=== PATIENT | male | born 1950 | race Caucasian/White ===

== ENCOUNTER → 2018-02-13 06:46 | Outpatient (CLI) | payer MEDICARE, SELFPAY ==
--- NOTE | 2018-02-13 11:22 | PFT ---
INTRODUCTION: The patient is a 67-year-old male that presents for pulmonary function studies secondary to a diagnosis of chronic cough. Respiratory therapy reports good patient effort. Bronchodilators were used during testing. INTERPRETATION: Forced expiration spirometry demonstrates no evidence of a large airways obstructive ventilatory defect. There was no significant response to aerosolized bronchodilators. Spirograms are of good quality and plateau normally. Body plethysmography was performed and reveals lung volumes to be within normal limits. Diffusing capacity by single breath CO is within normal limits. IMPRESSION: Essentially normal pulmonary function studies.
== END ==
PROVIDERS: Family Provider Family Medicine; PCP Family Medicine; Referring Provider Internal Medicine Critical Care Medicine; Visit Provider Internal Medicine Critical Care Medicine
DX: R05 Cough (principal); R06.09 Other forms of dyspnea
CPT/HCPCS: 94060; 94726; 94729

== ENCOUNTER → 2019-01-31 08:17 | Outpatient (CLI) | payer OTHER, SELFPAY ==
[2018-03-07 07:55] VITALS: BMI 25.2
[2019-01-31 10:11] LABS: Absolute Lymphocyte Count 1.56 X10^3/uL (0.83-4.51); Absolute Neutrophil Count 3.1 X10^3/uL (2.0-7.7); Basophil# 0.03 X10^3/uL; Basophil% 0.6 % (0-1); Eosinophil# 0.08 X10^3/uL; Eosinophils% 1.6 % (0-5); Hematocrit 47.2 % (40-54); Hemoglobin 15.8 g/dL (13.0-16.5); Lymphocyte # 1.56 X10^3/ul (4.0); Lymphocyte % 30.6 % (19-41); Mean Corp Hgb Conc 33.5 g/dL (32-36); Mean Corpuscular Hgb 31.9 pg (27.0-32.0); Mean Corpuscular Volume 95.4 fL (80-94); Mean Platelet Vol. 11.6 fl (6.2-12.0); Monocyte# 0.33 X10^3/uL; Monocyte% 6.5 % (0-10); NRBC Flagged by Analyzer 0 % (0-5); Neutrophil # 3.07 X10^3/uL (2.7-7.7); Neutrophil % 60.3 % (47-70); RBC Distribution Width CV 11.5 % (11.6-14.6); RBC Distribution Width SD 40.1 fl (35.1-43.9); Red Blood Count 4.95 M/mm3 (4.6-6.2); White Blood Count 5.1 K/mm3 (4.4-11.0)
[2019-01-31 10:38] LABS: ALB/GLOB Ratio 1.1 RATIO (0.9-2.4); AST(SGOT) 19 U/L (15-37); Alanine Aminotransfer ALT/SGPT 29 U/L (16-61); Albumin, Serum 3.8 g/dL (3.2-5.0); Alkaline Phosphatase 62 U/L (45-117); Anion Gap 5 (5-15); BUN 19 mg/dL (7-18); BUN/Creat Ratio 17.6 RATIO (10-20); Chloride 107 mmol/L (98-107); Cholesterol 194 mg/dL (200); Creatinine, Serum 1.08 mg/dL (0.70-1.30); EST Glomerular Filtration Rate 72 mL/min (>60); Est Glom Filt Rate - Afr Amer 88 mL/min (>60); Globulin 3.5 g/dL (2.2-4.2); Glucose 90 mg/dL (74-106); High Density Lipoprotein 64 mg/dL; PSA,Total - Annual Screen 1.41 ng/mL (0.00-4.00); Potassium 4.1 mmol/L (3.5-5.1); Protein, Total 7.3 g/dL (6.4-8.2); Sodium Level 140 mmol/L (136-145); Triglycerides 129 mg/dL; Very Low Density Lipoprotein 26 mg/dL (5-40)
[2019-01-31 10:45] LABS: Platelet Estimate ADEQUATE (ADEQ); Platelet Morphology CLUMPED
== END ==
PROVIDERS: Family Provider Family Medicine; PCP Family Medicine; Referring Provider Family Medicine; Visit Provider Family Medicine
DX: E78.00 Pure hypercholesterolemia, unspecified (principal); D69.6 Thrombocytopenia, unspecified; Z12.5 Encounter for screening for malignant neoplasm of prostate
CPT/HCPCS: 36415; 80053; 80061; 84153; 85025; G0103

== ENCOUNTER → 2019-05-16 09:28 | Outpatient (CLI) | payer MEDICARE, SELFPAY ==
--- NOTE | 2019-05-16 10:14 | MRI_ITS ---
STUDY: MRI RIGHT SHOULDER REASON FOR EXAM: Right shoulder pain and limited range of motion for 3 months, surgery 06/03/2002. TECHNIQUE: Standardized fat and water weighted pulse sequences were obtained in all 3 orthogonal planes. COMPARISON: MRI images 01/24/2011 and radiographs 06/12/2010. FINDINGS: There is postoperative scarring of the supraspinatus tendon and a small low-grade partial thickness tear of the articular surface of the distal anterior supraspinatus tendon (T2 coronal image 14) measuring approximately 0.4 cm in length, similar to the prior study. Normal infraspinatus tendon. There is a chronic full-thickness tear of the subscapularis tendon (proton density axial images 9, 10) similar to the prior study. Normal teres minor tendon. There is mild atrophy with mild partial fat replacement of the supraspinatus muscle (T2 axial image 5). Normal infraspinatus muscle. There is atrophy with partial fat replacement of the subscapularis muscle (T2 axial images 13-16). Normal teres minor muscle. There is also chondral cystic change of the superior glenoid. There is postoperative artifact in the anterior aspect of the greater tuberosity. There is nonvisualization of the intracapsular long biceps tendon as on the prior study, either secondary to chronic tear or biceps tenotomy. There is a tear of the superior labrum (T2 coronal images 8-10) as on the prior study. Normal capsulo- ligamentous complex. There is mild acromioclavicular arthrosis (T2 sagittal image 13) without substantial undersurface osteophytes. Status post subacromial decompression. There is a very small volume of subacromial-subdeltoid bursal fluid (T2 coronal images 10-13). Normal deltoid muscle. Normal trapezius muscle. 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 Small low-grade partial thickness tear similar to the prior study and postoperative scarring of the supraspinatus tendon. Atrophy of the subscapularis muscle and mild atrophy of the supraspinatus muscle. Nonvisualization of the intracapsular long biceps tendon as on the prior study. Chronic tear of the superior labrum. Mild acromioclavicular arthrosis. Very mild subacromial-subdeltoid bursitis. Electronically Signed: Rafi Puente MD at 11:36 EST Tel , Service support ,
== END ==
PROVIDERS: Family Provider Family Medicine; PCP Family Medicine; Referring Provider Orthopaedic Surgery; Visit Provider Orthopaedic Surgery
DX: S46.011A Strain of muscle(s) and tendon(s) of the rotator cuff of right shoulder, initial encounter (principal)
CPT/HCPCS: 73221

== ENCOUNTER → 2019-08-29 08:29 | Outpatient (CLI) | payer MEDICARE, SELFPAY ==
[2018-03-07 07:55] VITALS: BMI 25.2
[2019-08-29 09:50] LABS: Absolute Lymphocyte Count 1.82 X10^3/uL (0.83-4.51); Absolute Neutrophil Count 3.4 X10^3/uL (2.0-7.7); Basophil# 0.02 X10^3/uL; Basophil% 0.3 % (0-1); Eosinophil# 0.09 X10^3/uL; Eosinophils% 1.6 % (0-5); Hematocrit 45.9 % (40-54); Hemoglobin 15.3 g/dL (13.0-16.5); Lymphocyte # 1.82 X10^3/ul (4.0); Lymphocyte % 31.5 % (19-41); Mean Corp Hgb Conc 33.3 g/dL (32-36); Mean Corpuscular Hgb 31.4 pg (27.0-32.0); Mean Corpuscular Volume 94.1 fL (80-94); Mean Platelet Vol. 11.6 fl (6.2-12.0); Monocyte# 0.43 X10^3/uL; Monocyte% 7.4 % (0-10); NRBC Flagged by Analyzer 0 % (0-5); Neutrophil # 3.41 X10^3/uL (2.7-7.7); Platelet Count 100 K/mm3 (150-450); RBC Distribution Width CV 11.7 % (11.6-14.6); RBC Distribution Width SD 40.5 fl (35.1-43.9); Red Blood Count 4.88 M/mm3 (4.6-6.2); White Blood Count 5.8 K/mm3 (4.4-11.0)
[2019-08-29 10:20] LABS: ALB/GLOB Ratio 1.2 RATIO (0.9-2.4); AST(SGOT) 19 U/L (15-37); Alanine Aminotransfer ALT/SGPT 29 U/L (16-61); Alkaline Phosphatase 63 U/L (45-117); Anion Gap 7 (5-15); BUN 22 mg/dL (7-18); BUN/Creat Ratio 22.4 RATIO (10-20); Calcium,Total 8.9 mg/dL (8.5-10.1); Chloride 105 mmol/L (98-107); Cholesterol 198 mg/dL (200); Creatinine, Serum 0.98 mg/dL (0.70-1.30); EST Glomerular Filtration Rate 81 mL/min (>60); Est Glom Filt Rate - Afr Amer 98 mL/min (>60); Globulin 3.4 g/dL (2.2-4.2); Glucose 88 mg/dL (74-106); High Density Lipoprotein 65 mg/dL; Protein, Total 7.4 g/dL (6.4-8.2); Sodium Level 140 mmol/L (136-145); Triglycerides 65 mg/dL; Very Low Density Lipoprotein 13 mg/dL (5-40)
== END ==
PROVIDERS: PCP Family Medicine; Referring Provider Family Medicine; Visit Provider Family Medicine
DX: E78.00 Pure hypercholesterolemia, unspecified (principal); K21.9 Gastro-esophageal reflux disease without esophagitis
CPT/HCPCS: 36415; 80053; 80061; 85025

== ENCOUNTER → 2019-09-16 08:46 | Outpatient (CLI) | payer MEDICARE, SELFPAY ==
[2019-09-16 10:07] LABS: AST(SGOT) 20 U/L (15-37); Alanine Aminotransfer ALT/SGPT 30 U/L (16-61); Albumin, Serum 3.9 g/dL (3.2-5.0); Alkaline Phosphatase 62 U/L (45-117); Bilirubin, Direct 0.27 mg/dL (0.00-0.30); Globulin 3.5 g/dL (2.2-4.2); Protein, Total 7.4 g/dL (6.4-8.2)
== END ==
PROVIDERS: PCP Family Medicine; Referring Provider Family Medicine; Visit Provider Family Medicine
DX: E80.6 Other disorders of bilirubin metabolism (principal)
CPT/HCPCS: 36415; 80076

== ENCOUNTER → 2019-12-23 07:04 | Outpatient (CLI) | payer MEDICARE, SELFPAY ==
[2019-12-04 08:13] VITALS: BMI 26.8
--- NOTE | 2019-12-23 07:05 | ECHOD_ITS ---
Reason For Study: Chest Pain Procedure This was a 2D Doppler, Color Flow transthoracic echocardiogram. Myocardial strain analysis was performed in this exam to aid in the assessment of cardiac function. Exam performed in department. Left Ventricle Normal LV size. Left ventricular systolic function is normal. The estimated ejection fraction is 55 %. Stage 1 diastolic dysfunction. No regional wall motion abnormalities noted. Right Ventricle Normal RV size. Normal systolic function. Atria Normal left atrium. Normal right atrium. Mitral Valve Normal mitral valve. Tricuspid Valve Normal tricuspid valve. Mild tricuspid valve insufficiency. Aortic Valve Normal aortic valve. Trisinus/trileaflet aortic valve. Pulmonic Valve Normal pulmonic valve. Great Vessels Normal aortic root. The pulmonary artery is normal size. Normal inferior vena cava. Pericardium/Pleural No pericardial effusion. MMode/2D Measurements & Calculations LVIDd: 4.2 cm IVSd: 1.3 cm Ao root diam: 3.6 cm LVIDs: 2.9 cm LVPWd: 1.2 cm LA dimension: 3.3 cm RVDd: 2.4 cm FS: 29.6 % LAV(MOD-bp): 35.5 ml LA A4 area: 14.4 cm2 RA A4 area: 10.7 cm2 LAV(MOD-bp) Indexed: 19.4 ml/m2 LAV(MOD-sp2): 33.2 ml LAV(MOD-sp4): 37.2 ml Time Measurements MV dec time: 0.24 sec Doppler Measurements & Calculations MV E max parth: 66.8 cm/sec Lat Peak E' Parth: 5.7 cm/sec Med Peak E' Parth: 4.5 cm/sec MV A max parth: 87.6 cm/sec E/E' lat: 11.6 E/E' med: 15.0 MV E/A: 0.76 MV V2 max: 89.7 cm/sec MV P1/2t max parth: 75.5 cm/sec Ao V2 max: 121.0 cm/sec MV max P.2 mmHg MV P1/2t: 72.0 msec Ao max P.9 mmHg MV V2 mean: 55.1 cm/sec MV dec slope: 307.0 cm/sec2 MV mean P.4 mmHg MVA(P1/2t): 3.1 cm2 MV V2 VTI: 25.3 cm LV V1 max: 89.8 cm/sec PA V2 max: 80.9 cm/sec PI end-d parth: 77.0 cm/sec LV V1 max P.2 mmHg TR max parth: 229.0 cm/sec TR max P.0 mmHg Interpretation Summary Normal LV size. Left ventricular systolic function is normal. The estimated ejection fraction is 55 %. Stage 1 diastolic dysfunction. The global longitudinal strain is mildly abnormal. The global longitudinal strain = -15.1% (abnormal). Ordering Physician: Jordon Benavides MD Referring Physician: Taras Workman Performed By: Manuel Umana RCS
--- NOTE | 2019-12-23 09:18 | STRESSREP ---
Stress Test Report Exercise myocardial perfusion stress test. 69-year-old male with a significant family history of coronary disease. Stress protocol: Resting KG demonstrates normal sinus rhythm with a rate of 74 bpm normal intervals are noted resting blood pressure is 146/94 mmHg. The patient exercised according to the regular Hoang protocol for a total duration of 10 minutes and 30 seconds. The maximum heart rate attained was 171 bpm which was 112% of maximum predicted heart rate. Patient completed 1 minute and 30 seconds into stage IV of the Hoang protocol. At rest there were no ST or T wave changes noted to suggest ischemia at peak exercise upsloping ST changes only were noted with no meet the criteria for ischemia. Resting blood pressure was 146/94 with a peak blood pressure 172/88 mmHg rate-pressure product was 22,500. No clinical angina was noted the test was terminated due to attainment of target heart rate. Myocardial perfusion protocol. 10.0 mCi of technetium 99m sestamibi was injected at rest. The patient exercised according to regular Hoang protocol peak exercise 31.2 mCi of technetium 99m sestamibi was injected stress images were obtained stress and rest images were reconstructed and compared in the short axis vertical long horizontal long axis. Gated images were also obtained Perfusion SPECT analysis: Review of the stress images demonstrate normal uptake of tracer noted in all areas of myocardium the resting images similar demonstrate normal uptake of tracer noted in all areas of the myocardium. No reversibility is noted suggest ischemia no previous infarct is noted. Gated SPECT analysis: The gated ejection fraction is noted to be 61%. Conclusion: Normal exercise myocardial perfusion stress test at a high workload. Preserved ejection fraction.
== END ==
PROVIDERS: PCP Family Medicine; Referring Provider Internal Medicine Cardiovascular Disease; Visit Provider Internal Medicine Cardiovascular Disease
DX: R07.9 Chest pain, unspecified (principal)
CPT/HCPCS: 78452; 93017; 93306; A9500; A4216

== ENCOUNTER → 2020-03-03 09:08 | Outpatient (CLI) | payer MEDICARE, SELFPAY ==
[2019-12-04 08:13] VITALS: BMI 26.8
== END ==
PROVIDERS: PCP Family Medicine; Referring Provider Family Medicine; Visit Provider Family Medicine
DX: Z12.5 Encounter for screening for malignant neoplasm of prostate (principal)
CPT/HCPCS: 36415; 84153; G0103

== ENCOUNTER → 2020-03-30 | Outpatient (CLI) | payer MEDICARE, SELFPAY ==
[2019-12-04 08:13] VITALS: BMI 26.8
[2020-03-30 13:38] LABS: Bacteria 0 SEEN /hpf (None Seen); Mucous, Urine 0 SEEN /hpf (<or=2+); Squamous Epithelial Cells - UA 0 SEEN /hpf (0-5); White Blood Cells 0 SEEN /hpf (0-5)
[2020-03-30 14:12] LABS: Color, Urine Yellow (Yellow); Glucose, Dipstick Normal (Normal); Ketone-Dipstick Negative (Negative); Leukocyte Esterase-Dipstick Negative /ul (Negative); Nitrite-Dipstick Negative (Negative); Occult Blood-Urine 25 /ul (Negative); Protein-Dipstick Negative (Negative); Specific Gravity, Urine 1.015 (1.002-1.030); Urine Bilirubin Dipstick Negative (Negative); Urine Clarity Clear (Clear); Urine Urobilinogen Normal (Normal)
[2020-03-30 14:29] LABS: Red Blood Cells-Urine 0-5 SEEN /hpf (0-5)
== END | disposition home or self-care (01) ==
LOC: LABSPEC 12:46
PROVIDERS: PCP Family Medicine; Visit Provider Nurse Practitioner Adult Health
DX: R31.29 Other microscopic hematuria (principal)
CPT/HCPCS: 81001

== ENCOUNTER → 2020-05-06 14:23 | Outpatient (CLI) | payer MEDICARE, SELFPAY ==
[2019-12-04 08:13] VITALS: BMI 26.8
[2020-05-06 18:14] LABS: ALB/GLOB Ratio 1.1 RATIO (0.9-2.4); AST(SGOT) 17 U/L (15-37); Alanine Aminotransfer ALT/SGPT 33 U/L (16-61); Albumin, Serum 3.7 g/dL (3.2-5.0); Alkaline Phosphatase 64 U/L (45-117); Anion Gap 6 (5-15); BUN 23 mg/dL (7-18); BUN/Creat Ratio 20.5 RATIO (10-20); CPK Total, Creatine Kinase 162 U/L (39-308); Calcium,Total 8.6 mg/dL (8.5-10.1); Chloride 108 mmol/L (98-107); Creatinine, Serum 1.12 mg/dL (0.70-1.30); EST Glomerular Filtration Rate 69 mL/min (>60); Est Glom Filt Rate - Afr Amer 84 mL/min (>60); Ferritin 63 ng/mL (26-388); Globulin 3.3 g/dL (2.2-4.2); Glucose 120 mg/dL (74-106); Magnesium 2.3 mg/dL (1.6-2.6); Potassium 4.2 mmol/L (3.5-5.1); Sodium Level 141 mmol/L (136-145)
[2020-05-07 10:20] LABS: Hemoglobin A1c 5.4 % (3.8-5.6)
== END ==
PROVIDERS: PCP Family Medicine; Visit Provider Family Medicine
DX: M62.81 Muscle weakness (generalized) (principal); R73.09 Other abnormal glucose; C44.91 Basal cell carcinoma of skin, unspecified
CPT/HCPCS: 36415; 80053; 82550; 82728; 83036; 83735

== ENCOUNTER → 2020-09-02 08:17 | Outpatient (CLI) | payer MEDICARE, SELFPAY ==
[2019-12-04 08:13] VITALS: BMI 26.8
[2020-09-02 10:27] LABS: Absolute Lymphocyte Count 1.65 X10^3/uL (0.83-4.51); Absolute Neutrophil Count 3.5 X10^3/uL (2.0-7.7); Basophil# 0.02 X10^3/uL; Basophil% 0.4 % (0-1); Eosinophil# 0.07 X10^3/uL; Eosinophils% 1.2 % (0-5); Hemoglobin 15.6 g/dL (13.0-16.5); Lymphocyte # 1.65 X10^3/ul (0.83-4.51); Lymphocyte % 29.3 % (19-41); Mean Corp Hgb Conc 33.2 g/dL (32-36); Mean Corpuscular Hgb 31.9 pg (27.0-32.0); Mean Corpuscular Volume 96.1 fL (80-94); Mean Platelet Vol. 11.8 fl (6.2-12.0); Monocyte# 0.41 X10^3/uL; Monocyte% 7.3 % (0-10); NRBC Flagged by Analyzer 0 % (0-5); Neutrophil # 3.46 X10^3/uL (2.7-7.7); Neutrophil % 61.4 % (47-70); POSITIVE COUNT YES; Platelet Count 97 K/mm3 (150-450); RBC Distribution Width CV 11.7 % (11.6-14.6); RBC Distribution Width SD 40.9 fl (35.1-43.9); Red Blood Count 4.89 M/mm3 (4.6-6.2); White Blood Count 5.6 K/mm3 (4.4-11.0)
[2020-09-02 10:30] LABS: Differential Indicated SCAN CRITERIA MET
[2020-09-02 10:47] LABS: ALB/GLOB Ratio 1.2 RATIO (0.9-2.4); AST(SGOT) 16 U/L (15-37); Alanine Aminotransfer ALT/SGPT 30 U/L (16-61); Albumin, Serum 3.9 g/dL (3.2-5.0); Alkaline Phosphatase 64 U/L (45-117); Anion Gap 3 (5-15); BUN 30 mg/dL (7-18); BUN/Creat Ratio 27.5 RATIO (10-20); Calcium,Total 9.2 mg/dL (8.5-10.1); Chloride 106 mmol/L (98-107); Cholesterol 200 mg/dL (200); Creatinine, Serum 1.09 mg/dL (0.70-1.30); EST Glomerular Filtration Rate 71 mL/min (>60); Est Glom Filt Rate - Afr Amer 86 mL/min (>60); Globulin 3.3 g/dL (2.2-4.2); Glucose 93 mg/dL (74-106); High Density Lipoprotein 71 mg/dL; Potassium 3.9 mmol/L (3.5-5.1); Protein, Total 7.2 g/dL (6.4-8.2); Sodium Level 139 mmol/L (136-145); Triglycerides 84 mg/dL; Very Low Density Lipoprotein 17 mg/dL (5-40)
[2020-09-02 10:52] LABS: Platelet Estimate MOD DEC (ADEQ)
== END ==
PROVIDERS: PCP Family Medicine; Referring Provider Family Medicine; Visit Provider Family Medicine
DX: E78.00 Pure hypercholesterolemia, unspecified (principal); K21.9 Gastro-esophageal reflux disease without esophagitis
CPT/HCPCS: 36415; 80053; 80061; 85025

== ENCOUNTER 2020-11-13 18:02 | Emergency (ER) | payer MEDICARE, SELFPAY ==
[2019-12-04 08:13] VITALS: BMI 26.8
[2020-11-13 18:03] VITALS: BP 156/104; PULSE 82; RESP 16; TEMP 36.2; O2SAT 95; BMI 26.6
--- NOTE | 2020-11-13 18:30 | EKG12_ITS ---
Test Reason : CP Blood Pressure : / mmHG Vent. Rate : 073 BPM Atrial Rate : 073 BPM P-R Int : 144 ms QRS Dur : 082 ms QT Int : 376 ms P-R-T Axes : 043 016 047 degrees QTc Int : 414 ms Normal sinus rhythm Normal ECG Confirmed by FRANCISCO BROWER, WANDER ([id number]), photographic editor AUREA HOPPER ([id number]) on 11/16/2020 1:20:31 PM Referred By: BOB Confirmed By:WANDER SINGH MD
--- NOTE | 2020-11-13 18:30 | RAD_ITS ---
STUDY: X-RAY CHEST REASON FOR EXAM: Male, 70 years old. chest pain TECHNIQUE: 1 view COMPARISON: None. FINDINGS: The lungs are clear and expanded. There is no demonstrated pleural abnormality. Normal size heart. Normal mediastinum and sergey. Normal visualized pulmonary arteries. There is atherosclerotic calcification of the aortic arch with tortuosity. Normal visualized thoracic spine. Normal visualized ribs, clavicles, and shoulders. There is no demonstrated abnormality of the visualized soft tissue structures of the upper abdomen. RAD/Chest 1 View (Portable) IMPRESSION: No acute pulmonary findings. Negative for major consolidation, focal atelectasis or substantial pleural effusion. Normal cardiac size. Atherosclerotic changes of the aorta. Electronically Signed: Kortney Jimenez MD at 20:14 EDT , Service support ,
[2020-11-13 19:03] VITALS: BP 144/103; PULSE 78; RESP 16; O2SAT 94
--- NOTE | 2020-11-13 19:08 | EX.ED.DYSGE1 ---
HPI History of Present Illness Chief Complaint: Chest Pain Informant: patient Narrative Narrative: Patient is a 70-year-old male with a past medical history of GERD, hyperlipidemia who presents to the emergency department for a 45-minute episode of epigastric/sternal pain/pressure. He has had these symptoms before in the past when at nighttime. They have never been this long before. He felt some pain in his jaw as well as some achiness in his left arm. All of his symptoms are currently resolved. He did not have any shortness of breath with this. No nausea or vomiting. He denies any recent illness including any cough, cold, congestion. No pain in the back. He does not know aggravating or relieving factors for this. He has not taken anything for it and it goes away on its own. He states he did have a stress test approximately 1 year ago. No personal history of CAD, stroke, thromboembolism. He denies any swelling or pain in his legs. No smoking history. [facility] Medical History (Updated 11/13/20 @ 21:[address] Ector Reid DO) Basal cell carcinoma GERD (gastroesophageal reflux disease) Hiatal hernia Hyperlipidemia Home Medications simvastatin 20 mg PO QHS 12/10/13 [History Last Taken Unknown] multivitamin with folic acid 1 tab PO DAILY 12/12/13 [History Last Taken Unknown] pantoprazole 40 mg tablet,delayed release 40 mg PO DAILY PRN tab 12/04/19 [History Last Taken Unknown] prevagen 1 tab PO DAILY 12/04/19 [History Last Taken Unknown] coenzyme Q10 [CoQ-10] 100 mg PO DAILY 11/13/20 [History Last Taken Unknown] Allergy/AdvReac Type Severity Reaction Status Date / Time Penicillins Allergy Unknown Verified 11/13/20 18:05 Family History Father Lung cancer Brother No problems noted. Sister CVA (cerebral vascular accident) carotid artery disease Other Heart disease Surgical History H/O colonoscopy H/O endoscopy H/O rotator cuff surgery History of back surgery History of surgery on upper extremity Social History (Updated 12/04/19 @ 09:[address] Jordon Benavides MD) Smoking Status: Never smoker alcohol intake: never substance use type: does not use ROS ROS ED Constitutional Constitutional ED: Denies chills or fever(s) Eyes Eyes: Denies change in vision ENT ENT ED: Denies epistaxis or rhinorrhea Cardiovascular Cardiovascular: Reports chest pain; Denies palpitations Respiratory/Chest Respiratory/Chest: Denies cough, dyspnea or dyspnea on exertion Gastrointestinal Gastrointestinal: Denies abdominal pain, diarrhea, nausea or vomiting Musculoskeletal Musculoskeletal: Denies back pain or neck pain Integumentary Denies rash Neurologic Neurologic: Denies dizziness, headache(s) or weakness EXAM Physical Exam Const Vital Signs: 11/13/20 18:03 11/13/20 18:30 11/13/20 19:03 Temperature 97.2 F L Temperature Source Temporal Pulse Rate 82 78 Respiratory Rate 16 16 Respiratory Effort Normal Non-Labored Respiratory Pattern Normal Blood Pressure 156/104 H 144/103 H Blood Pressure Mean 121 116 Pulse Ox 95 94 Oxygen Delivery Method Room Air Room Air Room Air 11/13/20 20:00 11/13/20 21:00 11/13/20 21:52 Temperature Temperature Source Pulse Rate 80 82 81 Respiratory Rate 16 15 18 Respiratory Effort Respiratory Pattern Blood Pressure 148/104 H 157/104 H 154/106 H Blood Pressure Mean 118 121 Pulse Ox 95 97 98 Oxygen Delivery Method Room Air Room Air Positive well nourished and well developed General Appearance ED: well developed and NAD HEENT Reports normocephalic, head/scalp atraumatic and moist mucous membranes Eyes PERRL and EOMs intact bilaterally Neck supple Chest Wall inspection of chest normal Resp normal respiratory effort and clear to auscultation bilaterally Auscultation: Negative for rales, rhonchi or wheezes Cardio regular rate, regular rhythm and no murmurs GI normal to inspection, nondistended, normoactive bowel sounds and non-tender Palpation: soft; Negative for guarding or rebound tenderness present Back/Spine no CVA tenderness Extremity normal to inspection General Extremety ED: Negative for edema or tenderness General Extremity: Negative for edema Neuro oriented x3, CN's II-XII intact bilaterally and no sensory deficits noted Sensorium / Orientation: alert Motor Exam: strength 5/5 throughout Psych mental status grossly normal Skin no rashes or lesions noted MDM MDM MDM Narrative Medical decision making narrative: Patient presents the [facility] department for an episode of chest pain. He is currently asymptomatic. On arrival to the ED is mildly hypertensive but otherwise normal vital signs. EKG, chest x-ray basic lab work being performed. Patient's lab work did not reveal a significant acute abnormality. His troponin is within normal limits. He has a heart score of 3. He was willing to stay for repeat troponin which was negative. He otherwise has been asymptomatic. At this time I have very low concern for ACS, thromboembolism, aortic catastrophe. He does have GERD medications he will start retaking at home. He is to follow-up with his PCP on Monday morning. I do recommend he get a stress test. If he develops any repeat symptoms or persistent symptoms he needs to come back to the ED for reevaluation. He understands and is agreeable this plan. Discharged home in stable condition. All questions were answered. Lab Data Labs: Laboratory Results - last 24 hr 11/13/20 11/13/20 11/13/20 18:47 18:47 20:46 WBC 7.0 RBC 4.82 Hgb 15.3 Hct 45.5 MCV 94.4 H MCH 31.7 MCHC 33.6 RDW Std Deviation 40.6 RDW Coeff of Christy 11.8 Plt Count 118 L MPV 11.6 Immature Gran % (Auto) 0.300 Neut % (Auto) 63.8 Lymph % (Auto) 27.7 [place] % (Auto) 6.8 Eos % (Auto) 1.1 Baso % (Auto) 0.3 Absolute Neuts (auto) 4.4 Absolute Lymphs (auto) 1.93 Nucleated RBC % 0 Sodium 138 Potassium 4.3 Chloride 105 Carbon Dioxide 29.0 Anion Gap 4 L BUN 26 H Creatinine 1.01 Estim Creat Clear Calc 62.29 Est GFR (MDRD) Af Amer 94 Est GFR (MDRD) Non-Af 78 BUN/Creatinine Ratio 25.7 H Glucose 90 Calcium 8.8 Troponin I High Sens 5.5 5.9 Radiography Diagnostic Testing: Radiology Impression Chest X-Ray 11/13/20 18:30 IMPRESSION: No acute pulmonary findings. Negative for major consolidation, focal atelectasis or substantial pleural effusion. Normal cardiac size. Atherosclerotic changes of the aorta. Electronically Signed: Kortney Jimenez MD at 20:14 EDT , Service support , EKG Initial EKG: Attestation: I personally reviewed and interpreted this EKG as follows: (Rate of 73 bpm and normal sinus rhythm. Normal intervals. Normal axis. No significant ST elevations or depressions. No T wave abnormalities.) Discharge Plan Triage Chief Complaint: Chest Pain ED Provider: Ector Reid Dx/Rx/DC Orders Clinical Impression: Chest pain Instructions: ED Chest Pain [facility] Prescriptions: No Action prevagen 1 tab PO DAILY RF: 0 pantoprazole 40 mg tablet,delayed release (DR/EC) 40 mg PO DAILY PRN (Reason: Gastric Reflux) RF: 0 simvastatin 20 MG tablet 20 mg PO QHS RF: 0 multivitamin with folic acid 1 TABLET tablet 1 tab PO DAILY RF: 0 coenzyme Q10 [CoQ-10] 100 mg Capsule 100 mg PO DAILY RF: 0 Primary Care Provider: Taras Workman Referrals: Taras Workman MD [Primary Care Provider] - As soon as possible Disposition Disposition: Home, Self Care Discharge Date/Time: 11/13/20 21:52
[2020-11-13 19:14] LABS: Absolute Lymphocyte Count 1.93 X10^3/uL (0.83-4.51); Absolute Neutrophil Count 4.4 X10^3/uL (2.0-7.7); Basophil# 0.02 X10^3/uL; Basophil% 0.3 % (0-1); Eosinophil# 0.08 X10^3/uL; Eosinophils% 1.1 % (0-5); Hematocrit 45.5 % (40-54); Hemoglobin 15.3 g/dL (13.0-16.5); Lymphocyte # 1.93 X10^3/ul (0.83-4.51); Lymphocyte % 27.7 % (19-41); Mean Corp Hgb Conc 33.6 g/dL (32-36); Mean Corpuscular Hgb 31.7 pg (27.0-32.0); Mean Corpuscular Volume 94.4 fL (80-94); Mean Platelet Vol. 11.6 fl (6.2-12.0); Monocyte# 0.47 X10^3/uL; Monocyte% 6.8 % (0-10); NRBC Flagged by Analyzer 0 % (0-5); Neutrophil # 4.44 X10^3/uL (2.7-7.7); Neutrophil % 63.8 % (47-70); POSITIVE COUNT NO; POSITIVE DIFFERENTIAL NO; POSITIVE MORPHOLOGY NO; Platelet Count 118 K/mm3 (150-450); RBC Distribution Width CV 11.8 % (11.6-14.6); RBC Distribution Width SD 40.6 fl (35.1-43.9); Red Blood Count 4.82 M/mm3 (4.6-6.2)
[2020-11-13 19:35] LABS: Anion Gap 4 (5-15); BUN 26 mg/dL (7-18); BUN/Creat Ratio 25.7 RATIO (10-20); Calcium,Total 8.8 mg/dL (8.5-10.1); Chloride 105 mmol/L (98-107); Creatinine, Serum 1.01 mg/dL (0.70-1.30); EST Glomerular Filtration Rate 78 mL/min (>60); Est Glom Filt Rate - Afr Amer 94 mL/min (>60); Estimated Creatinine Clearance 62.29 ml/min; Glucose 90 mg/dL (74-106); Potassium 4.3 mmol/L (3.5-5.1); Sodium Level 138 mmol/L (136-145); Troponin-I HS 5.5 pg/mL (3.0-78.5)
[2020-11-13 20:00] VITALS: BP 148/104; PULSE 80; RESP 16; O2SAT 95
[2020-11-13 21:00] VITALS: BP 157/104; PULSE 82; RESP 15; O2SAT 97
[2020-11-13 21:33] LABS: Troponin-I HS 5.9 pg/mL (3.0-78.5)
[2020-11-13 21:52] VITALS: BP 154/106; PULSE 81; RESP 18; O2SAT 98
== END 2020-11-13 21:52 | disposition home or self-care (01) ==
PROVIDERS: Emergency Provider Emergency Medicine; PCP Family Medicine
DX: R07.89 Other chest pain (principal); E78.5 Hyperlipidemia, unspecified; K21.9 Gastro-esophageal reflux disease without esophagitis; K44.9 Diaphragmatic hernia without obstruction or gangrene; Z79.899 Other long term (current) drug therapy
CPT/HCPCS: 71045; 80048; 84484; 85025; 93005; 99285; A4216

== ENCOUNTER → 2020-11-24 11:55 | Outpatient (CLI) | payer MEDICARE, SELFPAY ==
[2020-11-13 18:03] VITALS: BMI 26.6
--- NOTE | 2020-11-24 16:54 | STRESSREP ---
Stress Test Report Exercise test. 70-year-old man with a history of chest pain. Resting EKG demonstrates normal sinus rhythm with a rate of 77 bpm normal intervals are noted resting blood pressure is 138/84 mmHg. The patient exercised according to regular Hoang protocol for a total duration of 10 minutes and 59 seconds. Patient completed 2 minutes of stage IV of the Hoang protocol. The maximum heart rate attained was 179 bpm which was 118% of maximum predicted heart rate the maximum workload was 13.3 metabolic equivalents. The patient maintained sinus rhythm throughout the recording. At rest there were no ST or T wave changes noted to suggest ischemia no clinical angina was noted occasional premature atrial atrial complex was present only. The test was terminated due to the target heart rate being achieved. The peak blood pressure was 170/88 mmHg which was a normal blood pressure response to exercise the rate-pressure product was 28,600. Conclusion: Exercise stress test with no EKG criteria for ischemia at a high workload. Excellent functionally capacity.
== END ==
PROVIDERS: PCP Family Medicine; Referring Provider Family Medicine; Visit Provider Family Medicine
DX: R07.9 Chest pain, unspecified (principal)
CPT/HCPCS: 93017

== ENCOUNTER → 2021-03-05 09:11 | Outpatient (CLI) | payer MEDICARE, SELFPAY ==
[2021-03-05 12:35] LABS: PSA,Total - Annual Screen 1.71 ng/mL (0.00-4.00)
== END ==
PROVIDERS: PCP Family Medicine; Referring Provider Family Medicine; Visit Provider Family Medicine
DX: Z12.5 Encounter for screening for malignant neoplasm of prostate (principal)
CPT/HCPCS: 36415; 84153; G0103

== ENCOUNTER → 2021-04-26 14:28 | Outpatient (CLI) | payer MEDICARE, SELFPAY | PROVIDERS: PCP Family Medicine; Visit Provider Urology | DX: Z00.00 Encounter for general adult medical examination without abnormal findings (principal) ==

== ENCOUNTER 2021-06-25 13:55 | Outpatient (CLI) | payer MEDICARE, SELFPAY ==
--- NOTE | 2021-06-25 13:58 | RAD_ITS ---
STUDY: X-RAY - ACUTE ABDOMINAL SERIES REASON FOR EXAM: Male, 70 years old. ABDOMINAL PAIN TECHNIQUE: Single view of the chest. Supine, view(s) of the abdomen were obtained. COMPARISON: None. FINDINGS: The lungs are clear and expanded. Normal size heart. Normal mediastinum and sergey. Normal visualized pulmonary arteries. Normal visualized aortic arch and descending thoracic aorta. There is a non-specific bowel gas pattern. There are 2 stones in the left kidney measuring respectively 2 mm and 8 mm respectively. There are diffuse degenerative changes of the visualized lumbar spine. There is dextro sclerosis of the lumbar spine, the angle measures 26 degrees. RAD/Acute Abdomen Inc Chest IMPRESSION: There are 2 stones in the left kidney measuring respectively 2 mm and 8 mm respectively. Electronically Signed: Lobito Perez MD at 3:08 EST ,
[2021-06-25 14:58] LABS: Absolute Lymphocyte Count 2.09 X10^3/uL (0.83-4.51); Absolute Neutrophil Count 3.9 X10^3/uL (2.0-7.7); Basophil# 0.03 X10^3/uL; Basophil% 0.5 % (0-1); Eosinophils% 1.5 % (0-5); Hematocrit 46.8 % (40-54); Hemoglobin 15.6 g/dL (13.0-16.5); Lymphocyte # 2.09 X10^3/ul (0.83-4.51); Mean Corp Hgb Conc 33.3 g/dL (32-36); Mean Corpuscular Hgb 31.6 pg (27.0-32.0); Mean Corpuscular Volume 94.7 fL (80-94); Mean Platelet Vol. 11.4 fl (6.2-12.0); Monocyte# 0.41 X10^3/uL; Monocyte% 6.3 % (0-10); NRBC Flagged by Analyzer 0 % (0-5); Neutrophil % 59.5 % (47-70); POSITIVE COUNT YES; Platelet Count 99 K/mm3 (150-450); RBC Distribution Width CV 11.7 % (11.6-14.6); RBC Distribution Width SD 40.3 fl (35.1-43.9); Red Blood Count 4.94 M/mm3 (4.6-6.2); White Blood Count 6.5 K/mm3 (4.4-11.0)
[2021-06-25 15:21] LABS: ALB/GLOB Ratio 1.2 RATIO (0.9-2.4); AST(SGOT) 21 U/L (15-37); Alanine Aminotransfer ALT/SGPT 34 U/L (16-61); Albumin, Serum 3.8 g/dL (3.2-5.0); Alkaline Phosphatase 63 U/L (45-117); Anion Gap 4 (5-15); BUN 19 mg/dL (7-18); BUN/Creat Ratio 18.1 RATIO (10-20); Calcium,Total 8.8 mg/dL (8.5-10.1); Chloride 107 mmol/L (98-107); Creatinine, Serum 1.05 mg/dL (0.70-1.30); EST Glomerular Filtration Rate 74 mL/min (>60); Est Glom Filt Rate - Afr Amer 90 mL/min (>60); Globulin 3.3 g/dL (2.2-4.2); Glucose 76 mg/dL (74-106); Lipase 72 U/L (73-393); Potassium 4.5 mmol/L (3.5-5.1); Protein, Total 7.1 g/dL (6.4-8.2); Sodium Level 139 mmol/L (136-145)
== END 2021-06-25 23:59 | disposition home or self-care (01) ==
LOC: MTLAB 13:57
PROVIDERS: PCP Family Medicine; Referring Provider Family Medicine; Visit Provider Family Medicine
DX: R10.9 Unspecified abdominal pain (principal)
CPT/HCPCS: 36415; 74019; 74022; 80053; 83690; 85025

== ENCOUNTER 2021-06-29 11:02 | Outpatient (CLI) | payer MEDICARE, SELFPAY ==
[2021-06-29 12:53] LABS: AST(SGOT) 22 U/L (15-37); Alanine Aminotransfer ALT/SGPT 31 U/L (16-61); Albumin, Serum 3.7 g/dL (3.2-5.0); Alkaline Phosphatase 58 U/L (45-117); Bilirubin, Direct 0.26 mg/dL (0.00-0.30); Globulin 3.3 g/dL (2.2-4.2)
== END 2021-06-29 23:59 | disposition home or self-care (01) ==
LOC: MFPLAB 11:05
PROVIDERS: PCP Family Medicine; Referring Provider Family Medicine; Visit Provider Family Medicine
DX: E80.6 Other disorders of bilirubin metabolism (principal)
CPT/HCPCS: 36415; 80076

== ENCOUNTER 2021-07-02 11:45 | Outpatient (CLI) | payer MEDICARE, SELFPAY ==
--- NOTE | 2021-07-02 11:49 | US_ITS ---
STUDY: RENAL ULTRASOUND - COMPLETE REASON FOR EXAM: Male, 70 years old. CALCULUS OF KIDNEY TECHNIQUE: Ultrasound evaluation of the kidneys was performed with real-time and static loo-scale imaging. COMPARISON: None. FINDINGS: RIGHT KIDNEY: Normal location of the right kidney, which is normal in size. The right kidney measures 9.3 cm x 5.7 cm x 4.9 cm. There is a normal cortex of the right kidney. The renal cortex measures 1.8 cm. There is no right renal mass or cyst. 4 mm calculus in the midpole calyx. There is no right hydronephrosis. DISTAL RIGHT URETER: There is non-visualization of the distal right ureter. There is no demonstrated right ureterovesical junction calculus. There is a visualized right ureteral jet. LEFT KIDNEY: Normal location of the left kidney, which is normal in size. The left kidney measures 10 cm x 4.2 cm x 6 cm. There is a normal cortex of the left kidney. The renal cortex measures 1.3 cm. 2.9 cm x 2.3 cm x 2.9 cm renal cyst. 4 mm an 8 mm nonobstructive intrarenal calculi are seen. There is no left hydronephrosis. DISTAL LEFT URETER: There is non-visualization of the distal left ureter. There is no demonstrated left ureterovesical junction calculus. There is a visualized left ureteral jet. BLADDER: The distended urinary bladder has a volume of 195 ml. There is a normal wall thickness of the distended urinary bladder. There is no demonstrated mass within the urinary bladder. There are no demonstrated bladder calculi. US/Kidney and Bladder IMPRESSION: Small bilateral nonobstructive intrarenal calculi. Left renal cyst. Electronically Signed: Jorge A Vu MD at 14:33 EST ,
== END 2021-07-02 23:59 | disposition home or self-care (01) ==
LOC: US 11:45
PROVIDERS: PCP Family Medicine; Referring Provider Family Medicine; Visit Provider Family Medicine
DX: N20.0 Calculus of kidney (principal)
CPT/HCPCS: 76770

== ENCOUNTER → 2021-09-01 | Outpatient (CLI) | payer MEDICARE, SELFPAY ==
[2021-09-01 10:07] LABS: Absolute Lymphocyte Count 1.76 X10^3/uL (0.83-4.51); Absolute Neutrophil Count 3.4 X10^3/uL (2.0-7.7); Basophil# 0.02 X10^3/uL; Basophil% 0.4 % (0-1); Eosinophil# 0.06 X10^3/uL; Eosinophils% 1.1 % (0-5); Hematocrit 46.4 % (40-54); Hemoglobin 15.7 g/dL (13.0-16.5); Lymphocyte # 1.76 X10^3/ul (0.83-4.51); Lymphocyte % 31.7 % (19-41); Mean Corp Hgb Conc 33.8 g/dL (32-36); Mean Corpuscular Hgb 31.7 pg (27.0-32.0); Mean Corpuscular Volume 93.5 fL (80-94); Mean Platelet Vol. 11.4 fl (6.2-12.0); Monocyte# 0.35 X10^3/uL; Monocyte% 6.3 % (0-10); NRBC Flagged by Analyzer 0 % (0-5); Neutrophil # 3.36 X10^3/uL (2.7-7.7); Neutrophil % 60.3 % (47-70); POSITIVE COUNT YES; Platelet Count 88 K/mm3 (150-450); RBC Distribution Width CV 11.6 % (11.6-14.6); RBC Distribution Width SD 39.8 fl (35.1-43.9); Red Blood Count 4.96 M/mm3 (4.6-6.2); White Blood Count 5.6 K/mm3 (4.4-11.0)
[2021-09-01 10:08] LABS: Differential Indicated SCAN CRITERIA MET
[2021-09-01 10:33] LABS: ALB/GLOB Ratio 1.1 RATIO (0.9-2.4); AST(SGOT) 15 U/L (15-37); Alanine Aminotransfer ALT/SGPT 30 U/L (16-61); Albumin, Serum 3.7 g/dL (3.2-5.0); Alkaline Phosphatase 59 U/L (45-117); Anion Gap 8 (5-15); BUN 20 mg/dL (7-18); BUN/Creat Ratio 18.2 RATIO (10-20); Bilirubin, Direct 0.15 mg/dL (0.00-0.30); Chloride 105 mmol/L (98-107); Cholesterol 207 mg/dL (200); EST Glomerular Filtration Rate 70 mL/min (>60); Est Glom Filt Rate - Afr Amer 85 mL/min (>60); Globulin 3.5 g/dL (2.2-4.2); Glucose 96 mg/dL (74-106); High Density Lipoprotein 58 mg/dL; Potassium 4.3 mmol/L (3.5-5.1); Protein, Total 7.2 g/dL (6.4-8.2); Sodium Level 138 mmol/L (136-145); Triglycerides 161 mg/dL; Very Low Density Lipoprotein 32 mg/dL (5-40)
[2021-09-01 10:36] LABS: Platelet Estimate ADEQUATE (ADEQ); Platelet Morphology CLUMPED; Red Cell Morphology NORM C+C NORMAL (NORM C&C)
== END | disposition home or self-care (01) ==
LOC: MFPLAB 09:04
PROVIDERS: PCP Family Medicine; Referring Provider Family Medicine; Visit Provider Family Medicine
DX: E78.5 Hyperlipidemia, unspecified (principal)
CPT/HCPCS: 36415; 80053; 80061; 82248; 85025

== ENCOUNTER → 2021-09-14 | Outpatient (CLI) | payer MEDICARE, SELFPAY ==
[2021-09-14 10:11] LABS: Absolute Lymphocyte Count 1.63 X10^3/uL (0.83-4.51); Absolute Neutrophil Count 3.8 X10^3/uL (2.0-7.7); Basophil# 0.03 X10^3/uL; Basophil% 0.5 % (0-1); Eosinophil# 0.06 X10^3/uL; Hematocrit 45.1 % (40-54); Hemoglobin 15.4 g/dL (13.0-16.5); Lymphocyte # 1.63 X10^3/ul (0.83-4.51); Lymphocyte % 27.6 % (19-41); Mean Corp Hgb Conc 34.1 g/dL (32-36); Mean Corpuscular Hgb 32.2 pg (27.0-32.0); Mean Corpuscular Volume 94.4 fL (80-94); Mean Platelet Vol. 12.7 fl (6.2-12.0); Monocyte# 0.38 X10^3/uL; Monocyte% 6.4 % (0-10); NRBC Flagged by Analyzer 0 % (0-5); Neutrophil # 3.79 X10^3/uL (2.7-7.7); Neutrophil % 64.2 % (47-70); POSITIVE COUNT YES; Platelet Count 77 K/mm3 (150-450); RBC Distribution Width CV 11.5 % (11.6-14.6); RBC Distribution Width SD 40.3 fl (35.1-43.9); Red Blood Count 4.78 M/mm3 (4.6-6.2); White Blood Count 5.9 K/mm3 (4.4-11.0)
== END | disposition home or self-care (01) ==
LOC: MFPLAB 09:17
PROVIDERS: PCP Family Medicine; Referring Provider Family Medicine; Visit Provider Family Medicine
DX: E78.5 Hyperlipidemia, unspecified (principal)
CPT/HCPCS: 36415; 85025

== ENCOUNTER → 2021-11-25 | Outpatient (CLI) | payer MEDICARE, SELFPAY ==
[2021-11-25 12:55] LABS: Anion Gap 5 (5-15); BUN 19 mg/dL (7-18); BUN/Creat Ratio 17.3 RATIO (10-20); Calcium,Total 9.4 mg/dL (8.5-10.1); Chloride 103 mmol/L (98-107); EST Glomerular Filtration Rate 70 mL/min (>60); Est Glom Filt Rate - Afr Amer 85 mL/min (>60); Glucose 84 mg/dL (74-106); Potassium 4.3 mmol/L (3.5-5.1); Sodium Level 138 mmol/L (136-145)
== END | disposition home or self-care (01) ==
LOC: LAB 11:31
PROVIDERS: PCP Family Medicine; Visit Provider Internal Medicine Cardiovascular Disease
DX: R07.9 Chest pain, unspecified (principal); E78.5 Hyperlipidemia, unspecified
CPT/HCPCS: 36415; 80048

== ENCOUNTER → 2021-12-16 | Outpatient (CLI) | payer MEDICARE, SELFPAY ==
--- NOTE | 2021-12-16 13:17 | CT_ITS ---
INDICATION: Atypical chest pain EXAMINATION: CT CHEST WITHOUT CONTRAST - CT Chest W/O Contrast Injection TECHNIQUE: Helically acquired images were obtained of the chest. A radiation dose optimization technique was used for this scan. IV Contrast dosage and agent: None. COMPARISON: None. FINDINGS: LUNGS, PLEURA AND LARGE AIRWAYS: Lung windows show chronic interstitial changes with dependent atelectasis. No organized infiltrate or effusion. No pleural thickening. No pneumothorax. HEART AND PERICARDIUM: Heart size is normal. No pericardial effusion. CORONARY ARTERIES: Coronary artery calcification is seen. VESSELS: There is borderline aneurysmal dilatation of the ascending thoracic aorta 3.91 cm. No evidence of dissection. MEDIASTINUM AND KAYLA: No mediastinal or hilar adenopathy. Esophagus is unremarkable. No hiatal hernia. UPPER ABDOMEN: No acute pathology. BONES: No suspicious lytic or blastic abnormality. 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 No evidence of dissection Electronically Signed: Boby Young MD at 12:10 EDT ,
[2021-12-16 13:22] VITALS: BP 125/84; PULSE 76; RESP 16; O2SAT 96; BMI 27.4
[2021-12-16 13:33] VITALS: BP 125/84; PULSE 76
[2021-12-16] MEDS: Metoprolol Tartrate 5 MG/5 ML Vial IV ×3 (13:33→13:46)
[2021-12-16 13:40] VITALS: BP 156/104; PULSE 73
[2021-12-16 13:46] VITALS: BP 144/99; PULSE 77
[2021-12-16 14:22] VITALS: BP 124/89; PULSE 69
[2021-12-16] MEDS: Nitroglycerin SL (ED/IMG/CATH) 0.4 MG TABLET SL (14:22)
[2021-12-16 14:32] VITALS: BP 126/87; PULSE 69; RESP 14; O2SAT 94
--- NOTE | 2021-12-16 15:59 | CA.SCORE ---
Calcium Scoring Date of Study:: 12/16/21 Indications Indications: Chest pain Coronary Calcium Scoring: High-resolution Computed Tomographic imaging of the chest was performed on [12/16/21 ], with particular attention paid to the coronary arteries. Images from the examination were analyzed for the presence and extent of coronary artery calcification , using coronary calcium quantification software. The patient tolerated the procedure well and there were no complications. The results of the coronary calcification analysis are provided below. Findings Coronary Artery Left Main (LM): 94 Left Anterior Descending (LAD): 37 Left Circumflex (LCX): 24 Right Coronary Artery (RCA): 52 Total Agatston Score: 207 Calcium Scoring Interpretation: 0 No identifiable atherosclerotic plaque. Very low cardiovascular disease risk. <5% chance of presence coronary artery disease A Negative Examination 1-10 Minimal Plaque burden. Significant coronary artery disease very unlikely. 11-100 Mild plaque burden. Likely mild or minimal coronary atherosclerosis. 101-400 Moderate plaque burden Moderate non-obstructive coronary artery disease highly likely. Over 400 Extensive plaque burden. High likelihood of at least one significant coronary stenosis (>50% diameter)
--- NOTE | 2021-12-22 14:55 | CCTA.WCONT ---
CCTA w/Cont Coronary Arteries Date of Study:: 12/16/21 cp LEFT MAIN CORONARY ARTERY:Mild calcification is noted in the left main coronary artery LEFT ANTERIOR DESCENDING CORONARY ARTERY:There is eccentric proximal calcification and the vessel continues giving off 2 diagonal branches with no high-grade stenosis noted [] LEFT CIRCUMFLEX CORONARY ARTERY:This is a nondominant vessel with minimal calcification in the midsegment with no high-grade stenosis [] RIGHT CORONARY ARTERY:Large dominant right coronary artery with eccentric calcification and no high-grade stenosis noted. [] CORONARY CALCIUM SCORE:207. Conclusion: Nonobstructive coronary artery disease with mild calcified plaque and mildly elevated coronary calcium score. []
== END | disposition home or self-care (01) ==
LOC: CT 13:01
PROVIDERS: PCP Family Medicine; Visit Provider Internal Medicine Cardiovascular Disease
DX: R07.9 Chest pain, unspecified (principal); E78.5 Hyperlipidemia, unspecified
CPT/HCPCS: 75571; 75574; 76380; Q9967

== ENCOUNTER → 2022-03-08 | Outpatient (CLI) | payer MEDICARE, SELFPAY ==
[2022-03-08 10:26] LABS: Absolute Lymphocyte Count 1.84 X10^3/uL (0.83-4.51); Absolute Neutrophil Count 3.1 X10^3/uL (2.0-7.7); Basophil# 0.03 X10^3/uL; Basophil% 0.6 % (0-1); Eosinophil# 0.06 X10^3/uL; Eosinophils% 1.1 % (0-5); Hematocrit 44.6 % (40-54); Hemoglobin 15.6 g/dL (13.0-16.5); Lymphocyte # 1.84 X10^3/ul (0.83-4.51); Lymphocyte % 33.8 % (19-41); Mean Corpuscular Hgb 32.8 pg (27.0-32.0); Mean Corpuscular Volume 93.9 fL (80-94); Mean Platelet Vol. 11.1 fl (6.2-12.0); Monocyte# 0.37 X10^3/uL; Monocyte% 6.8 % (0-10); NRBC Flagged by Analyzer 0 % (0-5); Neutrophil # 3.13 X10^3/uL (2.7-7.7); Neutrophil % 57.5 % (47-70); POSITIVE COUNT YES; RBC Distribution Width CV 11.6 % (11.6-14.6); RBC Distribution Width SD 39.6 fl (35.1-43.9); Red Blood Count 4.75 M/mm3 (4.6-6.2); White Blood Count 5.4 K/mm3 (4.4-11.0)
[2022-03-08 10:31] LABS: Differential Indicated SCAN CRITERIA MET
[2022-03-08 10:57] LABS: ALB/GLOB Ratio 1.1 RATIO (0.9-2.4); AST(SGOT) 18 U/L (15-37); Alanine Aminotransfer ALT/SGPT 30 U/L (16-61); Albumin, Serum 3.8 g/dL (3.2-5.0); Alkaline Phosphatase 61 U/L (45-117); Anion Gap 6 (5-15); BUN 23 mg/dL (7-18); BUN/Creat Ratio 24.7 RATIO (10-20); Calcium,Total 9.1 mg/dL (8.5-10.1); Chloride 107 mmol/L (98-107); Cholesterol 186 mg/dL (200); Creatinine, Serum 0.93 mg/dL (0.70-1.30); EST Glomerular Filtration Rate 85 mL/min (>60); Est Glom Filt Rate - Afr Amer 103 mL/min (>60); Globulin 3.5 g/dL (2.2-4.2); Glucose 89 mg/dL (74-106); High Density Lipoprotein 64 mg/dL; PSA,Total - Annual Screen 1.85 ng/mL (0.00-4.00); Potassium 3.9 mmol/L (3.5-5.1); Protein, Total 7.3 g/dL (6.4-8.2); Sodium Level 140 mmol/L (136-145); Triglycerides 78 mg/dL; Very Low Density Lipoprotein 16 mg/dL (5-40)
[2022-03-08 11:08] LABS: Platelet Estimate ADEQUATE (ADEQ); Platelet Morphology CLUMPED
== END | disposition home or self-care (01) ==
LOC: MFPLAB 09:11
PROVIDERS: PCP Family Medicine; Referring Provider Family Medicine; Visit Provider Family Medicine
DX: E78.5 Hyperlipidemia, unspecified (principal); Z12.5 Encounter for screening for malignant neoplasm of prostate
CPT/HCPCS: 36415; 80053; 80061; 84153; 85025; G0103

== ENCOUNTER → 2022-05-16 | Outpatient (CLI) | payer MEDICARE, SELFPAY ==
[2022-05-16 18:10] LABS: CRP < 2.90 mg/L (0.0-3.0)
[2022-05-16 18:12] LABS: Erythrocyte Sedimentation Rate 7 mm/hr (0-20)
[2022-05-16 18:15] LABS: Absolute Lymphocyte Count 2.13 X10^3/uL (0.83-4.51); Absolute Neutrophil Count 4.6 X10^3/uL (2.0-7.7); Basophil# 0.02 X10^3/uL; Basophil% 0.3 % (0-1); Eosinophil# 0.09 X10^3/uL; Eosinophils% 1.2 % (0-5); Hematocrit 45.6 % (40-54); Hemoglobin 15.1 g/dL (13.0-16.5); Lymphocyte # 2.13 X10^3/ul (0.83-4.51); Lymphocyte % 29.3 % (19-41); Mean Corp Hgb Conc 33.1 g/dL (32-36); Mean Corpuscular Hgb 31.9 pg (27.0-32.0); Mean Corpuscular Volume 96.2 fL (80-94); Mean Platelet Vol. 11.3 fl (6.2-12.0); Monocyte# 0.45 X10^3/uL; Monocyte% 6.2 % (0-10); NRBC Flagged by Analyzer 0 % (0-5); Neutrophil # 4.56 X10^3/uL (2.7-7.7); Neutrophil % 62.7 % (47-70); POSITIVE COUNT YES; Platelet Count 93 K/mm3 (150-450); RBC Distribution Width CV 11.7 % (11.6-14.6); RBC Distribution Width SD 41.3 fl (35.1-43.9); Red Blood Count 4.74 M/mm3 (4.6-6.2); White Blood Count 7.3 K/mm3 (4.4-11.0)
== END | disposition home or self-care (01) ==
LOC: MFPLAB 16:05
PROVIDERS: PCP Family Medicine; Visit Provider Ophthalmology
DX: H47.10 Unspecified papilledema (principal); H47.021 Hemorrhage in optic nerve sheath, right eye
CPT/HCPCS: 36415; 85025; 85652; 86140

== ENCOUNTER → 2022-05-20 | Outpatient (CLI) | payer MEDICARE, SELFPAY ==
--- NOTE | 2022-05-20 09:39 | CDU_ITS ---
Reason For Study: Acute vision change Rt. Velocities/BP Lt. Velocities/BP Prox CCA 64.5/14.5 cm/sec. Prox CCA 73.5/16 cm/sec. Mid CCA 66.4/15.4 cm/sec. Mid CCA 57.8/13.3 cm/sec. Dist CCA 68.3/16.3 cm/sec. Dist CCA 59.6/16.8 cm/sec. Prox ICA 48.2/10.7 cm/sec. Prox ICA 56.1/16.8 cm/sec. Mid ICA 51.7/16.8 cm/sec. Mid ICA 51.7/17.7 cm/sec. Dist ICA 52.6/18.6 cm/sec. Dist ICA 53.5/21.2 cm/sec. Rt. ICA/CCA = 0.79. Lt. ICA/CCA = 0.94. Prox ECA 71.1/9.7 cm/sec. Prox ECA 63.1/9.9 cm/sec. Rt. Vert. 36/13.3 cm/sec. Lt. Vert. 32.4/9.7 cm/sec. Right Extracranial There is intimal thickening but no significant atherosclerotic plaque noted in the right common carotid artery. There is heterogeneous, irregular atherosclerotic plaque noted in the right internal carotid artery. There is intimal thickening but no significant atherosclerotic plaque noted in the right external carotid artery. Antegrade flow is noted in the right vertebral artery. Left Extracranial There is intimal thickening but no significant atherosclerotic plaque noted in the left common carotid artery. There is intimal thickening but no significant atherosclerotic plaque noted in the left internal carotid artery. There is intimal thickening but no significant atherosclerotic plaque noted in the left external carotid artery. Antegrade flow is noted in the left vertebral artery. Procedure Carotid Duplex 95702. This is a Carotid Duplex examination using B-mode, color flow and specral Doppler. Exam performed in department. VL/Carotid Duplex Ultrasound Interpretation Summary Mild (<50%) stenosis right extracranial internal carotid. Normal left extracranial internal carotid. Patent and antegrade vertebrals bilaterally. Ordering Physician: Kati Ramsay Referring Physician: Taras Workman Performed By: Siobhan Singh RVT
== END | disposition home or self-care (01) ==
LOC: CVS 09:37
PROVIDERS: PCP Family Medicine; Visit Provider Physician Assistant Medical
DX: H53.139 Sudden visual loss, unspecified eye (principal); E78.5 Hyperlipidemia, unspecified; I10 Essential (primary) hypertension; R07.9 Chest pain, unspecified; H53.8 Other visual disturbances
CPT/HCPCS: 93880

== ENCOUNTER 2022-05-27 11:11 | Day surgery (SDC) | payer MEDICARE, SELFPAY ==
[2022-05-27] VITALS (8 sets, daily range): BP systolic 104–135; BP diastolic 54–96; PULSE 77–84; RESP 16–18; TEMP 36.6–36.8; O2SAT 95–97; BMI 27.1
[2022-05-27] MEDS: Lactated Ringers 1,000 ML 15 ML IV ×2 (11:20→13:07)
[2022-05-27] MEDS: Lubricating Jelly 60 GM Tube 30 GM (13:10)
[2022-05-27] MEDS: Lidocaine 1% (30 ml sdv) 30 ML Vial (13:30)
--- NOTE | 2022-05-27 13:40 | TEM_PTH ---
PATIENT: MARISSA HILARIO LOC: [facility] [place] U#:[id number] AGE/SX: 71/M ROOM: RE05/27/[address]: Dr. Norman Mahoney MD : 1950 BED: DIS: 05/27/2022 SPEC #: [id number] RECD: 05/27/22 16:40 STATUS: MARISELA REOdilia #: [id number] ANTOLIN: 05/27/22 13:[address]: Norman Mahoney DEPT: SURGICAL PATHOLOGY RECD BY: Jessa Anderson ENTERED: 05/30/22 11:20 SP TYPE: TEMPORAL OTHR DR: Dr. Taras Workman MD Tissues: Temporal region Procedures: Elastin Stain (control) Special Stain Group II Surgery Specimen Level IV HEADER OPERATION: Temporal artery biopsy PRE-OP DIAGNOSIS: Blurry vision right eye TISSUE SUBMITTED: Temporal artery MICROSCOPIC DIAGNOSIS Right temporal artery, biopsy: Negative for giant cell arteritis. Mild intimal hyperplasia. See comment. SJ:nafisa 05/31/2022 COMMENT Elastic stain with matched control is used in the evaluation of the specimen. MICROSCOPIC DESCRIPTION Slides are reviewed. GROSS DESCRIPTION Received in fixative is one container labeled with the patient's name and designated right temporal artery biopsy. The specimen consists of a tubular piece of gotti soft tissue measuring 2 cm in length and 0.2 cm in diameter. A staple is noted at one end. The staple is removed and the entire specimen is serially sectioned and submitted entirely in one cassette. / BETY:nafisa 05/30/2022 TC:5 CPT: 60701, 71552
--- NOTE | 2022-05-27 13:46 | HP.PCM_ITS ---
History and Physical Date of Admission: 05/27/22 Intake Vital Signs ? 05/23/2307:13 Height 5 ft 6 in Weight: 173 lb 6 oz BMI 28.0 BP 152/86 H Blood Pressure Location Lt brachial Position Sitting Respiration 17 Pulse 76 Pulse Source Monitor Temp 97.6 F L Temp Source Temporal Pulse Oximetry (%) 96 Oxygen Delivery Method room air Intake Visit Reasons:?Temperol Artery BX Chief Complaint: temporal artery biopsy Is patient in pain?: No Allergies Penicillins Allergy (Verified 05/23/22 08:16) Unknown Medications simvastatin 20 mg tablet 20 mg PO QHS 12/10/13 [History Confirmed 05/23/22] multivitamin with folic acid 400 mcg tablet 1 tab PO DAILY 12/12/13 [History Confirmed 05/23/22] pantoprazole 40 mg tablet,delayed release 40 mg PO DAILY PRN Gastric Reflux 12/04/19 [History Confirmed 05/23/22] prevagen 1 tab PO DAILY 12/04/19 [History Confirmed 05/23/22] turmeric root extract 500 mg capsule 500 mg PO DAILY 12/02/20 [History Confirmed 05/23/22] coenzyme Q10 100 mg capsule (CoQ-10) 100 mg PO HS 11/25/21 [History Confirmed 05/23/22] prednisone 20 mg tablet 60 mg PO DAILY 05/23/22 [History Confirmed 05/23/22] PFSH Medical History? Basal cell carcinoma GERD (gastroesophageal reflux disease) Hiatal hernia Hyperlipidemia Surgical History? H/O colonoscopy H/O endoscopy H/O rotator cuff surgery History of back surgery History of surgery on upper extremity Family History? Father?? Lung cancerBrother ?? No problems noted. Sister CVA (cerebral vascular accident) ?? ? carotid artery diseaseOther Heart disease Social History? Smoking Status:? Never smoker alcohol intake:? never substance use type:? does not use HPI HPI HPI: Patient is a 71-year-old male here with right vision changes.? Patient was sent here for temporal artery biopsy by ophthalmology.? He was started on steroids. ROS General General: No weight change, appetite, fatigue, colon cancer, breast cancer or weakness HEENT HEENT: No difficulty swallowing, eye injury, eye surgery, swollen glands or hoarseness Endo Endocrine: No thyroid disease, diabetes mellitus, thyroid cancer, Hair loss, heat intolerance or cold intolerance Skin Skin: No rash or changing moles Musc Musculoskeletal: Yes arthritis Cardio Cardiovascular: No murmur, pacemaker, heart disease, atrial fibrillation, high blood pressure, heart attack, heart stent, palpitations, shortness of breat with exertion or chest pain Psych Psychiatric: No depression, anxiety or hearing voices Resp Respiratory: No shortness of breath, No sleep apnea, No cough, No COPD, No asthma, No emphysema and No wheezing Gastro Gastrointestinal: No abdominal pain, No nausea or vomiting, No diarrhea, No c onstipation, No blood in stool, Yes acid reflux, No hemorrhoids, No ulcers, No gallbladder problem and No black,tarry stools Carlos Hematologic: No blood thinners, No blood disorders, No bleeding, No anemia and No blood clots Neuro Neurologic: No system reviewed and no additional complaints, except as documented, No as per HPI, No abnormal gait, No abnormal hearing, No abnormal movements, No abnormal speech, No behavioral changes, No burning sensations, No confusion, No convulsions, No disequilibrium, No dizziness, No localized weakness, No frequent falls, No headache(s), No lack of coordination, No loss of vision, No memory loss, No numbness, Yes other visual disturbances, No radicular pain, No restless legs, No sensory deficit, No syncope, No tingling, No tremor(s), No weakness and No other Exam Const General: cooperative Orientation: alert and oriented x3 [facility] Head: normal to inspection Neck Neck: normal visual inspection and full ROM Chest Chest palpation & inspection: normal inspection of the chest Resp Effort & Inspection: normal respiratory effort Auscultation: clear to auscultation bilaterally Cardio Rate: regular rate Rhythm: regular rhythm GI Inspection: non-distended Palpation: soft and nontender Skin General: no rashes or lesions noted Neuro General: patient alert and patient oriented x3 Extrem General: full ROM Psych Appearance: grossly normal Mental Status: mental status grossly normal Assessment and Plan Assessment and Plan (1) Blurry vision, right eye: ?Status:?Acute ?Plan: The patient has been having blurriness of his right eye for about a week and a half.? He was started on steroids and recommended for temporal artery biopsy.? I discussed right temporal artery biopsy with the patient in detail.? I discussed the risks including but not limited to bleeding, infection, hematoma formation or bleeding.? I also discussed possibility of nondiagnosis.? Patient understands all the risks and is willing to proceed.? He will stop his turmeric immediately. Norman Mahoney MD Pager: [facility] [address] [place] [address] [address] [place] [address] Office: I have examined the patient and the H&P has been reviewed. There are no clinical changes since date of exam.
--- NOTE | 2022-05-27 13:47 | PCM.OPRPT ---
Report of Operation Date of Procedure: 05/27/22 Pre-Operative Diagnosis: Right eye blurry vision Post-Operative Diagnosis: Same Surgery/Procedure Performed:: Right temporal artery biopsy Specimen's removed: Right temporal artery Description of Procedure: Patient was brought back to the operating room and the right rastafari was shaved of hair and then inspected with the ultrasound. The temporal artery was identified and marked. Next the rastafari was prepped and draped and then the incision was injected with local anesthetic. Incision was made with a scalpel and deepened to the fascia using electrocautery. The fascia was sharply incised and the artery was identified. Proximally the artery was clipped and then suture-ligated and distally the artery was clipped and ligated. The branches were also clipped and divided. The cavity was irrigated and suctioned dry and the incision was closed with interrupted 4-0 Monocryl suture and then a running 4-0 Monocryl suture. Dermabond glue was applied. Patient was then taken to PACU in stable condition and tolerated the procedure well with minimal blood loss. Admit VTE Documentation VTE Mechan Device Prophylaxis: SCD's
--- NOTE | 2022-05-27 13:52 | DCINST_ITS ---
Discharge Instructions Diet Discharge Diet: No restrictions Activity Discharge Activity: May Shower Lifting Restrictions: Light activity with no heavy lifting for 3-4 days Dressing / Incision Call your doctor if your incision/area has: Continuous Slow Oozing, Sudden Increased Bleeding, Increased Pain/ Swelling, Increased Redness, Foul Smelling Discharge and Swelling at the incision site Call your doctor if you observe: Fever of 101 or Higher Cleanse incision/area with: Soap & Water Follow Up Care Please Follow Up With: Norman Mahoney MD When: Please call to schedule 2 week follow up appointment. [phone] Test Results: Test results from this visit will be discussed in further detail at your follow- up appointment, if applicable. Discharge Plan Admission Attending Provider: Norman Mahoney Primary Care Provider: Taras Workman Instructions Additional Instructions / Restrictions: Alternating ibuprofen and Tylenol for pain Discharge Orders/Prescriptions Prescriptions: No Action prevagen 1 tab PO DAILY pantoprazole 40 mg tablet,delayed release (DR/EC) 40 mg PO DAILY turmeric root extract 500 mg capsule 500 mg PO DAILY prednisone 20 mg tablet 60 mg PO DAILY simvastatin 20 MG tablet 20 mg PO QHS multivitamin with folic acid 1 TABLET tablet 1 tab PO DAILY coenzyme Q10 [CoQ-10] 100 mg capsule 200 mg PO HS Referrals / Follow Up: Taras Workman MD [Primary Care Provider] - Disposition Disposition (needs filled in before D/C Order can be placed): Home, Self Care
== END 2022-05-27 15:15 | disposition home or self-care (01) ==
LOC: SDC 11:12 → AC 11:13
PROVIDERS: PCP Family Medicine; Referring Provider Surgery; Visit Provider Surgery
PROC: (CPT 37609; principal; 2022-05-27 13:25)
DX: H53.8 Other visual disturbances (principal); K21.9 Gastro-esophageal reflux disease without esophagitis; E78.5 Hyperlipidemia, unspecified
CPT/HCPCS: 37609; 00352; 88305; 88313; J7120; J2405

== ENCOUNTER → 2022-05-31 | Outpatient (CLI) | payer MEDICARE, SELFPAY ==
[2022-05-31 13:01] LABS: Syphilis Antibodies Non-reactive
--- NOTE | 2022-05-31 16:45 | MRI_ITS ---
EXAM: MR ANGIOGRAPHY HEAD WITHOUT INTRAVENOUS CONTRAST CLINICAL INDICATION: PAPILLEDEMA, vision loss right eye TECHNIQUE: Routine tat[place] of [place]/brain 3D time of flight MR angiogram protocol was performed without intravenous contrast. This report was created using [employer] report [employer] technology. COMPARISON: None. FINDINGS: RIGHT INTERNAL CAROTID ARTERY: No acute findings. No significant stenosis at the intracranial/visualized segments. No aneurysm. RIGHT ANTERIOR CEREBRAL ARTERY: Unremarkable. No significant stenosis at the visualized segments. Anterior communicating artery is nonvisualized. RIGHT MIDDLE CEREBRAL ARTERY: Unremarkable. No significant stenosis at the visualized segments. No aneurysm. RIGHT POSTERIOR CEREBRAL ARTERY: Unremarkable. No significant stenosis at the visualized segments. No aneurysm. RIGHT VERTEBRAL ARTERY: Unremarkable as visualized. No significant stenosis at the intradural/visualized segments. No aneurysm. Normal visualized ophthalmic arteries. LEFT INTERNAL CAROTID ARTERY: No acute findings. No significant stenosis at the intracranial/visualized segments. No aneurysm. LEFT ANTERIOR CEREBRAL ARTERY: Unremarkable. No significant stenosis at the visualized segments. Anterior communicating artery is present. No aneurysm. LEFT MIDDLE CEREBRAL ARTERY: Unremarkable. No significant stenosis at the visualized segments. No aneurysm. LEFT POSTERIOR CEREBRAL ARTERY: Unremarkable. No significant stenosis at the visualized segments. No aneurysm. LEFT VERTEBRAL ARTERY: Unremarkable as visualized. No significant stenosis at the intradural/visualized segments. No aneurysm. BASILAR ARTERY: Unremarkable. No significant stenosis. No aneurysm. OTHER VASCULATURE: No vascular malformation. MRI/MRA Head ONLY without Contrast IMPRESSION: Unremarkable MRA head. Electronically Signed: Jil Fuchs MD at 19:23 EST Reading Location ID and State: [id number] / Tel , Service support ,
--- NOTE | 2022-05-31 16:45 | MRI_ITS ---
EXAM: MR BRAIN AND ORBITS WITHOUT AND WITH INTRAVENOUS CONTRAST CLINICAL INDICATION: PAPILLEDEMA, right eye vision loss TECHNIQUE: Multiplanar and multisequence MR images of the brain were obtained without and with intravenous contrast. This report was created using [employer] report [employer] technology. CONTRAST: 15ml iv clariscan COMPARISON: None. FINDINGS: BRAIN AND EXTRA-AXIAL SPACES: No intracranial mass, mass effect, or midline shift. No enhancing lesion. No hemorrhage, territorial infarct or acute ischemia. Mild T2 signal hyperintensity in the white matter are consistent with microvascular ischemia. Mild cerebral atrophy with widening of the extra-axial spaces and ventricular dilation. Basal cisterns are unremarkable. SELLA: Pituitary gland is normal in height. Infundibulum and optic chiasm are unremarkable. AUDITORY SYSTEM: Unremarkable. BONES/JOINTS: Unremarkable. SINUSES: Unremarkable as visualized. Clear. MASTOID AIR CELLS: Unremarkable as visualized. Clear. VASCULATURE: Normal flow voids in the major intracranial circulation. ORBITS: Globes are intact. Extraocular muscles are normal and symmetric. Optic nerve is unremarkable. There is no abnormal signal or enhancement. MRI/Brain W/WO Contrast IMPRESSION: No acute findings. Mild chronic microvascular ischemic changes. Atrophy. Negative MRI orbits with intravenous contrast. Electronically Signed: Jil Fuchs MD at 20:10 EST Reading Location ID and State: [id number] / Tel , Service support ,
[2022-05-31 17:00] LABS: CREATININE FINGERSTICK 1.2 mg/dL (0.70-1.30); EGFR FINGERSTICK > 60.0000 mL/min (>60)
[2022-06-01 18:21] LABS: Angiotensin Convert Enzyme 21 U/L (14-82)
== END | disposition home or self-care (01) ==
PROVIDERS: PCP Family Medicine; Referring Provider Ophthalmology; Visit Provider Ophthalmology
DX: H47.10 Unspecified papilledema (principal)
CPT/HCPCS: 36415; 70544; 70553; 82164; 86780; A9575

== ENCOUNTER → 2022-09-12 | Outpatient (CLI) | payer MEDICARE, SELFPAY ==
[2022-09-12 10:13] LABS: Absolute Lymphocyte Count 1.98 X10^3/uL (0.83-4.51); Absolute Neutrophil Count 3.3 X10^3/uL (2.0-7.7); Basophil# 0.04 X10^3/uL; Basophil% 0.7 % (0-1); Eosinophil# 0.09 X10^3/uL; Eosinophils% 1.5 % (0-5); Hematocrit 46.6 % (40-54); Hemoglobin 15.5 g/dL (13.0-16.5); Lymphocyte # 1.98 X10^3/ul (0.83-4.51); Lymphocyte % 33.9 % (19-41); Mean Corp Hgb Conc 33.3 g/dL (32-36); Mean Corpuscular Hgb 31.5 pg (27.0-32.0); Mean Corpuscular Volume 94.7 fL (80-94); Mean Platelet Vol. 12.1 fl (6.2-12.0); Monocyte# 0.44 X10^3/uL; Monocyte% 7.5 % (0-10); NRBC Flagged by Analyzer 0 % (0-5); Neutrophil # 3.27 X10^3/uL (2.7-7.7); Neutrophil % 56.1 % (47-70); Platelet Count 121 K/mm3 (150-450); RBC Distribution Width CV 11.6 % (11.6-14.6); RBC Distribution Width SD 40.3 fl (35.1-43.9); Red Blood Count 4.92 M/mm3 (4.6-6.2); White Blood Count 5.8 K/mm3 (4.4-11.0)
[2022-09-12 10:35] LABS: ALB/GLOB Ratio 1.4 RATIO (0.9-2.4); AST(SGOT) 21 U/L (15-37); Alanine Aminotransfer ALT/SGPT 33 U/L (16-61); Albumin, Serum 3.9 g/dL (3.2-5.0); Alkaline Phosphatase 61 U/L (45-117); Anion Gap 4 (5-15); BUN 22 mg/dL (7-18); BUN/Creat Ratio 22.2 RATIO (10-20); Calcium,Total 9.2 mg/dL (8.5-10.1); Chloride 107 mmol/L (98-107); Cholesterol 171 mg/dL (200); Creatinine, Serum 0.99 mg/dL (0.70-1.30); EST Glomerular Filtration Rate 79 mL/min (>60); Est Glom Filt Rate - Afr Amer 96 mL/min (>60); Globulin 2.7 g/dL (2.2-4.2); Glucose 88 mg/dL (74-106); High Density Lipoprotein 69 mg/dL; Potassium 4.3 mmol/L (3.5-5.1); Protein, Total 6.6 g/dL (6.4-8.2); Sodium Level 142 mmol/L (136-145); Triglycerides 65 mg/dL; Very Low Density Lipoprotein 13 mg/dL (5-40)
== END | disposition home or self-care (01) ==
PROVIDERS: PCP Family Medicine; Referring Provider Family Medicine; Visit Provider Family Medicine
DX: E78.5 Hyperlipidemia, unspecified (principal)
CPT/HCPCS: 36415; 80053; 80061; 85025

== ENCOUNTER → 2022-09-13 | Outpatient (CLI) | payer MEDICARE, SELFPAY ==
[2022-09-13 10:29] LABS: AST(SGOT) 23 U/L (15-37); Alanine Aminotransfer ALT/SGPT 33 U/L (16-61); Albumin, Serum 3.7 g/dL (3.2-5.0); Alkaline Phosphatase 58 U/L (45-117); Bilirubin, Direct 0.32 mg/dL (0.00-0.30); Globulin 3.2 g/dL (2.2-4.2); Protein, Total 6.9 g/dL (6.4-8.2)
== END | disposition home or self-care (01) ==
LOC: MTLAB 08:28
PROVIDERS: PCP Family Medicine; Referring Provider Family Medicine; Visit Provider Family Medicine
DX: E80.6 Other disorders of bilirubin metabolism (principal)
CPT/HCPCS: 36415; 80076

== ENCOUNTER → 2022-12-06 | Outpatient (CLI) | payer MEDICARE, SELFPAY ==
[2022-12-06 07:43] LABS: Bacteria 0 SEEN /hpf (None Seen); Mucous, Urine 0 SEEN /hpf (<or=2+); Squamous Epithelial Cells - UA 0 SEEN /hpf (0-5); White Blood Cells 0 SEEN /hpf (0-5)
[2022-12-06 10:01] LABS: Absolute Lymphocyte Count 1.86 X10^3/uL (0.83-4.51); Absolute Neutrophil Count 3.4 X10^3/uL (2.0-7.7); Basophil# 0.02 X10^3/uL; Basophil% 0.3 % (0-1); Eosinophils% 1.7 % (0-5); Hematocrit 45.1 % (40-54); Hemoglobin 15.5 g/dL (13.0-16.5); Lymphocyte # 1.86 X10^3/ul (0.83-4.51); Lymphocyte % 31.4 % (19-41); Mean Corp Hgb Conc 34.4 g/dL (32-36); Mean Corpuscular Hgb 32.4 pg (27.0-32.0); Mean Corpuscular Volume 94.4 fL (80-94); Mean Platelet Vol. 11.6 fl (6.2-12.0); Monocyte# 0.49 X10^3/uL; Monocyte% 8.3 % (0-10); NRBC Flagged by Analyzer 0 % (0-5); Neutrophil # 3.43 X10^3/uL (2.7-7.7); POSITIVE COUNT YES; RBC Distribution Width CV 11.7 % (11.6-14.6); RBC Distribution Width SD 40.6 fl (35.1-43.9); Red Blood Count 4.78 M/mm3 (4.6-6.2); White Blood Count 5.9 K/mm3 (4.4-11.0)
[2022-12-06 10:06] LABS: Color, Urine Yellow (Yellow); Glucose, Dipstick Normal (Normal); Ketone-Dipstick Negative (Negative); Leukocyte Esterase-Dipstick Negative /ul (Negative); Nitrite-Dipstick Negative (Negative); Occult Blood-Urine 25 /ul (Negative); Protein-Dipstick 15 mg/dl (Negative); Specific Gravity, Urine 1.015 (1.002-1.030); Urine Bilirubin Dipstick Negative (Negative); Urine Clarity Clear (Clear); Urine Urobilinogen Normal (Normal); Urine pH 6.5 (5.0 - 8.0)
[2022-12-06 10:22] LABS: ALB/GLOB Ratio 1.2 RATIO (0.9-2.4); AST(SGOT) 24 U/L (15-37); Alanine Aminotransfer ALT/SGPT 38 U/L (16-61); Albumin, Serum 3.9 g/dL (3.2-5.0); Alkaline Phosphatase 63 U/L (45-117); Anion Gap 3 (5-15); BUN 21 mg/dL (7-18); BUN/Creat Ratio 19.3 RATIO (10-20); Bilirubin, Direct 0.38 mg/dL (0.00-0.30); Calcium,Total 8.9 mg/dL (8.5-10.1); Chloride 108 mmol/L (98-107); Cholesterol 166 mg/dL (200); Creatinine, Serum 1.09 mg/dL (0.70-1.30); EST Glomerular Filtration Rate 71 mL/min (>60); Est Glom Filt Rate - Afr Amer 86 mL/min (>60); Globulin 3.2 g/dL (2.2-4.2); Glucose 92 mg/dL (74-106); High Density Lipoprotein 65 mg/dL; Potassium 3.9 mmol/L (3.5-5.1); Protein, Total 7.1 g/dL (6.4-8.2); Sodium Level 139 mmol/L (136-145); Triglycerides 75 mg/dL; Very Low Density Lipoprotein 15 mg/dL (5-40)
[2022-12-06 10:30] LABS: Differential Indicated SCAN CRITERIA MET
[2022-12-06 10:31] LABS: Differential Comment SCANNED; Platelet Estimate SLT DEC (ADEQ)
[2022-12-06 10:45] LABS: Red Blood Cells-Urine 0-5 SEEN /hpf (0-5)
== END | disposition home or self-care (01) ==
LOC: MTLAB 07:39
PROVIDERS: PCP Family Medicine; Referring Provider Family Medicine; Visit Provider Family Medicine
DX: E80.6 Other disorders of bilirubin metabolism (principal); E78.5 Hyperlipidemia, unspecified; I10 Essential (primary) hypertension
CPT/HCPCS: 80053; 80061; 81001; 82248; 84443; 85025

== ENCOUNTER → 2023-03-09 | Outpatient (CLI) | payer MEDICARE, SELFPAY ==
[2023-03-09 12:29] LABS: PSA,Total - Annual Screen 3.07 ng/mL (0.00-4.00)
== END | disposition home or self-care (01) ==
LOC: MFPLAB 10:57
PROVIDERS: PCP Family Medicine; Visit Provider Family Medicine
DX: Z12.5 Encounter for screening for malignant neoplasm of prostate (principal)
CPT/HCPCS: 36415; 84153; G0103

== ENCOUNTER → 2023-04-14 | Outpatient (CLI) | payer MEDICARE, SELFPAY ==
[2023-04-14 09:58] LABS: Bacteria 0 SEEN /hpf (None Seen); Mucous, Urine 0 SEEN /hpf (<or=2+); Squamous Epithelial Cells - UA 0 SEEN /hpf (0-5); White Blood Cells 0 SEEN /hpf (0-5)
[2023-04-14 12:44] LABS: Absolute Lymphocyte Count 1.82 X10^3/uL (0.83-4.51); Absolute Neutrophil Count 3.3 X10^3/uL (2.0-7.7); Basophil# 0.05 X10^3/uL; Basophil% 0.9 % (0-1); Eosinophil# 0.07 X10^3/uL; Eosinophils% 1.2 % (0-5); Hematocrit 43.6 % (40-54); Hemoglobin 14.7 g/dL (13.0-16.5); Lymphocyte # 1.82 X10^3/ul (0.83-4.51); Lymphocyte % 32.4 % (19-41); Mean Corp Hgb Conc 33.7 g/dL (32-36); Mean Corpuscular Hgb 31.8 pg (27.0-32.0); Mean Corpuscular Volume 94.4 fL (80-94); Mean Platelet Vol. 11.9 fl (6.2-12.0); Monocyte# 0.35 X10^3/uL; Monocyte% 6.2 % (0-10); NRBC Flagged by Analyzer 0 % (0-5); Neutrophil # 3.32 X10^3/uL (2.7-7.7); Neutrophil % 59.1 % (47-70); POSITIVE COUNT YES; Platelet Count 79 K/mm3 (150-450); RBC Distribution Width CV 11.9 % (11.6-14.6); RBC Distribution Width SD 41.2 fl (35.1-43.9); Red Blood Count 4.62 M/mm3 (4.6-6.2); White Blood Count 5.6 K/mm3 (4.4-11.0)
[2023-04-14 12:55] LABS: Color, Urine Yellow (Yellow); Glucose, Dipstick Normal (Normal); Ketone-Dipstick Negative (Negative); Leukocyte Esterase-Dipstick Negative /ul (Negative); Nitrite-Dipstick Negative (Negative); Occult Blood-Urine 10 /ul (Negative); Protein-Dipstick Negative (Negative); Urine Bilirubin Dipstick Negative (Negative); Urine Clarity Clear (Clear); Urine Urobilinogen Normal (Normal)
[2023-04-14 12:57] LABS: Differential Indicated SCAN CRITERIA MET
[2023-04-14 13:05] LABS: Red Blood Cells-Urine 0-5 SEEN /hpf (0-5)
[2023-04-14 13:12] LABS: Vitamin B12 522 pg/mL (211-911)
[2023-04-14 13:41] LABS: Platelet Estimate MOD DEC (ADEQ)
[2023-04-14 13:45] LABS: AST(SGOT) 21 U/L (15-37); Alanine Aminotransfer ALT/SGPT 29 U/L (16-61); Albumin, Serum 3.8 g/dL (3.2-5.0); Alkaline Phosphatase 50 U/L (45-117); Anion Gap 4 (5-15); BUN 21 mg/dL (7-18); BUN/Creat Ratio 20.4 RATIO (10-20); Bilirubin, Direct 0.36 mg/dL (0.00-0.30); Calcium,Total 8.6 mg/dL (8.5-10.1); Chloride 108 mmol/L (98-107); Cholesterol 139 mg/dL (200); Creatinine, Serum 1.03 mg/dL (0.70-1.30); EST Glomerular Filtration Rate 76 mL/min (>60); Est Glom Filt Rate - Afr Amer 91 mL/min (>60); Globulin 3.2 g/dL (2.2-4.2); Glucose 96 mg/dL (74-106); High Density Lipoprotein 63 mg/dL; Potassium 4.3 mmol/L (3.5-5.1); Sodium Level 138 mmol/L (136-145); Thyroid Stim Hormone (TSH) 3.34 uIU/mL (0.358-3.74); Triglycerides 107 mg/dL; Very Low Density Lipoprotein 21 mg/dL (5-40)
== END | disposition home or self-care (01) ==
LOC: MFPLAB 09:55
PROVIDERS: PCP Family Medicine; Visit Provider Family Medicine
DX: I10 Essential (primary) hypertension (principal); R41.3 Other amnesia; E80.6 Other disorders of bilirubin metabolism; E78.5 Hyperlipidemia, unspecified
CPT/HCPCS: 36415; 80048; 80061; 80076; 81001; 82607; 84443; 85025

== ENCOUNTER → 2023-05-30 | Outpatient (CLI) | payer MEDICARE, SELFPAY ==
--- OUTSIDE RECORDS SUMMARY | 2023-05-30 08:06 | XMS RPT_ITS | CCD ---
Author Name Unknown Address [address] [place] [address] Organization [facility] Care Team Providers Care Car Wash Supervisor Name Role Phone Humberto BROWER, Taras Bonilla Unavailable [phone] Shady Garcia Unavailable CHRISTOPH GALINDO Attending Unavailable Allergies Allergy Classification Reported Allergen(s) Allergy Type Date of Onset Reaction(s) Facility (1 source) Penicillin Drug Allergy 9 rash/hives [facility] Work Phone: (1 source) Penicillins Drug Allergy 9 Rash, Unknown [facility] Medications Completed/Discontinued Medications Medication Drug Class(es) Dates Sig (Normalized) Sig (Original) MULTIPLE VITAMINS-MINERALS (1 source) Start: 05-18-2018 CENTRUM SILVER TABS 1 tablet daily MULTIPLE VITAMINS-MINERALS [id number] Brea Neal DIRECTOR OF TEENAGE ACTIVITIES pantoprazole 40 mg delayed release oral tablet (1 source) Proton Pump Inhibitor Start: 05-18-2018 PANTOPRAZOLE SODIUM 40 MG TBEC 1 tablet daily as needed PANTOPRAZOLE SODIUM [id number] Taras Paul MD simvastatin 20 mg oral tablet (1 source) HMG-CoA Reductase Inhibitor Start: 05-18-2018 SIMVASTATIN 20 MG TABS 1 tablet at bedtime SIMVASTATIN [id number] Brea Neal DIRECTOR OF TEENAGE ACTIVITIES Problems Active Problems Problem Classification Problem Date Documented Date Episodic/Chronic Osteoarthritis (2 sources) Unilateral primary osteoarthritis of first carpometacarpal joint, right hand; Translations: [Primary osteoarthritis, right hand] Onset: 05-23-2018 05-23-2018 Chronic Past or Other Problems Problem Classification Problem Date Documented Da te Episodic/Chronic Unclassified (1 source) Problem Results Test Name Value Interpretation Reference Range Facil ity Vital Signs Date Time Vital Sign Value Performing Clinician Facility NEGATED: Highlighted [id number] 15:44-0500 BMI (Body Mass Index) 28.95 kg/m2 [facility] Work Phone: NEGATED: Highlighted [id number] 15:44-0500 BP Diastolic 86 mm[Hg] [facility] Work Phone: NEGATED: Highlighted [id number] 15:44-0500 BP Systolic 145 mm[Hg] [facility] Work Phone: NEGATED: Highlighted [id number] 15:44-0500 BP Systolic 126 mm[Hg] [facility] Work Phone: NEGATED: Highlighted [id number] 15:44-0500 Height 166.37 cm [facility] Work Phone: NEGATED: Highlighted [id number] 15:44-0500 Height 166 cm [facility] Work Phone: NEGATED: Highlighted [id number] 15:44-0500 Pulse (Heart Rate) 76 /min [facility] Work Phone: NEGATED: Highlighted [id number] 15:44-0500 Weight 79.83 kg [facility] Work Phone: NEGATED: Highlighted [id number] 15:44-0500 Weight 80 kg [facility] Work Phone: Encounters Encounter Date Encounter Type Care Provider Facility Start: 06-09-2022 End: 06-09-2022 ambulatory CHRISTOPH GALINDO Facility:[facility] Start: 01-27-2023 Telephone encounter Christoph Galindo DO Work Phone: Ophthalmology Procedures Date Procedure Procedure Detail Performing Clinician Start: 05-23-2018 End: 05-23-2018 Arthrocentesis aspir&/inj small jt/bursa w/o us Taras Paul MD Work Phone: Start: 05-23-2018 End: 05-23-2018 Blood pressure within normal parameters - no follow-up required Taras Paul MD Work Phone: Start: 05-23-2018 End: 05-23-2018 BMI documented as above normal parameters - follow-up documented Taras Paul MD Work Phone: Start: 05-23-2018 End: 05-23-2018 Documentation of current medications Taras Paul MD Work Phone: Start: 05-23-2018 End: 05-23-2018 HFO PREFAB STATIC Taras Paul MD Work Phone: Start: 05-23-2018 End: 05-23-2018 Injection - betamethasone acetate 3 mg and betamethasone sodium phosphate 3 mg Taras Paul MD Work Phone: Start: 05-23-2018 End: 05-23-2018 Osteoarthritis assess Taras Paul MD Work Phone: Start: 05-23-2018 End: 05-23-2018 Pain assessment documented as positive - follow-up documented Taras Paul MD Work Phone: Start: 05-23-2018 End: 05-23-2018 Tobacco non-user Taras Paul MD Work Phone: Start: 05-23-2018 End: 05-23-2018 WHFO CUSTOM STATIC Taras Paul MD Work Phone: Plan of Treatment Date Care Activity Detail Author Start: 05-08-2022 ADVANCE DIRECTIVE DISCUSSION ADVANCE DIRECTIVE DISCUSSION [facility] Start: 05-08-2022 DEPRESSION ASSESSMENT DEPRESSION ASSESSMENT [facility] Start: 05-23-2018 End: 05-23-2018 Appointment Appointment [facility] Work Phone: Start: 05-23-2018 End: 05-23-2018 Radex hand minimum 3 views XR HAND 3+ VWS-RT [facility] Work Phone: Start: 09-16-2016 PNEUMOCOCCAL: 65+ (1 - PCV) PNEUMOCOCCAL: 65+ (1 - PCV) [facility] Start: 09-16-2001 SHINGRIX VACCINE (1 of 2) SHINGRIX VACCINE (1 of 2) [facility] Start: 09-16-1996 COLOGUARD (FIT-DNA) COLOGUARD (FIT-DNA) [facility] Start: 09-16-1996 Colonoscopy COLONOSCOPY [facility] Start: 09-16-1996 COLORECTAL CANCER SCREENING COLORECTAL CANCER SCREENING [facility] Start: 09-16-[address] COLONOGRAPHY [facility] Start: 09-16-1996 DIABETES SCREEN DIABETES SCREEN [facility] Start: 09-16-1996 FECAL OCCULT BLOOD FECAL OCCULT BLOOD [facility] Start: 09-16-1996 SIGMOIDOSCOPY SIGMOIDOSCOPY [facility] Start: 09-16-1986 LIPID SCREEN LIPID SCREEN [facility] Start: 09-16-1970 Urine microalbumin profile DTAP,TDAP,TD (1 - Tdap) [facility] Start: 09-16-1969 HEPATITIS C SCREENING HEPATITIS C SCREENING [facility] Immunizations Immunization Date Immunization Notes Care Provider Jun cnadelario No information available. 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 Author Type: Physician Type: Progress Notes Filed: 06/09/2022 9:39 AM Note Text: Naion (non-arteritic anterior ischemic optic neuropathy), right (primary encounter diagnosis) He has had an MRI, acute phase reactants and a Tabx so this is NAION and as such is not a treatable condition. I have confirmed and edited as necessary the relevant ophthalmic history, ROS, and the neuro exam findings as obtained by others. I have seen and examined this patient. I have discussed the case and the management of this patient's care with the Resident/Fellow, if applicable. I also have reviewed and agree with the assessment and plan as stated above and agree with all of its relevant components. Christoph Galindo DO June 09, 2022 9:37 AM [facility] Note 06-03-2022 Telephone Encounter - Elise Florian - 06/03/2022 1:14 PM ESTTelephone Encounter - Elise Florian - 06/03/2022 11:28 AM EST Note Date & Type Note Facility 06-03-2022 Miscellaneous Notes Formattin g of this note might be different from the original. Patient returned call and has been scheduled. Images from the original note were not included. Left message for patient to return call regarding appointment next week in [place]. Waiting to hear back. RE: Referral Received: Yesterday DO Christina Bolivar; Elise Florian Can see next Thurs at Previous Messages ----- Message ----- From: Christina Goodrich Sent: 06/02/2022 1:45 PM EST To: Christoph Galindo DO Subject: Referral Following patient is being referred by Dr. Shady Garcia for papilledema and he would like to know if you can see the patient within a week. Patient is closer to [place] if he is able to be seen at that location. You currently have 18 for the day on 06/06 and 19 patients for the day on 06/13 at . Would you be okay with seeing the patient on either of these days. Dr. Garcia's office can be contacted at the following number, . Contact is Kati. Records are being faxed for review. documented in this encounter [facility] Chief Complaint Chief Complaint Description Start Date right thumb finger Preliminary chief co mplaint data, not yet signed by the author as of Instructions Instruction Description Start Date CompletedPatient advised to follow-up with Primary Care Physician for BMI management. Advance Directives There may be information available, but it has not been provided by the sender. No Advanced Directives Records Found Assessments There may be information available, but it has not been provided by the sender. Review of System There may be information available, but it has not been provided by the sender. Family History There may be information available, but it has not been provided by the sender.No Family History Records Found History of Present Illness There may be information available, but it has not been provided by the sender. Summary Purpose Additional Source Comments Reason for Visit (unrecogniz ed section and content) Reason Comments Appointment Source Comments (unrecognize d section and content) In the event this informatio n is protected by the Federal Confidentiality of Alcohol and Drug Abuse Patient Records regulations: The Federal rules restrict any use of the information to criminally investigate or prosecute any alcohol or drug abuse patient.[facility] Care Teams (unrecognized sec tion and content) (unrecognized sect ion and content) No Status Records Found INFORMATION SOURCE (unrecogn ized section and content) FOR RECORDS PERTAINING TO PATIENTS WHO ARE OR HAVE BEEN ENROLLED IN A CHEMICAL DEPENDENCY/SUBSTANCEABUSE PROGRAM, SOME INFORMATION MAY BE OMITTED. This clinical summary was aggregated from multiple sources. Caution should be exercised in using it in the provision of clinical care. This summary normalizes information from multiple sources, and as a consequence, information in this document may materially change the coding, format and clinical context of patient data. In addition, data may be omitted in some cases. CLINICAL DECISIONS SHOULD BE BASED ON THE PRIMARY CLINICAL RECORDS. [facility] [employer] [facility]. provides no warranty or guarantee of the accuracy or completeness of information in this document.
[2023-05-30 08:43] LABS: PSA,Total- Diagnostic 2.19 ng/mL (0.0-4.0)
== END | disposition home or self-care (01) ==
LOC: LAB 07:48
PROVIDERS: PCP Family Medicine; Referring Provider Urology; Visit Provider Urology
DX: R97.20 Elevated prostate specific antigen [PSA] (principal); Z12.5 Encounter for screening for malignant neoplasm of prostate
CPT/HCPCS: 36415; 84153

== ENCOUNTER → 2023-06-29 | Outpatient (CLI) | payer MEDICARE, SELFPAY ==
--- NOTE | 2023-06-29 12:44 | RAD_ITS ---
INDICATION: RADICULOPATHY, LUMBAR REGION EXAMINATION/TECHNIQUE: X-RAY - XR Spine Lumbar 2 or 3 Views COMPARISON: Previous MRI of the lumbar spine of 02/12/2007. FINDINGS: VERTEBRAE: Preserved vertebral body height. No evidence of acute compression fracture deformity. No spondylolisthesis. Preservation of the normal lumbar lordosis. Moderate to severe dextroscoliosis of the lumbar spine. DISCS: Severe disc space narrowing at multiple levels worse at the level of L2-L3. Endplate spondylosis at multiple levels. INCLUDED ABDOMEN: Included bowel gas pattern is non-obstructive. RAD/Lumbar Spine 2 or 3 Views IMPRESSION: 1. Multilevel degenerative changes. 2. Dextroscoliosis of the lumbar spine. Electronically Signed: Austin Trujillo MD at 13:37 EST ,
--- OUTSIDE RECORDS SUMMARY | 2023-06-29 13:00 | XMS RPT_ITS | CCD ---
Author Name Unknown Address [address] [place] [address] Organization [facility] Care Team Providers Care Reiki Practitioner Name Role Phone Humberto BROWER, Taras Bonilla Unavailable [phone] Shady Garcia Unavailable CHRISTOPH AGLINDO Attending Unavailable Allergies Allergy Classification Reported Allergen(s) Allergy Type Date of Onset Reaction(s) Facility (1 source) Penicillin Drug Allergy 9 rash/hives [facility] [place] [facility] Work Phone: (1 source) Penicillins Drug Allergy 9 Rash, Unknown [facility] Medications Completed/Discontinued Medications Medication Drug Class(es) Dates Sig (Normalized) Sig (Original) MULTIPLE VITAMINS-MINERALS (1 source) Start: 05-18-2018 CENTRUM SILVER TABS 1 tablet daily MULTIPLE VITAMINS-MINERALS [id number] Brea Neal DIGITAL MARKETING OFFICER pantoprazole 40 mg delayed release oral tablet (1 source) Proton Pump Inhibitor Start: 05-18-2018 PANTOPRAZOLE SODIUM 40 MG TBEC 1 tablet daily as needed PANTOPRAZOLE SODIUM [id number] Taras Paul MD simvastatin 20 mg oral tablet (1 source) HMG-CoA Reductase Inhibitor Start: 05-18-2018 SIMVASTATIN 20 MG TABS 1 tablet at bedtime SIMVASTATIN [id number] Brea Neal DIGITAL MARKETING OFFICER Problems Active Problems Problem Classification Problem Date [...] Sign Value Performing Clinician Facility NEGATED: Highlighted [id number] 15:44-0500 BMI (Body Mass Index) 28.95 kg/m2 Xi [facility] AT [facility] Work Phone: NEGATED: Highlighted [id number] 15:44-0500 BP Diastolic 86 mm[Hg] Xi [facility] AT [facility] Work Phone: NEGATED: Highlighted [id number] 15:44-0500 BP Systolic 145 mm[Hg] Xi Pop AT [facility] Work Phone: NEGATED: Highlighted [id number] 15:44-0500 BP Systolic 126 mm[Hg] Xi [facility] AT [facility] Work Phone: NEGATED: Highlighted [id number] 15:44-0500 Height 166.37 cm Xi Pop AT [facility] Work Phone: NEGATED: Highlighted [id number] 15:44-0500 Height 166 cm Xi Pop AT [facility] Work Phone: NEGATED: Highlighted [id number] 15:44-0500 Pulse (Heart Rate) 76 /min iX Pop AT [facility] Work Phone: NEGATED: Highlighted [id number] 15:44-0500 Weight 79.83 kg Xi Pop AT [facility] Work Phone: NEGATED: Highlighted [id number] 15:44-0500 Weight 80 kg Xi [facility] AT [facility] Work Phone: Encounters Encounter Date Encounter Type Care Provider Facility Start: 06-09-2022 End: 06-09-2022 ambulatory CHRISTOPH GALINDO Facility:[facility] Start: 06-03-2022 Telephone encounter Christoph Galindo Work Phone: Ophthalmology Procedures Date Procedure Procedure [...] 05-08-2022 ADVANCE DIRECTIVE DISCUSSION ADVANCE DIRECTIVE DISCUSSION [facility] Start: 05-08-2022 DEPRESSION ASSESSMENT DEPRESSION ASSESSMENT [facility] Start: 05-23-2018 End: 05-23-2018 Appointment Appointment [facility] Work Phone: Start: 05-23-2018 End: 05-23-2018 Radex hand minimum 3 views XR HAND 3+ VWS-RT [facility] Work Phone: Start: 09-16-2016 PNEUMOCOCCAL: 65+ (1 - PCV) PNEUMOCOCCAL: 65+ (1 - PCV) [facility] Start: 09-16-2001 SHINGRIX VACCINE (1 of 2) SHINGRIX VACCINE (1 of 2) [facility] Start: 09-16-1996 COLOGUARD (FIT-DNA) COLOGUARD (FIT-DNA) [facility] Start: 09-16-1996 Colonoscopy COLONOSCOPY [facility] Start: 09-16-1996 COLORECTAL CANCER SCREENING COLORECTAL CANCER SCREENING [facility] Start: 09-16-[address] COLONOGRAPHY [facility] Start: 09-16-1996 DIABETES SCREEN DIABETES SCREEN [facility] Start: 09-16-1996 FECAL OCCULT BLOOD FECAL OCCULT BLOOD [facility] Start: 09-16-1996 SIGMOIDOSCOPY SIGMOIDOSCOPY [facility] Start: 09-16-1986 LIPID SCREEN LIPID SCREEN [facility] Start: 09-16-1970 Urine microalbumin profile DTAP,TDAP,TD (1 - Tdap) [facility] Start: 09-16-1969 HEPATITIS C SCREENING HEPATITIS C SCREENING [facility] Immunizations Immunization Date Immunization Notes Care Provider Jun candelario No information available. 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 Author [...] Galindo DO June 09, 2022 9:37 AM [facility] Note 06-03-2022 Telephone Encounter - Elise Florian [...] return call regarding appointment next week in [place]. Waiting to hear back. RE: Referral Received: [...] within a week. Patient is closer to [place] if he is able to be seen [...] faxed for review. documented in this encounter [facility] Chief Complaint Chief Complaint Description Start Date [...] or prosecute any alcohol or drug abuse patient.[facility] Care Teams (unrecognized sec tion and content) [...] BE BASED ON THE PRIMARY CLINICAL RECORDS. [facility] [employer] [facility]. provides no warranty or guarantee of the accuracy or completeness of information in this document.
== END | disposition home or self-care (01) ==
PROVIDERS: PCP Family Medicine; Referring Provider Family Medicine; Visit Provider Family Medicine
DX: M54.16 Radiculopathy, lumbar region (principal)
CPT/HCPCS: 72100

== ENCOUNTER 2023-09-01 09:00 | Outpatient (RCR) | payer MEDICARE, SELFPAY ==
--- NOTE | 2023-08-02 14:19 | HP.PTEVAL ---
Patient's Visit Information Visit Information Visit Information: MARISSA HILARIO is a 72 year old M referred to Physical Therapy by Dr. Jan Alston DO with a diagnosis of LBP. Date of Evaluation: 08/02/23 Physical Therapist: Carlos Anderson, PT, ATC Visit Plan Frequency: 2x /Week Duration: 2-4 Weeks Plan: Follow up with THIERRY with regards to BPPV next Rx. REIL, core strengthening, Postural edu, and HEP Subjective Subjective: Pt reports he has had LBP for approximately one month. 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 Pt notes he went to his doctors where he received an injection and steroid pack which didn't help immediately, but has began to make a difference now. Pt reports he received x-rays a week ago that showed degenerative changes in his L/S. Pt reports he has intermittent LE radiculopathy that will radiate down to his ankle at time. Today, his LE radiculopathy radiates down the posterior aspect of his R LE to the knee region. Pt reports no sleep difficulty at this time secondary to pain. Pt reports sitting is what tends to make his pain the worst. Pt reports no significant pain with standing, and sometimes walking will make it better. Pt reports 1/10 pain in his LB while sitting here at rest, 10/10 when his pain is the worst. Pain LBP: Pain Intensity (Out of 10): 1 Pain Intensity Range: 10 Objective Objective: Neuro: B LE sensation is WNL to light touch. B patellar reflex= 2/3 MMT: B hip flexion is grossly rated at 4-/5. All other B LE MMT 5/5 throughout ROM: Pt is moderately limited with extension. All other ranges are minimally limited Repeated movements: RFIS produced LBP. NATALIA NE. REIL better. Balance/Special Test Scores Oswestry Low Back Score: 11 Goals Goal 1:: Decrease LBP x 50% to aid with IADL's Goal Time Frame: 2-4 Weeks Goal 2:: Increase L/S ROM x 1 grade in all planes to aid with decreasing LBP Goal Time Frame: 2-4 Weeks Goal 3:: Decrease the frequency and intensity of R LE radiculopathy x 50% to aid with ambulation Goal Time Frame: 2-4 Weeks Goal 4:: I with HEP Goal Time Frame: 2-4 Weeks Rehabilitation Potential Physical Therapy Diagnosis: Pt has LBP, limited L/S ROM, and R LE radiculopathy secondary to L/S disc derangement Rehabilitation Potential: Good Anticipated Interventions Patient/Client Instruction: Educate patient on: Condition and Plan of Care For the Purpose of:: To improve self management Therapeutic Exercise to Include: Strength training, Endurance training, Body mechanics, Postural training, Dynamic Lumbar Stabilization and Grover Exercises For the Purpose of:: To decrease pain, To increase ROM and To improve muscle performance and motor function Text: Thank you for the opportunity to evaluate your patient. For Medicare and Medicare HMO plans, please review the plan of care and approve it. It will need to be FAXED BACK to us at [phone] for Medicare purposes. For Medicare only, by signing this I certify the plan of care. Please let me know if there are questions or concerns regarding this plan of care. Physician Signature: Date:
--- NOTE | 2023-09-01 09:34 | HP.PTDCSUM ---
Discharge Summary D/C summary: It has been my pleasure to treat MARISSA HILARIO referred by Dr. Jan Alston DO, with the diagnosis of LBP for a total of 9 visit(s). Discharge Date: 09/01/23 Please see the following information for a summary of their discharge status. Subjective Subjective: Pt reports no pain today Pain LBP: Pain Intensity (Out of 10): 0 Overall Improvement % Improvement: 100 Objective Objective/Function: 0/10 LBP L/S ROM is WNL Pt reports no R LE radiculopathy for over a week Pt is I with HEP Goals Goal 1:: Decrease LBP x 50% to aid with IADL's Goal Progress: Goal Met Goal 2:: Increase L/S ROM x 1 grade in all planes to aid with decreasing LBP Goal Progress: Goal Met Goal 3:: Decrease the frequency and intensity of R LE radiculopathy x 50% to aid with ambulation Goal Progress: Goal Met Goal 4:: I with HEP Goal Progress: Goal Met Plan Plan: Discharge to HEP D/C Information d/c sentence: If there are questions or concerns regarding this patient's physical therapy, please feel free to call me at [phone]. Thank you for the referral of this patient. Sincerely, Carlos Anderson, PT, ATC Balance/Gait/Functional tests Balance/Special Test Scores Oswestry Low Back Score: 3 Improvement % Improvement: 100
== END 2023-09-01 15:10 | disposition home or self-care (01) ==
LOC: PT 09:00
PROVIDERS: PCP Family Medicine; Referring Provider Orthopaedic Surgery; Visit Provider Orthopaedic Surgery
DX: M54.50 Low back pain, unspecified (principal)
CPT/HCPCS: 97110; 97161; 97164

== ENCOUNTER → 2023-10-10 | Outpatient (CLI) | payer MEDICARE, SELFPAY ==
[2023-10-10 12:21] LABS: Absolute Lymphocyte Count 1.83 X10^3/uL (0.83-4.51); Absolute Neutrophil Count 3.1 X10^3/uL (2.0-7.7); Basophil# 0.02 X10^3/uL; Basophil% 0.4 % (0-1); Eosinophil# 0.06 X10^3/uL; Eosinophils% 1.1 % (0-5); Hematocrit 45.4 % (40-54); Hemoglobin 15.1 g/dL (13.0-16.5); Lymphocyte # 1.83 X10^3/ul (0.83-4.51); Lymphocyte % 33.8 % (19-41); Mean Corp Hgb Conc 33.3 g/dL (32-36); Mean Corpuscular Hgb 31.9 pg (27.0-32.0); Mean Corpuscular Volume 95.8 fL (80-94); Monocyte# 0.38 X10^3/uL; NRBC Flagged by Analyzer 0 % (0-5); Neutrophil # 3.12 X10^3/uL (2.7-7.7); Neutrophil % 57.5 % (47-70); POSITIVE COUNT YES; RBC Distribution Width CV 11.7 % (11.6-14.6); RBC Distribution Width SD 40.6 fl (35.1-43.9); Red Blood Count 4.74 M/mm3 (4.6-6.2); White Blood Count 5.4 K/mm3 (4.4-11.0)
[2023-10-10 12:26] LABS: Differential Indicated SCAN CRITERIA MET
[2023-10-10 12:47] LABS: Differential Comment SCANNED; Platelet Estimate MOD DEC (ADEQ); Platelet Morphology CLUMPED
[2023-10-10 13:07] LABS: AST(SGOT) 24 U/L (15-37); Alanine Aminotransfer ALT/SGPT 31 U/L (16-61); Albumin, Serum 3.9 g/dL (3.2-5.0); Alkaline Phosphatase 60 U/L (45-117); Anion Gap 5 (5-15); BUN 23 mg/dL (7-18); BUN/Creat Ratio 21.3 RATIO (10-20); Bilirubin, Direct 0.42 mg/dL (0.00-0.30); Calcium,Total 9.6 mg/dL (8.5-10.1); Chloride 104 mmol/L (98-107); Cholesterol 140 mg/dL (200); Creatinine, Serum 1.08 mg/dL (0.70-1.30); EST Glomerular Filtration Rate 71 mL/min (>60); Est Glom Filt Rate - Afr Amer 86 mL/min (>60); Globulin 3.1 g/dL (2.2-4.2); Glucose 80 mg/dL (74-106); High Density Lipoprotein 66 mg/dL; Magnesium 2.2 mg/dL (1.6-2.6); Sodium Level 137 mmol/L (136-145); Thyroid Stim Hormone (TSH) 2.81 uIU/mL (0.358-3.74); Triglycerides 66 mg/dL; Very Low Density Lipoprotein 13 mg/dL (5-40)
== END | disposition home or self-care (01) ==
LOC: MFPLAB 10:08
PROVIDERS: PCP Family Medicine; Visit Provider Family Medicine
DX: I10 Essential (primary) hypertension (principal); E78.5 Hyperlipidemia, unspecified; E80.6 Other disorders of bilirubin metabolism; K21.9 Gastro-esophageal reflux disease without esophagitis
CPT/HCPCS: 36415; 80048; 80061; 80076; 83735; 84443; 85025

== ENCOUNTER → 2023-12-12 | Outpatient (CLI) | payer MEDICARE, SELFPAY ==
--- NOTE | 2023-12-12 07:50 | CT_ITS ---
STUDY: CT BRAIN WITH AND WITHOUT CONTRAST REASON FOR EXAM: Male, 73 years old. Memory loss. RADIATION DOSAGE (If Supplied By Facility): CTDIvol = ( 44.99 ) mGy, DLP = ( 1547.23 ) mGycm TECHNIQUE: Transaxial CT imaging of the brain was performed pre and post contrast administration. The examination was performed with intravenous administration of IV 50mL Isovue-370. Individualized dose optimization techniques were used for this CT. COMPARISON: None. FINDINGS: Normal soft tissue structures. Normal calvarium. Nasal septal deviation towards the right side of the midline. Dolichoectasia of the basilar tip. There is mild cerebral atrophy with widening of the extra-axial spaces and ventricular dilatation. There are areas of decreased attenuation within the white matter tracts of the supratentorial brain, consistent with microvascular disease changes. Normal basal ganglia and thalami. Normal brainstem. Normal cerebellum. There is no intracranial hemorrhage. There are no findings of an acute ischemic infarction. Normal visualized paranasal sinuses. CT/Brain/Head W/WO Contrast IMPRESSION: Chronic involutional changes of the brain. Dolichoectasia of the basilar tip. Electronically Signed: Jorge A Vu MD at 13:30 EDT ,
[2023-12-12 08:19] LABS: CREATININE FINGERSTICK < 1.0 mg/dL (0.70-1.30); EGFR FINGERSTICK > 60.0000 mL/min (>60)
== END | disposition home or self-care (01) ==
LOC: CT 07:48
PROVIDERS: PCP Family Medicine
DX: R41.3 Other amnesia (principal)
CPT/HCPCS: 70470; Q9967

== ENCOUNTER → 2024-03-21 | Outpatient (CLI) | payer MEDICARE, SELFPAY ==
[2024-03-21 09:58] LABS: Bacteria 0 SEEN /hpf (None Seen); Mucous, Urine 0 SEEN /hpf (<or=2+); Red Blood Cells-Urine 0 SEEN /hpf (0-5); Squamous Epithelial Cells - UA 0 SEEN /hpf (0-5)
[2024-03-21 12:20] LABS: Absolute Neutrophil Count 2.7 X10^3/uL (2.0-7.7); Basophil# 0.02 X10^3/uL; Basophil% 0.4 % (0-1); Eosinophil# 0.06 X10^3/uL; Eosinophils% 1.3 % (0-5); Hematocrit 44.5 % (40-54); Hemoglobin 14.6 g/dL (13.0-16.5); Lymphocyte % 32.2 % (19-41); Mean Corp Hgb Conc 32.8 g/dL (32-36); Mean Corpuscular Hgb 31.3 pg (27.0-32.0); Mean Corpuscular Volume 95.3 fL (80-94); Mean Platelet Vol. 10.7 fl (6.2-12.0); Monocyte# 0.33 X10^3/uL; Monocyte% 7.1 % (0-10); NRBC Flagged by Analyzer 0 % (0-5); Neutrophil # 2.74 X10^3/uL (2.7-7.7); Neutrophil % 58.8 % (47-70); POSITIVE COUNT YES; RBC Distribution Width CV 11.9 % (11.6-14.6); RBC Distribution Width SD 41.1 fl (35.1-43.9); Red Blood Count 4.67 M/mm3 (4.6-6.2); White Blood Count 4.7 K/mm3 (4.4-11.0)
[2024-03-21 12:35] LABS: Color, Urine Yellow (Yellow); Glucose, Dipstick Normal (Normal); Ketone-Dipstick Negative (Negative); Leukocyte Esterase-Dipstick 25 /ul (Negative); Nitrite-Dipstick Negative (Negative); Occult Blood-Urine Negative /ul (Negative); Protein-Dipstick Negative (Negative); Urine Bilirubin Dipstick Negative (Negative); Urine Clarity Clear (Clear); Urine Urobilinogen Normal (Normal)
[2024-03-21 12:56] LABS: White Blood Cells 0-5 SEEN /hpf (0-5)
[2024-03-21 13:04] LABS: Differential Comment SCANNED; Differential Indicated SCAN CRITERIA MET; Platelet Estimate MOD DEC (ADEQ); Platelet Morphology CLUMPED
[2024-03-21 13:34] LABS: ALB/GLOB Ratio 1.2 RATIO (0.9-2.4); AST(SGOT) 27 U/L (15-37); Alanine Aminotransfer ALT/SGPT 42 U/L (16-61); Albumin, Serum 3.8 g/dL (3.2-5.0); Alkaline Phosphatase 60 U/L (45-117); Anion Gap 6 (5-15); BUN 19 mg/dL (7-18); BUN/Creat Ratio 19.7 RATIO (10-20); Calcium,Total 9.1 mg/dL (8.5-10.1); Chloride 106 mmol/L (98-107); Cholesterol 168 mg/dL (200); Creatinine, Serum 0.96 mg/dL (0.70-1.30); EST Glomerular Filtration Rate 81 mL/min (>60); Est Glom Filt Rate - Afr Amer 98 mL/min (>60); Globulin 3.2 g/dL (2.2-4.2); Glucose 77 mg/dL (74-106); High Density Lipoprotein 74 mg/dL; PSA,Total - Annual Screen 2.45 ng/mL (0.00-4.00); Potassium 4.6 mmol/L (3.5-5.1); Sodium Level 138 mmol/L (136-145); Triglycerides 67 mg/dL; Very Low Density Lipoprotein 13 mg/dL (5-40)
== END | disposition home or self-care (01) ==
LOC: MFPLAB 09:55
PROVIDERS: PCP Family Medicine; Referring Provider Family Medicine; Visit Provider Family Medicine
DX: K21.9 Gastro-esophageal reflux disease without esophagitis (principal); E78.5 Hyperlipidemia, unspecified; I10 Essential (primary) hypertension; Z12.5 Encounter for screening for malignant neoplasm of prostate
CPT/HCPCS: 36415; 80053; 80061; 81001; 84153; 85025; G0103

== ENCOUNTER → 2024-04-15 | Outpatient (CLI) | payer MEDICARE, SELFPAY ==
[2024-04-15 16:01] LABS: Erythrocyte Sedimentation Rate 3 mm/hr (0-20)
[2024-04-15 16:06] LABS: Absolute Lymphocyte Count 1.93 X10^3/uL (0.83-4.51); Absolute Neutrophil Count 3.6 X10^3/uL (2.0-7.7); Basophil# 0.02 X10^3/uL; Basophil% 0.3 % (0-1); Eosinophil# 0.04 X10^3/uL; Eosinophils% 0.7 % (0-5); Hematocrit 44.1 % (40-54); Hemoglobin 14.5 g/dL (13.0-16.5); Lymphocyte # 1.93 X10^3/ul (0.83-4.51); Lymphocyte % 32.7 % (19-41); Mean Corp Hgb Conc 32.9 g/dL (32-36); Mean Corpuscular Hgb 31.7 pg (27.0-32.0); Mean Corpuscular Volume 96.3 fL (80-94); Mean Platelet Vol. 11.5 fl (6.2-12.0); Monocyte# 0.32 X10^3/uL; Monocyte% 5.4 % (0-10); NRBC Flagged by Analyzer 0 % (0-5); Neutrophil # 3.58 X10^3/uL (2.7-7.7); Neutrophil % 60.6 % (47-70); POSITIVE COUNT YES; RBC Distribution Width CV 11.8 % (11.6-14.6); RBC Distribution Width SD 41.6 fl (35.1-43.9); Red Blood Count 4.58 M/mm3 (4.6-6.2); White Blood Count 5.9 K/mm3 (4.4-11.0)
[2024-04-15 16:57] LABS: Differential Comment SCANNED; Differential Indicated SCAN CRITERIA MET
[2024-04-15 16:58] LABS: Platelet Estimate MOD DEC (ADEQ); Platelet Morphology CLUMPED; Red Cell Morphology NORM C+C NORMAL (NORM C&C)
[2024-04-15 19:48] LABS: CRP < 2.90 mg/L (0.0-3.0)
== END | disposition home or self-care (01) ==
LOC: MTLAB 13:33
PROVIDERS: PCP Family Medicine; Referring Provider Ophthalmology; Visit Provider Ophthalmology
DX: H35.82 Retinal ischemia (principal)
CPT/HCPCS: 36415; 85025; 85652; 86140

== ENCOUNTER → 2024-04-30 | Outpatient (CLI) | payer MEDICARE, SELFPAY ==
--- NOTE | 2024-04-30 16:22 | MRI_ITS ---
STUDY: MRI ORBITS WITH AND WITHOUT CONTRAST REASON FOR EXAM: Male, 73 years old. ISCHEMIC OPTIC NEUROPATHY L EYE TECHNIQUE: Standardized fat and water weighted pulse sequences were obtained in all 3 orthogonal planes, pre-and post contrast administration. 15 CC IV CLARISCAN was administered for the contrast portion of the examination. COMPARISON: MRI brain with and without contrast 05/31/2022. FINDINGS: Normal bilateral globes. Normal bilateral optic nerve sheath complexes and optic nerves. Normal bilateral intraconal and extraconal spaces. Normal bilateral extraocular muscles. Normal optic chiasm and post-chiasmatic tracts. Normal sella turcica, pituitary gland, infundibular stalk, and hypothalamus. Normal bilateral cavernous sinuses. Normal tectal plate and pineal gland. Normal flow voids within the major intracranial circulation suggesting patency by spin echo criteria. No diffusion restriction to suspect acute or subacute ischemic infarct. Normal size of the ventricles and extra-axial spaces for the patient''s age. Few periventricular white matter T2 FLAIR hyperintensity foci in the right cerebral hemisphere more than both cerebral hemispheres are chronic white matter ischemic changes. Normal bilateral basal ganglia. Normal thalami. There is no extra-axial fluid accumulation. Following IV contrast administration, there are no abnormally enhancing lesions intra-axially and extra-axially. Normal midbrain, neil and medulla. Normal cerebellum. Normal basal cisterns. MRI/Brain W/WO Contrast IMPRESSION: 1. T11 small periventricular white matter T2 FLAIR hyperintensity foci in both cerebral hemispheres, right more than left are chronic white matter ischemic changes otherwise negative enhanced and unenhanced MRI of the orbits. 2. No significant interval change compared to 05/31/2022 Electronically Signed: Igor Guzman MD at 8:21 EST ,
[2024-04-30 16:54] LABS: CREATININE FINGERSTICK < 1.0 mg/dL (0.70-1.30); EGFR FINGERSTICK > 60.0000 mL/min (>60)
== END | disposition home or self-care (01) ==
LOC: MRI 16:16
PROVIDERS: PCP Family Medicine; Referring Provider Ophthalmology; Visit Provider Ophthalmology
DX: H47.012 Ischemic optic neuropathy, left eye (principal)
CPT/HCPCS: 70553; A9575

== ENCOUNTER → 2024-05-06 | Outpatient (CLI) | payer MEDICARE, SELFPAY ==
--- NOTE | 2024-05-06 08:02 | CDU_ITS ---
Reason For Study: Retinal ischemia Rt. Velocities/BP Lt. Velocities/BP Prox CCA 58.9/12.6 cm/sec. Prox CCA 73/14.5 cm/sec. Mid CCA 75.9/17.3 cm/sec. Mid CCA 62.6/19.2 cm/sec. Dist CCA 74/21.1 cm/sec. Dist CCA 67.4/20.1 cm/sec. Prox ICA 81.5/23.9 cm/sec. Prox ICA 62.6/19.2 cm/sec. Mid ICA 60.7/22 cm/sec. Mid ICA 51.3/17.3 cm/sec. Dist ICA 53.2/21.1 cm/sec. Dist ICA 57.9/23.9 cm/sec. Rt. ICA/CCA = 1.07. Lt. ICA/CCA = 1.00. Prox ECA 70.2/10.7 cm/sec. Prox ECA 73/9.7 cm/sec. Rt. Vert. 34.3/12.6 cm/sec. Lt. Vert. 35.1/15.2 cm/sec. Right Extracranial There is intimal thickening but no significant atherosclerotic plaque noted in the right common carotid artery. There is heterogeneous, irregular atherosclerotic plaque noted in the right internal carotid artery. There is intimal thickening but no significant atherosclerotic plaque noted in the right external carotid artery. Antegrade flow is noted in the right vertebral artery. Left Extracranial There is intimal thickening but no significant atherosclerotic plaque noted in the left common carotid artery. There is heterogeneous, irregular atherosclerotic plaque noted in the left internal carotid artery. There is intimal thickening but no significant atherosclerotic plaque noted in the left external carotid artery. Antegrade flow is noted in the left vertebral artery. Procedure Carotid Duplex 48727. This is a Carotid Duplex examination using B-mode, color flow and specral Doppler. Exam performed in department. VL/Carotid Duplex Ultrasound Interpretation Summary Mild (<50%) stenosis right extracranial internal carotid. Mild (<50%) stenosis left extracranial internal carotid. Patent and antegrade vertebrals bilaterally. Ordering Physician: Shady Garcia Referring Physician: Taras Workman Performed By: Siobhan Singh RVT
== END | disposition home or self-care (01) ==
LOC: CVS 08:01
PROVIDERS: PCP Family Medicine; Referring Provider Ophthalmology; Visit Provider Ophthalmology
DX: H35.82 Retinal ischemia (principal)
CPT/HCPCS: 93880

== ENCOUNTER → 2024-05-17 | Outpatient (CLI) | payer MEDICARE, SELFPAY ==
[2024-05-17 10:32] LABS: Absolute Lymphocyte Count 1.73 X10^3/uL (0.83-4.51); Absolute Neutrophil Count 2.9 X10^3/uL (2.0-7.7); Basophil# 0.03 X10^3/uL; Basophil% 0.6 % (0-1); Hematocrit 42.5 % (40-54); Hemoglobin 14.3 g/dL (13.0-16.5); Lymphocyte # 1.73 X10^3/ul (0.83-4.51); Lymphocyte % 33.9 % (19-41); Mean Corp Hgb Conc 33.6 g/dL (32-36); Mean Corpuscular Hgb 31.9 pg (27.0-32.0); Mean Corpuscular Volume 94.9 fL (80-94); Mean Platelet Vol. 11.7 fl (6.2-12.0); Monocyte# 0.37 X10^3/uL; Monocyte% 7.2 % (0-10); NRBC Flagged by Analyzer 0 % (0-5); Neutrophil # 2.86 X10^3/uL (2.7-7.7); Neutrophil % 55.9 % (47-70); Platelet Count 135 K/mm3 (150-450); RBC Distribution Width CV 11.8 % (11.6-14.6); RBC Distribution Width SD 40.6 fl (35.1-43.9); Red Blood Count 4.48 M/mm3 (4.6-6.2); White Blood Count 5.1 K/mm3 (4.4-11.0)
[2024-05-17 11:08] LABS: AST(SGOT) 20 U/L (15-37); Alanine Aminotransfer ALT/SGPT 32 U/L (16-61); Albumin, Serum 3.6 g/dL (3.2-5.0); Alkaline Phosphatase 52 U/L (45-117); Anion Gap 3 (5-15); BUN 17 mg/dL (7-18); BUN/Creat Ratio 16.2 RATIO (10-20); Bilirubin, Direct 0.29 mg/dL (0.00-0.30); Calcium,Total 9.1 mg/dL (8.5-10.1); Chloride 103 mmol/L (98-107); Cholesterol 140 mg/dL (200); Creatinine, Serum 1.05 mg/dL (0.70-1.30); EST Glomerular Filtration Rate 74 mL/min (>60); Est Glom Filt Rate - Afr Amer 89 mL/min (>60); Globulin 3.1 g/dL (2.2-4.2); Glucose 86 mg/dL (74-106); High Density Lipoprotein 59 mg/dL; Magnesium 2.4 mg/dL (1.6-2.6); Potassium 4.1 mmol/L (3.5-5.1); Protein, Total 6.7 g/dL (6.4-8.2); Sodium Level 137 mmol/L (136-145); Triglycerides 53 mg/dL; Very Low Density Lipoprotein 11 mg/dL (5-40)
== END | disposition home or self-care (01) ==
LOC: MFPLAB 09:17
PROVIDERS: PCP Family Medicine; Referring Provider Family Medicine; Visit Provider Family Medicine
DX: I10 Essential (primary) hypertension (principal); E78.5 Hyperlipidemia, unspecified; E80.6 Other disorders of bilirubin metabolism
CPT/HCPCS: 36415; 80048; 80061; 80076; 83735; 84443; 85025

== ENCOUNTER → 2025-02-04 | Outpatient (CLI) | payer MEDICARE, SELFPAY ==
--- NOTE | 2025-02-04 09:33 | ST.MBS ---
Modified Barium Swallow Patient Information Study Date: 02/04/25 Study Time: 09:30 Direct Billable Minutes: 91 Total Minutes procedure & reportin Diagnosis: Dysphagia R13.10 Referring Physician: Taras Workman Reason for Referral: Pt's PCP referred him for this MBSS after recent office visit where pt had chief complaint of nighttime coughing. It was also discussed that the patient has occ swallowing difficulty w/ sensation of drinks going down the wrong way ~1X/week. Rarely, food will feel as if it goes down the wrong way. Pt denies hx of choking. At times, he will feel sensation of food caught in his throat or in his lower esophagus. He states he has learned to be more cautious eating. He reports hx of EGD >5 years ago revealing hiatal hernia. He also has diagnosis of GERD. He is not currently following w/ GI. Medical History: Medical History Essential hypertension Wears glasses History of steroid therapy Arthritis High cholesterol Back pain Injury of back Gastric reflux Non-smoker Normal stress echocardiogram History of echocardiogram History of stress test Cardiology follow-up encounter Chest pain Basal cell carcinoma Hiatal hernia GERD (gastroesophageal reflux disease) Hyperlipidemia Current Diet Ordered: Regular textures / Thin liquids Mental Status: Impaired (Hx of MCI per chart. Did not impact exam.) Respiratory Status: Oxygenating on Room Air Penetration-Aspiration Scale Penetration-Aspiration Scale: OBJECTIVE ASSESSMENT OF SWALLOW FUNCTION (QUANTITATIVE ? PER TRIAL): PENETRATION / ASPIRATION SCALE ([place]): 1 = does not enter airway 2 = enters airway/above vocal folds/ejected 3 = enters airway/above vocal folds/not ejected 4 = enters airway/contacts vocal folds/ejected 5 = enters airway/contacts vocal folds/not ejected 6 = enters airway/below vocal folds/ejected 7 = enters airway/below vocal folds/not ejected despite effort 8 = enters airway/below vocal folds/no effort VIDEOFLOROSCOPIC SCALE SCORE ([place]): Grade I = aspiration of material that has penetrated into the laryngeal vestibule, intact cough reflex Grade II = aspiration < 10 % of the bolus, intact cough reflex Grade III = aspiration of < 10 % of the bolus, reduced cough reflex or aspiration of > 10 % of the bolus, intact cough reflex Grade IV = aspiration of > 10 % of the bolus, reduced cough reflex Penetration-Aspiration Scale Score Thin Liquid via teaspoon: Result: 1= does not enter airway Thin Liquid via teaspoon Trial 2: Result: 1= does not enter airway Thin Liquid via large single sip: cup: Result: 1= does not enter airway [place] Thick Liquid via large single sip: cup: Result: 1= does not enter airway Pudding via teaspoon: Result: 1= does not enter airway Comment: Esophageal screen - Mild-moderate retention in the middle esophagus. Thin Liquid via single sip: straw: Result: 1= does not enter airway Comment: Esophageal screen - Complete clearance of liquid and residues of previous trial. 1/2 Cookie: Result: 1= does not enter airway Comment: Esophageal screen - Mild retention in the middle esophagus. Thin Liquid via single sip: straw Trial 2: Result: 2= enter airway/above vocal folds/ejected Comment: Esophageal screen - First liquid wash somewhat cleared cookie retention; however, mild retention of barium remained in the middle esophagus. Second liquid was provided during the screen, which mostly cleared cookie retention, but mild liquid retention remained in the lower esophagus w/ min retrograde flow. Thin Liquid via sequential sips:straw: Result: 2= enter airway/above vocal folds/ejected Oral Phase Labial Seal: Interlabial escape, no progression to anterior lip Tongue Control During Bolus Hold: Posterior escape of less than half of bolus Bolus Preparation/Mastication: Timely and efficient chewing and mashing Bolus Transport/Lingual Motion: Repetitive/disorganized tongue motion Oral Residue: Majority of bolus remaining (piecemeal deglutition of large single sip by straw) Pharyngeal Phase Initiation of Pharyngeal Swallow: Bolus head in pyriforms Soft Palate Elevation: Trace column of contrast/air between soft palate and pharyngeal wall Laryngeal Elevation: Comp. Superior move thyroid cart w/comp. apprx arytenoid cart-epig pet Anterior Hyoid Excursion: Partial anterior movement Epiglottic Movement: Partial inversion Laryngeal Vestibule Closure at Height of Swallow: Incomplete; narrow column of air/contrast in laryngeal vestibule Pharyngeal Stripping Wave: Present - diminished Pharyngoesophageal Segment Opening: Parital distension and partial duration; parital obstruction of flow Tongue Base Retraction: Narrow column of contrast between tongue base & post. pharyngeal wall Pharyngeal Residue: Collection of residue within or on pharyngeal structures Esophageal Phase Esophageal Clearance: Esophageal retention w/ retrograde flow below pharyngoesophageal seg. Diagnosis/Impression Diagnosis: Esophageal dysphagia R13.14; Mild oropharyngeal dysphagia R13.12 MBS Impressions: The oral phase is primarily marked by... -Posterior loss of <1/2 of some liquid boluses to the pharynx prior to swallow onset. -Lingual pumping for A-P transport of pudding. -Piecemeal deglutition of large single sip by straw. The pharyngeal phase is primarily marked by... -Mildly decreased pharyngeal motility secondary to decreased TB retraction and pharyngeal stripping wave w/ mild pharyngeal residues. -Mildly decreased airway closure due to decreased anterior hyoid excursion and partial epiglottic inversion w/ some trials. Laryngeal penetration of thin liquids via straw 2X w/ complete ejection due to complete laryngeal elevation. No aspiration seen during the MBSS. The esophageal phase is primarily marked by... -Mild-moderate retention of pudding in the middle esophagus, which fully cleared w/ one liquid wash. -Mild retention of cookie in the middle esophagus, which mostly cleared w/ two liquid washes. Mild retention of liquid wash in the lower esophagus w/ minimal retrograde flow. Recommendations Diet: Regular Textures and Thin Liquids Compensatory Strategies: Small Bites, Small Sips, Slow Rate, Alternate bites/solids and sips/liquids (Take a sip after every 2-3 bites), Sitting upright and Remain sitting upright for 30 minutes after PO intake Recommend Repeat Modified Barium Swallow: No Need for Skilled Speech Therapy Services: Yes Comment: -Train the patient in use of strategies to facilitate safe po intake. -GERD education. -Train the patient in oropharyngeal exercise program to improve anterior hyoid excursion/epiglottic inversion and pharyngeal motility (Antonio, Effortful, Susan). Recommended Referrals: GI Consult (Consider GI consult given esophageal retention during MBSS, hx of GERD, hx of hiatal hernia, coughing at nighttime. Please discuss w/ PCP. Safe for participation in esophagram if recommended by PCP or GI.) Education Completed: 1. Described result of evaluation. and 2. Pt understands evaluation & agrees with goals and treatment plan. Status Active ST Patient: Active Contact Information [facility] Speech Therapy:: Brea Prater M.A. [employer] Speech-Language Pathologist [facility] [address] [place] [address] [email or web address] [phone]
== END | disposition home or self-care (01) ==
PROVIDERS: PCP Family Medicine; Referring Provider Family Medicine; Visit Provider Family Medicine
DX: R13.10 Dysphagia, unspecified (principal)
CPT/HCPCS: 74230; 92611

== ENCOUNTER 2025-03-12 11:30 | Outpatient (RCR) | payer MEDICARE, SELFPAY ==
--- NOTE | 2025-03-04 16:03 | ST ---
[facility] Speech Pathology [address] [place] [address] Modified Barium Swallow Study MR#: [id number] Acct: [id number] Name: MARISSA HILARIO Rep #: [id number] : [id number] 74 From: Brea Prater M.A., [facility] [employer] Modified Barium Swallow Patient Information Study Date: 02/04/25 Study Time: 09:30 Direct Billable Minutes: 91 Total Minutes procedure & reportin Diagnosis: Dysphagia R13.10 Referring Physician: Taras Workman Reason for Referral: Pt's PCP referred him for this MBSS after recent office visit where pt had chief complaint of nighttime coughing. It was also discussed that the patient has occ swallowing difficulty w/ sensation of drinks going down the wrong way ~1X/week. Rarely, food will feel as if it goes down the wrong way. Pt denies hx of choking. At times, he will feel sensation of food caught in his throat or in his lower esophagus. He states he has learned to be more cautious eating. He reports hx of EGD >5 years ago revealing hiatal hernia. He also has diagnosis of GERD. He is not currently following w/ GI. Medical History: Medical History Essential hypertension Wears glasses History of steroid therapy Arthritis High cholesterol Back pain Injury of back Gastric reflux Non-smoker Normal stress echocardiogram History of echocardiogram History of stress test Cardiology follow-up encounter Chest pain Basal cell carcinoma Hiatal hernia GERD (gastroesophageal reflux disease) Hyperlipidemia Current Diet Ordered: Regular textures / Thin liquids Mental Status: Impaired (Hx of MCI per chart. Did not impact exam.) Respiratory Status: Oxygenating on Room Air Penetration-Aspiration Scale Penetration-Aspiration Scale: OBJECTIVE ASSESSMENT OF SWALLOW FUNCTION (QUANTITATIVE ? PER TRIAL): PENETRATION / ASPIRATION SCALE ([place]): 1 = does not enter airway 2 = enters airway/above vocal folds/ejected 3 = enters airway/above vocal folds/not ejected 4 = enters airway/contacts vocal folds/ejected 5 = enters airway/contacts vocal folds/not ejected 6 = enters airway/below vocal folds/ejected 7 = enters airway/below vocal folds/not ejected despite effort 8 = enters airway/below vocal folds/no effort VIDEOFLOROSCOPIC SCALE SCORE ([place]): Grade I = aspiration of material that has penetrated into the laryngeal vestibule, intact cough reflex Grade II = aspiration < 10 % of the bolus, intact cough reflex Grade III = aspiration of < 10 % of the bolus, reduced cough reflex or aspiration of > 10 % of the bolus, intact cough reflex Grade IV = aspiration of > 10 % of the bolus, reduced cough reflex Penetration-Aspiration Scale Score Thin Liquid via teaspoon: Result: 1= does not enter airway Thin Liquid via teaspoon Trial 2: Result: 1= does not enter airway Thin Liquid via large single sip: cup: Result: 1= does not enter airway [place] Thick Liquid via large single sip: cup: Result: 1= does not enter airway Pudding via teaspoon: Result: 1= does not enter airway Comment: Esophageal screen - Mild-moderate retention in the middle esophagus. Thin Liquid via single sip: straw: Result: 1= does not enter airway Comment: Esophageal screen - Complete clearance of liquid and residues of previous trial. 1/2 Cookie: Result: 1= does not enter airway Comment: Esophageal screen - Mild retention in the middle esophagus. Thin Liquid via single sip: straw Trial 2: Result: 2= enter airway/above vocal folds/ejected Comment: Esophageal screen - First liquid wash somewhat cleared cookie retention; however, mild retention of barium remained in the middle esophagus. Second liquid was provided during the screen, which mostly cleared cookie retention, but mild liquid retention remained in the lower esophagus w/ min retrograde flow. Thin Liquid via sequential sips:straw: Result: 2= enter airway/above vocal folds/ejected Oral Phase Labial Seal: Interlabial escape, no progression to anterior lip Tongue Control During Bolus Hold: Posterior escape of less than half of bolus Bolus Preparation/Mastication: Timely and efficient chewing and mashing Bolus Transport/Lingual Motion: Repetitive/disorganized tongue motion Oral Residue: Majority of bolus remaining (piecemeal deglutition of large single sip by straw) Pharyngeal Phase Initiation of Pharyngeal Swallow: Bolus head in pyriforms Soft Palate Elevation: Trace column of contrast/air between soft palate and pharyngeal wall Laryngeal Elevation: Comp. Superior move thyroid cart w/comp. apprx arytenoid cart-epig pet Anterior Hyoid Excursion: Partial anterior movement Epiglottic Movement: Partial inversion Laryngeal Vestibule Closure at Height of Swallow: Incomplete; narrow column of air/contrast in laryngeal vestibule Pharyngeal Stripping Wave: Present - diminished Pharyngoesophageal Segment Opening: Parital distension and partial duration; parital obstruction of flow Tongue Base Retraction: Narrow column of contrast between tongue base & post. pharyngeal wall Pharyngeal Residue: Collection of residue within or on pharyngeal structures Esophageal Phase Esophageal Clearance: Esophageal retention w/ retrograde flow below pharyngoesophageal seg. Diagnosis/Impression Diagnosis: Esophageal dysphagia R13.14; Mild oropharyngeal dysphagia R13.12 MBS Impressions: The oral phase is primarily marked by... -Posterior loss of <1/2 of some liquid boluses to the pharynx prior to swallow onset. -Lingual pumping for A-P transport of pudding. -Piecemeal deglutition of large single sip by straw. The pharyngeal phase is primarily marked by... -Mildly decreased pharyngeal motility secondary to decreased TB retraction and pharyngeal stripping wave w/ mild pharyngeal residues. -Mildly decreased airway closure due to decreased anterior hyoid excursion and partial epiglottic inversion w/ some trials. Laryngeal penetration of thin liquids via straw 2X w/ complete ejection due to complete laryngeal elevation. No aspiration seen during the MBSS. The esophageal phase is primarily marked by... -Mild-moderate retention of pudding in the middle esophagus, which fully cleared w/ one liquid wash. -Mild retention of cookie in the middle esophagus, which mostly cleared w/ two liquid washes. Mild retention of liquid wash in the lower esophagus w/ minimal retrograde flow. Recommendations Diet: Regular Textures and Thin Liquids Compensatory Strategies: Small Bites, Small Sips, Slow Rate, Alternate bites/solids and sips/liquids (Take a sip after every 2-3 bites), Sitting upright and Remain sitting upright for 30 minutes after PO intake Recommend Repeat Modified Barium Swallow: No Need for Skilled Speech Therapy Services: Yes Comment: -Train the patient in use of strategies to facilitate safe po intake. -GERD education. -Train the patient in oropharyngeal exercise program to improve anterior hyoid excursion/epiglottic inversion and pharyngeal motility (Antonio, Effortvazquez, Susan). Recommended Referrals: GI Consult (Consider GI consult given esophageal retention during MBSS, hx of GERD, hx of hiatal hernia, coughing at nighttime. Please discuss w/ PCP. Safe for participation in esophagram if recommended by PCP or GI.) Education Completed: 1. Described result of evaluation. and 2. Pt understands evaluation & agrees with goals and treatment plan. Status Active ST Patient: Active Contact Information [facility] Speech Therapy:: Brea Prater M.A. [facility] [employer] Speech-Language Pathologist [facility] [address] [place] [address] [email or web address] [phone]
--- NOTE | 2025-03-05 11:06 | HP.SP.EV_ITS ---
Visit History Visit Info Date of Eval: 03/04/25 Today is Visit #: 1 Patient's Approved Number of Visits: 10 Insurance Date Limit: 05/07/25 Detasseler: KATHLEEN Mejía Attending Doctor: Reason for Referral: ESOPHAGEAL DYSMOTILITY AND LARYNGEAL PENETRATION/X Other Relevant Medical History/Diagnoses/Surgery: MARISSA HILARIO is a 74 year old male presenting to [facility] for a swallowing evaluation with concerns for oropharyngeal and esophageal dysphagia. Pt arrived to [facility] with his , but attended the evaluation alone and served as the historian. Pt participated in an MBSS on 02/04/25 -- SEE BELOW. Pt reporting that he has been experiencing coughing while eating since July 2024. His medical history includes GERD, hiatal hernia, and Non-Arteritic Ischemic Optic Neuropathy. He reported that he began losing his vision in April 2024 d/t NAION dx and is now legally blind. Pt is prescribed Pantoprazole for GERD which he reports only needing to take 1- 2x a week as needed. Pt consulted with GI after receiving MBSS and will undergo an endoscopy on 03/11/25. Pt reporting that he does not feel the sensation of re flux or esophageal retention after eating, but will sometimes regurgitate food if not fully chewed. He noted that he has been regurgitating unchewed food since he was young and has the most trouble with foods such as corn and meat. Pt stating that the esophageal retention improves with a liquid wash and that he drinks a cup of milk with nearly every meal. He has no hx of respiratory infections or health issues besides GERD and eye disease. ST educating Pt on swallowing anatomy with diagram while presenting and explaining MBSS results. ST reviewing GERD strategies with handout, safe swallowing strategies, and pharyngeal exercises (Antonio, Effortful, Susan) to implement during PO at home. Medications related to this diagnosis: Pantoprazole Smoking Status: Never smoker Diagnosis Diagnosis: Mild oropharyngeal and esophageal dysphagia Pain Is pain an issue with your current prescribed condition?: No Personal Preferred language: Macedonian Patient Allergies Allergies Allergies: Allergies Penicillins Allergy (Verified 11/07/24 09:05) Unknown lisinopril Adverse Reaction (Intermediate, Verified 11/07/24 09:05) Cough, Dizziness Subjective Dysphagia Symptoms Reported Symptoms/Problems with: Coughing Other: - Regurgitating unchewed food Current Diet Solids Current Diet: Regular Current Diet Liquids Current Liquids: Thin Modified Barium Results Hx If Applicable Enter into a NOTE MBS Report Entered: Yes MBS Results (from prior exam): 03/04/25 16:03 Speech Therapy by [facility] Speech Pathology [address] [place] [address] Modified Barium Swallow Study MR#: [id number] Acct: [id number] Name: MARISSA HILARIO Rep #: [id number] : 1950 74 From: Brea Prater M.A., [facility]-SUPPLY CHAIN INTERN Modified Barium Swallow Patient Information Study Date: 02/04/25 Study Time: 09:30 Direct Billable Minutes: 91 Total Minutes procedure & reportin Diagnosis: Dysphagia R13.10 Referring Physician: Taras Workman Reason for Referral: Pt's PCP referred him for this MBSS after recent office visit where pt had chief complaint of nighttime coughing. It was also discussed that the patient has occ swallowing difficulty w/ sensation of drinks going down the wrong way ~1X/week. Rarely, food will feel as if it goes down the wrong way. Pt denies hx of choking. At times, he will feel sensation of food caught in his throat or in his lower esophagus. He states he has learned to be more cautious eating. He reports hx of EGD >5 years ago revealing hiatal hernia. He also has diagnosis of GERD. He is not currently following w/ GI. Medical History: Medical History Essential hypertension Wears glasses History of steroid therapy Arthritis High cholesterol Back pain Injury of back Gastric reflux Non-smoker Normal stress echocardiogram History of echocardiogram History of stress test Cardiology follow-up encounter Chest pain Basal cell carcinoma Hiatal hernia GERD (gastroesophageal reflux disease) Hyperlipidemia Current Diet Ordered: Regular textures / Thin liquids Mental Status: Impaired (Hx of MCI per chart. Did not impact exam.) Respiratory Status: Oxygenating on Room Air Penetration-Aspiration Scale Penetration-Aspiration Scale: OBJECTIVE ASSESSMENT OF SWALLOW FUNCTION (QUANTITATIVE ? PER TRIAL): PENETRATION / ASPIRATION SCALE ([place]): 1 = does not enter airway 2 = enters airway/above vocal folds/ejected 3 = enters airway/above vocal folds/not ejected 4 = enters airway/contacts vocal folds/ejected 5 = enters airway/contacts vocal folds/not ejected 6 = enters airway/below vocal folds/ejected 7 = enters airway/below vocal folds/not ejected despite effort 8 = enters airway/below vocal folds/no effort VIDEOFLOROSCOPIC SCALE SCORE ([place]): Grade I = aspiration of material that has penetrated into the laryngeal vestibule, intact cough reflex Grade II = aspiration < 10 % of the bolus, intact cough reflex Grade III = aspiration of < 10 % of the bolus, reduced cough reflex or aspiration of > 10 % of the bolus, intact cough reflex Grade IV = aspiration of > 10 % of the bolus, reduced cough reflex Penetration-Aspiration Scale Score Thin Liquid via teaspoon: Result: 1= does not enter airway Thin Liquid via teaspoon Trial 2: Result: 1= does not enter airway Thin Liquid via large single sip: cup: Result: 1= does not enter airway [place] Thick Liquid via large single sip: cup: Result: 1= does not enter airway Pudding via teaspoon: Result: 1= does not enter airway Comment: Esophageal screen - Mild-moderate retention in the middle esophagus. Thin Liquid via single sip: straw: Result: 1= does not enter airway Comment: Esophageal screen - Complete clearance of liquid and residues of previous trial. 1/2 Cookie: Result: 1= does not enter airway Comment: Esophageal screen - Mild retention in the middle esophagus. Thin Liquid via single sip: straw Trial 2: Result: 2= enter airway/above vocal folds/ejected Comment: Esophageal screen - First liquid wash somewhat cleared cookie retention; however, mild retention of barium remained in the middle esophagus. Second liquid was provided during the screen, which mostly cleared cookie retention, but mild liquid retention remained in the lower esophagus w/ min retrograde flow. Thin Liquid via sequential sips:straw: Result: 2= enter airway/above vocal folds/ejected Oral Phase Labial Seal: Interlabial escape, no progression to anterior lip Tongue Control During Bolus Hold: Posterior escape of less than half of bolus Bolus Preparation/Mastication: Timely and efficient chewing and mashing Bolus Transport/Lingual Motion: Repetitive/disorganized tongue motion Oral Residue: Majority of bolus remaining (piecemeal deglutition of large single sip by straw) Pharyngeal Phase Initiation of Pharyngeal Swallow: Bolus head in pyriforms Soft Palate Elevation: Trace column of contrast/air between soft palate and pharyngeal wall Laryngeal Elevation: Comp. Superior move thyroid cart w/comp. apprx arytenoid cart-epig pet Anterior Hyoid Excursion: Partial anterior movement Epiglottic Movement: Partial inversion Laryngeal Vestibule Closure at Height of Swallow: Incomplete; narrow column of air/contrast in laryngeal vestibule Pharyngeal Stripping Wave: Present - diminished Pharyngoesophageal Segment Opening: Parital distension and partial duration; parital obstruction of flow Tongue Base Retraction: Narrow column of contrast between tongue base & post. pharyngeal wall Pharyngeal Residue: Collection of residue within or on pharyngeal structures Esophageal Phase Esophageal Clearance: Esophageal retention w/ retrograde flow below pharyngoe sophageal seg. Diagnosis/Impression Diagnosis: Esophageal dysphagia R13.14; Mild oropharyngeal dysphagia R13.12 MBS Impressions: The oral phase is primarily marked by... -Posterior loss of <1/2 of some liquid boluses to the pharynx prior to swallow onset. -Lingual pumping for A-P transport of pudding. -Piecemeal deglutition of large single sip by straw. The pharyngeal phase is primarily marked by... -Mildly decreased pharyngeal motility secondary to decreased TB retraction and pharyngeal stripping wave w/ mild pharyngeal residues. -Mildly decreased airway closure due to decreased anterior hyoid excursion and partial epiglottic inversion w/ some trials. Laryngeal penetration of thin liquids via straw 2X w/ complete ejection due to complete laryngeal elevation. No aspiration seen during the MBSS. The esophageal phase is primarily marked by... -Mild-moderate retention of pudding in the middle esophagus, which fully cleared w/ one liquid wash. -Mild retention of cookie in the middle esophagus, which mostly cleared w/ two liquid washes. Mild retention of liquid wash in the lower esophagus w/ minimal retrograde flow. Recommendations Diet: Regular Textures and Thin Liquids Compensatory Strategies: Small Bites, Small Sips, Slow Rate, Alternate bites/solids and sips/liquids (Take a sip after every 2-3 bites), Sitting uprig ht and Remain sitting upright for 30 minutes after PO intake Recommend Repeat Modified Barium Swallow: No Need for Skilled Speech Therapy Services: Yes Comment: -Train the patient in use of strategies to facilitate safe po intake. -GERD education. -Train the patient in oropharyngeal exercise program to improve anterior hyoid excursion/epiglottic inversion and pharyngeal motility (Antonio, Effortful, Susan). Recommended Referrals: GI Consult (Consider GI consult given esophageal retention during MBSS, hx of GERD, hx of hiatal hernia, coughing at nighttime. Please discuss w/ PCP. Safe for participation in esophagram if recommended by PCP or GI.) Education Completed: 1. Described result of evaluation. and 2. Pt understands evaluation & agrees with goals and treatment plan. Status Active ST Patient: Active Contact Information [facility] Speech Therapy:: Brea Prater M.A. CCC-SUPPLY CHAIN INTERN Speech-Language Pathologist [facility] [address] [place] [address] [email or web address] [phone] Initialized on 03/04/25 16:03 - END OF NOTE Swallowing Performance Scale Swallowing Performance Scale Swallowing Performance Scale Result: 3 Mild Reference: Neuro-QoL instrument Radiation Oncology Patient Other Other Education: -: Direct education provided re: oropharyngeal stregnthening exercises that are designed to strengthen Pt's tongue base, pharyngeal constriction, and opening/duration of the upper esophageal sphincter. Education was provided on the Antonio, Susan, and Effortful Swallow. Gene provided teachback on all three exercises. Recommended each exercise for 10 reps, 2x/day. Pt showing understanding of frequency. Discussed we may change the frequency and POC pending the results of his EGD on 03/11/2025. Handouts on all three exercises were provided along with one re: GERD. Discussed strategies to help prevent reflux such as remaining upright for 30-60 min following PO intake, reducing fatty or spicy food intake, and sleeping elevated and on his left side. Pt stating he has a bed that will raise up. Plan Plan Plan: Will rx Pt for skilled outpatient tx to address deficits in oropharyngeal and esophageal dysphagia. Pt would benefit from training and education re: implementing safe swallowing strategies and diet tolerance checks to aid in reduction of signs and symptoms of penetration/aspiration. Without skilled intervention, Pt is at risk for consuming a restrictive diet putting him at risk for aspiration pneumonia and atrophy of laryngeal musculature. *This evaluation and report was completed and written by ST Mahesh Risk Control Field Representative, and reviewed and edited by supervising SUPPLY CHAIN INTERN, Suyapa Fontanez MS, CCC-SUPPLY CHAIN INTERN. Recommendations Treatment Warranted: Yes Treatment Warranted: Dysphagia Comment: Recommending safe swallowing strategies and oropharyngeal exercises to implement at home. Pt encouraged to follow-up next month to review progress with swallowing exercises along with discussing the results from GI scope on 03/11/25. Progress Prognosis: Good Frequency Frequency: Monthly Duration: 3 Months Patient/Family Goal Patient/Family Goal: Improve swallowing function Goals that are Established Determination:: Goals will be added/modified as deemed necessary and appropriate. Therapy will be discontinued when results of re-evaluation indicate therapy is no longer needed or lack of progress has been documented. Goal #1-5 Goal #1: Gene will show understanding of safe swallowing strategies (i.e., small bites/drinks, alternate bites and drinks, slow rate of intake, sitting upright for 60 min after PO intake) via self report of implementation at home across two monthly follow up appointments with 100% acc independently. Goal #2: Gene will show understanding of oropharyngeal strengthening exercises (i.e., Antonio, Effortful, Susan) via self report of implementation at home across two monthly follow up appointments with 100% acc independently. Education Patient Instruction Patient Education: Diagnosis, Treatment Plan and Safety Precautions Person Taught: Patient Teaching Method: Discussion and Handout Response to teaching: Verbalize Understanding
== END 2025-03-12 19:00 | disposition home or self-care (01) ==
LOC: SP 11:30
PROVIDERS: PCP Family Medicine; Visit Provider Family Medicine
DX: K22.4 Dyskinesia of esophagus (principal); J38.7 Other diseases of larynx
CPT/HCPCS: 92526; 92610

== ENCOUNTER → 2025-04-07 | Outpatient (CLI) | payer MEDICARE, SELFPAY ==
--- NOTE | 2025-04-07 09:10 | RAD_ITS ---
PROCEDURE: ESOPHAGUS DUAL CONTRAST 04/07/2025 REASON FOR EXAM: GERD TECHNIQUE: ESOPHAGUS DUAL CONTRAST FLUOROSCOPIC TIME: 39 seconds. Radiation dose: 27.5 mGy FLUOROGRAPHIC IMAGES: 16 COMPARISON: None FINDINGS: Fluoroscopic imaging was obtained during the esophagram study. No evidence of esophageal obstruction. No evidence of gastroesophageal reflux. No mass lesion is seen. The patient ingested a 12 mm tablet the barium without any difficulty. RAD/Esophagus Dual Contrast IMPRESSION: Unremarkable air-contrast esophagram. Reading Location: [place] [address]
--- OUTSIDE RECORDS SUMMARY | 2025-04-07 09:15 | XMS RPT_ITS | CCD ---
Author Organization [facility] CliniSymn Care Team Providers Care City Council Member Name Role Phone Missy Paul MD Unavailable 1([facility])[phone] Missy Workman Primary Care Provider 1([facility] )[phone] Dr. Missy Workman Referring Provider 1([facility])[phone] Dr. Jordon Benavides Attending Provider 1([facility])-[phone] Stephane Orr Attending Provider 1([facility]) [phone] Dr. Jordon Benavides Other Provider Dr. Missy Workman Primary Care Provider 1([facility] )[phone] Dr. Missy Workman Referring Provider 1([facility])[phone] Dr. Jordon Benavides Attending Provider 1([facility])-[phone] Stephane Orr Attending Provider 1([facility])-[phone] Jordon Benavides Other Provider Dr. Missy Workman Primary Care Provider 1([facility] )[phone] Dr. Jordon Benavides Attending Provider 1([facility])-[phone] Missy Workman Primary Care Provider 1([facility] )[phone] Dr. Missy Workman Referring Provider 1([facility])[phone] [place] Kati Garcia Attending Provider Dr. Stephane Orr Attending Provider 1([facility])-[phone] Norman Mahoney Attending Provider 1([facility] )[phone] Dr. Shady Schuster Referring Provider 1([facility])[phone] Dr. Norman Mahoney Referring Provider 1([facility] )[phone] Dr. Norman Mahoney Other Provider Shady Schuster Unavailable Dr. Missy Workman Primary Care Provider [phone] Dr. Stephane Orr Attending Provider CELSO Escobar Referring Provider Dr. Norman Mahoney Attending Provider Dr. Shady Schuster Referring Provider Dr. Norman Mahoney Referring Provider Dr. Norman Mahoney Other Provider Dr. Missy Workman Referring Provider [place] Kati Garcia Attending Provider Dr. Missy Workman Primary Care Provider [phone] Dr. Missy Workman Referring Provider CELSO Escobar Attending Provider Dr. Missy Workman Primary Care Provider [phone] Dr. Missy Workman Referring Provider CELSO Escobar Attending Provider CELSO Anders Attending Provider Dr. Missy Workman Primary Care Provider [phone] Dr. Missy Workman Referring Provider ANDERSON TIAN DO Primary Care Unavailshirin e ASMITA DO~[phone], ASMITA Robertson Attendi ng Unavailable ASMITA DO~[phone], ASMITA Robertson Admitti ng Unavailable Missy Workman MD Primary Care Provider Dr. Missy Workman MD Primary Care Provider Dr. Missy Workman MD Referring Provider [phone] Kennedy BROWER, Dr. Ruvalcaba Attending Provider [phone] SHADY SCHUSTER Referring Unavailable SABRINA GUZMAN Attending Unavailable SCHINNER, MISSY E Primary Care Unavailable Schinner, Missy E Attending Unavailable Schinner, Missy E Referring Unavailable Schinner, Missy E Primary Care Unavailable Schinner, Missy E Primary Care Unavailable Schinner, Missy E Attending Unavailable Schinner, Missy E Referring Unavailable Shady Schuster Referring Unavailable Schinner, Missy E Primary Care Unavailable Shady Schuster Attending Unavailable Shady Schuster Referring Unavailable Schinner, Missy E Primary Care Unavailable Shady Schuster Attending Unavailable Schinner, Missy E Primary Care Unavailable Shady Schuster Attending Unavailable Shady Schuster Referring Unavailable Schinner, Missy E Primary Care Unavailable Schinner, Missy E Attending Unavailable Schinner, Missy E Referring Unavailable Schinner, Missy E Attending Unavailable Schinner, Missy E Primary Care Unavailable Kati Escobar Attending Unavail able Schinner, Missy E Primary Care Unavailable Schinner, Missy E Referring Unavailable Schinner, Missy E Primary Care Unavailable Calista Saldana Attending Unavailable Schinner, Missy E Referring Unavailable Jordon Benavides Attending Unavailable Schinner, Missy E Referring Unavailable Schinner, Missy E Primary Care Unavailable Schinner, Missy E Primary Care Unavailable Shady Schuster Referring Unavailable Stephane Orr Attending Unavailable Allergies Allergy Classification Reported Allergen(s) Allergy Type Date of Onset Reaction(s) Facility (1 source) Penicillin Drug Allergy 9 rash/hives [facility] [place] [facility] Work Phone: (15 sources) Penicillins; Translations: [PENICILLINS] Allergy to substance 9 Unknown [facility] (2 sources) Penicillins Drug Allergy 9 Rash, Unknown [facility] (7 sources) Lisinopril Drug Allergy 3 Cough, Dizziness [facility] (2 sources) Penicillins Drug Allergy 9 Rash, Unknown [facility] Work Phone: (1 source) Lisinopril Drug Allergy 5 [facility] Rep[facility] (1 source) Penicillins Drug allergy (disorder) 5 [facility] Rep[facility] Medications Current Medications Medication Drug Class(es) Dates Sig (Normalized) Sig (Original) aspirin 81 mg delayed release oral tablet (9 sources) Platelet Aggregation Inhibitor, Nonsteroidal Anti-inflammatory Drug Start: 08-08-2022 take 1 tablet by mouth once daily Aspirin (Adult Aspirin Regimen) 81 mg tablet,delayed release (DR/EC) Active 81 mg PO DAILY August 08, 2022 12:00am [facility] benoxinate hydrochloride 4 mg/ml / fluorescein sodium 3 mg/ml ophthalmic solution (2 sources) Diagnostic Dye Start: 10-22-2024 End: 11-03-2024 fluorescein-benoxi asmita 0.3-0.4 % 1 drop (FLURESS) donepezil hydrochloride 5 mg oral tablet (3 sources) Start: 03-29-2024 take 1 tablet by mouth once daily in the morning donepezil (ARICEPT) 5 mg tablet Take 5 mg by mouth every morning. 10/04/2024 Active escitalopram 10 mg oral tablet (3 sources) Serotonin Reuptake Inhibitor Start: 03-29-2024 take 1 tablet by mouth once daily escitalopram oxalate (LEXAPRO) 10 mg tablet Take 1 tablet by mouth once daily. 10/21/2024 Active losartan potassium 25 mg oral tablet (20 sources) Angiotensin 2 Receptor Kenan Start: 08-23-2022 End: 11-07-2024 take 1 tablet by mouth once daily Losartan 25 mg tablet Active 25 mg PO DAILY 90 November 07, 2024 9:08am blood pressure Multivitamin With Folic Acid (16 sources) Start: 12-12-2013 take 1 tablet by mouth once daily Multivitamin With Folic Acid Active 1 TABLET PO DAILY December 12, 2013 7:42am Start: 12-12-2013 take 1 tablet by nat th once daily Multivitamin With Folic Acid Active 1 TABLET PO DAILY December 11, 2013 11:00pm Start: 12-12-2013 take 1 tablet by nat th once daily Multivitamin With Folic Acid Active 1 TABLET PO DAILY December 12, 2013 12:00am Multivitamin With Folic Acid 1 TABLET tablet (1 source) Start: 12-12-2013 take 1 tablet by mouth once daily Multivitamin With Folic Acid 1 TABLET tablet Active 1 {tbl} PO DAILY December 12, 2013 12:00am supplement multivitamin with minerals (MULTIPLE VITAMINS 55 PLUS ORAL) (3 sources) Start: 05-18-2018 multivitamin w ith minerals (MULTIPLE VITAMINS 55 PLUS ORAL) Take by mouth. 05/18/2018 Active [place]-3 1,050 mg, Fish Oil, 1,050-1,200 mg cap (2 sources) Start: 05-11-2024 [place]-3 1,050 mg, Fish Oil, 1,050-1,200 mg cap 05/11/2024 Active pantoprazole 40 mg delayed release oral tablet (20 sources) Proton Pump Inhibitor Start: 11-07-2024 take 1 tablet by mouth once daily as needed Pantoprazole 40 mg tablet,delayed release (DR/EC) Active 40 mg PO daily as needed November 07, 2024 12:00am Start: 12-04-2019 End: 01-15-2024 take 1 tablet by mouth once daily as needed Pantoprazole 40 mg tablet,delayed release (DR/EC) Discontinued 40 mg PO DAILY as needed August 08, 2022 10:47am January 15, 2024 3:41pm Start: 05-18-2018 PANTOPRAZOLE S ODIUM 40 MG TBEC 1 tablet daily as needed PANTOPRAZOLE SODIUM [id number] Missy Paul MD phenylephrine hydrochloride 25 mg/ml ophthalmic solution (3 sources) alpha-1 Adrenergic Agonist Start: 10-22-2024 End: 11-03-2024 PHENYLephrine 2.5 % 1 drop (AK-DILATE, RUDDY-SYNEPHRINE) Start: 10-22-2024 End: 11-03-2024 1 drop, BOTH EYES, DIRECT ED, Starting on 10/22/24 at 0924, Until 11/03/24 at 0923, Administer for dilation PROTECT FROM LIGHT, OPHT CLINIC MED ORDERS predniSONE 20 mg oral tablet (20 sources) Start: 06-07-2022 take 1 tablet by mouth once daily, then take 0.5 tablet by mouth once daily predniSONE (DELTASONE) 20 mg tablet TAKE 1 TABLET BY MOUTH ONCE DAILY X1 WEEK, THEN 1/2 TABLET BY MOUTH DAILY X1 WEEK 06/07/2022 Active Start: 05-23-2022 End: 08-08-2022 take 3 tablets by mouth once daily Prednisone 20 mg tablet Discontinued 60 mg PO DAILY May 23, 2022 1:00am August 08, 2022 10:46am Start: 05-23-2022 End: 08-08-2022 take 60 mg by mouth once daily Prednisone Discontinued 60 MG PO DAILY May 23, 2022 1:00am August 08, 2022 10:46am Start: 05-18-2022 End: 05-23-2022 take 2 tablets by mouth once daily Prednisone 5 mg tablet Discontinued 20 mg PO DAILY May 18, 2022 1:00am May 23, 2022 9:17am 2 tabs daily Start: 05-18-2022 End: 05-23-2022 take 2 tablets by mouth once daily Prednisone Discontinued 20 MG PO DAILY May 18, 2022 1:00am May 23, 2022 9:17am 2 tabs daily prevagen (17 sources) Start: 12-04-2019 take 1 tablet by nat th once daily prevagen Active 1 TABLET PO DAILY December 04, 2019 8:33am Start: 12-04-2019 End: 01-15-2024 prevagen Discontinued 1 {tbl } PO DAILY 0 December 04, 2019 12:00am January 15, 2024 3:41pm Start: 12-04-2019 take 1 tablet by nat th once daily prevagen Active 1 TABLET PO DAILY December 03, 2019 11:00pm Start: 12-04-2019 take 1 tablet by nat once daily prevagen Active 1 TABLET PO DAILY December 04, 2019 12:00am proparacaine hydrochloride 5 mg/ml ophthalmic solution (2 sources) Local Anesthetic Start: 10-22-2024 End: 11-03-2024 proparacaine 0.5 % 1 drop (ALCAINE) rosuvastatin calcium 40 mg oral tablet (10 sources) HMG-CoA Reductase Inhibitor Start: 03-29-2024 take 1 tablet by mouth once daily rosuvastatin (CRESTOR) 40 mg tablet Take 1 tablet by mouth once daily. 08/20/2024 Active Start: 08-08-2022 End: 01-15-2024 take 1 tablet by mouth once daily Rosuvastatin 20 mg tablet Discontinued 20 mg PO DAILY August 08, 2022 12:00am January 15, 2024 3:42pm tropicamide 10 mg/ml ophthalmic solution (3 sources) Anticholinergic Start: 10-22-2024 End: 11-03-2024 tropicamide 1 % 1 drop (MYDRIACYL) Start: 10-22-2024 End: 11-03-2024 1 drop, BOTH EYES, DIRECT ED, Starting on Mon10/22/24 at 0924, Until 11/03/24 at 0923, Administer for dilation, OPHT CLINIC MED ORDERS Turmeric Root Extract (17 sources) Start: 12-02-2020 take 500 mg by mouth once daily Turmeric Root Extract Active 500 MG PO DAILY December 02, 2020 8:46am Start: 12-02-2020 End: 01-15-2024 take 1 capsule by mouth once daily Turmeric Root Extract 500 mg capsule Discontinued 500 mg PO DAILY December 02, 2020 12:00am January 15, 2024 3:42pm Start: 12-02-2020 take 500 mg by mouth once honey y Turmeric Root Extract Active 500 MG PO DAILY December 01, 2020 11:00pm Start: 12-02-2020 take 500 mg by mouth once honey y Turmeric Root Extract Active 500 MG PO DAILY December 02, 2020 12:00am turmeric root extract (CURICA TURMERIC) 300 mg cap (2 sources) Start: 05-08-2019 turmeric root extract (CURICA TURMERIC) 300 mg cap 05/08/2019 Active Turmeric Root Extract 500 mg capsule (1 source) Start: 03-29-2024 take 1 capsule by mouth once daily Turmeric Root Extract 500 mg capsule Active 500 mg PO daily March 29, 2024 1:00am ubidecarenone 200 mg oral capsule (20 sources) Start: 11-07-2024 take 10 capsules by mouth once daily Coenzyme Q10 200 mg capsule Active 200 mg PO daily November 07, 2024 12:00am Start: 11-25-2021 End: 01-15-2024 Coenzyme Q10 (Coq-10) 100 mg capsule Discontinued 200 mg PO BEDTIME November 25, 2021 11:06am January 15, 2024 3:39pm Start: 11-13-2020 End: 11-25-2021 Coenzyme Q10 (Coq-10) 100 mg Capsule Discontinued 100 mg PO DAILY November 13, 2020 12:00am November 25, 2021 11:06am ubidecarenone (COQ-10 ORAL) (2 sources) ubidecarenone (C OQ-10 ORAL) Take by mouth. Active ubidecarenone/vitamin E mixe d (COQ10 SG 100 ORAL) (2 sources) Start: 05-08-2019 ubidecarenone/ vitamin E mixed (COQ10 SG 100 ORAL) 05/08/2019 Active Completed/Discontinued Medications Medication Drug Class(es) Dates Sig (Normalized) Sig (Original) Albuterol Sulfate (17 sources) beta2-Adrenergic Agonist Start: 03-07-2018 End: 12-04-2019 take 1 puff(s) by inhalation every four hours Albuterol Sulfate (Ventolin Hfa) 90 mcg/actuation HFA aerosol inhaler Discontinued 2 PUFF INHALATION Q4H March 07, 2018 8:08am December 04, 2019 8:34am Start: 03-07-2018 End: 12-04-2019 Albuterol Sulfate (Ventolin Hfa) 90 mcg/actuation HFA aerosol inhaler Discontinued 2 NMA INHALATION Q4H as needed for shortness of breath or wheezing 18 March 07, 2018 12:00am December 04, 2019 8:34am Start: 03-07-2018 End: 12-04-2019 take 1 puff(s) by inhalation every four hours Albuterol Sulfate (Ventolin Hfa) 90 mcg/actuation HFA aerosol inhaler Discontinued 2 PUFF INHALATION Q4H March 07, 2018 12:00am December 04, 2019 8:34am benzonatate 100 mg oral capsule (5 sources) Non-narcotic Antitussive Start: 02-16-2023 End: 01-15-2024 take 2 capsules by mouth three times daily as needed for cough Benzonatate 100 mg capsule Discontinued 200 mg PO THREE TIMES A DAY as needed for cough February 16, 2023 12:00am January 15, 2024 3:38pm Start: 02-16-2023 take 200 mg by mouth three times daily Benzonatate Active 200 MG PO THREE TIMES A DAY February 16, 2023 12:00am dexamethasone 6 mg oral tablet (5 sources) Corticosteroid Start: 02-16-2023 End: 09-26-2023 take 1 tablet by mouth once daily Dexamethasone 6 mg tablet Discontinued 6 mg PO DAILY February 16, 2023 12:00am September 26, 2023 10:35am fluticasone propionate 0.05 mg/actuat metered dose nasal spray (17 sources) Corticosteroid Start: 03-07-2018 End: 12-04-2019 Fluticasone Propionate 50 mcg/actuation spray,suspension Discontinued 2 NMA INTRANASAL DAILY 16 March 07, 2018 12:00am December 04, 2019 8:34am Start: 03-07-2018 End: 12-04-2019 Fluticasone Propionate Disco ntinued 2 SPRAY INTRANASAL DAILY March 07, 2018 12:00am December 04, 2019 8:34am lisinopril 5 mg oral tablet (7 sources) Angiotensin Converting Enzyme Inhibitor Start: 08-08-2022 End: 08-23-2022 take 1 tablet by mouth once daily Lisinopril 5 mg tablet Discontinued 5 mg PO DAILY 30 August 08, 2022 12:00am August 23, 2022 5:27pm metoprolol tartrate 50 mg oral tablet (20 sources) beta-Adrenergic Kenan Start: 11-25-2021 End: 05-18-2022 take 1 tablet by mouth once Metoprolol Tartrate 50 mg tablet Discontinued 50 mg PO ONCE 1 November 26, 2021 11:23am May 18, 2022 11:10am take one hour prior to CT SCAN MULTIPLE VITAMINS-MINERALS (1 source) Start: 05-18-2018 CENTRUM SILVER TABS 1 tablet daily MULTIPLE VITAMINS-MINERALS [id number] Brea Neal REHABILITATION MEDICINE PHYSICIAN simvastatin 20 mg oral tablet (20 sources) HMG-CoA Reductase Inhibitor Start: 12-10-2013 End: 08-08-2022 take 1 tablet by mouth at bedtime Simvastatin 20 MG tablet Discontinued 20 mg PO AT BEDTIME December 10, 2013 12:00am August 08, 2022 10:48am Problems Active Problems Problem Classification Problem Date Documented Da te Episodic/Chronic Blindness and vision defects (20 sources) Eye / vision finding; Translations: [Unspecified visual disturbance] Onset: 10-22-2024 05-18-2022 Episodic Disorders of lipid metabolism (20 sources) Hyperlipidemia; Translations: [Hyperlipidemia, unspecified] Chronic Esophageal disorders (1 source) Gastro-esophageal reflux disease without esophagitis; Translations: [Gastro-esophageal reflux disease without esophagitis] Onset: 04-20-2024 Chronic Essential hypertension (20 sources) Elevated blood pressure; Translations: [Essential (primary) hypertension] Onset: 06-10-2024 05-18-2022 Chronic Nonspecific chest pain (20 sources) Chest pain; Translations: [Chest pain, unspecified] Episodic Osteoarthritis (2 sources) Unilateral primary osteoarthritis of first carpometacarpal joint, right hand; Translations: [Primary osteoarthritis, right hand] Onset: 05-23-2018 05-23-2018 Chronic Other eye disorders (3 sources) Non-arteritic ischemic optic neuropathy; Translations: [Ischemic optic neuropathy, bilateral] 10-22-2024 Chronic Other eye disorders (1 source) Ischemic optic neuropathy, bilateral; Translations: [NAION (non-arteritic anterior ischemic optic neuropathy), bilateral] Onset: 10-22-2024 Chronic Other eye disorders (1 source) Ischemic optic neuropathy, left eye; Translations: [Ischemic optic neuropathy, left eye] Onset: 05-29-2024 Chronic Other gastrointestinal disorders (1 source) Dysphagia, unspecified; Translations: [Dysphagia, unspecified] Onset: 02-28-2025 Episodic Other hereditary and degenerative nervous system conditions (1 source) Impaired cognition; Translations: [Mild cognitive impairment, so stated] 11-07-2024 Chronic Other lower respiratory disease (1 source) Dyspnea on exertion; Translations: [Other forms of dyspnea] 09-26-2023 Episodic Other upper respiratory infections (1 source) Viral upper respiratory tract infection; Translations: [Acute upper respiratory infection, unspecified] 06-15-2024 Episodic Residual codes; unclassified (2 sources) Other amnesia; Translations: [OTHER AMNESIA] Onset: 11-28-2023 Episodic Retinal detachments; defects; vascular occlusion; and retinopathy (1 source) Retinal ischemia; Translations: [Retinal ischemia] Onset: 05-31-2024 Chronic Unclassified (1 source) Cough, unspecified; Translations: [Cough, unspecified] Onset: 06-15-2024 Viral infection (8 sources) Disease caused by 2019-nCoV; Translations: [COVID-19] 02-16-2023 Episodic Past or Other Problems Problem Classification Problem Date Documented Da te Episodic/Chronic Unclassified (1 source) Problem Results Test Name Value Interpretation Reference Range Facility [email or web address] 03-05-2025 [email or web address] [facility] [address] [place] [address]. [address] [place] [address] / REHABILITATION SERVICES INITIAL EVALUATION MR#: [id number] Acct: [id number] Name: RIZWAN CLIFFORD Rep #: [id number] : 1950 74 From: Suyapa Fontanez M.S., CCC-REPLENISHMENT ASSOCIATE Referring Dr.: Dr. Missy Workman MD Status: REG RCR Insurance: MMO MEDICARE SELF PAY INSURANCE Visit History Visit Info Date of Eval: 03/04/25 Today is Visit #: 1 Patient's Approved Number of Visits: 10 Insurance Date Limit: 05/07/25 Poultry Process Worker: KATHLEEN History Attending Doctor: Reason for Referral: ESOPHAGEAL DYSMOTILITY AND LARYNGEAL PENETRATION/X Other Relevant Medical History/Diagnoses/S urgery: RIZWAN CLIFFORD is a 74 year old male presenting to [facility] for a swallowing evaluation with concerns for oropharyngeal and esophageal dysphagia. Pt arrived to [facility] with his , but attended the evaluation alone and served as the historian. Pt participated in an MBSS on 02/04/25 -- SEE BELOW. Pt reporting that he has been experiencing coughing while eating since July 2024. His medical history includes GERD, hiatal hernia, and Non- Arteritic Ischemic Optic Neuropathy. He reported that he began losing his vision in April 2024 d/t NAION dx and is now legally blind. Pt is prescribed Pantoprazole for GERD which he reports only needing to take 1-2x a week as needed. Pt consulted with GI after receiving MBSS and will undergo an endoscopy on 03/11/25. Pt reporting that he does not feel the sensation of reflux or esophageal retention after eating, but will sometimes regurgitate food if not fully chewed. He noted that he has been regurgitating unchewed food since he was young and has the most trouble with foods such as corn and meat. Pt stating that the esophageal retention improves with a liquid wash and that he drinks a cup of milk with nearly every meal. He has no hx of respiratory infections or health issues besides GERD and eye disease. ST educating Pt on swallowing anatomy with diagram while presenting and explaining MBSS results. ST reviewing GERD strategies with handout, safe swallowing strategies, and pharyngeal exercises (Antonio, Effortful, Susan) to implement during PO at home. Medications related to this diagnosis: Pantoprazole Smoking Status: Never smoker Diagnosis Diagnosis: Mild oropharyngeal and esophageal dysphagia Pain Is pain an issue with your current prescribed condition?: No Personal Preferred language: Irish Patient Allergies Allergies Allergies: Allergies Penicillins Allergy (Verified 11/07/24 09:05) Unknown lisinopril Adverse Reaction (Intermediate, Verified 11/07/24 09:05) Cough, Dizziness Subjective Dysphagia Symptoms Reported Symptoms/Problems with: Coughing Other: - Regurgitating unchewed food Current Diet Solids Current Diet: Regular Current Diet Liquids Current Liquids: Thin Modified Barium Results Hx If Applicable Enter into a NOTE MBS Report Entered: Yes MBS Results (from prior exam): 03/04/25 16:03 Speech Therapy by Mecca Jon [facility] Speech Pathology [address] [place] [address] Modified Barium Swallow Study MR#: [id number] Acct: [id number] Name: RIZWAN CLIFFORD Rep #: [id number] : 1950 74 From: Brea Prater M.A., [facility]-REPLENISHMENT ASSOCIATE Modified Barium Swallow Patient Information Study Date: 02/04/25 Study Time: 09:30 Direct Billable Minutes: 91 Total Minutes procedure reportin Diagnosis: Dysphagia R13.10 Referring Physician: Missy Workman Reason for Referral: Pt's PCP referred him for this MBSS after recent office visit where pt had chief complaint of nighttime coughing. It was also discussed that the patient has occ swallowing difficulty w/ sensation of drinks going down the wrong way 1X/week. Rarely, food will feel as if it goes down the wrong way. Pt denies hx of choking. At times, he will feel sensation of food caught in his throat or in his lower esophagus. He states he has learned to be more cautious eating. He reports hx of EGD >5 years ago revealing hiatal hernia. He also has diagnosis of GERD. He is not currently following w/ GI. Medical History: Medical History Essential hypertension Wears glasses History of steroid therapy Arthritis High cholesterol Back pain Injury of back Gastric reflux Non-smoker Normal stress echocardiogram History of echocardiogram History of stress test Cardiology follow-up encounter Chest pain Basal cell carcinoma Hiatal hernia GERD (gastroesophageal reflux disease) Hyperlipidemia Current Diet Ordered: Regular textures / Thin liquids Mental Status: Impaired (Hx of MCI per chart. Did not impact exam.) Respiratory Status: Oxygenating on (more content not included)... Normal [facility] Modified Barium Swallow Stud yon 02-04-2025 Modified Barium Swallow Study [facility] Speech Pathology [address] [place] [address] Modified Barium Swallow Study MR#: [id number] Acct: [id number] Name: RIZWAN CLIFFORD Rep #: [id number] : 1950 74 From: Brea Prater M.A., [facility]-REPLENISHMENT ASSOCIATE Modified Barium Swallow Patient Information Study Date: 02/04/25 Study Time: 09:30 Direct Billable Minutes: 91 Total Minutes procedure reportin Diagnosis: Dysphagia R13.10 Referring Physician: Missy Workman Reason for Referral: Pt's PCP referred him for this MBSS after recent office visit where pt had chief complaint of nighttime coughing. It was also discussed that the patient has occ swallowing difficulty w/ sensation of drinks going down the wrong way 1X/week. Rarely, food will feel as if it goes down the wrong way. Pt denies hx of choking. At times, he will feel sensation of food caught in his throat or in his lower esophagus. He states he has learned to be more cautious eating. He reports hx of EGD >5 years ago revealing hiatal hernia. He also has diagnosis of GERD. He is not currently following w/ GI. Medical History: Medical History Essential hypertension Wears glasses History of steroid therapy Arthritis High cholesterol Back pain Injury of back Gastric reflux Non-smoker Normal stress echocardiogram History of echocardiogram History of stress test Cardiology follow-up encounter Chest pain Basal cell carcinoma Hiatal hernia GERD (gastroesophageal reflux disease) Hyperlipidemia Current Diet Ordered: Regular textures / Thin liquids Mental Status: Impaired (Hx of MCI per chart. Did not impact exam.) Respiratory Status: Oxygenating on Room Air Penetration-Aspirat ion Scale Penetration-Aspirat ion Scale: OBJECTIVE ASSESSMENT OF SWALLOW FUNCTION (QUANTITATIVE ??? PER TRIAL): PENETRATION / ASPIRATION SCALE ([place]): 1 = does not enter airway 2 = enters airway/above vocal folds/ejected 3 = enters airway/above vocal folds/not ejected 4 = enters airway/contacts vocal folds/ejected 5 = enters airway/contacts vocal folds/not ejected 6 = enters airway/below vocal folds/ejected 7 = enters airway/below vocal folds/not ejected despite effort 8 = enters airway/below vocal folds/no effort VIDEOFLOROSCOPIC SCALE SCORE ([place]): Grade I = aspiration of material that has penetrated into the laryngeal vestibule, intact cough reflex Grade II = aspiration < 10 % of the bolus, intact cough reflex Grade III = aspiration of < 10 % of the bolus, reduced cough reflex or aspiration of > 10 % of the bolus, intact cough reflex Grade IV = aspiration of > 10 % of the bolus, reduced cough reflex Penetration-Aspirat ion Scale Score Thin Liquid via teaspoon: Result: 1= does not enter airway Thin Liquid via teaspoon Trial 2: Result: 1= does not enter airway Thin Liquid via large single sip: cup: Result: 1= does not enter airway [place] Thick Liquid via large single sip: cup: Result: 1= does not enter airway Pudding via teaspoon: Result: 1= does not enter airway Comment: Esophageal screen - Mild-moderate retention in the middle esophagus. Thin Liquid via single sip: straw: Result: 1= does not enter airway Comment: Esophageal screen - Complete clearance of liquid and residues of previous trial. 1/2 Cookie: Result: 1= does not enter airway Comment: Esophageal screen - Mild retention in the middle esophagus. Thin Liquid via single sip: straw Trial 2: Result: 2= enter airway/above vocal folds/ejected Comment: Esophageal screen - First liquid wash somewhat cleared cookie retention; however, mild retention of barium remained in the middle esophagus. Second liquid was provided during the screen, which mostly cleared cookie retention, but mild liquid retention remained in the lower esophagus w/ min retrograde flow. Thin Liquid via sequential sips:straw: Result: 2= enter airway/above vocal folds/ejected Oral Phase Labial Seal: Interlabial escape, no progression to anterior lip Tongue Control During Bolus Hold: Posterior escape of less than half of bolus Bolus Preparation/Mastica tion: Timely and efficient chewing and mashing Bolus Transport/Lingual Motion: Repetitive/disorgan ized tongue motion Oral Residue: Majority of bolus remaining (piecemeal deglutition of large single sip by straw) Pharyngeal Phase Initiation of Pharyngeal Swallow: Bolus head in pyriforms Soft Palate Elevation: Trace column of contrast/air between soft palate and pharyngeal wall Laryngeal Elevation: Comp. Superior move thyroid cart w/comp. apprx arytenoid cart-epig pet Anterior Hyoid Excursion: Partial anterior movement Epiglottic Movement: Partial inversion Laryngeal Vestibule Closure at Height of Swallow: Incomplete; narrow column of air/contrast in laryngeal vestibule Pharyngeal Stripping Wave: Present - diminished Pharyngoesophageal Segment Opening: Parit (more content not included)... Normal [facility] Cardiology Visit Reporton Cardiology Visit Report [facility] [address] [place] [address] OFFICE VISIT Date of Service: 11/07/24 MR#: [id number] Acct: [id number] Name: RIZWAN CLIFFORD Rep #: [id number] : 1950 Provider: Dr. Jordon Benavides MD Age/Sex: 74/M [place] [facility] [place] [facility] Status: Signed HPI HPI History of Present Illness Details: Rizwan Clifford is a 74-year-old gentleman that presents here today for a cardiovascular follow-up. He established with us for complaints of chest discomfort. In December 2019 he underwent a stress test which demonstrated no evidence of ischemia at a high workload and an echocardiogram demonstrated an ejection fraction of 55% with a global longitudinal strain score of -15.1. He has continued to have occasional chest discomfort and also had another stress test in November 2020 at 13.3 METS with no evidence of ischemia. He continued to have atypical Cp, he did undergo a CCTA which demonstrated a score of 207. Pt was seen at the 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 From a cardiac standpoint, patient is doing well. He does not have any chest discomfort/heavines s/tightness. His exercise tolerance is stable for his age. He still skis in the winter. He does not have any worsening symptoms of shortness of breath. He denies any PND. He does not have any orthopnea. He does not have any symptoms of congestive heart failure. He does not have any palpitations that he is aware of. He does not have any lightheadedness or dizziness. He does not have any near-syncope or syncope. He does not have any lower extremity edema. He does not have any symptoms of claudication. Intake Vital Signs 09/26/23 10:37 06/15/24 09:26 11/07/24 09:03 11/07/24 09:18 Height 5 ft 5.75 in 5 ft 5.75 in 5 ft 5.75 in Weight: 175 lb BMI 28.4 BP 140/90 H 128/85 H Blood Pressure Location Lt brachial Rt brachial Position Sitting Sitting Respiration 16 Pulse 63 Pulse Source Monitor Intake Visit Reasons: 1 y fu Favor Maker Required: No Accompanied by: Self Is patient in pain?: No Allergies Penicillins Allergy (Verified 11/07/24 09:05) Unknown lisinopril Adverse Reaction (Intermediate, Verified 11/07/24 09:05) Cough, Dizziness Medications ???Medication ???Instructions ???Recorded ???Confirmed ???Type multivitamin with folic acid 400 1 tab PO DAILY supplement 12/12/13 11/07/24 History mcg tablet aspirin 81 mg tablet,delayed 81 mg PO DAILY heart health 11/07/24 History release (Adult Aspirin Regimen) donepezil 5 mg tablet 5 mg PO QDAY 03/29/24 11/07/24 His tory escitalopram oxalate 10 mg tablet 10 mg PO QDAY 03/29/24 11/07/24 H istory rosuvastatin 40 mg tablet (Crestor) 40 mg PO QDAY 03/29/24 11/07/24 History turmeric root extract 500 mg 500 mg PO QDAY 03/29/24 11/07/24 H istory capsule coenzyme Q10 200 mg capsule 200 mg PO QDAY 11/07/24 11/07/24 H istory losartan 25 mg tablet 25 mg PO DAILY blood pressure #90 11/07/24 11/07/24 Rx tabs pantoprazole 40 mg tablet,delayed 40 mg PO QDAY PRN 11/07/24 History release Have you fallen in the past year?: No PFSH Medical History MCI (mild cognitive impairment) NAION (non-arteritic anterior ischemic optic neuropathy), both eyes Essential hypertension Wears glasses History of steroid therapy Arthritis High cholesterol Back pain Injury of back Gastric reflux Non-smoker Normal stress echocardiogram History of echocardiogram History of stress test Cardiology follow-up encounter Chest pain Basal cell carcinoma Hiatal hernia GERD (gastroesophageal reflux disease) Hyperlipidemia Surgical History History of temporal artery biopsy ( 05/2022) History of surgery on upper extremity H/O endoscopy H/O colonoscopy H/O rotator cuff surgery History of back surgery Family History Father Lung cancer Brother No problems noted. Sister CVA (cerebral vascular accident) carotid artery disease Other Heart disease Social History Smoking Status: Never smoker alcohol intake: never substance use type: does not use ROS Const Const: Negative for fatigue, weakness, headache(s), daytime sleepiness or difficulty sleeping Eyes Eyes: Positive for loss of peripheral vision and change in vision ENT ENT: Positive for balance problems; Negative for headache(s), dizziness or Nosebleed/epistaxis Cardio Chest Pain: No Palpitations: No Edema: None Resp Respiratory: Negative for SOB with activity, SOB at rest, SOB orthopnea SOB lying down (more content not included)... 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 Sabrina Guzman to address concerns with low vision and community resources. IT APPLICATION ADMINISTRATOR contacted the patient and introduced self and active licensure. Patient identified through . (Marilyn) was also on the call via speaker. 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 Patient has gone to [facility] and purchased a magnifier and a talking watch but has not had formal low vision training. [facility] is more of a social agency that is only open periodically and does not have low vision specialists or vision rehab therapists. Patient reports that he is independent with ADL's/IADL's and is looking for vision aids and training. IT APPLICATION ADMINISTRATOR, patient, and had a lengthy discussion about low vision therapy options. IT APPLICATION ADMINISTRATOR provided education and information on the following choices: [facility] Dr. Velásquez ([facility]) for low vision evaluation. Dr. Ni Lowery [facility] low vision [facility]. Occupational therapy in [facility]. The patient and his decided that going to [facility] ([facility] [place] [place] would be best since they have both low vision clinic, occupational therapy, and orientation and mobility training, and support groups, including case management to help him coordinate services and also apply for financial assistance to help cover the cost of low vision aids and vision rehab training. The patient is also interested in training on devices such as his new iPhone. IT APPLICATION ADMINISTRATOR will facilitate referral to [facility] and will update Dr. Guzman regarding patient choice to come to [facility] for low vision. SW provided contact information and will remain available as a resource and to ensure the patient is receiving vision services. Mami Paul LSW 12/18/2024 3:44 PM Signed IT APPLICATION ADMINISTRATOR keeps logging in to patient record to try to access visual willimason for the sight center. JULI Ledezma rn case management is requesting. IT APPLICATION ADMINISTRATOR has given Susan the number to contact medical records as there seems to be a problem with IT APPLICATION ADMINISTRATOR and connection to [employer]. Allergies As of Date: 10/23/2024 Noted Allergy Reaction PENICILLINS 05/18/2018 2 - Rash 16 - Unknown Date Reviewed: 10/22/2024 Reviewed by: Sabrina Guzman MD - Fully Assessed Reason for Visit: Social Work Consultation [[id number]] Prescriptions as of 12/18/2024 - donepezil (ARICEPT) 5 mg tablet Take 5 mg by mouth every morning. - aspirin, enteric coated (ST. ANA MARIA ASPIRIN) 81 mg EC tablet - turmeric root extract (CURICA TURMERIC) 300 mg cap - ubidecarenone/vitam in E mixed (COQ10 SG 100 ORAL) - rosuvastatin (CRESTOR) 40 mg tablet Take 1 tablet by mouth once daily. - [place]-3 1,050 mg, Fish Oil, 1,050-1,200 mg cap - escitalopram oxalate (LEXAPRO) 10 mg tablet Take 1 tablet by mouth once daily. - losartan (COZAAR) 25 mg tablet Take 25 mg by mouth once daily. - ubidecarenone (COQ-10 ORAL) Take by mouth. - predniSONE (DELTASONE) 20 mg tablet TAKE 1 TABLET BY MOUTH ONCE DAILY X1 WEEK, THEN 1/2 TABLET BY MOUTH DAILY X1 WEEK - simvastatin (ZOCOR) 20 mg tablet Take 20 mg by mouth daily at bedtime. - pantoprazole DR (PROTONIX) 40 mg tablet Take 40 mg by mouth once daily as needed. - multivitamin with minerals (MULTIPLE VITAMINS 55 PLUS ORAL) Take by mouth. Problem List As Of Date: 10/23/2024 (None) Encounter Status:Closed by MAMI PAUL on 10/23/[address] [facility] OCT OPTIC NERVE CIRRUS OU (B OTH EYES)on 10-22-2024 [facility] Radiology Study observation (narrative) [facility] OPTIC DISC PHOTO OU (BOTH EY ES)on 10-22-2024 [facility] Radiology Study observation (narrative) [facility] VISUAL FIELD 24-2 OU (BOTH E YES)on 10-22-2024 [facility] Radiology Study observation (narrative) [facility] Urgent Care Visit Reporton 0 06-15-2024 Urgent Care Visit Report [facility] [address] , [address] [place] [address] OFFICE VISIT Date of Service: 06/15/24 MR#: [id number] Acct: [id number] Name: RIZWAN CLIFFORD Rep #: [id number] : 1950 Provider: MARGARITA Saldana Age/Sex: 73/M [place] [facility] [place] Status: Signed Intake Vital Signs 03/29/24 09:54 06/15/24 09:26 Height 5 ft 5.75 in 5 ft 5.75 in Weight: 172 lb 2 oz BMI 28.0 BP 122/80 H Position Sitting Pulse 74 Temp 98.5 F Pulse Oximetry (%) 95 Oxygen Delivery Method room air Intake Visit Reasons: Cough Chief Complaint: Cough Accompanied by: Self Allergies Penicillins Allergy (Verified 06/15/24 10:35) Unknown lisinopril Adverse Reaction (Intermediate, Verified 06/15/24 10:35) Cough, Dizziness Medications ???Medication ???Instructions ???Recorded ???Confirmed ???Type multivitamin with folic acid 400 1 tab PO DAILY supplement 12/12/13 03/29/24 History mcg tablet aspirin 81 mg tablet,delayed 81 mg PO DAILY heart health 03/29/24 History release (Adult Aspirin Regimen) losartan 25 mg tablet 25 mg PO DAILY blood pressure #90 08/07/23 03/29/24 Rx tabs donepezil 5 mg tablet 5 mg PO QDAY 03/29/24 03/29/24 His tory escitalopram oxalate 10 mg tablet 10 mg PO QDAY 03/29/24 03/29/24 H istory rosuvastatin 40 mg tablet (Crestor) 40 mg PO QDAY 03/29/24 03/29/24 History turmeric root extract 500 mg 500 mg PO QDAY 03/29/24 03/29/24 H istory capsule Have you fallen in the past year?: No Nurse's Note: patient has a cough and ST. Patient has sinus drainage and now its in his chest. [facility] Medical History Essential hypertension Wears glasses History of steroid therapy Arthritis High cholesterol Back pain Injury of back Gastric reflux Non-smoker Normal stress echocardiogram History of echocardiogram History of stress test Cardiology follow-up encounter Chest pain Basal cell carcinoma Hiatal hernia GERD (gastroesophageal reflux disease) Hyperlipidemia Surgical History History of temporal artery biopsy ( 05/2022) History of surgery on upper extremity H/O endoscopy H/O colonoscopy H/O rotator cuff surgery History of back surgery Family History Father Lung cancer Brother No problems noted. Sister CVA (cerebral vascular accident) carotid artery disease Other Heart disease Social History Smoking Status: Never smoker alcohol intake: never substance use type: does not use HPI HPI Chief Complaint: Cough Details: RIZWAN CLIFFORD, is a 73 M who presents to the office today for cold sx -negative testing for covid and flu -sx started Monday- just got back from cruise -sx sneezing, runny nose, coughing a little sputum, sore throat -no myalgias or fever or chills -tried so far otc cold medication, salt water gargles ROS Const Constitutional: Positive for other (ROS negative x6 except what was placed in HPI) Exam Const General: cooperative, comfortable and no acute distress Orientation: alert, awake and oriented x3 HENMT Head: normal to inspection and normocephalic Ears: hearing grossly normal bilaterally, external ears normal and TM's normal bilaterally Nose: external nose normal and other (+ congestion and rhinorrhea- moderate ) Face and sinus: normal facial exam, sinuses nontender and face symmetric Mouth: oral mucosae normal, lip normal, tongue normal, oropharynx normal and moist mucous membranes Throat: posterior oropharynx normal, tonsils normal, uvula midline and postnasal drainage Neck Neck: normal visual inspection, full ROM and no lymphadenopathy Resp Effort Inspection: normal respiratory effort, able to speak in complete sentences and symmetric chest movement Auscultation: Bilateral: Clear to Auscultation, Left: Clear to Auscultation and Right: Clear to Auscultation Cardio Rate: regular rate Rhythm: regular rhythm Heart Sounds: S1 normal and S2 normal GI Auscultation: normal bowel sounds Palpation: soft Skin General: no rashes or lesions noted and turgor normal Neuro General: patient alert, patient awake and patient oriented x3 Cognition: normal cognition Speech: speech normal Psych Appearance: grossly normal Mental Status: mental status grossly normal Attitude: cooperative Thought Process: normal Thought Content: normal Coding Level of Care Code Off vis,est,level 3 Diagnoses Viral URI with cough J06.9 Assessment and Plan Assessment and Plan (1) Viral URI with cough: Status: Acute Plan: -If prescribed antibiotics (more content not included)... Normal [facility] Basic Metabolic Profile (BMP )on 05-17-2024 BUN/CRE 16.2 RATIO Normal 02-24 [facility] Comment on above: Order Comment: Order Date: 05/17/24Order Info: [id number] - BMPOrder Info: [id number] - LIVEROrder Info: - LIPIDOrder Info: [id number] - MGOrder Info: [id number] - TSH Performed By: #### L 501.9520, L500.4100, L500.3400, L501.5200, L100.0100, L500.2500 ####[facility] [address] [place], [address] CA,Total 9.1 mg/dL Normal 8.5-10.1 [facility] Comment on above: Order Comment: Order Date: 05/17/24Order Info: [id number] - BMPOrder Info: [id number] - LIVEROrder Info: - LIPIDOrder Info: [id number] - MGOrder Info: [id number] - TSH Performed By: #### L 501.9520, L500.4100, L500.3400, L501.5200, L100.0100, L500.2500 ####[facility] [address] [place], [address] Chloride [Moles/Vol] 103 mmol/L Normal 98-107 [facility] Comment on above: Order Comment: Order Date: 05/17/24Order Info: [id number] - BMPOrder Info: [id number] - LIVEROrder Info: - LIPIDOrder Info: [id number] - MGOrder Info: [id number] - TSH Performed By: #### L 501.9520, L500.4100, L500.3400, L501.5200, L100.0100, L500.2500 ####[facility] [address] [place], [address] CO2 [Moles/Vol] 31.0 mmol/L Normal 21.0-32.0 [facility] Comment on above: Order Comment: Order Date: 05/17/24Order Info: [id number] - BMPOrder Info: [id number] - LIVEROrder Info: - LIPIDOrder Info: [id number] - MGOrder Info: [id number] - TSH Performed By: #### L 501.9520, L500.4100, L500.3400, L501.5200, L100.0100, L500.2500 ####[facility] [address] [place], [address] Creatinine [Mass/Vol] 1.05 mg/dL Normal 0.70-1.30 [facility] Comment on above: Order Comment: Order Date: 05/17/24Order Info: 666- - BMPOrder Info: [id number] - LIVEROrder Info: - LIPIDOrder Info: [id number] - MGOrder Info: [id number] - TSH Result Comment: The validity of the calculated GFR GFRAA in patients over 70 years has not been determined. Clinical correlation is essential. Performed By: #### L 501.9520, L500.4100, L500.3400, L501.5200, L100.0100, L500.2500 ####[facility] [address] [place], [address] EST GFR - AA 89 mL/min Normal >60 [facility] Comment on above: Order Comment: Order Date: 05/17/24Order Info: [id number] - BMPOrder Info: [id number] - LIVEROrder Info: - LIPIDOrder Info: [id number] - MGOrder Info: [id number] - TSH Result Comment: Afri can [place]ian GFR Calc Performed By: #### L 501.9520, L500.4100, L500.3400, L501.5200, L100.0100, L500.2500 ####[facility] [address] [place], [address] GAP 3 Low 5-15 [facility] Comment on above: Order Comment: Order Date: 05/17/24Order Info: [id number] - BMPOrder Info: [id number] - LIVEROrder Info: [id number] - LIPIDOrder Info: [id number] - MGOrder Info: [id number] - TSH Performed By: #### L 501.9520, L500.4100, L500.3400, L501.5200, L100.0100, L500.2500 ####[facility] [address] [place], [address] GFR/1.73 sq M.predicted among non-blacks MDRD (S/P/Bld) [Vol rate/Area] 74 mL/min/{1.73_m2} Normal >60 [facility] Comment on above: Order Comment: Order Date: 05/17/24Order Info: [id number] - BMPOrder Info: [id number] - LIVEROrder Info: - LIPIDOrder Info: - MGOrder Info: [id number] - TSH Result Comment: Non- GFR Calc Performed By: #### L 501.9520, L500.4100, L500.3400, L501.5200, L100.0100, L500.2500 ####[facility] [address] [place], [address] Glucose [Mass/Vol] 86 mg/dL Normal 74-106 [facility] Comment on above: Order Comment: Order Date: 05/17/24Order Info: [id number] - BMPOrder Info: [id number] - LIVEROrder Info: - LIPIDOrder Info: - MGOrder Info: [id number] - TSH Performed By: #### L 501.9520, L500.4100, L500.3400, L501.5200, L100.0100, L500.2500 ####[facility] [address] [place], [address] Potassium [Moles/Vol] 4.1 mmol/L Normal 3.5-5.1 [facility] Comment on above: Order Comment: Order Date: 05/17/24Order Info: [id number] - BMPOrder Info: [id number] - LIVEROrder Info: [id number] - LIPIDOrder Info: - MGOrder Info: [id number] - TSH Performed By: #### L 501.9520, L500.4100, L500.3400, L501.5200, L100.0100, L500.2500 ####[facility] [address] [place], [address] Sodium [Moles/Vol] 137 mmol/L Normal 136-145 [facility] Comment on above: Order Comment: Order Date: 05/17/24Order Info: 67-1 - BMPOrder Info: 88- - LIVEROrder Info: [id number] - LIPIDOrder Info: [id number] - MGOrder Info: 3 - TSH Performed By: #### L 501.9520, L500.4100, L500.3400, L501.5200, L100.0100, L500.2500 ####[facility] [address] [place], [place], [address] Urea nitrogen [Mass/Vol] 17 mg/dL Normal 7-18 [facility] Comment on above: Order Comment: Order Date: 05/17/24Order Info: 06- - BMPOrder Info: 787- - LIVEROrder Info: [id number] - LIPIDOrder Info: [id number] - MGOrder Info: 3 - TSH Performed By: #### L 501.9520, L500.4100, L500.3400, L501.5200, L100.0100, L500.2500 ####[facility] [address] [place], [address] CBC W/Diff, Automatedon 05-08 0-2024 Absolute Lymph 1.73 X10 3/uL Normal 0.83-4.51 [facility] Comment on above: Order Comment: Order Date: 05/17/24Order Info: [id number] - CBCD Performed By: #### L 501.9520, L500.4100, L500.3400, L501.5200, L100.0100, L500.2500 ####[facility] [address] [place], [address] Absolute Neut 2.9 X10 3/uL Normal 2.0-7.7 [facility] Comment on above: Order Comment: Order Date: 05/17/24Order Info: [id number] - CBCD Performed By: #### L 501.9520, L500.4100, L500.3400, L501.5200, L100.0100, L500.2500 ####[facility] [address] [place], [address] Basophils/100 WBC (Bld) 0.6 % Normal 0-1 [facility] Comment on above: Order Comment: Order Date: 05/17/24Order Info: [id number] - CBCD Performed By: #### L 501.9520, L500.4100, L500.3400, L501.5200, L100.0100, L500.2500 ####[facility] [address] [place], [address] Eosinophils/100 WBC (Bld) 2.0 % Normal 0-5 [facility] Comment on above: Order Comment: Order Date: 05/17/24Order Info: [id number] - CBCD Performed By: #### L 501.9520, L500.4100, L500.3400, L501.5200, L100.0100, L500.2500 ####[facility] [address] [place], [address] Erythrocyte distribution width (RBC) [Ratio] 11.8 % Normal 11.6-14.6 [facility] Comment on above: Order Comment: Order Date: 05/17/24Order Info: 0184-1 - CBCD Performed By: #### L 501.9520, L500.4100, L500.3400, L501.5200, L100.0100, L500.2500 ####[facility] [address] [place], [address] Hematocrit (Bld) [Volume fraction] 42.5 % Normal 40-54 [facility] Comment on above: Order Comment: Order Date: 05/17/24Order Info: 0184-1 - CBCD Performed By: #### L 501.9520, L500.4100, L500.3400, L501.5200, L100.0100, L500.2500 ####[facility] [address] [place], [address] Hemoglobin (Bld) [Mass/Vol] 14.3 g/dL Normal 13.0-16.5 [facility] Comment on above: Order Comment: Order Date: 05/17/24Order Info: 0184-1 - CBCD Performed By: #### L 501.9520, L500.4100, L500.3400, L501.5200, L100.0100, L500.2500 ####[facility] [address] [place], [address] IG% 0.400 Normal 0.0-0.9 [facility] Comment on above: Order Comment: Order Date: 05/17/24Order Info: 0184-1 - CBCD Result Comment: IG% - Immature Granulocytes (promyelocytes, myelocytes and metamyelocytes) > 1% indicates that a LEFT SHIFT is Present. Performed By: #### L 501.9520, L500.4100, L500.3400, L501.5200, L100.0100, L500.2500 ####[facility] [address] [place], [address] Lymphocytes/100 WBC (Bld) 33.9 % Normal 19-41 [facility] Comment on above: Order Comment: Order Date: 05/17/24Order Info: 0184-1 - CBCD Performed By: #### L 501.9520, L500.4100, L500.3400, L501.5200, L100.0100, L500.2500 ####[facility] [address] [place], [address] MCH (RBC) [Entitic mass] 31.9 pg Normal 27.0-32.0 [facility] Comment on above: Order Comment: Order Date: 05/17/24Order Info: 0184-1 - CBCD Performed By: #### L 501.9520, L500.4100, L500.3400, L501.5200, L100.0100, L500.2500 ####[facility] [address] [place], [address] MCHC (RBC) [Mass/Vol] 33.6 g/dL Normal 32-36 [facility] Comment on above: Order Comment: Order Date: 05/17/24Order Info: 0184-1 - CBCD Performed By: #### L 501.9520, L500.4100, L500.3400, L501.5200, L100.0100, L500.2500 ####[facility] [address] [place], [address] MCV (RBC) [Entitic vol] 94.9 fL High 80-94 [facility] Comment on above: Order Comment: Order Date: 05/17/24Order Info: 0184-1 - CBCD Performed By: #### L 501.9520, L500.4100, L500.3400, L501.5200, L100.0100, L500.2500 ####[facility] [address] [place], [address] Monocytes/100 WBC (Bld) 7.2 % Normal 0-10 [facility] Comment on above: Order Comment: Order Date: 05/17/24Order Info: 0184-1 - CBCD Performed By: #### L 501.9520, L500.4100, L500.3400, L501.5200, L100.0100, L500.2500 ####[facility] [address] [place], [address] Neutrophils/100 WBC (Bld) 55.9 % Normal 47-70 [facility] Comment on above: Order Comment: Order Date: 05/17/24Order Info: 0184-1 - CBCD Performed By: #### L 501.9520, L500.4100, L500.3400, L501.5200, L100.0100, L500.2500 ####[facility] [address] [place], [address] Nucleated RBC (Bld) [#/Vol] 0 10*3/uL Normal 0-5 [facility] Comment on above: Order Comment: Order Date: 05/17/24Order Info: 0184-1 - CBCD Performed By: #### L 501.9520, L500.4100, L500.3400, L501.5200, L100.0100, L500.2500 ####[facility] [address] [place], [address] Platelet mean volume (Bld) [Entitic vol] 11.7 fL Normal 6.2-12.0 [facility] Comment on above: Order Comment: Order Date: 05/17/24Order Info: 0184-1 - CBCD Performed By: #### L 501.9520, L500.4100, L500.3400, L501.5200, L100.0100, L500.2500 ####[facility] [address] [place], [address] Platelets (Bld) [#/Vol] 135 10*3/uL Low 150-450 [facility] Comment on above: Order Comment: Order Date: 05/17/24Order Info: 0184-1 - CBCD Performed By: #### L 501.9520, L500.4100, L500.3400, L501.5200, L100.0100, L500.2500 ####[facility] [address] [place], [address] RBC (Bld) [#/Vol] 4.48 10*6/uL Low 4.6-6.2 [facility] Comment on above: Order Comment: Order Date: 05/17/24Order Info: 0184-1 - CBCD Performed By: #### L 501.9520, L500.4100, L500.3400, L501.5200, L100.0100, L500.2500 ####[facility] [address] [place], [address] RDW SD 40.6 fl Normal 35.1-43.9 [facility] Comment on above: Order Comment: Order Date: 05/17/24Order Info: 0184-1 - CBCD Performed By: #### L 501.9520, L500.4100, L500.3400, L501.5200, L100.0100, L500.2500 ####[facility] [address] [place], [address] WBC (Bld) [#/Vol] 5.1 10*3/uL Normal 4.4-11.0 [facility] Comment on above: Order Comment: Order Date: 05/17/24Order Info: 0184- - CBCD Performed By: #### L 501.9520, L500.4100, L500.3400, L501.5200, L100.0100, L500.2500 ####[facility] [address] [place], [address] Lipid Profileon 05-17-2024 Cholesterol [Mass/Vol] 140 mg/dL Normal 200 [facility] Comment on above: Order Comment: Order Date: 05/17/24Order Info: 0667-1 - BMPOrder Info: 0788-1 - LIVEROrder Info: 95010-2 - LIPIDOrder Info: [id number] - MGOrder Info: 3016-3 - TSH Result Comment: <200 mg/dL Desirable 200-240 mg/dL Borderline >240 mg/dL High Risk Performed By: #### L 501.9520, L500.4100, L500.3400, L501.5200, L100.0100, L500.2500 ####[facility] [address] [place], [address] Cholesterol in HDL [Mass/Vol] 59 mg/dL Normal [facility] Comment on above: Order Comment: Order Date: 05/17/24Order Info: 666-05 - BMPOrder Info: 787-05 - LIVEROrder Info: 15436-6 - LIPIDOrder Info: [id number] - MGOrder Info: 3016-3 - TSH Result Comment: The drugs N-Acetylcysteine and Metamizole may falsely depress this assay. Reference Range HDL <40 mg/dL Low HDL Cholesterol HDL >or= 60 mg/dL High HDL Cholesterol Performed By: #### L 501.9520, L500.4100, L500.3400, L501.5200, L100.0100, L500.2500 ####[facility] [address] [place], [address] Cholesterol in LDL [Mass/Vol] 70 mg/dL Normal 0-130 [facility] Comment on above: Order Comment: Order Date: 05/17/24Order Info: 666-05 - BMPOrder Info: 787-05 - LIVEROrder Info: - LIPIDOrder Info: [id number] - MGOrder Info: 3016-3 - TSH Performed By: #### L 501.9520, L500.4100, L500.3400, L501.5200, L100.0100, L500.2500 ####[facility] [address] [place], [address] Cholesterol in VLDL [Mass/Vol] 11 mg/dL Normal 5-40 [facility] Comment on above: Order Comment: Order Date: 05/17/24Order Info: 666-05 - BMPOrder Info: 787-05 - LIVEROrder Info: - LIPIDOrder Info: [id number] - MGOrder Info: 3016-3 - TSH Performed By: #### L 501.9520, L500.4100, L500.3400, L501.5200, L100.0100, L500.2500 ####[facility] [address] [place], [address] Triglyceride [Mass/Vol] 53 mg/dL Normal [facility] Comment on above: Order Comment: Order Date: 05/17/24Order Info: 666-05 - BMPOrder Info: 787-05 - LIVEROrder Info: [id number] - LIPIDOrder Info: [id number] - MGOrder Info: 3016-3 - TSH Result Comment: The drugs N-Acetylcysteine and Metamizole may falsely depress this assay. Serum Triglycerides Reference Interval Normal <150 mg/dL Borderline high 150 - 199 mg/dL High 200 - 499 mg/dL Very High > or = 500 mg/dL Performed By: #### L 501.9520, L500.4100, L500.3400, L501.5200, L100.0100, L500.2500 ####[facility] [address] [place], [place], [id number] Liver Profileon 05-17-2024 Albumin [Mass/Vol] 3.6 g/dL Normal 3.2-5.0 [facility] Comment on above: Order Comment: Order Date: 05/17/24Order Info: 666-05 - BMPOrder Info: 787-05 - LIVEROrder Info: 92412-1 - LIPIDOrder Info: - MGOrder Info: 3016-3 - TSH Performed By: #### L 501.9520, L500.4100, L500.3400, L501.5200, L100.0100, L500.2500 ####[facility] [address] [place], [place], [address] ALK P 52 U/L Normal 45-117 [facility] Comment on above: Order Comment: Order Date: 05/17/24Order Info: 666-05 - BMPOrder Info: 787-05 - LIVEROrder Info: 61673-1 - LIPIDOrder Info: [id number] - MGOrder Info: 3016-3 - TSH Performed By: #### L 501.9520, L500.4100, L500.3400, L501.5200, L100.0100, L500.2500 ####[facility] [address] [place], [address] ALT [Catalytic activity/Vol] 32 U/L Normal 16-61 [facility] Comment on above: Order Comment: Order Date: 05/17/24Order Info: 666- - BMPOrder Info: 88-1 - LIVEROrder Info: [id number] - LIPIDOrder Info: [id number] - MGOrder Info: 3016-3 - TSH Performed By: #### L 501.9520, L500.4100, L500.3400, L501.5200, L100.0100, L500.2500 ####[facility] [address] [place], [address] AST [Catalytic activity/Vol] 20 U/L Normal 15-37 [facility] Comment on above: Order Comment: Order Date: 05/17/24Order Info: 666-05 - BMPOrder Info: 787-05 - LIVEROrder Info: [id number] - LIPIDOrder Info: [id number] - MGOrder Info: 3016-3 - TSH Performed By: #### L 501.9520, L500.4100, L500.3400, L501.5200, L100.0100, L500.2500 ####[facility] [address] [place], [address] Bilirubin [Mass/Vol] 1.40 mg/dL High 0.20-1.00 [facility] Comment on above: Order Comment: Order Date: 05/17/24Order Info: 666-05 - BMPOrder Info: 787-05 - LIVEROrder Info: [id number] - LIPIDOrder Info: [id number] - MGOrder Info: 3016-3 - TSH Result Comment: For patients on eltrombopag therapy, use of Dimension [place] TBIL is not recommended. Performed By: #### L 501.9520, L500.4100, L500.3400, L501.5200, L100.0100, L500.2500 ####[facility] [address] [place], [address] Bilirubin.direct [Mass/Vol] 0.29 mg/dL Normal 0.00-0.30 [facility] Comment on above: Order Comment: Order Date: 05/17/24Order Info: 666-05 - BMPOrder Info: 787-05 - LIVEROrder Info: - LIPIDOrder Info: [id number] - MGOrder Info: 301-3 - TSH Performed By: #### L 501.9520, L500.4100, L500.3400, L501.5200, L100.0100, L500.2500 ####[facility] [address] [place], [address] Globulin (S) [Mass/Vol] 3.1 g/dL Normal 2.2-4.2 [facility] Comment on above: Order Comment: Order Date: 05/17/24Order Info: 666-05 - BMPOrder Info: 787-05 - LIVEROrder Info: - LIPIDOrder Info: [id number] - MGOrder Info: 3015-3 - TSH Performed By: #### L 501.9520, L500.4100, L500.3400, L501.5200, L100.0100, L500.2500 ####[facility] [address] [place], [address] T PROT 6.7 g/dL Normal 6.4-8.2 [facility] Comment on above: Order Comment: Order Date: 05/17/24Order Info: 666-05 - BMPOrder Info: 787-05 - LIVEROrder Info: - LIPIDOrder Info: [id number] - MGOrder Info: 3016-3 - TSH Performed By: #### L 501.9520, L500.4100, L500.3400, L501.5200, L100.0100, L500.2500 ####[facility] [address] [place], [address] Magnesiumon 05-17-2024 Magnesium [Mass/Vol] 2.4 mg/dL Normal 1.6-2.6 [facility] Comment on above: Order Comment: Order Date: 05/17/24Order Info: 666- - BMPOrder Info: 88-1 - LIVEROrder Info: [id number] - LIPIDOrder Info: [id number] - MGOrder Info: 3016-3 - TSH Performed By: #### L 501.9520, L500.4100, L500.3400, L501.5200, L100.0100, L500.2500 ####[facility] [address] [place], [place], [address] Thyroid Stim Hormone (TSH)on 05-17-2024 TSH 2.950 uIU/mL Normal 0.358-3.740 [facility] Comment on above: Order Comment: Order Date: 05/17/24Order Info: 666- - BMPOrder Info: 787- - LIVEROrder Info: [id number] - LIPIDOrder Info: [id number] - MGOrder Info: 3016-3 - TSH Performed By: #### L 501.9520, L500.4100, L500.3400, L501.5200, L100.0100, L500.2500 ####[facility] [address] [place], [address] CNPNon 05-10-2024 CNPN Telephone (OPHTBE) ---- RIZWAN CLIFFORD ([id number]) 1950 M Date Time Provider Department 05/10/24 SABRINA GUZMAN During your visit today, we recorded the following information about you: Agustina Gifford 05/10/2024 12:23 PM Signed Received faxed office notes from [facility] office of Dr Shady Schuster. Faxed to Dr Guzman and sent for scanning in Epic. Allergies As of Date: 05/10/2024 Noted Allergy Reaction PENICILLINS 05/18/2018 2 - Rash 16 - Unknown Date Reviewed: 06/09/2022 Reviewed by: Christoph Zuñiga DO - Fully Assessed Reason for Visit: Office notes from [facility] [Other] Prescriptions as of 05/10/2024 - predniSONE (DELTASONE) 20 mg tablet TAKE 1 TABLET BY MOUTH ONCE DAILY X1 WEEK, THEN 1/2 TABLET BY MOUTH DAILY X1 WEEK - simvastatin (ZOCOR) 20 mg tablet Take 20 mg by mouth daily at bedtime. - pantoprazole DR (PROTONIX) 40 mg tablet Take 40 mg by mouth once daily as needed. - multivitamin with minerals (MULTIPLE VITAMINS 55 PLUS ORAL) Take by mouth. Problem List As Of Date: 05/10/2024 (None) Encounter Status:Closed by AGUSTINA GIFFORD on 05/10/[address] [facility] Carotid Duplex Ultrasoundon 05-06-2024 Carotid Duplex Ultrasound [facility] [address] [place] [address] Carotid Duplex Ultrasound 05/06/24 0806 MR#: [id number] Acct: [id number] Name: RIZWAN CLIFFORD Rep #: [id number] : 1950 73 From: Stephane Orr MD Attending Dr: Dr. Shady Schuster MD Status: REG CLI Ordering Dr: Shady Schuster MD Date: 05/06/24 Location: [facility] Sex: M C Admitted: Reason For Study: Retinal ischemia Rt. Velocities/BP Lt. Velocities/BP Prox CCA 58.9/12.6 cm/sec. Prox CCA 73/14.5 cm/sec. Mid CCA 75.9/17.3 cm/sec. Mid CCA 62.6/19.2 cm/sec. Dist CCA 74/21.1 cm/sec. Dist CCA 67.4/20.1 cm/sec. Prox ICA 81.5/23.9 cm/sec. Prox ICA 62.6/19.2 cm/sec. Mid ICA 60.7/22 cm/sec. Mid ICA 51.3/17.3 cm/sec. Dist ICA 53.2/21.1 cm/sec. Dist ICA 57.9/23.9 cm/sec. Rt. ICA/CCA = 1.07. Lt. ICA/CCA = 1.00. Prox ECA 70.2/10.7 cm/sec. Prox ECA 73/9.7 cm/sec. Rt. Vert. 34.3/12.6 cm/sec. Lt. Vert. 35.1/15.2 cm/sec. Right Extracranial There is intimal thickening but no significant atherosclerotic plaque noted in the right common carotid artery. There is heterogeneous, irregular atherosclerotic plaque noted in the right internal carotid artery. There is intimal thickening but no significant atherosclerotic plaque noted in the right external carotid artery. Antegrade flow is noted in the right vertebral artery. Left Extracranial There is intimal thickening but no significant atherosclerotic plaque noted in the left common carotid artery. There is heterogeneous, irregular atherosclerotic plaque noted in the left internal carotid artery. There is intimal thickening but no significant atherosclerotic plaque noted in the left external carotid artery. Antegrade flow is noted in the left vertebral artery. Procedure Carotid Duplex 39534. This is a Carotid Duplex examination using B-mode, color flow and specral Doppler. Exam performed in department. VL/Carotid Duplex Ultrasound Interpretation Summary Mild (<50%) stenosis right extracranial internal carotid. Mild (<50%) stenosis left extracranial internal carotid. Patent and antegrade vertebrals bilaterally. __ Ordering Physician: Shady Schuster Referring Physician: Missy Workman Performed By: Siobhan Singh RVT 05/06/24957 Date Stephane Orr MD CC: Dr. Missy Workman MD; Dr. Shady Schuster MD Date Dictated: 05/06/24805 Date Transcribed: 05/06/24957 Nutrition Aide: Signed Normal [facility] Brain W/WO Contraston 2023 Brain W/WO Contrast [facility] Imaging [place] [address] Brain W/WO Contrast MR#: [id number] Acct: [id number] Name: RIZWAN CLIFFORD Rep #: [id number] : 1950 M 73 From: Igor Guzman MD PCP: Dr. Missy Workman MD Status: [facility] Study: Brain W/WO Contrast Date of Exam: 04/30/24 Exam# [id number] Ordering Dr: Shady Schuster MD -[id number] STUDY: MRI ORBITS WITH AND WITHOUT CONTRAST REASON FOR EXAM: Male, 73 years old. ISCHEMIC OPTIC NEUROPATHY L EYE TECHNIQUE: Standardized fat and water weighted pulse sequences were obtained in all 3 orthogonal planes, pre-and post contrast administration. 15 CC IV CLARISCAN was administered for the contrast portion of the examination. COMPARISON: MRI brain with and without contrast 05/31/2022. FINDINGS: Normal bilateral globes. Normal bilateral optic nerve sheath complexes and optic nerves. Normal bilateral intraconal and extraconal spaces. Normal bilateral extraocular muscles. Normal optic chiasm and post-chiasmatic tracts. Normal sella turcica, pituitary gland, infundibular stalk, and hypothalamus. Normal bilateral cavernous sinuses. Normal tectal plate and pineal gland. Normal flow voids within the major intracranial circulation suggesting patency by spin echo criteria. No diffusion restriction to suspect acute or subacute ischemic infarct. Normal size of the ventricles and extra-axial spaces for the patient''s age. Few periventricular white matter T2 FLAIR hyperintensity foci in the right cerebral hemisphere more than both cerebral hemispheres are chronic white matter ischemic changes. Normal bilateral basal ganglia. Normal thalami. There is no extra-axial fluid accumulation. Following IV contrast administration, there are no abnormally enhancing lesions intra-axially and extra-axially. Normal midbrain, neil and medulla. Normal cerebellum. Normal basal cisterns. MRI/Brain W/WO Contrast IMPRESSION: 1. T11 small periventricular white matter T2 FLAIR hyperintensity foci in both cerebral hemispheres, right more than left are chronic white matter ischemic changes otherwise negative enhanced and unenhanced MRI of the orbits. 2. No significant interval change compared to 05/31/2022 Electronically Signed: Igor Guzman MD at 8:21 EST , CC: Dr. Missy Workman MD; Dr. Shady Schuster MD Nutrition Aide: Signed Normal [facility] CREATININE FINGERSTICKon CREATININE WB < 1.0 Normal 0.70-1.30 [facility] Comment on above: Performed By: #### L 9100.0200 ####[facility] [address] [place], [address] EGFR WB > 60.0000 Normal >60 [facility] Comment on above: Performed By: #### L 9100.0200 ####[facility] [address] [place], [address] CBC W/Diff, Automatedon 12-0 PLT EST MOD DEC Normal ADEQ [facility] Comment on above: Performed By: #### L 100.0100, L501.6710, L101.9900 #### [facility] [address] [place], [address] PLT MORPH CLUMPED Normal [facility] Comment on above: Performed By: #### L 100.0100, L501.6710, L101.9900 #### [facility] [address] [place], [address] RED CELL MORPH NORM C+C Normal NORM C C [facility] Comment on above: Performed By: #### L 100.0100, L501.6710, L101.9900 #### [facility] [address] [place], [address] PLT Normal 150-450 [facility] Comment on above: Result Comment: Plea se note: For this sample, a platelet estimate is provided rather than a platelet count due to platelet clumping. Other parameters associated with this sample are not affected by platelet clumping. If a more accurate platelet count is required, a redraw of the patient will be necessary. Performed By: #### L 100.0100, L501.6710, L101.9900 #### [facility] [address] [place], [address] SMEAR COMMENT SCANNED Normal [facility] Comment on above: Performed By: #### L 100.0100, L501.6710, L101.9900 #### [facility] [address] [place], [address] CRPon 04-15-2024 C-REACTIVE PROT < 2.90 Normal 0.0-3.0 [facility] Comment on above: Result Comment: C-Re active Protein (CRP) provides useful information for the diagnosis, therapy and monitoring of inflammatory processes and associated diseases. For the evaluation of Relative Risk for Cardiovascular Disease, a High Sensitivity CRP (HSCRP) should be ordered. Performed By: #### L 100.0100, L501.6710, L101.9900 ####[facility] [address] [place], [address] Erythrocyte Sed Rateon 04-15 SED RATE 3 mm/hr Normal 0-20 [facility] Comment on above: Performed By: #### L 100.0100, L501.6710, L101.9900 #### [facility] [address] [place], [address] Cardiology Visit Reporton Cardiology Visit Report [facility] [address] [place] [address] OFFICE VISIT Date of Service: 03/29/24 MR#: [id number] Acct: [id number] Name: RIZWAN CLIFFORD Rep #: [id number] : 1950 Provider: CELSO Morris Age/Sex: 73/M [place] [facility] [place] Status: Signed HPI HPI History of Present Illness Details: Rizwan Clifford is a 73-year-old gentleman that presents here today for a cardiovascular follow-up. He established with us for complaints of chest discomfort. In December 2019 he underwent a stress test which demonstrated no evidence of ischemia at a high workload and an echocardiogram demonstrated an ejection fraction of 55% with a global longitudinal strain score of -15.1. He has continued to have occasional chest discomfort and also had another stress test in November 2020 at 13.3 METS with no evidence of ischemia. He continued to have atypical Cp, he did undergo a CCTA which demonstrated a score of 207. Pt was seen at the 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 From a cardiac standpoint, patient is doing well. He does not have any chest discomfort/heavines s/tightness. His exercise tolerance is stable for his age. He still skis in the winter. He does not have any worsening symptoms of shortness of breath. He denies any PND. He does not have any orthopnea. He does not have any symptoms of congestive heart failure. He does not have any palpitations that he is aware of. He does not have any lightheadedness or dizziness. He does not have any near-syncope or syncope. He does not have any lower extremity edema. He does not have any symptoms of claudication. Intake Vital Signs 09/26/23 10:37 03/29/24 09:54 03/29/24 11:52 Height 5 ft 5.75 in 5 ft 5.75 in Weight: 172 lb BMI 27.9 BP 150/99 H 130/80 H Blood Pressure Location Lt brachial Position Sitting Respiration 18 Pulse 71 Pulse Source Monitor Pulse Oximetry (%) 97 Intake Visit Reasons: 6 M FU Favor Maker Required: No Is patient in pain?: No Allergies Penicillins Allergy (Verified 03/29/24 09:54) Unknown lisinopril Adverse Reaction (Intermediate, Verified 03/29/24 09:54) Cough, Dizziness Medications ???Medication ???Instructions ???Recorded ???Confirmed ???Type multivitamin with folic acid 400 1 tab PO DAILY supplement 12/12/13 03/29/24 History mcg tablet aspirin 81 mg tablet,delayed 81 mg PO DAILY heart health 08/08/22 03/29/24 History release (Adult Aspirin Regimen) losartan 25 mg tablet 25 mg PO DAILY blood pressure #90 08/07/23 03/29/24 Rx tabs donepezil 5 mg tablet 5 mg PO QDAY 03/29/24 03/29/24 History escitalopram oxalate 10 mg tablet 10 mg PO QDAY 03/29/24 03/29/24 History rosuvastatin 40 mg tablet (Crestor) 40 mg PO QDAY 03/29/24 03/29/24 History turmeric root extract 500 mg 500 mg PO QDAY 03/29/24 03/29/24 History capsule Have you fallen in the past year?: No PFSH Medical History Essential hypertension Wears glasses History of steroid therapy Arthritis High cholesterol Back pain Injury of back Gastric reflux Non-smoker Normal stress echocardiogram History of echocardiogram History of stress test Cardiology follow-up encounter Chest pain Basal cell carcinoma Hiatal hernia GERD (gastroesophageal reflux disease) Hyperlipidemia Surgical History History of temporal artery biopsy ( 05/2022) History of surgery on upper extremity H/O endoscopy H/O colonoscopy H/O rotator cuff surgery History of back surgery Family History Father Lung cancer Brother No problems noted. Sister CVA (cerebral vascular accident) carotid artery disease Other Heart disease Social History Smoking Status: Never smoker alcohol intake: never substance use type: does not use ROS Const Const: Negative for fatigue, weakness, fever(s) or headache(s) Eyes Eyes: Positive for blurry vision; Negative for blind spots, loss of peripheral vision or transient loss of vision ENT ENT: Negative for headache(s), dizziness, tinnitus, Nosebleed/epistaxis or balance problems Cardio Chest Pain: No Palpitations: No Edema: None Muscle aches with walking: None Resp Respiratory: Negative for SOB with activity, SOB at rest, SOB orthopnea SOB lying down or Cough GI GI: Negative nausea, vomiting, heartburn or vomiting blood/hematemesis : Negative for hematuria Musc Musc: Negative for muscle aches/ myalgia, muscle weakness, joint pain or balance problems Neuro Neuro: Positive for blurry (more content not included)... Normal [facility] CBC W/Diff, Automatedon 03-08 PLT EST MOD DEC Normal ADEQ [facility] Comment on above: Order Comment: Order Date: 10/10/23 Order Info: [id number] - CBCD Performed By: #### L 500.4050, L500.4100, L501.9910, L100.0100 #### [facility] [address] [place], [address] PLT MORPH CLUMPED Normal [facility] Comment on above: Order Comment: Order Date: 10/10/23 Order Info: [id number] - CBCD Performed By: #### L 500.4050, L500.4100, L501.9910, L100.0100 #### [facility] [address] [place], [address] SMEAR COMMENT SCANNED Normal [facility] Comment on above: Order Comment: Order Date: 10/10/23 Order Info: [id number] - CBCD Performed By: #### L 500.4050, L500.4100, L501.9910, L100.0100 #### [facility] [address] [place], [address] Comprehensive Metabolic Prof ilon 03-21-2024 Albumin [Mass/Vol] 3.8 g/dL Normal 3.2-5.0 [facility] Comment on above: Order Comment: Order Date: 10/10/23 Order Info: [id number] - CMP Order Info: [id number] - LIPID Order Info: [id number] - PSA Performed By: #### L 500.4050, L500.4100, L501.9910, L100.0100 #### [facility] [address] [place], [address] Albumin/Globulin [Mass ratio] 1.2 {ratio} Normal 0.9-2.4 [facility] Comment on above: Order Comment: Order Date: 10/10/23 Order Info: [id number]- - CMP Order Info: [id number] - LIPID Order Info: [id number] - PSA Performed By: #### L 500.4050, L500.4100, L501.9910, L100.0100 #### [facility] [address] [place], [address] ALK P 60 U/L Normal 45-117 [facility] Comment on above: Order Comment: Order Date: 10/10/23 Order Info: [id number]- - CMP Order Info: [id number] - LIPID Order Info: [id number] - PSA Performed By: #### L 500.4050, L500.4100, L501.9910, L100.0100 #### [facility] [address] [place], [address] ALT [Catalytic activity/Vol] 42 U/L Normal 16-61 [facility] Comment on above: Order Comment: Order Date: 10/10/23 Order Info: [id number]- - CMP Order Info: [id number] - LIPID Order Info: [id number] - PSA Performed By: #### L 500.4050, L500.4100, L501.9910, L100.0100 #### [facility] [address] [place], [address] AST [Catalytic activity/Vol] 27 U/L Normal 15-37 [facility] Comment on above: Order Comment: Order Date: 10/10/23 Order Info: [id number] - CMP Order Info: [id number] - LIPID Order Info: [id number] - PSA Performed By: #### L 500.4050, L500.4100, L501.9910, L100.0100 #### [facility] [address] [place], [address] Bilirubin [Mass/Vol] 1.40 mg/dL High 0.20-1.00 [facility] Comment on above: Order Comment: Order Date: 10/10/23 Order Info: [id number] - CMP Order Info: [id number] - LIPID Order Info: [id number] - PSA Result Comment: For patients on eltrombopag therapy, use of Dimension [place] TBIL is not recommended. Performed By: #### L 500.4050, L500.4100, L501.9910, L100.0100 #### [facility] [address] [place], [address] BUN/CRE 19.7 RATIO Normal 10-20 [facility] Comment on above: Order Comment: Order Date: 10/10/23 Order Info: [id number] - CMP Order Info: [id number] - LIPID Order Info: [id number] - PSA Performed By: #### L 500.4050, L500.4100, L501.9910, L100.0100 #### [facility] [address] [place], [address] CA,Total 9.1 mg/dL Normal 8.5-10.1 [facility] Comment on above: Order Comment: Order Date: 10/10/23 Order Info: [id number] - CMP Order Info: [id number] - LIPID Order Info: [id number] - PSA Performed By: #### L 500.4050, L500.4100, L501.9910, L100.0100 #### [facility] [address] [place], [address] Chloride [Moles/Vol] 106 mmol/L Normal 98-107 [facility] Comment on above: Order Comment: Order Date: 10/10/23 Order Info: [id number]- - CMP Order Info: [id number] - LIPID Order Info: [id number] - PSA Performed By: #### L 500.4050, L500.4100, L501.9910, L100.0100 #### [facility] [address] [place], [address] CO2 [Moles/Vol] 27.0 mmol/L Normal 21.0-32.0 [facility] Comment on above: Order Comment: Order Date: 10/10/23 Order Info: [id number] - CMP Order Info: - LIPID Order Info: [id number] - PSA Performed By: #### L 500.4050, L500.4100, L501.9910, L100.0100 #### [facility] [address] [place], [address] Creatinine [Mass/Vol] 0.96 mg/dL Normal 0.70-1.30 [facility] Comment on above: Order Comment: Order Date: 10/10/23 Order Info: [id number] - CMP Order Info: - LIPID Order Info: [id number] - PSA Result Comment: The validity of the calculated GFR GFRAA in patients over 70 years has not been determined. Clinical correlation is essential. Performed By: #### L 500.4050, L500.4100, L501.9910, L100.0100 #### [facility] [address] [place], [address] EST GFR - AA 98 mL/min Normal >60 [facility] Comment on above: Order Comment: Order Date: 10/10/23 Order Info: [id number] - CMP Order Info: - LIPID Order Info: [id number] - PSA Result Comment: Afri can [place]ian GFR Calc Performed By: #### L 500.4050, L500.4100, L501.9910, L100.0100 #### [facility] [address] [place], [address] GAP 6 Normal 5-15 [facility] Comment on above: Order Comment: Order Date: 10/10/23 Order Info: [id number]- - CMP Order Info: - LIPID Order Info: [id number] - PSA Performed By: #### L 500.4050, L500.4100, L501.9910, L100.0100 #### [facility] [address] [place], [address] GFR/1.73 sq M.predicted among non-blacks MDRD (S/P/Bld) [Vol rate/Area] 81 mL/min/{1.73_m2} Normal >60 [facility] Comment on above: Order Comment: Order Date: 10/10/23 Order Info: [id number] - CMP Order Info: - LIPID Order Info: [id number] - PSA Result Comment: Non- GFR Calc Performed By: #### L 500.4050, L500.4100, L501.9910, L100.0100 #### [facility] [address] [place], [address] Globulin (S) [Mass/Vol] 3.2 g/dL Normal 2.2-4.2 [facility] Comment on above: Order Comment: Order Date: 10/10/23 Order Info: 07 - CMP Order Info: [id number] - LIPID Order Info: [id number] - PSA Performed By: #### L 500.4050, L500.4100, L501.9910, L100.0100 #### [facility] [address] [place], [address] Glucose [Mass/Vol] 77 mg/dL Normal 74-106 [facility] Comment on above: Order Comment: Order Date: 10/10/23 Order Info: 07 - CMP Order Info: [id number] - LIPID Order Info: [id number] - PSA Performed By: #### L 500.4050, L500.4100, L501.9910, L100.0100 #### [facility] [address] [place], [address] Potassium [Moles/Vol] 4.6 mmol/L Normal 3.5-5.1 [facility] Comment on above: Order Comment: Order Date: 10/10/23 Order Info: 07- - CMP Order Info: [id number] - LIPID Order Info: 1 - PSA Performed By: #### L 500.4050, L500.4100, L501.9910, L100.0100 #### [facility] [address] [place], [address] Sodium [Moles/Vol] 138 mmol/L Normal 136-145 [facility] Comment on above: Order Comment: Order Date: 10/10/23 Order Info: [id number] - CMP Order Info: - LIPID Order Info: [id number] - PSA Performed By: #### L 500.4050, L500.4100, L501.9910, L100.0100 #### [facility] [address] [place], [address] T PROT 7.0 g/dL Normal 6.4-8.2 [facility] Comment on above: Order Comment: Order Date: 10/10/23 Order Info: [id number] - CMP Order Info: [id number] - LIPID Order Info: [id number] - PSA Performed By: #### L 500.4050, L500.4100, L501.9910, L100.0100 #### [facility] [address] [place], [address] Urea nitrogen [Mass/Vol] 19 mg/dL High 7-18 [facility] Comment on above: Order Comment: Order Date: 10/10/23 Order Info: [id number]- - CMP Order Info: [id number] - LIPID Order Info: [id number] - PSA Performed By: #### L 500.4050, L500.4100, L501.9910, L100.0100 #### [facility] [address] [place], [address] Lipid Profileon 03-21-2024 Cholesterol [Mass/Vol] 168 mg/dL Normal [address] [facility] Comment on above: Order Comment: Order Date: 10/10/23 Order Info: [id number] - CMP Order Info: [id number] - LIPID Order Info: [id number] - PSA Result Comment: <200 mg/dL Desirable 200-240 mg/dL Borderline >240 mg/dL High Risk Performed By: #### L 500.4050, L500.4100, L501.9910, L100.0100 #### [facility] [address] [place], [address] Cholesterol in HDL [Mass/Vol] 74 mg/dL Normal [facility] Comment on above: Order Comment: Order Date: 10/10/23 Order Info: [id number] - CMP Order Info: [id number] - LIPID Order Info: [id number] - PSA Result Comment: The drugs N-Acetylcysteine and Metamizole may falsely depress this assay. Reference Range HDL <40 mg/dL Low HDL Cholesterol HDL >or= 60 mg/dL High HDL Cholesterol Performed By: #### L 500.4050, L500.4100, L501.9910, L100.0100 #### [facility] [address] [place], [address] Cholesterol in LDL [Mass/Vol] 81 mg/dL Normal 0-130 [facility] Comment on above: Order Comment: Order Date: 10/10/23 Order Info: [id number] - CMP Order Info: [id number] - LIPID Order Info: [id number] - PSA Performed By: #### L 500.4050, L500.4100, L501.9910, L100.0100 #### [facility] [address] [place], [address] Cholesterol in VLDL [Mass/Vol] 13 mg/dL Normal 5-40 [facility] Comment on above: Order Comment: Order Date: 10/10/23 Order Info: [id number] - CMP Order Info: [id number] - LIPID Order Info: [id number] - PSA Performed By: #### L 500.4050, L500.4100, L501.9910, L100.0100 #### [facility] [address] [place], [place], [address] Triglyceride [Mass/Vol] 67 mg/dL Normal [facility] Comment on above: Order Comment: Order Date: 10/10/23 Order Info: [id number] - CMP Order Info: [id number] - LIPID Order Info: [id number] - PSA Result Comment: The drugs N-Acetylcysteine and Metamizole may falsely depress this assay. Serum Triglycerides Reference Interval Normal <150 mg/dL Borderline high 150 - 199 mg/dL High 200 - 499 mg/dL Very High > or = 500 mg/dL Performed By: #### L 500.4050, L500.4100, L501.9910, L100.0100 #### [facility] [address] [place], [place], [address] PSA,Total - Annual Screenon 03-21-2024 PSA,TOT SCREEN 2.45 ng/mL Normal 0.00-4.00 [facility] Comment on above: Order Comment: Order Date: 10/10/23 Order Info: [id number]- - CMP Order Info: [id number] - LIPID Order Info: [id number] - PSA Result Comment: This test was performed using the TPSA assay method for the [employer] chemistry system. Values obtained with different assay methods cannot be used interchangably. When changing PSA assays in the course of monitoring a patient, additional sequential testing should be carried out to confirm baseline values. Performed By: #### L 500.4050, L500.4100, L501.9910, L100.0100 #### [facility] [address] [place], [place], [address] Urinalysis, Completeon 03-21 WBC 0-5 SEEN Normal 0-5 [facility] Comment on above: Order Comment: CLEAN CATCH Performed By: #### L 400.0001 #### [facility] [address] [place], [address] BACTERIA 0 SEEN Normal None Seen [facility] Comment on above: Order Comment: CLEAN CATCH Performed By: #### L 400.0001 #### [facility] [address] [place], [address] EPI,SQUAMOUS 0 SEEN Normal 0-5 [facility] Comment on above: Order Comment: CLEAN CATCH Performed By: #### L 400.0001 #### [facility] [address] [place], [address] Mucus Ql (Urine sed) 0 SEEN Normal [facility] Comment on above: Order Comment: CLEAN CATCH Performed By: #### L 400.0001 #### [facility] [address] [place], [address] RBC 0 SEEN Normal 0-5 [facility] Comment on above: Order Comment: CLEAN CATCH Performed By: #### L 400.0001 #### [facility] [address] [place], [address] Creatinineon 11-27-20232020 CKD-EPI Estimated Glomerular Filtration Rate (eGFR) is calculated using the 2020 CKD-EPI creatinine equation. This equation uses serum creatinine, sex and age for calculating the eGFR. Normal [facility] Comment on above: Performed By: #### T TREVON B12, CREATBL #### [address] [address] Creatinine [Mass/Vol] 1.1 mg/dL Normal 0.5-1.2 [facility] Comment on above: Performed By: #### T TREVON B12, CREATBL #### [address] [address] eGFR 69 mL/min/1.73sqm Normal >=60 [facility] Comment on above: Performed By: #### T TREVON B12, CREATBL #### [address] [address] Folateon 11-27-2023 Biotin Interference Samples should not be taken from patients receiving therapy with high biotin doses (i.e. >5mg/day) until at least 8 hours following the last biotin administration. Normal [facility] Comment on above: Performed By: #### F OLATE #### [facility] [address] [place] [address] Performed By: #### T SH, B12, CREATBL #### [facility] [address] [place] [address] Folate >20.0 Normal 4.8-24.2 [facility] Comment on above: Performed By: #### F OLATE #### [facility] [address] [place] [address] TSHon 11-27-2023 TSH 2.98 uIU/mL Normal 0.27-4.20 [facility] Comment on above: Performed By: #### T SH, B12, CREATBL #### [facility] [address] [place] [address] Vitamin B12on 11-27-2023 Cobalamin (Vitamin B12) [Mass/Vol] 654 pg/mL Normal 232-1245 [facility] Comment on above: Performed By: #### T SH, B12, CREATBL #### [facility] [address] [place] [address] Basophil percentageOrdered B y: Luciano Kelley on 05-30-2023 Basophil percentage 2.19 ng/mL 0.0-4.0 [facility] Comment on above: This test was perfor med using the TPSA assay method for the[facility] system. Values obtained with differentassay methods cannot be used interchangably.When changing PSA assays in the course of monitoring apatient, additional sequential testing should be carriedout to confirm baseline values. Absolute lymphocyte countOrd ered By: Missy Workman on 04-14-2023 Lymphocytes Auto (Unsp spec) [#/Vol] 1.82 10*3/uL 0.83-4.51 [facility] Basophil percentageOrdered B y: Missy Workman on 04-14-2023 Basophil percentage 0 SEEN /hpf 0-5 [facility] Basophils/100 WBC (Bld) 0.9 % 0-1 [facility] Bilirubin [Mass/Vol] 1.80 mg/dL 0.20-1.00 [facility] Comment on above: For patients on eltr ombopag therapy, use of Dimension [place] TBIL is not recommended. Chloride [Moles/Vol] 108 mmol/L 98-107 [facility] Cholesterol [Mass/Vol] 139 mg/dL <200 [facility] Comment on above: <200 mg/dL Desirable 200-240 mg/dL Borderline >240 mg/dL High Risk Eosinophils/100 WBC (Bld) 1.2 % 0-5 [facility] Glucose [Mass/Vol] 96 mg/dL 74-106 [facility] Neutrophils (Bld) [#/Vol] 3.3 10*3/uL 2.0-7.7 [facility] Neutrophils/100 WBC (Bld) 59.1 % 47-70 [facility] Potassium [Moles/Vol] 4.3 mmol/L 3.5-5.1 [facility] Protein [Mass/Vol] 7.0 g/dL 6.4-8.2 [facility] Sodium [Moles/Vol] 138 mmol/L 136-145 [facility] Triglyceride [Mass/Vol] 107 mg/dL <199 [facility] Comment on above: The drugs N-Acetylcy steine and Metamizole may falsely depress this assay.Serum Triglycerides Reference Interval Normal <150 mg/dL Borderline high 150 - 199 mg/dL High 200 - 499 mg/dL Very High > or = 500 mg/dL WBC (Bld) [#/Vol] 5.6 10*3/uL 4.4-11.0 [facility] Bilirubin Test strip Ql (U)O rdered By: Missy Workman on 04-14-2023 Bilirubin Ql (U) Negative Negative [facility] Blood erythrocytes count (nu mber/volume)Ordered By: Missy Workman on 04-14-2023 RBC (Bld) [#/Vol] 4.62 10*6/uL 4.6-6.2 [facility] Blood hemoglobin measurement (mass/volume)Ordered By: Missy Workman on 04-14-2023 Hemoglobin (Bld) [Mass/Vol] 14.7 g/dL 13.0-16.5 [facility] Blood lymphocytes/100 leukoc ytesOrdered By: Missy Workman on 04-14-2023 Lymphocytes/100 WBC (Bld) 32.4 % 19-41 [facility] Blood monocytes/100 leukocyt esOrdered By: Missy Workman on 04-14-2023 Monocytes/100 WBC (Bld) 6.2 % 0-10 [facility] Blood platelet adequacy dete ction by light microscopyOrdered By: Missy Workman on 04-14-2023 Platelets LM Ql (Bld) MOD DEC ADEQ [facility] Blood platelet mean volumeOr dered By: Missy Workman on 04-14-2023 Platelet mean volume (Bld) [Entitic vol] 11.9 fL 6.2-12.0 [facility] Determination of erythrocyte mean corpuscular volume (MCV)Ordered By: Missy Workman on 04-14-2023 MCV (RBC) [Entitic vol] 94.4 fL 80-94 [facility] Direct bilirubinOrdered By: Missy Workman on 04-14-2023 Bilirubin.direct [Mass/Vol] 0.36 mg/dL 0.00-0.30 [facility] Hematocrit Auto (Bld) [Volum e fraction]Ordered By: Missy Workman on 04-14-2023 Hematocrit (Bld) [Volume fraction] 43.6 % 40-54 [facility] Ketones Test strip Ql (U)Ord ered By: Missy Workman on 04-14-2023 Ketones Ql (U) Negative Negative [facility] - Chemistry and C hemistry - challengeOrdered By: Missy Workman on 04-14-2023 ALP [Catalytic activity/Vol] 50 U/L 45-117 [facility] ALT [Catalytic activity/Vol] 29 U/L 16-61 [facility] CO2 [Moles/Vol] 26.0 mmol/L 21.0-32.0 [facility] Cobalamin (Vitamin B12) [Mass/Vol] 522 pg/mL 211-911 [facility] Globulin (S) [Mass/Vol] 3.2 g/dL 2.2-4.2 [facility] Urea nitrogen/Creatinine [Mass ratio] 20.4 mg/mg 10-20 [facility] - Hematology and Cell countsOrdered By: Missy Workman on 04-14-2023 Erythrocyte distribution width (RBC) [Entitic vol] 41.2 fL 35.1-43.9 [facility] Erythrocyte distribution width (RBC) [Ratio] 11.9 % 11.6-14.6 [facility] Immature granulocytes/100 WBC (Bld) 0.200 % 0.0-0.9 [facility] Comment on above: IG% - Immature Granu locytes (promyelocytes, myelocytes and metamyelocytes) > 1% indicates that a LEFT SHIFT is Present. MCH (RBC) [Entitic mass] 31.8 pg 27.0-32.0 [facility] Nucleated RBC/100 WBC (Bld) [Ratio] 0 % 0-5 [facility] MCHC Auto (RBC) [Mass/Vol]Or dered By: Missy Workman on 04-14-2023 MCHC (RBC) [Mass/Vol] 33.7 g/dL 32-36 [facility] Mucus LM Ql (Urine sed)Order ed By: Missy Workman on 04-14-2023 Mucus Ql (Urine sed) 0 SEEN /hpf [facility] Nitrite Test strip Ql (U)Ord ered By: Missy Workman on 04-14-2023 Nitrite Ql (U) Negative Negative [facility] No Panel InformationOrdered By: Missy Workman on 04-14-2023 Estimated GFR (MDRD) Amer 91 mL/min >60 [facility] Comment on above: GFR Calc Estimated GFR (MDRD) Non-Af Amer 76 mL/min >60 [facility] Comment on above: Non- GFR Calc Thyroid Stimulating Hormone (TSH) 3.34 uIU/mL 0.358-3.74 [facility] Platelets bldOrdered By: Jose Workman on 04-14-2023 Platelets (Bld) [#/Vol] 79 10*3/uL 150-450 [facility] Protein Test strip Ql (U)Ord ered By: Missy Workman on 04-14-2023 Protein Ql (U) Negative Negative [facility] Serum or plasma albumin freya urement (mass/volume)Ordered By: Missy Workman on 04-14-2023 Albumin [Mass/Vol] 3.8 g/dL 3.2-5.0 [facility] Serum or plasma calcium freya urement (mass/volume)Ordered By: Missy Workman on 04-14-2023 Calcium [Mass/Vol] 8.6 mg/dL 8.5-10.1 [facility] Serum or plasma cholesterol in HDL measurement (mass/volume)Ordered By: Missy Workman on 04-14-2023 Cholesterol in HDL [Mass/Vol] 63 mg/dL >40 [facility] Comment on above: The drugs N-Acetylcy steine and Metamizole may falsely depress this assay. Reference Range HDL <40 mg/dL Low HDL Cholesterol HDL >or= 60 mg/dL High HDL Cholesterol Serum or plasma cholesterol in VLDL measurement (mass/volume)Ordered By: Missy Workman on 04-14-2023 Cholesterol in VLDL [Mass/Vol] 21 mg/dL 5-40 [facility] Serum or plasma creatinine m easurement (mass/volume)Ordered By: Missy Workman on 04-14-2023 Creatinine [Mass/Vol] 1.03 mg/dL 0.70-1.30 [facility] Comment on above: The validity of the calculated GFR & GFRAA in patients over 70 years has not been determined. Clinical correlation is essential. Serum or plasma low density lipoprotein (LDL) cholesterol measurement (mass/volume)Ordered By: Missy Workman on 04-14-2023 Cholesterol in LDL [Mass/Vol] 55 mg/dL 0-130 [facility] Serum or plasma urea nitroge n measurement (mass/volume)Ordered By: Missy Workman on 04-14-2023 Urea nitrogen [Mass/Vol] 21 mg/dL 7-18 [facility] Squamous epithelial cells de tection in urine sediment by light microscopyOrdered By: Missy Workman on 04-14-2023 Epithelial cells.squamous LM Ql (Urine sed) 0 SEEN /hpf 0-5 [facility] Thin prep Papanicolaou smear with manual screeningOrdered By: Missy Workman on 04-14-2023 Thin prep Papanicolaou smear with manual screening 21 U/L 15-37 [facility] Thin prep Papanicolaou smear with manual screening 4 5-15 [facility] Urine blood detectionOrdered By: Missy Workman on 04-14-2023 RBC Ql (U) 10 /ul Negative [facility] RBC Ql (U) 0-5 SEEN /hpf 0-5 [facility] Urine clarityOrdered By: Jose Workman on 04-14-2023 Clarity (U) Clear Clear [facility] Urine color determinationOrd ered By: Missy Workman on 04-14-2023 Color (U) Yellow Yellow [facility] Urine glucose detectionOrder ed By: Missy Workman on 04-14-2023 Glucose Ql (U) Normal mg/dl Normal [facility] Urine leukocyte esterase det ection by dipstickOrdered By: Missy Workman on 04-14-2023 Leukocyte esterase Test strip Ql (U) Negative Negative [facility] Urine pHOrdered By: Missy daley on 04-14-2023 pH (U) 7.0 [pH] 5.0 - 8.0 [facility] Urine sediment bacteria coun t by microscopy (number/high power field)Ordered By: Missy Workman on 04-14-2023 Bacteria LM.HPF (Urine sed) [#/Area] 0 /[HPF] None Seen [facility] Urine specific gravity measu rementOrdered By: Missy Workman on 04-14-2023 Specific gravity (U) [Rel density] 1.010 1.002-1.030 [facility] Urobilinogen Auto test strip Ql (U)Ordered By: Missy Workman on 04-14-2023 Urobilinogen Ql (U) Normal mg/dl Normal [facility] No Panel InformationOrdered By: Missy Workman on 03-09-2023 Prostate Specific Antigen Screen 3.07 ng/mL 0.00-4.00 [facility] Comment on above: This test was perfor med using the TPSA assay method for the[employer] chemistry system. Values obtained with differentassay methods cannot be used interchangably.When changing PSA assays in the course of monitoring apatient, additional sequential testing should be carriedout to confirm baseline values. Absolute lymphocyte countOrd ered By: Missy Workman on 08-01-2023 Lymphocytes Auto (Unsp spec) [#/Vol] 1.86 10*3/uL 0.83-4.51 [facility] Basophil percentageOrdered B y: Missy Workman on 12-06-2022 Basophil percentage 0 SEEN /hpf 0-5 [facility] Basophils/100 WBC (Bld) 0.3 % 0-1 [facility] Bilirubin [Mass/Vol] 1.80 mg/dL 0.20-1.00 [facility] Comment on above: For patients on eltr ombopag therapy, use of Dimension [place] TBIL is not recommended. Chloride [Moles/Vol] 108 mmol/L 98-107 [facility] Cholesterol [Mass/Vol] 166 mg/dL <200 [facility] Comment on above: <200 mg/dL Desirable 200-240 mg/dL Borderline >240 mg/dL High Risk Eosinophils/100 WBC (Bld) 1.7 % 0-5 [facility] Glucose [Mass/Vol] 92 mg/dL 74-106 [facility] Neutrophils (Bld) [#/Vol] 3.4 10*3/uL 2.0-7.7 [facility] Neutrophils/100 WBC (Bld) 58.0 % 47-70 [facility] Potassium [Moles/Vol] 3.9 mmol/L 3.5-5.1 [facility] Protein [Mass/Vol] 7.1 g/dL 6.4-8.2 [facility] Sodium [Moles/Vol] 139 mmol/L 136-145 [facility] Triglyceride [Mass/Vol] 75 mg/dL <199 [facility] Comment on above: The drugs N-Acetylcy steine and Metamizole may falsely depress this assay.Serum Triglycerides Reference Interval Normal <150 mg/dL Borderline high 150 - 199 mg/dL High 200 - 499 mg/dL Very High > or = 500 mg/dL WBC (Bld) [#/Vol] 5.9 10*3/uL 4.4-11.0 [facility] Bilirubin Test strip Ql (U)O rdered By: Missy Workman on 12-06-2022 Bilirubin Ql (U) Negative Negative [facility] Blood erythrocytes count (nu mber/volume)Ordered By: Missy Workman on 12-06-2022 RBC (Bld) [#/Vol] 4.78 10*6/uL 4.6-6.2 [facility] Blood hemoglobin measurement (mass/volume)Ordered By: Missy Workman on 12-06-2022 Hemoglobin (Bld) [Mass/Vol] 15.5 g/dL 13.0-16.5 [facility] Blood lymphocytes/100 leukoc ytesOrdered By: Missy Workman on 12-06-2022 Lymphocytes/100 WBC (Bld) 31.4 % 19-41 [facility] Blood manual differential co mment interpretation (narrative result)Ordered By: Missy Workman on 12-06-2022 Manual differential comment Gilberto (Bld) [Interp] SCANNED [facility] Blood monocytes/100 leukocyt esOrdered By: Missy Workman on 12-06-2022 Monocytes/100 WBC (Bld) 8.3 % 0-10 [facility] Blood platelet adequacy dete ction by light microscopyOrdered By: Missy Workman on 12-06-2022 Platelets LM Ql (Bld) SLT DEC ADEQ [facility] Blood platelet mean volumeOr dered By: Missy Workman on 12-06-2022 Platelet mean volume (Bld) [Entitic vol] 11.6 fL 6.2-12.0 [facility] Determination of erythrocyte mean corpuscular volume (MCV)Ordered By: Missy Workman on 12-06-2022 MCV (RBC) [Entitic vol] 94.4 fL 80-94 [facility] Direct bilirubinOrdered By: Missy Workman on 12-06-2022 Bilirubin.direct [Mass/Vol] 0.38 mg/dL 0.00-0.30 [facility] Hematocrit Auto (Bld) [Volum e fraction]Ordered By: Missy Workman on 12-06-2022 Hematocrit (Bld) [Volume fraction] 45.1 % 40-54 [facility] Ketones Test strip Ql (U)Ord ered By: Missy Workman on 12-06-2022 Ketones Ql (U) Negative Negative [facility] Laboratory - Chemistry and C hemistry - challengeOrdered By: Missy Workman on 12-06-2022 ALP [Catalytic activity/Vol] 63 U/L 45-117 [facility] ALT [Catalytic activity/Vol] 38 U/L 16-61 [facility] CO2 [Moles/Vol] 28.0 mmol/L 21.0-32.0 [facility] Globulin (S) [Mass/Vol] 3.2 g/dL 2.2-4.2 [facility] Urea nitrogen/Creatinine [Mass ratio] 19.3 mg/mg 10-20 [facility] Laboratory - Hematology and Cell countsOrdered By: Missy Workman on 12-06-2022 Erythrocyte distribution width (RBC) [Entitic vol] 40.6 fL 35.1-43.9 [facility] Erythrocyte distribution width (RBC) [Ratio] 11.7 % 11.6-14.6 [facility] Immature granulocytes/100 WBC (Bld) 0.300 % 0.0-0.9 [facility] Comment on above: IG% - Immature Granu locytes (promyelocytes, myelocytes and metamyelocytes) > 1% indicates that a LEFT SHIFT is Present. MCH (RBC) [Entitic mass] 32.4 pg 27.0-32.0 [facility] Nucleated RBC/100 WBC (Bld) [Ratio] 0 % 0-5 [facility] MCHC Auto (RBC) [Mass/Vol]Or dered By: Msisy Workman on 12-06-2022 MCHC (RBC) [Mass/Vol] 34.4 g/dL 32-36 [facility] Mucus LM Ql (Urine sed)Order ed By: Missy Workman on 12-06-2022 Mucus Ql (Urine sed) 0 SEEN /hpf [facility] Nitrite Test strip Ql (U)Ord ered By: Missy Workman on 12-06-2022 Nitrite Ql (U) Negative Negative [facility] No Panel InformationOrdered By: Missy Workman on 12-06-2022 Estimated GFR (MDRD) Amer 86 mL/min >60 [facility] Comment on above: GFR Calc Estimated GFR (MDRD) Non-Af Amer 71 mL/min >60 [facility] Comment on above: Non- GFR Calc Thyroid Stimulating Hormone (TSH) 3.60 uIU/mL 0.358-3.74 [facility] Platelets bldOrdered By: Jose Workman on 12-06-2022 Platelets (Bld) [#/Vol] See comment 150-450 [facility] Comment on above: Please note: For thi s sample, a platelet estimate is provided rather than a platelet count due to platelet clumping. Other parameters associated with this sample are not affected by platelet clumping. If a more accurate platelet count is required, a redraw of the patient will be necessary. Protein Test strip Ql (U)Ord ered By: Missy Workman on 12-06-2022 Protein Ql (U) 15 mg/dl Negative [facility] Serum or plasma albumin freya urement (mass/volume)Ordered By: Missy Workman on 12-06-2022 Albumin [Mass/Vol] 3.9 g/dL 3.2-5.0 [facility] Serum or plasma albumin/glob ulin mass ratioOrdered By: Missy Workman on 12-06-2022 Albumin/Globulin [Mass ratio] 1.2 {ratio} 0.9-2.4 [facility] Serum or plasma calcium freya urement (mass/volume)Ordered By: Missy Workman on 12-06-2022 Calcium [Mass/Vol] 8.9 mg/dL 8.5-10.1 [facility] Serum or plasma cholesterol in HDL measurement (mass/volume)Ordered By: Missy Workman on 12-06-2022 Cholesterol in HDL [Mass/Vol] 65 mg/dL >40 [facility] Comment on above: The drugs N-Acetylcy steine and Metamizole may falsely depress this assay. Reference Range HDL <40 mg/dL Low HDL Cholesterol HDL >or= 60 mg/dL High HDL Cholesterol Serum or plasma cholesterol in VLDL measurement (mass/volume)Ordered By: Missy Workman on 12-06-2022 Cholesterol in VLDL [Mass/Vol] 15 mg/dL 5-40 [facility] Serum or plasma creatinine m easurement (mass/volume)Ordered By: Missy Workman on 12-06-2022 Creatinine [Mass/Vol] 1.09 mg/dL 0.70-1.30 [facility] Comment on above: The validity of the calculated GFR & GFRAA in patients over 70 years has not been determined. Clinical correlation is essential. Serum or plasma low density lipoprotein (LDL) cholesterol measurement (mass/volume)Ordered By: Missy Workman on 12-06-2022 Cholesterol in LDL [Mass/Vol] 86 mg/dL 0-130 [facility] Serum or plasma urea nitroge n measurement (mass/volume)Ordered By: Missy Workman on 12-06-2022 Urea nitrogen [Mass/Vol] 21 mg/dL 7-18 [facility] Squamous epithelial cells de tection in urine sediment by light microscopyOrdered By: Missy Workman on 12-06-2022 Epithelial cells.squamous LM Ql (Urine sed) 0 SEEN /hpf 0-5 [facility] Thin prep Papanicolaou smear with manual screeningOrdered By: Missy Workman on 12-06-2022 Thin prep Papanicolaou smear with manual screening 24 U/L 15-37 [facility] Thin prep Papanicolaou smear with manual screening 3 5-15 [facility] Urine blood detectionOrdered By: Missy Workman on 12-06-2022 RBC Ql (U) 25 /ul Negative [facility] RBC Ql (U) 0-5 SEEN /hpf 0-5 [facility] Urine clarityOrdered By: Jose Workman on 12-06-2022 Clarity (U) Clear Clear [facility] Urine color determinationOrd ered By: Missy Workman on 12-06-2022 Color (U) Yellow Yellow [facility] Urine glucose detectionOrder ed By: Missy Workman on 12-06-2022 Glucose Ql (U) Normal mg/dl Normal [facility] Urine leukocyte esterase det ection by dipstickOrdered By: Missy Workman on 12-06-2022 Leukocyte esterase Test strip Ql (U) Negative Negative [facility] Urine pHOrdered By: Missy daley on 12-06-2022 pH (U) 6.5 [pH] 5.0 - 8.0 [facility] Urine sediment bacteria coun t by microscopy (number/high power field)Ordered By: Missy Workman on 12-06-2022 Bacteria LM.HPF (Urine sed) [#/Area] 0 /[HPF] None Seen [facility] Urine specific gravity measu rementOrdered By: Missy Workman on 12-06-2022 Specific gravity (U) [Rel density] 1.015 1.002-1.030 [facility] Urobilinogen Auto test strip Ql (U)Ordered By: Missy Workman on 12-06-2022 Urobilinogen Ql (U) Normal mg/dl Normal [facility] Basophil percentageOrdered B y: Dr. Workman on 09-13-2022 Bilirubin [Mass/Vol] 1.50 mg/dL 0.20-1.00 [facility] Comment on above: For patients on eltr ombopag therapy, use of Dimension [place] TBIL is not recommended. Protein [Mass/Vol] 6.9 g/dL 6.4-8.2 [facility] Direct bilirubinOrdered By: Dr. Workman on 09-13-2022 Bilirubin.direct [Mass/Vol] 0.32 mg/dL 0.00-0.30 [facility] Laboratory - Chemistry and C hemistry - challengeOrdered By: Dr. Workman on 09-13-2022 ALP [Catalytic activity/Vol] 58 U/L 45-117 [facility] ALT [Catalytic activity/Vol] 33 U/L 16-61 [facility] Globulin (S) [Mass/Vol] 3.2 g/dL 2.2-4.2 [facility] Serum or plasma albumin freya urement (mass/volume)Ordered By: Dr. Workman on 09-13-2022 Albumin [Mass/Vol] 3.7 g/dL 3.2-5.0 [facility] Thin prep Papanicolaou smear with manual screeningOrdered By: Dr. Workman on 09-13-2022 Thin prep Papanicolaou smear with manual screening 23 U/L 15-37 [facility] Absolute lymphocyte countOrd ered By: Dr. Workman on 09-12-2022 Lymphocytes Auto (Unsp spec) [#/Vol] 1.98 10*3/uL 0.83-4.51 [facility] Basophil percentageOrdered B y: Dr. Workman on 09-12-2022 Basophils/100 WBC (Bld) 0.7 % 0-1 [facility] Bilirubin [Mass/Vol] 1.50 mg/dL 0.20-1.00 [facility] Comment on above: For patients on eltr ombopag therapy, use of Dimension [place] TBIL is not recommended. Chloride [Moles/Vol] 107 mmol/L 98-107 [facility] Cholesterol [Mass/Vol] 171 mg/dL <200 [facility] Comment on above: <200 mg/dL Desirable 200-240 mg/dL Borderline >240 mg/dL High Risk Eosinophils/100 WBC (Bld) 1.5 % 0-5 [facility] Glucose [Mass/Vol] 88 mg/dL 74-106 [facility] Neutrophils (Bld) [#/Vol] 3.3 10*3/uL 2.0-7.7 [facility] Neutrophils/100 WBC (Bld) 56.1 % 47-70 [facility] Potassium [Moles/Vol] 4.3 mmol/L 3.5-5.1 [facility] Protein [Mass/Vol] 6.6 g/dL 6.4-8.2 [facility] Sodium [Moles/Vol] 142 mmol/L 136-145 [facility] Triglyceride [Mass/Vol] 65 mg/dL <199 [facility] Comment on above: The drugs N-Acetylcy steine and Metamizole may falsely depress this assay.Serum Triglycerides Reference Interval Normal <150 mg/dL Borderline high 150 - 199 mg/dL High 200 - 499 mg/dL Very High > or = 500 mg/dL WBC (Bld) [#/Vol] 5.8 10*3/uL 4.4-11.0 [facility] Blood erythrocytes count (nu mber/volume)Ordered By: Dr. Workman on 09-12-2022 RBC (Bld) [#/Vol] 4.92 10*6/uL 4.6-6.2 [facility] Blood hemoglobin measurement (mass/volume)Ordered By: Dr. Workman on 09-12-2022 Hemoglobin (Bld) [Mass/Vol] 15.5 g/dL 13.0-16.5 [facility] Blood lymphocytes/100 leukoc ytesOrdered By: Dr. Workman on 09-12-2022 Lymphocytes/100 WBC (Bld) 33.9 % 19-41 [facility] Blood monocytes/100 leukocyt esOrdered By: Dr. Workman on 09-12-2022 Monocytes/100 WBC (Bld) 7.5 % 0-10 [facility] Blood platelet mean volumeOr dered By: Dr. Workman on 09-12-2022 Platelet mean volume (Bld) [Entitic vol] 12.1 fL 6.2-12.0 [facility] Determination of erythrocyte mean corpuscular volume (MCV)Ordered By: Dr. Workman on 09-12-2022 MCV (RBC) [Entitic vol] 94.7 fL 80-94 [facility] Hematocrit Auto (Bld) [Volum e fraction]Ordered By: Dr. Workman on 09-12-2022 Hematocrit (Bld) [Volume fraction] 46.6 % 40-54 [facility] Laboratory - Chemistry and C hemistry - challengeOrdered By: Dr. Workman on 09-12-2022 ALP [Catalytic activity/Vol] 61 U/L 45-117 [facility] ALT [Catalytic activity/Vol] 33 U/L 16-61 [facility] CO2 [Moles/Vol] 31.0 mmol/L 21.0-32.0 [facility] Globulin (S) [Mass/Vol] 2.7 g/dL 2.2-4.2 [facility] Urea nitrogen/Creatinine [Mass ratio] 22.2 mg/mg 10-20 [facility] Laboratory - Hematology and Cell countsOrdered By: Dr. Workman on 09-12-2022 Erythrocyte distribution width (RBC) [Entitic vol] 40.3 fL 35.1-43.9 [facility] Erythrocyte distribution width (RBC) [Ratio] 11.6 % 11.6-14.6 [facility] Immature granulocytes/100 WBC (Bld) 0.300 % 0.0-0.9 [facility] Comment on above: IG% - Immature Granu locytes (promyelocytes, myelocytes and metamyelocytes) > 1% indicates that a LEFT SHIFT is Present. MCH (RBC) [Entitic mass] 31.5 pg 27.0-32.0 [facility] Nucleated RBC/100 WBC (Bld) [Ratio] 0 % 0-5 [facility] MCHC Auto (RBC) [Mass/Vol]Or dered By: Dr. Workman on 09-12-2022 MCHC (RBC) [Mass/Vol] 33.3 g/dL 32-36 [facility] No Panel InformationOrdered By: Dr. Workman on 09-12-2022 Estimated GFR (MDRD) Amer 96 mL/min >60 [facility] Comment on above: GFR Calc Estimated GFR (MDRD) Non-Af Amer 79 mL/min >60 [facility] Comment on above: Non- GFR Calc Platelets bldOrdered By: Dr. Workman on 09-12-2022 Platelets (Bld) [#/Vol] 121 10*3/uL 150-450 [facility] Serum or plasma albumin freya urement (mass/volume)Ordered By: Dr. Workman on 09-12-2022 Albumin [Mass/Vol] 3.9 g/dL 3.2-5.0 [facility] Serum or plasma albumin/glob ulin mass ratioOrdered By: Dr. Workman on 09-12-2022 Albumin/Globulin [Mass ratio] 1.4 {ratio} 0.9-2.4 [facility] Serum or plasma calcium freya urement (mass/volume)Ordered By: Dr. Workman on 09-12-2022 Calcium [Mass/Vol] 9.2 mg/dL 8.5-10.1 [facility] Serum or plasma cholesterol in HDL measurement (mass/volume)Ordered By: Dr. Workman on 09-12-2022 Cholesterol in HDL [Mass/Vol] 69 mg/dL >40 [facility] Comment on above: The drugs N-Acetylcy steine and Metamizole may falsely depress this assay. Reference Range HDL <40 mg/dL Low HDL Cholesterol HDL >or= 60 mg/dL High HDL Cholesterol Serum or plasma cholesterol in VLDL measurement (mass/volume)Ordered By: Dr. Workman on 09-12-2022 Cholesterol in VLDL [Mass/Vol] 13 mg/dL 5-40 [facility] Serum or plasma creatinine m easurement (mass/volume)Ordered By: Dr. Workman on 09-12-2022 Creatinine [Mass/Vol] 0.99 mg/dL 0.70-1.30 [facility] Comment on above: The validity of the calculated GFR & GFRAA in patients over 70 years has not been determined. Clinical correlation is essential. Serum or plasma low density lipoprotein (LDL) cholesterol measurement (mass/volume)Ordered By: Dr. Workman on 09-12-2022 Cholesterol in LDL [Mass/Vol] 89 mg/dL 0-130 [facility] Serum or plasma urea nitroge n measurement (mass/volume)Ordered By: Dr. Workman on 09-12-2022 Urea nitrogen [Mass/Vol] 22 mg/dL 7-18 [facility] Thin prep Papanicolaou smear with manual screeningOrdered By: Dr. Workman on 09-12-2022 Thin prep Papanicolaou smear with manual screening 21 U/L 15-37 [facility] Thin prep Papanicolaou smear with manual screening 4 5-15 [facility] Basophil percentageOrdered B y: Dr. Schuster on 05-31-2022 Creatinine [Mass/Vol] 1.2 mg/dL 0.70-1.30 [facility] No Panel InformationOrdered By: Dr. Schuster on 05-31-2022 Bedside Estimated GFR (eGFR) > 60.0000 mL/min >60 [facility] Miscellaneous Test See comment [facility] Comment on above: TEST RESULT LIMITSLy sozyme, Serum 6.2 ug/mL 3.0-12.8 Effective June 27, 2022 the reference interval for Lysozyme, Serum will be changing to: 0 - 6 months Not Estab. 7 months - 5 years 3.0 - 7.4 6 - 40 years 3.3 - 7.1 41 - 60 years 3.4 - 7.6 61 - 70 years 3.6 - 8.1 71 - 80 years 3.7 - 8.5 >80 years 4.2 - 9.5 TESTING PERFORMED AT [facility]. ORIGINAL REPORT ON FILE IN LAB CONTAINS ADDITIONAL TEST SITE INFORMATION. Serum Treponema species anti body detectionOrdered By: Dr. Schuster on 05-31-2022 Treponema sp Ab Ql (S) Non-Reactive [facility] Serum or plasma angiotensin converting enzyme measurement (enzymatic activity/volume)Ordered By: Dr. Schuster on 05-31-2022 Angiotensin converting enzyme [Catalytic activity/Vol] 21 U/L 14-82 [facility] Comment on above: Performed at: [address] [id number] Director: Pérez Pillai PhD, Phone: [phone] Absolute lymphocyte countOrd ered By: Dr. Schuster on 05-16-2022 Lymphocytes Auto (Unsp spec) [#/Vol] 2.13 10*3/uL 0.83-4.51 [facility] Basophil percentageOrdered B y: Dr. Schuster on 05-16-2022 Basophils/100 WBC (Bld) 0.3 % 0-1 [facility] Eosinophils/100 WBC (Bld) 1.2 % 0-5 [facility] Neutrophils (Bld) [#/Vol] 4.6 10*3/uL 2.0-7.7 [facility] Neutrophils/100 WBC (Bld) 62.7 % 47-70 [facility] WBC (Bld) [#/Vol] 7.3 10*3/uL 4.4-11.0 [facility] Blood erythrocytes count (nu mber/volume)Ordered By: Dr. Schuster on 05-16-2022 RBC (Bld) [#/Vol] 4.74 10*6/uL 4.6-6.2 [facility] Blood hemoglobin measurement (mass/volume)Ordered By: Dr. Schuster on 05-16-2022 Hemoglobin (Bld) [Mass/Vol] 15.1 g/dL 13.0-16.5 [facility] Blood lymphocytes/100 leukoc ytesOrdered By: Dr. Schuster on 05-16-2022 Lymphocytes/100 WBC (Bld) 29.3 % 19-41 [facility] Blood monocytes/100 leukocyt esOrdered By: Dr. Schuster on 05-16-2022 Monocytes/100 WBC (Bld) 6.2 % 0-10 [facility] Blood platelet mean volumeOr dered By: Dr. Schuster on 05-16-2022 Platelet mean volume (Bld) [Entitic vol] 11.3 fL 6.2-12.0 [facility] Determination of erythrocyte mean corpuscular volume (MCV)Ordered By: Dr. Schuster on 05-16-2022 MCV (RBC) [Entitic vol] 96.2 fL 80-94 [facility] Erythrocyte sedimentation ra teOrdered By: Dr. Schuster on 05-16-2022 ESR (Bld) [Velocity] 7 mm/h 0-20 [facility] Hematocrit Auto (Bld) [Volum e fraction]Ordered By: Dr. Schuster on 05-16-2022 Hematocrit (Bld) [Volume fraction] 45.6 % 40-54 [facility] Laboratory - Hematology and Cell countsOrdered By: Dr. Schuster on 05-16-2022 Erythrocyte distribution width (RBC) [Entitic vol] 41.3 fL 35.1-43.9 [facility] Erythrocyte distribution width (RBC) [Ratio] 11.7 % 11.6-14.6 [facility] Immature granulocytes/100 WBC (Bld) 0.300 % 0.0-0.9 [facility] Comment on above: IG% - Immature Granu locytes (promyelocytes, myelocytes and metamyelocytes) > 1% indicates that a LEFT SHIFT is Present. MCH (RBC) [Entitic mass] 31.9 pg 27.0-32.0 [facility] Nucleated RBC/100 WBC (Bld) [Ratio] 0 % 0-5 [facility] MCHC Auto (RBC) [Mass/Vol]Or dered By: Dr. Schuster on 05-16-2022 MCHC (RBC) [Mass/Vol] 33.1 g/dL 32-36 [facility] Platelets bldOrdered By: Dr. Schuster on 05-16-2022 Platelets (Bld) [#/Vol] 93 10*3/uL 150-450 [facility] Serum or plasma C reactive p rotein measurement (mass/volume)Ordered By: Dr. Schuster on 05-16-2022 CRP [Mass/Vol] mg/L 0.0-3.0 [facility] Comment on above: C-Reactive Protein ( CRP) provides useful information for thediagnosis, therapy and monitoring of inflammatory processesand associated diseases. For the evaluation of Relative Riskfor Cardiovascular Disease, a High Sensitivity CRP (HSCRP)should be ordered. Absolute lymphocyte countOrd ered By: Dr. Workman on 03-08-2022 Lymphocytes Auto (Unsp spec) [#/Vol] 1.84 10*3/uL 0.83-4.51 [facility] Basophil percentageOrdered B y: Dr. Workman on 03-08-2022 Basophils/100 WBC (Bld) 0.6 % 0-1 [facility] Bilirubin [Mass/Vol] 1.20 mg/dL 0.20-1.00 [facility] Comment on above: For patients on eltr ombopag therapy, use of Dimension [place] TBIL is not recommended. Chloride [Moles/Vol] 107 mmol/L 98-107 [facility] Cholesterol [Mass/Vol] 186 mg/dL <200 [facility] Comment on above: <200 mg/dL Desirable 200-240 mg/dL Borderline >240 mg/dL High Risk Eosinophils/100 WBC (Bld) 1.1 % 0-5 [facility] Glucose [Mass/Vol] 89 mg/dL 74-106 [facility] Neutrophils (Bld) [#/Vol] 3.1 10*3/uL 2.0-7.7 [facility] Neutrophils/100 WBC (Bld) 57.5 % 47-70 [facility] Potassium [Moles/Vol] 3.9 mmol/L 3.5-5.1 [facility] Protein [Mass/Vol] 7.3 g/dL 6.4-8.2 [facility] Sodium [Moles/Vol] 140 mmol/L 136-145 [facility] Triglyceride [Mass/Vol] 78 mg/dL <199 [facility] Comment on above: The drugs N-Acetylcy steine and Metamizole may falsely depress this assay.Serum Triglycerides Reference Interval Normal <150 mg/dL Borderline high 150 - 199 mg/dL High 200 - 499 mg/dL Very High > or = 500 mg/dL WBC (Bld) [#/Vol] 5.4 10*3/uL 4.4-11.0 [facility] Blood erythrocytes count (nu mber/volume)Ordered By: Dr. Workman on 03-08-2022 RBC (Bld) [#/Vol] 4.75 10*6/uL 4.6-6.2 [facility] Blood hemoglobin measurement (mass/volume)Ordered By: Dr. Workman on 03-08-2022 Hemoglobin (Bld) [Mass/Vol] 15.6 g/dL 13.0-16.5 [facility] Blood lymphocytes/100 leukoc ytesOrdered By: Dr. Workman on 03-08-2022 Lymphocytes/100 WBC (Bld) 33.8 % 19-41 [facility] Blood monocytes/100 leukocyt esOrdered By: Dr. Workman on 03-08-2022 Monocytes/100 WBC (Bld) 6.8 % 0-10 [facility] Blood platelet adequacy dete ction by light microscopyOrdered By: Dr. Workman on 03-08-2022 Platelets LM Ql (Bld) ADEQUATE ADEQ [facility] Blood platelet mean volumeOr dered By: Dr. Workman on 03-08-2022 Platelet mean volume (Bld) [Entitic vol] 11.1 fL 6.2-12.0 [facility] Blood platelet morphology de termination (nominal result)Ordered By: Dr. Workman on 03-08-2022 Platelet morphology finding Nom (Bld) CLUMPED [facility] Determination of erythrocyte mean corpuscular volume (MCV)Ordered By: Dr. Workman on 03-08-2022 MCV (RBC) [Entitic vol] 93.9 fL 80-94 [facility] Hematocrit Auto (Bld) [Volum e fraction]Ordered By: Dr. Workman on 03-08-2022 Hematocrit (Bld) [Volume fraction] 44.6 % 40-54 [facility] Laboratory - Chemistry and C hemistry - challengeOrdered By: Dr. Workman on 03-08-2022 ALP [Catalytic activity/Vol] 61 U/L 45-117 [facility] ALT [Catalytic activity/Vol] 30 U/L 16-61 [facility] CO2 [Moles/Vol] 27.0 mmol/L 21.0-32.0 [facility] Globulin (S) [Mass/Vol] 3.5 g/dL 2.2-4.2 [facility] Urea nitrogen/Creatinine [Mass ratio] 24.7 mg/mg 10-20 [facility] Laboratory - Hematology and Cell countsOrdered By: Dr. Workman on 03-08-2022 Erythrocyte distribution width (RBC) [Entitic vol] 39.6 fL 35.1-43.9 [facility] Erythrocyte distribution width (RBC) [Ratio] 11.6 % 11.6-14.6 [facility] Immature granulocytes/100 WBC (Bld) 0.200 % 0.0-0.9 [facility] Comment on above: IG% - Immature Granu locytes (promyelocytes, myelocytes and metamyelocytes) > 1% indicates that a LEFT SHIFT is Present. MCH (RBC) [Entitic mass] 32.8 pg 27.0-32.0 [facility] Nucleated RBC/100 WBC (Bld) [Ratio] 0 % 0-5 [facility] MCHC Auto (RBC) [Mass/Vol]Or dered By: Dr. Workman on 03-08-2022 MCHC (RBC) [Mass/Vol] 35.0 g/dL 32-36 [facility] No Panel InformationOrdered By: Dr. Workman on 03-08-2022 Estimated GFR (MDRD) Amer 103 mL/min >60 [facility] Comment on above: GFR Calc Estimated GFR (MDRD) Non-Af Amer 85 mL/min >60 [facility] Comment on above: Non- GFR Calc Prostate Specific Antigen Screen 1.85 ng/mL 0.00-4.00 [facility] Comment on above: This test was perfor med using the TPSA assay method [facility]. Values obtained with differentassay methods cannot be used interchangably.When changing PSA assays in the course of monitoring apatient, additional sequential testing should be carriedout to confirm baseline values. Platelets bldOrdered By: Dr. Workman on 03-08-2022 Platelets (Bld) [#/Vol] See comment 150-450 [facility] Comment on above: Please note: For thi s sample, a platelet estimate is provided rather than a platelet count due to platelet clumping. Other parameters associated with this sample are not affected by platelet clumping. If a more accurate platelet count is required, a redraw of the patient will be necessary.Previous reported result: 74 [id number] by: HARINI on 03/08/22:1109 AMENDED REPORT 03/08/22 1109 PLT previously reported as: 74 L K/mm3 Serum or plasma albumin freya urement (mass/volume)Ordered By: Dr. Workman on 03-08-2022 Albumin [Mass/Vol] 3.8 g/dL 3.2-5.0 [facility] Serum or plasma albumin/glob ulin mass ratioOrdered By: Dr. Workman on 03-08-2022 Albumin/Globulin [Mass ratio] 1.1 {ratio} 0.9-2.4 [facility] Serum or plasma calcium freya urement (mass/volume)Ordered By: Dr. Workman on 03-08-2022 Calcium [Mass/Vol] 9.1 mg/dL 8.5-10.1 [facility] Serum or plasma cholesterol in HDL measurement (mass/volume)Ordered By: Dr. Workman on 03-08-2022 Cholesterol in HDL [Mass/Vol] 64 mg/dL >40 [facility] Comment on above: The drugs N-Acetylcy steine and Metamizole may falsely depress this assay. Reference Range HDL <40 mg/dL Low HDL Cholesterol HDL >or= 60 mg/dL High HDL Cholesterol Serum or plasma cholesterol in VLDL measurement (mass/volume)Ordered By: Dr. Workman on 03-08-2022 Cholesterol in VLDL [Mass/Vol] 16 mg/dL 5-40 [facility] Serum or plasma creatinine m easurement (mass/volume)Ordered By: Dr. Workman on 03-08-2022 Creatinine [Mass/Vol] 0.93 mg/dL 0.70-1.30 [facility] Comment on above: The validity of the calculated GFR & GFRAA in patients over 70 years has not been determined. Clinical correlation is essential. Serum or plasma low density lipoprotein (LDL) cholesterol measurement (mass/volume)Ordered By: Dr. Workman on 03-08-2022 Cholesterol in LDL [Mass/Vol] 106 mg/dL 0-130 [facility] Serum or plasma urea nitroge n measurement (mass/volume)Ordered By: Dr. Workman on 03-08-2022 Urea nitrogen [Mass/Vol] 23 mg/dL 7-18 [facility] Thin prep Papanicolaou smear with manual screeningOrdered By: Dr. Workman on 03-08-2022 Thin prep Papanicolaou smear with manual screening 18 U/L 15-37 [facility] Thin prep Papanicolaou smear with manual screening 6 5-15 [facility] Basophil percentageon 2021 Chloride [Moles/Vol] 103 mmol/L 98-107 [facility] Work Phone: Glucose [Mass/Vol] 84 mg/dL 74-106 [facility] Work Phone: Potassium [Moles/Vol] 4.3 mmol/L 3.5-5.1 [facility] Work Phone: Sodium [Moles/Vol] 138 mmol/L 136-145 [facility] Work Phone: Laboratory - Chemistry and C hemistry - challengeon 11-25-2021 CO2 [Moles/Vol] 30.0 mmol/L 21.0-32.0 [facility] Work Phone: Urea nitrogen/Creatinine [Mass ratio] 17.3 mg/mg 10-20 [facility] Work Phone: No Panel Informationon 11-25 Estimated GFR (MDRD) Amer 85 mL/min >60 [facility] Work Phone: Comment on above: GFR Calc Estimated GFR (MDRD) Non-Af Amer 70 mL/min >60 [facility] Work Phone: Comment on above: Non- GFR Calc Serum or plasma calcium freya urement (mass/volume)on 11-25-2021 Calcium [Mass/Vol] 9.4 mg/dL 8.5-10.1 [facility] Work Phone: Serum or plasma creatinine m easurement (mass/volume)on 11-25-2021 Creatinine [Mass/Vol] 1.10 mg/dL 0.70-1.30 [facility] Work Phone: Comment on above: The validity of the calculated GFR & GFRAA in patients over 70 years has not been determined. Clinical correlation is essential. Serum or plasma urea nitroge n measurement (mass/volume)on 11-25-2021 Urea nitrogen [Mass/Vol] 19 mg/dL 7-18 [facility] Work Phone: Thin prep Papanicolaou smear with manual screeningon 11-25-2021 Thin prep Papanicolaou smear with manual screening 5 5-15 [facility] Work Phone: Absolute lymphocyte counton 09-14-2021 Lymphocytes Auto (Unsp spec) [#/Vol] 1.63 10*3/uL 0.83-4.51 [facility] Work Phone: Basophil percentageon 2021 Basophils/100 WBC (Bld) 0.5 % 0-1 [facility] Work Phone: Eosinophils/100 WBC (Bld) 1.0 % 0-5 [facility] Work Phone: Neutrophils (Bld) [#/Vol] 3.8 10*3/uL 2.0-7.7 [facility] Work Phone: Neutrophils/100 WBC (Bld) 64.2 % 47-70 [facility] Work Phone: WBC (Bld) [#/Vol] 5.9 10*3/uL 4.4-11.0 [facility] Work Phone: Blood erythrocytes count (nu mber/volume)on 09-14-2021 RBC (Bld) [#/Vol] 4.78 10*6/uL 4.6-6.2 [facility] Work Phone: Blood hemoglobin measurement (mass/volume)on 09-14-2021 Hemoglobin (Bld) [Mass/Vol] 15.4 g/dL 13.0-16.5 [facility] Work Phone: Blood lymphocytes/100 leukoc yteson 09-14-2021 Lymphocytes/100 WBC (Bld) 27.6 % 19-41 [facility] Work Phone: Blood monocytes/100 leukocyt eson 09-14-2021 Monocytes/100 WBC (Bld) 6.4 % 0-10 [facility] Work Phone: Blood platelet mean volumeon 09-14-2021 Platelet mean volume (Bld) [Entitic vol] 12.7 fL 6.2-12.0 [facility] Work Phone: Determination of erythrocyte mean corpuscular volume (MCV)on 09-14-2021 MCV (RBC) [Entitic vol] 94.4 fL 80-94 [facility] Work Phone: Hematocrit Auto (Bld) [Volum e fraction]on 09-14-2021 Hematocrit (Bld) [Volume fraction] 45.1 % 40-54 [facility] Work Phone: Laboratory - Hematology and Cell countson 09-14-2021 Erythrocyte distribution width (RBC) [Entitic vol] 40.3 fL 35.1-43.9 [facility] Work Phone: Erythrocyte distribution width (RBC) [Ratio] 11.5 % 11.6-14.6 [facility] Work Phone: Immature granulocytes/100 WBC (Bld) 0.300 % 0.0-0.9 [facility] Work Phone: Comment on above: IG% - Immature Granu locytes (promyelocytes, myelocytes and metamyelocytes) > 1% indicates that a LEFT SHIFT is Present. MCH (RBC) [Entitic mass] 32.2 pg 27.0-32.0 [facility] Work Phone: Nucleated RBC/100 WBC (Bld) [Ratio] 0 % 0-5 [facility] Work Phone: MCHC Auto (RBC) [Mass/Vol]on 09-14-2021 MCHC (RBC) [Mass/Vol] 34.1 g/dL 32-36 [facility] Work Phone: Platelets bldon 09-14-2021 Platelets (Bld) [#/Vol] 77 10*3/uL 150-450 [facility] Work Phone: Absolute lymphocyte counton 09-01-2021 Lymphocytes Auto (Unsp spec) [#/Vol] 1.76 10*3/uL 0.83-4.51 [facility] Work Phone: Basophil percentageon 2021 Basophils/100 WBC (Bld) 0.4 % 0-1 [facility] Work Phone: Bilirubin [Mass/Vol] 0.90 mg/dL 0.20-1.00 [facility] Work Phone: Comment on above: For patients on eltr ombopag therapy, use of Dimension [place] TBIL is not recommended. Chloride [Moles/Vol] 105 mmol/L 98-107 [facility] Work Phone: Cholesterol [Mass/Vol] 207 mg/dL <200 [facility] Work Phone: Comment on above: <200 mg/dL Desirable 200-240 mg/dL Borderline >240 mg/dL High Risk Eosinophils/100 WBC (Bld) 1.1 % 0-5 [facility] Work Phone: Glucose [Mass/Vol] 96 mg/dL 74-106 [facility] Work Phone: Neutrophils (Bld) [#/Vol] 3.4 10*3/uL 2.0-7.7 [facility] Work Phone: Neutrophils/100 WBC (Bld) 60.3 % 47-70 [facility] Work Phone: Potassium [Moles/Vol] 4.3 mmol/L 3.5-5.1 [facility] Work Phone: Protein [Mass/Vol] 7.2 g/dL 6.4-8.2 [facility] Work Phone: Sodium [Moles/Vol] 138 mmol/L 136-145 [facility] Work Phone: Triglyceride [Mass/Vol] 161 mg/dL <199 [facility] Work Phone: Comment on above: The drugs N-Acetylcy steine and Metamizole may falsely depress this assay.Serum Triglycerides Reference Interval Normal <150 mg/dL Borderline high 150 - 199 mg/dL High 200 - 499 mg/dL Very High > or = 500 mg/dL WBC (Bld) [#/Vol] 5.6 10*3/uL 4.4-11.0 [facility] Work Phone: Blood erythrocytes count (nu mber/volume)on 09-01-2021 RBC (Bld) [#/Vol] 4.96 10*6/uL 4.6-6.2 [facility] Work Phone: Blood hemoglobin measurement (mass/volume)on 09-01-2021 Hemoglobin (Bld) [Mass/Vol] 15.7 g/dL 13.0-16.5 [facility] Work Phone: Blood lymphocytes/100 leukoc yteson 09-01-2021 Lymphocytes/100 WBC (Bld) 31.7 % 19-41 [facility] Work Phone: Blood monocytes/100 leukocyt eson 09-01-2021 Monocytes/100 WBC (Bld) 6.3 % 0-10 [facility] Work Phone: Blood platelet adequacy dete ction by light microscopyon 09-01-2021 Platelets LM Ql (Bld) ADEQUATE ADEQ [facility] Work Phone: Blood platelet mean volumeon 09-01-2021 Platelet mean volume (Bld) [Entitic vol] 11.4 fL 6.2-12.0 [facility] Work Phone: Blood platelet morphology de termination (nominal result)on 09-01-2021 Platelet morphology finding Nom (Bld) CLUMPED [facility] Work Phone: Determination of erythrocyte mean corpuscular volume (MCV)on 09-01-2021 MCV (RBC) [Entitic vol] 93.5 fL 80-94 [facility] Work Phone: Direct bilirubinon Bilirubin.direct [Mass/Vol] 0.15 mg/dL 0.00-0.30 [facility] Work Phone: Hematocrit Auto (Bld) [Volum e fraction]on 09-01-2021 Hematocrit (Bld) [Volume fraction] 46.4 % 40-54 [facility] Work Phone: Laboratory - Chemistry and C hemistry - challengeon 09-01-2021 ALP [Catalytic activity/Vol] 59 U/L 45-117 [facility] Work Phone: ALT [Catalytic activity/Vol] 30 U/L 16-61 [facility] Work Phone: CO2 [Moles/Vol] 25.0 mmol/L 21.0-32.0 [facility] Work Phone: Globulin (S) [Mass/Vol] 3.5 g/dL 2.2-4.2 [facility] Work Phone: Urea nitrogen/Creatinine [Mass ratio] 18.2 mg/mg 10-20 [facility] Work Phone: Laboratory - Hematology and Cell countson 09-01-2021 Erythrocyte distribution width (RBC) [Entitic vol] 39.8 fL 35.1-43.9 [facility] Work Phone: Erythrocyte distribution width (RBC) [Ratio] 11.6 % 11.6-14.6 [facility] Work Phone: Immature granulocytes/100 WBC (Bld) 0.200 % 0.0-0.9 [facility] Work Phone: Comment on above: IG% - Immature Granu locytes (promyelocytes, myelocytes and metamyelocytes) > 1% indicates that a LEFT SHIFT is Present. MCH (RBC) [Entitic mass] 31.7 pg 27.0-32.0 [facility] Work Phone: Nucleated RBC/100 WBC (Bld) [Ratio] 0 % 0-5 [facility] Work Phone: MCHC Auto (RBC) [Mass/Vol]on 09-01-2021 MCHC (RBC) [Mass/Vol] 33.8 g/dL 32-36 [facility] Work Phone: No Panel Informationon 09-01 Estimated GFR (MDRD) Amer 85 mL/min >60 [facility] Work Phone: Comment on above: GFR Calc Estimated GFR (MDRD) Non-Af Amer 70 mL/min >60 [facility] Work Phone: Comment on above: Non- GFR Calc Platelets bldon 09-01-2021 Platelets (Bld) [#/Vol] 88 10*3/uL 150-450 [facility] Work Phone: RBC morphologyon 09-01-2021 RBC morphology finding Nom (Bld) NORM C+C NORMAL NORM C&C [facility] Work Phone: Serum or plasma albumin freya urement (mass/volume)on 09-01-2021 Albumin [Mass/Vol] 3.7 g/dL 3.2-5.0 [facility] Work Phone: Serum or plasma albumin/glob ulin mass ratioon 09-01-2021 Albumin/Globulin [Mass ratio] 1.1 {ratio} 0.9-2.4 [facility] Work Phone: Serum or plasma calcium freya urement (mass/volume)on 09-01-2021 Calcium [Mass/Vol] 9.0 mg/dL 8.5-10.1 [facility] Work Phone: Serum or plasma cholesterol in HDL measurement (mass/volume)on 09-01-2021 Cholesterol in HDL [Mass/Vol] 58 mg/dL >40 [facility] Work Phone: Comment on above: The drugs N-Acetylcy steine and Metamizole may falsely depress this assay. Reference Range HDL <40 mg/dL Low HDL Cholesterol HDL >or= 60 mg/dL High HDL Cholesterol Serum or plasma cholesterol in VLDL measurement (mass/volume)on 09-01-2021 Cholesterol in VLDL [Mass/Vol] 32 mg/dL 5-40 [facility] Work Phone: Serum or plasma creatinine m easurement (mass/volume)on 09-01-2021 Creatinine [Mass/Vol] 1.10 mg/dL 0.70-1.30 [facility] Work Phone: Comment on above: The validity of the calculated GFR & GFRAA in patients over 70 years has not been determined. Clinical correlation is essential. Serum or plasma low density lipoprotein (LDL) cholesterol measurement (mass/volume)on 09-01-2021 Cholesterol in LDL [Mass/Vol] 117 mg/dL 0-130 [facility] Work Phone: Serum or plasma urea nitroge n measurement (mass/volume)on 09-01-2021 Urea nitrogen [Mass/Vol] 20 mg/dL 7-18 [facility] Work Phone: Thin prep Papanicolaou smear with manual screeningon 09-01-2021 Thin prep Papanicolaou smear with manual screening 15 U/L 15-37 [facility] Work Phone: Thin prep Papanicolaou smear with manual screening 8 5-15 [facility] Work Phone: Basophil percentageon 2021 Bilirubin [Mass/Vol] 1.50 mg/dL 0.20-1.00 [facility] Work Phone: Comment on above: For patients on eltr ombopag therapy, use of Dimension [place] TBIL is not recommended. Protein [Mass/Vol] 7.0 g/dL 6.4-8.2 [facility] Work Phone: Direct bilirubinon 2 Bilirubin.direct [Mass/Vol] 0.26 mg/dL 0.00-0.30 [facility] Work Phone: Laboratory - Chemistry and C hemistry - challengeon 06-29-2021 ALP [Catalytic activity/Vol] 58 U/L 45-117 [facility] Work Phone: ALT [Catalytic activity/Vol] 31 U/L 16-61 [facility] Work Phone: Globulin (S) [Mass/Vol] 3.3 g/dL 2.2-4.2 [facility] Work Phone: Serum or plasma albumin freya urement (mass/volume)on 06-29-2021 Albumin [Mass/Vol] 3.7 g/dL 3.2-5.0 [facility] Work Phone: Thin prep Papanicolaou smear with manual screeningon 06-29-2021 Thin prep Papanicolaou smear with manual screening 22 U/L 15-37 [facility] Work Phone: Absolute lymphocyte counton 06-25-2021 Lymphocytes Auto (Unsp spec) [#/Vol] 2.09 10*3/uL 0.83-4.51 [facility] Work Phone: Basophil percentageon 2021 Basophils/100 WBC (Bld) 0.5 % 0-1 [facility] Work Phone: Bilirubin [Mass/Vol] 1.40 mg/dL 0.20-1.00 [facility] Work Phone: Comment on above: For patients on eltr ombopag therapy, use of Dimension [place] TBIL is not recommended. Chloride [Moles/Vol] 107 mmol/L 98-107 [facility] Work Phone: Eosinophils/100 WBC (Bld) 1.5 % 0-5 [facility] Work Phone: Glucose [Mass/Vol] 76 mg/dL 74-106 [facility] Work Phone: Neutrophils (Bld) [#/Vol] 3.9 10*3/uL 2.0-7.7 [facility] Work Phone: Neutrophils/100 WBC (Bld) 59.5 % 47-70 [facility] Work Phone: Potassium [Moles/Vol] 4.5 mmol/L 3.5-5.1 [facility] Work Phone: Protein [Mass/Vol] 7.1 g/dL 6.4-8.2 [facility]: Sodium [Moles/Vol] 139 mmol/L 136-145 [facility] Work Phone: WBC (Bld) [#/Vol] 6.5 10*3/uL 4.4-11.0 [facility] Work Phone: Blood erythrocytes count (nu mber/volume)on 06-25-2021 RBC (Bld) [#/Vol] 4.94 10*6/uL 4.6-6.2 [facility] Work [facility]: Blood hemoglobin measurement (mass/volume)on 06-25-2021 Hemoglobin (Bld) [Mass/Vol] 15.6 g/dL 13.0-16.5 [facility] Work Phone: Blood lymphocytes/100 leukoc yteson 06-25-2021 Lymphocytes/100 WBC (Bld) 32.0 % 19-41 [facility] Work Phone: Blood monocytes/100 leukocyt eson 06-25-2021 Monocytes/100 WBC (Bld) 6.3 % 0-10 [facility] Work Phone: Blood platelet mean volumeon 06-25-2021 Platelet mean volume (Bld) [Entitic vol] 11.4 fL 6.2-12.0 [facility] Work Phone: Determination of erythrocyte mean corpuscular volume (MCV)on 06-25-2021 MCV (RBC) [Entitic vol] 94.7 fL 80-94 [facility] Work Phone: Hematocrit Auto (Bld) [Volum e fraction]on 06-25-2021 Hematocrit (Bld) [Volume fraction] 46.8 % 40-54 [facility] Work Phone: Laboratory - Chemistry and C hemistry - challengeon 06-25-2021 ALP [Catalytic activity/Vol] 63 U/L 45-117 [facility] Work Phone: ALT [Catalytic activity/Vol] 34 U/L 16-61 [facility] Work Phone: CO2 [Moles/Vol] 28.0 mmol/L 21.0-32.0 [facility] Work Phone: Globulin (S) [Mass/Vol] 3.3 g/dL 2.2-4.2 [facility] Work Phone: Lipase [Catalytic activity/Vol] 72 U/L 73-393 [facility] Work Phone: Urea nitrogen/Creatinine [Mass ratio] 18.1 mg/mg 10-20 [facility] Work Phone: Laboratory - Hematology and Cell countson 06-25-2021 Erythrocyte distribution width (RBC) [Entitic vol] 40.3 fL 35.1-43.9 [facility] Work Phone: Erythrocyte distribution width (RBC) [Ratio] 11.7 % 11.6-14.6 [facility] Work Phone: Immature granulocytes/100 WBC (Bld) 0.200 % 0.0-0.9 [facility] Work Phone: Comment on above: IG% - Immature Granu locytes (promyelocytes, myelocytes and metamyelocytes) > 1% indicates that a LEFT SHIFT is Present. MCH (RBC) [Entitic mass] 31.6 pg 27.0-32.0 [facility] Work Phone: Nucleated RBC/100 WBC (Bld) [Ratio] 0 % 0-5 [facility] Work Phone: MCHC Auto (RBC) [Mass/Vol]on 06-25-2021 MCHC (RBC) [Mass/Vol] 33.3 g/dL 32-36 [facility] Work Phone: No Panel Informationon 06-25 Estimated GFR (MDRD) Amer 90 mL/min >60 [facility] Work Phone: Comment on above: GFR Calc Estimated GFR (MDRD) Non-Af Amer 74 mL/min >60 [facility] Work Phone: Comment on above: Non- GFR Calc Platelets bldon 06-25-2021 Platelets (Bld) [#/Vol] 99 10*3/uL 150-450 [facility] Work Phone: Serum or plasma albumin freya urement (mass/volume)on 06-25-2021 Albumin [Mass/Vol] 3.8 g/dL 3.2-5.0 [facility] Work Phone: Serum or plasma albumin/glob ulin mass ratioon 06-25-2021 Albumin/Globulin [Mass ratio] 1.2 {ratio} 0.9-2.4 [facility] Work Phone: Serum or plasma calcium freya urement (mass/volume)on 06-25-2021 Calcium [Mass/Vol] 8.8 mg/dL 8.5-10.1 [facility] Work Phone: Serum or plasma creatinine m easurement (mass/volume)on 06-25-2021 Creatinine [Mass/Vol] 1.05 mg/dL 0.70-1.30 [facility] Work Phone: Comment on above: The validity of the calculated GFR & GFRAA in patients over 70 years has not been determined. Clinical correlation is essential. Serum or plasma urea nitroge n measurement (mass/volume)on 06-25-2021 Urea nitrogen [Mass/Vol] 19 mg/dL 7-18 [facility] Work Phone: Thin prep Papanicolaou smear with manual screeningon 06-25-2021 Thin prep Papanicolaou smear with manual screening 21 U/L 15-37 [facility] Work Phone: Thin prep Papanicolaou smear with manual screening 4 5-15 [facility] Work Phone: Clinical Summary: HMSPatient IDon 05-23-2018 SOP Sadie genao [facility] Work Phone: Clinical Summary: Scanned Hi story Summaryon 05-23-2018 brother(s) of patient alive or Unknown [facility] Work Phone: Data entered by patient exercise frequency [facility] days per week [facility] Work Phone: Data entered by patient exercise type walkingother [facility] Work Phone: data entered by patient, alcohol (ethanol or ETOH) use No [facility] Work Phone: Data entered by patient, allergy list Penicillin [facility] Work Phone: data entered by patient, drug (of abuse) use No [facility] Work Phone: data entered by patient, Employer Name Retired [facility] Work Phone: data entered by patient, exercise history Yes [facility] Work Phone: data entered by patient, father's medical history Cancer [facility] Work Phone: Data entered by patient, history of past surgeries Fracture repairShoulder surgery other [facility] Work Phone: data entered by patient, mother's medical history Alzheimer [facility] Work Phone: data entered by patient, social history, current smoker never smoker [facility] Work Phone: data entered by patient, social history, marital status [facility] Work Phone: father of patient is alive or [facility] Work Phone: Housing Type: apartment, house, skilled nursing, trailer, none House [facility] Work Phone: housing unit size (asthma environmental history, housing) (from single family to don't know) 2 Floors [facility] Work Phone: mother of patient is alive or [facility] Work Phone: Number of dependent children No [facility] Work Phone: Protein mass conc Patient Denies Medical Problems or Conditions [facility] Work Phone: sister of patient(s) alive or Unknown [facility] Work Phone: Clinical Summary: Scanned RO S Summaryon 05-23-2018 endocrine ROS Denies [facility] Work Phone: genitourinary review of systems, E&M Denies [facility] Work Phone: Lymphocytes #/vol (Bld) Denies C [facility] Work Phone: ROS cardiovascular E&M Denies Cr [facility]al [facility] Work Phone: ROS ENT E&M Denies [facility] Work Phone: ROS gastrointestinal E&M Denies [facility] Work Phone: ROS general E&M Denies Crystal [facility] Work Phone: ROS Musculoskeletal comments Muscle Weakness,Pain,Joint Pain [facility] Work Phone: ROS musculoskeletal E&M Complains C [facility] Work Phone: ROS neurological E&M Denies Elizabet [facility] Work Phone: ROS psychiatric E&M Denies Cryst al [facility] [place] [facility] Work Phone: ROS pulmonary E&M Denies Crystal [facility] Work Phone: ROS skin E&M Denies [facility] [place] [facility] Work Phone: Office Visit: New - 1st visi t with practice, Rm: 11on 05-23-2018 NEGATED: Highlighted rowProtein mass conc Done [facility] Work Phone: NEGATED: Highlighted rowTobacco smoking status NHIS Tobacco smoking status NHIS [facility] Work Phone: Clinical Lists Update: Prelo ad Extendedon 05-18-2018 Tobacco smoking status NHIS Tobacco smoking status MIIS [facility] Work Phone: Vital Signs Date Time Vital Sign Value Performing Clinician Facility 11-07-2024 09:18-0400 Diastolic blood pressure 85 mm[Hg] Dr. Missy Workman MD Work Phone: [facility] 11-07-2024 09:18-0400 Systolic blood pressure 128 mm[Hg] Dr. Missy Workman MD Work Phone: [facility] 11-07-2024 09:03-0400 Body height [address] Missy Workman MD Work Phone: [facility] 11-07-2024 09:03-0400 Body mass index (BMI) [Ratio] 28.4 kg/m2 Dr. Missy Workman MD Work Phone: [facility] 11-07-2024 09:03-0400 Body weight 79.[address] Missy Workman MD Work Phone: [facility] 11-07-2024 09:03-0400 Heart rate 63 /min Dr. Missy Workman MD Work Phone: [facility] 11-07-2024 09:03-0400 Respiratory rate 16 /min Dr. Missy Workman MD Work Phone: [facility] 02-16-2023 15:46-0400 Body height [address] Missy Workman Work Phone: [facility] 02-16-2023 15:46-0400 Body mass index (BMI) [Ratio] 28.8 kg/m2 Dr. Missy Workman Work Phone: [facility] 02-16-2023 15:46-0400 Body temperature 101.9 [degF] Dr. Missy Workman Work Phone: [phone] [place] [address] 02-16-2023 15:46-0400 Body weight 80.[address] Missy Workman Work Phone: [phone] [place] [address] 02-16-2023 15:46-0400 Diastolic blood pressure 77 mm[Hg] Dr. Missy Workman Work Phone: [facility] 02-16-2023 15:46-0400 Heart rate 88 /min Dr. Missy Workman Work Phone: [facility] 02-16-2023 15:46-0400 Respiratory rate 16 /min Dr. Missy Workman Work Phone: [facility] 02-16-2023 15:46-0400 SaO2% (BldA) [Mass fraction] 93 % Dr. Missy Workman Work Phone: [facility] 02-16-2023 15:46-0400 Systolic blood pressure 124 mm[Hg] Dr. Missy Workman Work Phone: [facility] 12-08-2022 09:06-0400 Body height 167.[address] Missy Workman Work Phone: [facility] 12-08-2022 09:06-0400 Body mass index (BMI) [Ratio] 27.9 kg/m2 Dr. Missy Workman Work Phone: [facility] 12-08-2022 09:06-0400 Body weight 78.[address] Missy Workman Work Phone: [facility] 12-08-2022 09:06-0400 Diastolic blood pressure 85 mm[Hg] Dr. Missy Workman Work Phone: [facility] 12-08-2022 09:06-0400 Heart rate 86 /min Dr. Missy Workman Work Phone: [facility] 12-08-2022 09:06-0400 Respiratory rate 18 /min Dr. Missy Workman Work Phone: [facility] 12-08-2022 09:06-0400 SaO2% (BldA) [Mass fraction] 96 % Dr. Missy Workman Work Phone: [facility] 12-08-2022 09:06-0400 Systolic blood pressure 132 mm[Hg] Dr. Missy Workman Work Phone: [facility] 08-08-2022 10:21-0400 Body height 167.[address] Missy Workman Work Phone: [facility] 08-08-2022 10:21-0400 Diastolic blood pressure 92 mm[Hg] Dr. Missy Workman Work Phone: [facility] 08-08-2022 10:21-0400 Systolic blood pressure 130 mm[Hg] Dr. Missy Workman Work Phone: [facility] 08-08-2022 10:21-0400 Body mass index (BMI) [Ratio] 27.4 kg/m2 Dr. Missy Workman Work Phone: [facility] 08-08-2022 10:21-0400 Body weight 77.[address] Missy Workman Work Phone: [facility] 08-08-2022 10:21-0400 Heart rate 75 /min Dr. Missy Workman Work Phone: [facility] 08-08-2022 10:21-0400 Respiratory rate 18 /min Dr. Missy Workman Work Phone: [facility] 08-08-2022 10:21-0400 SaO2% (BldA) [Mass fraction] 96 % Dr. Missy Workman Work Phone: [facility] 05-27-2022 14:30-0500 Body temperature 98.1 [degF] Dr. Missy Workman Work Phone: [facility] 05-27-2022 14:30-0500 Diastolic blood pressure 95 mm[Hg] Dr. Missy Workman Work Phone: [facility] 05-27-2022 14:30-0500 Heart rate 79 /min Dr. Missy Workman Work Phone: [facility] 05-27-2022 14:30-0500 Respiratory rate 16 /min Dr. Missy Workman Work Phone: [facility] 05-27-2022 14:30-0500 SaO2% (BldA) [Mass fraction] 95 % Dr. Missy Workman Work Phone: [facility] 05-27-2022 14:30-0500 Systolic blood pressure 130 mm[Hg] Dr. Missy Workman Work Phone: [facility] 05-27-2022 11:38-0500 Body height 167.[address] Missy Workman Work Phone: [facility] 05-27-2022 11:38-0500 Body mass index (BMI) [Ratio] 27.1 kg/m2 Dr. Missy Workman Work Phone: [facility] 05-27-2022 11:38-0500 Body weight 76.[address] Missy Workman Work Phone: [facility] 05-23-2022 08:13-0500 Body height 167.[address] Missy Workman Work Phone: [facility] 05-23-2022 08:13-0500 Body mass index (BMI) [Ratio] 28 kg/m2 Dr. Missy Workman Work Phone: [facility] 05-23-2022 08:13-0500 Body temperature 97.6 [degF] Dr. Missy Workman Work Phone: [facility] 05-23-2022 08:13-0500 Body weight 78.[address] Missy Workman Work Phone: [facility] 05-23-2022 08:13-0500 Diastolic blood pressure 86 mm[Hg] Dr. Missy Workman Work Phone: [facility] 05-23-2022 08:13-0500 Heart rate 76 /min Dr. Missy Workman Work Phone: [facility] 05-23-2022 08:13-0500 Respiratory rate 17 /min Dr. Missy Workman Work Phone: [facility] 05-23-2022 08:13-0500 SaO2% (BldA) [Mass fraction] 96 % Dr. Missy Workman Work Phone: [facility] 05-23-2022 08:13-0500 Systolic blood pressure 152 mm[Hg] Dr. Missy Workman Work Phone: [facility] 05-18-2022 08:26-0500 Body mass index (BMI) [Ratio] 27.4 kg/m2 Dr. Missy Workman Work Phone: [facility] 05-18-2022 08:26-0500 Body weight 77.[address] Missy Workman Work Phone: [facility] 05-18-2022 08:26-0500 Diastolic blood pressure 97 mm[Hg] Dr. Missy Workman Work Phone: [facility] 05-18-2022 08:26-0500 Heart rate 80 /min Dr. Missy Workman Work Phone: [facility] 05-18-2022 08:26-0500 Respiratory rate 18 /min Dr. Missy Workman Work Phone: [facility] 05-18-2022 08:26-0500 SaO2% (BldA) [Mass fraction] 95 % Dr. Missy Workman Work Phone: [facility] 05-18-2022 08:26-0500 Systolic blood pressure 132 mm[Hg] Dr. Missy Workman Work Phone: [facility] 12-16-2021 14:32-0400 Diastolic blood pressure 87 mm[Hg] Dr. Missy Workman Work Phone: [facility] Work Phone: 12-16-2021 14:32-0400 Heart rate 69 /min Dr. Missy Workman Work Phone: [facility] Work Phone: 12-16-2021 14:32-0400 Respiratory rate 14 /min Dr. Missy Workman Work Phone: [facility] Work Phone: 12-16-2021 14:32-0400 SaO2% (BldA) [Mass fraction] 94 % Dr. Missy Workman Work Phone: [facility] Work Phone: 12-16-2021 14:32-0400 Systolic blood pressure 126 mm[Hg] Dr. Missy Workman Work Phone: [facility] Work Phone: 12-16-2021 13:22-0400 Body height 167.[address] Missy Workman Work Phone: [facility] Work Phone: 12-16-2021 13:22-0400 Body mass index (BMI) [Ratio] 27.4 kg/m2 Dr. Missy Workman Work Phone: [facility] Work Phone: 12-16-2021 13:22-0400 Body weight 77.[address] Missy Workman Work Phone: [facility] Work Phone: 11-25-2021 10:59-0400 Body height 167.[address] Missy Workman Work Phone: [facility] Work Phone: 11-25-2021 10:59-0400 Body mass index (BMI) [Ratio] 27.9 kg/m2 Dr. Missy Workman Work Phone: [facility] Work Phone: 11-25-2021 10:59-0400 Body weight 78.[address] Missy Workmna Work Phone: [facility] Work Phone: 11-25-2021 10:59-0400 Diastolic blood pressure 87 mm[Hg] Dr. Missy Workman Work Phone: [facility] Work Phone: 11-25-2021 10:59-0400 Heart rate 82 /min Dr. Missy Workman Work Phone: [facility] Work Phone: 11-25-2021 10:59-0400 Respiratory rate 16 /min Dr. Missy Workman Work Phone: [facility] Work Phone: 11-25-2021 10:59-0400 SaO2% (BldA) [Mass fraction] 95 % Dr. Missy Workman Work Phone: [facility] Work Phone: 11-25-2021 10:59-0400 Systolic blood pressure 136 mm[Hg] Dr. Missy Workman Work Phone: [facility] Work Phone: NEGATED: Highlighted [id number] 15:44-0500 BMI (Body Mass Index) 28.95 kg/m2 Xi Pop AT [facility] Work Phone: NEGATED: Highlighted [id number] 15:44-0500 BP Diastolic 86 mm[Hg] Xi Pop AT [facility] Work Phone: NEGATED: Highlighted [id number] 15:44-0500 BP Systolic 145 mm[Hg] Xi Kiesha AT [facility] Work Phone: NEGATED: Highlighted [id number] 15:44-0500 BP Systolic 126 mm[Hg] Xi Pop AT [facility] Work Phone: NEGATED: Highlighted [id number] 15:44-0500 Height 166.37 cm Xi Kiesha AT [facility] Work Phone: NEGATED: Highlighted [id number] 15:44-0500 Height 166 cm Xi Pop AT [facility] Work Phone: NEGATED: Highlighted [id number] 15:44-0500 Pulse (Heart Rate) 76 /min Xi Pop AT [facility] Work Phone: NEGATED: Highlighted [id number] 15:44-0500 Weight 79.83 kg Xi Pop AT [facility] Work Phone: NEGATED: Highlighted [id number] 15:44-0500 Weight 80 kg Xi Pop AT [facility] Work Phone: Encounters Encounter Date Encounter Type Care Provider Facility Start: 03-12-2025 ambulatory Missy Workman Facilit y:[facility] Start: 02-04-2025 End: 02-04-2025 ambulatory Missy Workman Facility:[facility] Start: 11-07-2024 End: 11-07-[address] Jordon Benavides MD -[facility] Work Phone: Start: 11-07-2024 End: 11-07-[address] Missy Workman MD Work Phone: [facility] Start: 10-23-2024 End: 10-23-2024 Telephone encounter Mami Paul IT APPLICATION ADMINISTRATOR Ophthalmology Comment on above: Social Work Consulta tion Start: 10-22-2024 End: 10-22-2024 Patient encounter procedure Sabrina Guzman MD Work Phone: Ophthalmology Comment on above: NAION (non-arteritic anterior ischemic optic neuropathy), bilateral (Primary Dx); Other localized visual field defect, bilateral Start: 10-22-2024 End: 10-22-2024 ambulatory SHADY SCHUSTER Facility:[facility] Start: 06-15-2024 End: 06-15-2024 ambulatory Missy Workman [place] Start: 05-17-2024 End: 05-17-2024 ambulatory Missy Workman Facility:[facility] Start: 05-10-2024 End: 05-10-2024 Telephone encounter Sabrina Guzman MD Work Phone: Ophthalmology Comment on above: Office notes from [facility] Start: 05-06-2024 ambulatory Missy Workman [place]ilit [place] Start: 05-06-2024 End: 05-06-2024 ambulatory Missy Workman Facility:[facility] Start: 04-30-2024 End: 04-30-2024 ambulatory Shady Schuster Facility:[facility] Start: 04-15-2024 End: 04-15-2024 ambulatory Shady Schuster Facility:[facility] Start: 03-29-2024 End: 03-29-2024 ambulatory Kati HOUSTON [place] Start: 03-21-2024 End: 03-21-2024 ambulatory Missy Workman Facility:[facility] Start: 11-27-2023 End: 11-27-2023 ambulatory ANDERSON TIAN [facility] Start: 09-01-2023 End: 09-01-2023 ambulatory [facility] Work Phone: Start: 09-01-2023 End: 09-01-2023 Discharged Recurring [facility] Work Phone: Start: 06-29-2023 End: 06-29-2023 Patient encounter procedure [facility] Work Phone: Start: 05-30-2023 End: 05-30-[address] Missy Workman Work Phone: [facility] Work Phone: Start: 05-30-2023 End: 05-30-[address] Missy Workman Work Phone: [facility] Work Phone: Start: 04-14-2023 End: 04-14-[address] Missy Workman Work Phone: [facility] Work Phone: Start: 04-14-2023 End: 04-14-[address] Missy Workman Work Phone: [facility] Start: 03-09-2023 End: 03-09-[address] Missy Workman Work Phone: [facility] Work Phone: Start: 03-09-2023 End: 03-09-[address] Missy Workman Work Phone: [facility] Start: 02-16-2023 End: 02-16-[address] Missy Workman Work Phone: [facility] Work Phone: Start: 12-08-2022 End: 12-08-[address] Missy Workman Work Phone: [facility] Work Phone: Start: 12-06-2022 End: 12-06-[address] Missy Workman Work Phone: [facility] Work Phone: Start: 12-06-2022 End: 12-06-[address] Missy Workman Work Phone: [facility] Work Phone: Start: 09-13-2022 End: 09-13-[address] Missy Workman Work Phone: [facility] Start: 09-12-2022 End: 09-12-[address] Missy Workman Work Phone: [facility] Work Phone: Start: 09-12-2022 End: 09-12-[address] Missy Workman Work Phone: [facility] Start: 08-08-2022 End: 08-08-[address] Missy Workman Work Phone: [facility] Start: 06-10-2022 End: 06-10-[address] Missy Workman Work Phone: [facility] Start: 06-03-2022 Telephone encounter Christoph Zuñiga DO Work Phone: Ophthalmology Comment on above: Appointment Start: 05-31-2022 End: 05-31-[address] Missy Workman Work Phone: [facility] Work Phone: Start: 05-31-2022 End: 05-31-[address] [facility] Phone[facility] Start: 05-27-2022 Non-patient / Non-visit Dr. Maria Luz Workman Work Phone: [facility] Start: 05-27-2022 End: 05-27-2022 Admission to same day surgery center Dr. Missy Workman Work Phone: [facility] Start: 05-27-2022 End: 05-27-[address] Missy Workman Work Phone: [facility] Work Phone: Start: 05-23-2022 End: 05-23-[address] Missy Workman Work Phone: [facility] Start: 05-20-2022 Non-patient / Non-visit Dr. Maria Luz Workman Work Phone: [facility] Start: 05-20-2022 End: 05-20-[address] Missy Workman Work Phone: [facility] Work Phone: Start: 05-20-2022 End: 05-20-[address] Missy Workman Work Phone: [facility] Start: 05-18-2022 End: 05-18-[address] Missy Workman Work Phone: [facility] Start: 05-16-2022 End: 05-16-[address] Missy Workman Work Phone: [facility] Work Phone: Start: 05-16-2022 End: 05-16-[address] Missy Workman Work Phone: [facility] Start: 03-08-2022 End: 03-08-[address] Missy Workman Work Phone: [facility] Work Phone: Start: 03-08-2022 End: 03-08-[address] Missy Workman Work Phone: [facility] Start: 12-22-2021 Non-patient / Non-visit Dr. Maria Luz Workman Work Phone: [facility] Start: 12-16-2021 Non-patient / Non-visit Dr. Maria Luz Workman Work Phone: [facility] Start: 12-16-2021 End: 12-16-[address] Missy Workman Work Phone: [facility] Start: 12-13-2021 Non-patient / Non-visit Dr. Maria Luz Workman Work Phone: [facility] Start: 12-13-[address] [facility]cheverria [facility] Start: 11-25-2021 End: 11-25-[address] Missy Workman Work Phone: [facility] Start: 09-14-2021 End: 09-14-[address] Missy Workman Work Phone: [facility] Start: 09-01-2021 End: 09-01-2021 Patient encounter procedure [facility] Start: 07-02-2021 End: 07-02-2021 Patient encounter procedure [facility] Start: 06-29-2021 End: 06-29-2021 Patient encounter procedure [facility] Start: 06-25-2021 End: 06-25-2021 Patient encounter procedure [facility] Start: 05-23-2018 End: 05-23-2018 Ot evaluation Missy Paul MD Work Phone: [facility] Work Phone: Start: 05-23-2018 End: 05-23-2018 Patient encounter procedure Missy Paul MD Work Phone: [facility] Work Phone: Procedures Date Procedure Procedure Detail Performing Clinician Start: 10-22-2024 End: 10-22-2024 Visual field xm uni/bi w/interp extended exam Sabrina Guzman MD Work Phone: Start: 06-29-2023 X-ray of lumbar spin e, two or three views Start: 05-31-2022 Magnetic resonance angiography of head without contrast Dr. Missy Workman Work Phone: Start: 05-31-2022 MRI of brain with contrast Dr. Missy Workman Work Phone: Start: 05-27-2022 Biopsy of temporal artery Dr. Missy Workman Work Phone: Start: 12-16-2021 CT angiography of co ronary arteries Dr. Missy Workman Work Phone: Start: 07-02-2021 US urinary tract Start: 06-25-2021 Diagnostic radiograp hy of abdomen Start: 05-23-2018 End: 05-23-2018 Arthrocentesis aspir&/inj small jt/bursa w/o us Missy Paul MD Work Phone: Start: 05-23-2018 End: 05-23-2018 Blood pressure within normal parameters - no follow-up required Missy Paul MD Work Phone: Start: 05-23-2018 End: 05-23-2018 BMI documented as above normal parameters - follow-up documented Missy Paul MD Work Phone: Start: 05-23-2018 End: 05-23-2018 Documentation of current medications Missy Paul MD Work Phone: Start: 05-23-2018 End: 05-23-2018 HFO PREFAB STATIC Missy Paul MD Work Phone: Start: 05-23-2018 End: 05-23-2018 Injection - betamethasone acetate 3 mg and betamethasone sodium phosphate 3 mg Missy Paul MD Work Phone: Start: 05-23-2018 End: 05-23-2018 Osteoarthritis assess Missy Paul MD Work Phone: Start: 05-23-2018 End: 05-23-2018 Pain assessment documented as positive - follow-up documented Missy Paul MD Work Phone: Start: 05-23-2018 End: 05-23-2018 Tobacco non-user Missy Paul MD Work Phone: Start: 05-23-2018 End: 05-23-2018 WHFO CUSTOM STATIC Missy Paul MD Work Phone: Plan of Treatment Date Care Activity Detail Author Start: 09-16-2026 RSV Vaccine (1 - 1-d ose 75+ series) RSV Vaccine (1 - 1-dose 75+ series) [facility] Start: 01-13-2026 Urine microalbumin profile DTaP,Tdap,Td Vaccine (2 - Td or Tdap) [facility] Start: 10-27-2025 End: 10-27-2025 Patient encounter procedure 10/27/2025 11:00 AM EDT Office Visit [facility] [address] [address] Sabrina Guzman MD [address] [place] [address] Please schedule this patient for a 1 year return clinic visit at [facility] for non-arteritic anterior ischemic optic neuropathy [place] Ophthalmology Comment on above: Please schedule this patient for a 1 year return clinic visit at [facility] for non-arteritic anterior ischemic optic neuropathy ou Start: 11-06-2024 End: 11-06-2024 ambulatory 11/06/2024 9:45 AM EDT OT/PT/Speech Visit [facility] [place] [address] [place] [address] Suyapa Marks, OT/L To help me get around easier. [facility] [place] Comment on above: To help me get aroun d easier. Start: 09-30-2024 Covid-19 Vaccine ( season) Covid-19 Vaccine ( season) [facility] Start: 05-08-2024 Advance Directive Discussion Advance Directive Discussion [facility] Start: 05-08-2024 Medicare Advantage Annual Wellness Visit Medicare [facility] Annual Wellness Visit [facility] Start: 01-07-2024 Covid-19 Vaccine ( season) Covid-19 Vaccine ( season) [facility] Start: 01-07-2024 Influenza vaccination Influenza Vacc ine (#1) [facility] Start: 05-27-2022 Anesthesia major vessels neck simple ligation ANESTH NECK VESSEL SURGERY [facility] Start: 05-27-2022 Ligation/biopsy temporal artery TEMPORAL ARTERY PROCEDURE [facility] Start: 05-27-2022 Patient discharge [facility] Start: 05-08-2022 ADVANCE DIRECTIVE DISCUSSION ADVANCE DIRECTIVE DISCUSSION [facility] Start: 05-08-2022 DEPRESSION ASSESSMENT DEPRESSION ASS ESSMENT [facility] Start: 12-16-2021 Following clinical pathway protocol [facility] Work Phone: Start: 07-03-2018 Shingrix Vaccine (2 of 2) Shingrix Vaccine (2 of 2) [facility] Start: 05-23-2018 End: 05-23-2018 Appointment Appointment [facility] Work Phone: Start: 05-23-2018 End: 05-23-2018 Radex hand minimum 3 views XR HAND 3+ VWS-RT [facility] Work Phone: Start: 09-16-2016 PNEUMOCOCCAL: 65+ (1 - PCV) PNEUMOCOCCAL: 65+ (1 - PCV) [facility] Start: 09-16-2001 SHINGRIX VACCINE (1 of 2) SHINGRIX VACCINE (1 of 2) [facility] Start: 09-16-1996 COLOGUARD (FIT-DNA) COLOGUARD (FIT-D NA) [facility] Start: 09-16-1996 Colonoscopy COLONOSCOPY [facility] Start: 09-16-1996 COLORECTAL CANCER SCREENING COLORECTAL CANCER SCREENING [facility] Start: 09-16-[address] COLONOGRAPHY [facility] Start: 09-16-1996 DIABETES SCREEN DIABETES SCREEN [facility] Start: 09-16-1996 Diabetes Screening Diabetes Screenin g [facility] Start: 09-16-1996 FECAL OCCULT BLOOD FECAL OCCULT BLOO D [facility] Start: 09-16-1996 Screening for malign ant neoplasm of colon [facility] Start: 09-16-1996 [facility] Start: 09-16-1986 Lipid panel Lipid Screening [facility] Start: 09-16-1986 LIPID SCREEN LIPID SCREEN [facility] Start: 09-16-1970 Urine microalbumin profile DTAP,TDAP,TD (1 - Tdap) [facility] Start: 09-16-1969 Anxiety Screening Anxiety Screening [facility] Start: 09-16-1969 Depression Screening Depression Scre ening [facility] Start: 09-16-1969 HEPATITIS C SCREENING HEPATITIS C [facility] Start: 09-16-1969 Hepatitis C screening Hepatitis C [facility] [place] [facility] arteries W contrast IV [facility] Work Phone: Patient Education CH[facility] alcazar Coronary Calcium Scan [facility] Work Phone: Patient referral [facility] Work Phone: Immunizations Immunization Date Immunization Notes Care Provider [facility] 02-10-2022 influenza virus vaccine, unspecified formulation Sabrina Guzman MD Work Phone: [facility] No information available. Xi Pop AT [facility] Work Phone: Payers Date Payer Category Payer Self-pay [id number] 2022 Medicare MMO MEDICARE MMO [employer] HMO [id number] 2022-Present [phone] [address] [place] [address] O [id number] 2022 Medicare (Managed Care) MMO [employer] [facility] Address: [address] [address] [id number] 2010 Unknown [id number] 1959 Unknown [id number] 1950 Unknown [id number] 2.16.840.1.307435.3.579.2. 598 Unknown [id number] Unknown [id number] 2.16.840.1.161728.3.579.2. 462 Unknown [id number] 2.16.840.1.354053.3.579.2. 462 Unknown [id number] 2.16.840.1.435810.3.579.2. 462 Unknown [id number] 2.16.840.1.835698.3.579.2. 462 Unknown [id number] 2.16.840.1.266984.3.579.2. 462 Unknown [id number] 2.16.840.1.696628.3.579.2. 462 Unknown [id number] 2.16.840.1.266207.3.579.2. 462 Unknown [id number] 2.16.840.1.261326.3.579.2. 462 Unknown [id number] 2.16.840.1.762683.3.579.2. 462 Unknown [id number] 2.16.840.1.023131.3.579.2. 462 Unknown [id number] 2.16.840.1.746836.3.579.2. 462 Social History Date Type Detail Facility Start: 12-02-2020 End: 02-16-2023 Tobacco smoking status NHIS Unknown if ever smoked [facility] Start: 1950 Sex Assigned At Male [facility] Start: 1950 Sex Assigned At Not on file [facility] Start: 06-09-2022 End: 10-22-2024 History of Social function [facility] Start: 06-09-2022 End: 10-22-2024 Area Deprivation Index [facility] National Score (1-100), lower number is lower risk 34 [facility] Start: 06-15-2024 End: 10-22-2024 Tobacco smoking status NHIS Never smoked tobacco [facility] Start: 10-22-2024 Tobacco use and exposure Smokeless tobacco non-user [facility] Start: 10-22-2024 Alcoholic beverage intake Not Asked [facility] Start: 10-22-2024 Alcohol Comment 1-2x monthly [facility] Start: 10-21-2024 Gender identity Identifies as male gender (finding) [facility] Start: 10-21-2024 Sexual orientation Heterosexual (fin jake) [facility] NEGATED: Highlighted rowStart: 05-23-2018 End: 05-23-2018 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 [facility] Work Phone: NEGATED: Highlighted rowStart: 05-23-2018 End: 05-23-2018 Assertion Never smoker [facility] Work Phone: Medical Equipment Procedure Code Equipment Code Equipment Origin al Text Equipment Identifier Dates Biopsy, artery, temporal Ligation clip, metallic ([id number] [facility] Start: 05-27-2022 Goals Date Patient Goal Desired Activity /State Mental Status Date Assessment Result Facility 05-27-2022 Cognitive function Voice/Name [facility] Work Phone: 12-16-2021 Cognitive function Awake;Alert;A ppropriate;Fol lows Commands [facility] Work Phone: Clinical Notes 05-27-2022 to 10-23-2024 Telephone Encounter - Mami Paul LSW - 10/23/2024 11:50 AM EDTTelephone Encounter - Mami Paul LSW - 10/23/2024 11:50 AM EDTPatient Sabrina Worthy MD - 10/22/2024 10:52 AM EDT Note Date & Type Note Facility 10-23-2024 Telephone encounter 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 Sabrina Guzman to address concerns with low vision and community resources. IT APPLICATION ADMINISTRATOR contacted the patient and introduced self and active licensure. Patient identified through . (Marilyn) was also on the call via speaker. 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 Patient has gone to [facility] and purchased a magnifier and a talking watch but has not had formal low vision training. [facility] is more of a social agency that is only open periodically and does not have low vision specialists or vision rehab therapists. Patient reports that he is independent with ADL's/IADL's and is looking for vision aids and training. IT APPLICATION ADMINISTRATOR, patient, and had a lengthy discussion about low vision therapy options. IT APPLICATION ADMINISTRATOR provided education and information on the following choices: [facility] Dr. Velásquez ([facility]) for low vision evaluation. Dr[facility] Ni Lowery [facility] low vision [facility]. Occupational therapy in [facility]. The patient and his decided that going to [facility] ([facility] would be best since they have both low vision clinic, occupational therapy, and orientation and mobility training, and support groups, including case management to help him coordinate services and also apply for financial assistance to help cover the cost of low vision aids and vision rehab training. The patient is also interested in training on devices such as his new iPhone. IT APPLICATION ADMINISTRATOR will facilitate referral to [facility] and will update Dr. Guzman regarding patient choice to come to [facility] for low vision. SW provided contact information and will remain available as a resource and to ensure the patient is receiving vision services. 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 Sabrina Guzman to address concerns with low vision and community resources. IT APPLICATION ADMINISTRATOR contacted the patient and introduced self and active licensure. Patient identified through . (Marilyn) was also on the call via speaker. 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 Patient has gone to [facility] and purchased a magnifier and a talking watch but has not had formal low vision training. [facility] is more of a social agency that is only open periodically and does not have low vision specialists or vision rehab therapists. Patient reports that he is independent with ADL's/IADL's and is looking for vision aids and training. IT APPLICATION ADMINISTRATOR, patient, and had a lengthy discussion about low vision therapy options. IT APPLICATION ADMINISTRATOR provided education and information on the following choices: [facility] Dr. Velásquez ([facility]) for low vision evaluation. Dr. Ni Lowery [facility] low vision [facility]. Occupational therapy in [facility]. The patient and his decided that going to [facility] ([facility]) would be best since they have both low vision clinic, occupational therapy, and orientation and mobility training, and support groups, including case management to help him coordinate services and also apply for financial assistance to help cover the cost of low vision aids and vision rehab training. The patient is also interested in training on devices such as his new iPhone. IT APPLICATION ADMINISTRATOR will facilitate referral to [facility] and will update Dr. Guzman regarding patient choice to come to [facility] for low vision. SW provided contact information and will remain available as a resource and to ensure the patient is receiving vision services. documented in this encounter [facility] 10-22-2024 Instructions Sabrina Guzman MD - 10/22/2024 11:15 AM EDT Low vision occupational therapy can be contacted at: [phone]. documented in this encounter [facility] 10-22-2024 Note Date of Procedure 10/22/2024. [employer] Information Management Liaison: vito. Start time: 9:46 AM. Stop time: 10:07 AM. No Allergies to adhesive bandages Pt stated he had trouble finding all of the fixation lights during testing on OS he said they were all very faint He said he had to imagine where the fixation light was for visual check testing on OS. Reliability Right Eye Borderline. Left Eye Poor (Should not have been performed OS). Interpretation Right Eye Depressed mean deviation. Left Eye Depressed mean deviation. Interval Change Right Eye Worse. Left Eye Worse. Notes Generalized depression both eyes [facility] 10-22-2024 Note Date of Procedure 10/22/2024. [employer] Information Management Liaison: Bina Conde. Start time: 10:34 AM. Stop time: 10:34 AM. NFL Interpretation Right Eye Superior loss, Inferior loss. Left Eye Superior loss, Inferior loss. Ganglion Cell Layer Thickness Right Eye Diffuse loss. Left Eye Diffuse loss (Near diffuse). Interval Change Right Eye Initial. Left Eye Initial. [facility] 10-22-2024 Note Date of Procedure 10/22/2024. [employer] Information Management Liaison: Bina Conde. Start time: 10:34 AM. Stop time: 10:34 AM. Interpretation Right Eye Optic Pallor. Left Eye Optic Pallor. Interval Change Right Eye Initial. Left Eye Initial. [facility] 10-22-2024 Note HNO ID: [id number] Author: SABRINA GUZMAN MD Service: ? Author Type: Physician Type: Progress Notes Filed: 10/22/2024 15:17 Note Text: Rizwan Clifford is a 74 year old right-handed man who presents due to concern for sequential non-arteritic anterior ischemic optic neuropathy. The patient was referred by Dr. Shady Schuster. At initial consultation on October 22, 2024, the patient reported that after having lost the vision in the right eye back in May of 2022 - for which he was diagnosed with non-arteritic anterior ischemic optic neuropathy following unremarkable work up including negative temporal artery biopsy - he experienced new onset painless vision loss in mid April 2024 on the left. It was described as being very foggy. He went to see his referring provider who noted left optic disc edema with heme. The patient denied preceding transient episodes of curtaining of the vision. There was not a showering of flashes or floaters. There was no associated eye pain with or without eye movements. There was no associated headache. The patient denied associated fevers, chills, night sweats at onset, pain with chewing, temporal headache, scalp tenderness, new hip or shoulder pain, or other features of giant cell arteritis (GCA). Inflammatory markers (ESR/CRP) were reportedly negative/normal. There was no preceding illness, concurrent infection, known toxic exposures, etc. The patient denied preceding head trauma. The patient denied additional focal neurologic deficits. Regarding microvascular risk factors, the patient reported a history of borderline hyperlipidemia for which he was on crestor. He noted snoring without prior sleep study. Work up thus far has included neuroimaging and blood work. I did not have the patient's outside imaging available at initial consultation. The patient's ophthalmic history was notable for Epiretinal membrane left eye. The patient's ophthalmic history was otherwise reportedly unremarkable. Thorough review of the patient's medical, family, surgical and social history was performed along with medications, allergies, labs and imaging (if applicable). ASSESSMENT/PLAN: (H47.013) NAION (non-arteritic anterior ischemic optic neuropathy), bilateral (primary encounter diagnosis) (H53.453) Other localized visual field defect, bilateral The patient's initial neuro-ophthalmic exam on 10/22/2024 showed bilateral optic neuropathy. Given his history and exam, certainly could reflect sequential non-arteritic anterior ischemic optic neuropathy. That being said, I did not have the patient's outside imaging available at initial consultation, but that was requested on a disc to be uploaded into our system or to be electronically pushed for personal review from [facility]. I explained that the vision was not likely to improve significantly and that there were currently no evidence-based treatments. The recommendation was that vascular risk factors such as systemic hypertension, hypercholesterolemia, and diabetes were prevented or well controlled in collaboration with their primary care physician - to whom my notes were sent. We also discussed that sleep apnea was a potential risk factor for non-arteritic anterior ischemic optic neuropathy so given the snoring a sleep study through his primary care physician was advised. Phosphodiesterase inhibitor avoidance was also advised. I explained to the patient that there was up to a 30% lifetime risk for developing the same condition in the fellow eye, thereby underscoring the importance of vascular risk factor modification going forward. He had already established with the [facility] and I thought it was worth establishing with our low vision therapy team to help facilitate adaptations to the patient's visual environment going forward, so referral was placed to occupational therapy, whose expertise is greatly appreciated. They can be contacted at: [phone]. I also provided Dr. Urbano's excellent publication on the subject. 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 ER presentation is otherwise advised for any acute onset neurological deficits. Our [facility] same day access clinic can be reached at: [phone]. Sabrina Guzman MD 3:14 PM 10/22/2024 FOR ADMINISTRATIVE PURPOSES ONLY: My impression of this case is based upon an assessment of the patient's subacute on chronic problems listed above that pose a threat to visual and neurologic function. 51 minutes were spent on total patient care on the day of service that includes both finh-ah-fskv and vew-wpgv-vh-face time. This time was separate from any of my time spent completing and interpreting the ancillary testing (such as OCT, fundus photos, visua (more content not included)... [facility] 10-22-2024 History of Presen t illness Narrative Rizwan Clifford is a 74 year old right-handed man who presents due to concern for sequential non-arteritic anterior ischemic optic neuropathy. The patient was referred by Dr. Shady Schuster. At initial consultation on October 22, 2024, the patient reported that after having lost the vision in the right eye back in May of 2022 - for which he was diagnosed with non-arteritic anterior ischemic optic neuropathy following unremarkable work up including negative temporal artery biopsy - he experienced new onset painless vision loss in mid April 2024 on the left. It was described as being very foggy. He went to see his referring provider who noted left optic disc edema with heme. The patient denied preceding transient episodes of curtaining of the vision. There was not a showering of flashes or floaters. There was no associated eye pain with or without eye movements. There was no associated headache. The patient denied associated fevers, chills, night sweats at onset, pain with chewing, temporal headache, scalp tenderness, new hip or shoulder pain, or other features of giant cell arteritis (GCA). Inflammatory markers (ESR/CRP) were reportedly negative/normal. There was no preceding illness, concurrent infection, known toxic exposures, etc. The patient denied preceding head trauma. The patient denied additional focal neurologic deficits. Regarding microvascular risk factors, the patient reported a history of borderline hyperlipidemia for which he was on crestor. He noted snoring without prior sleep study. Work up thus far has included neuroimaging and blood work. I did not have the patient's outside imaging available at initial consultation. The patient's ophthalmic history was notable for Epiretinal membrane left eye. The patient's ophthalmic history was otherwise reportedly unremarkable. Thorough review of the patient's medical, family, surgical and social history was performed along with medications, allergies, labs and imaging (if applicable). ASSESSMENT/PLAN: (H47.013) NAION (non-arteritic anterior ischemic optic neuropathy), bilateral (primary encounter diagnosis) (H53.453) Other localized visual field defect, bilateral The patient's initial neuro-ophthalmic exam on 10/22/2024 showed bilateral optic neuropathy. Given his history and exam, certainly could reflect sequential non-arteritic anterior ischemic optic neuropathy. That being said, I did not have the patient's outside imaging available at initial consultation, but that was requested on a disc to be uploaded into our system or to be electronically pushed for personal review from [facility]. I explained that the vision was not likely to improve significantly and that there were currently no evidence-based treatments. The recommendation was that vascular risk factors such as systemic hypertension, hypercholesterolemia, and diabetes were prevented or well controlled in collaboration with their primary care physician - to whom my notes were sent. We also discussed that sleep apnea was a potential risk factor for non-arteritic anterior ischemic optic neuropathy so given the snoring a sleep study through his primary care physician was advised. Phosphodiesterase inhibitor avoidance was also advised. I explained to the patient that there was up to a 30% lifetime risk for developing the same condition in the fellow eye, thereby underscoring the importance of vascular risk factor modification going forward. He had already established with the [facility] and I thought it was worth establishing with our low vision therapy team to help facilitate adaptations to the patient's visual environment going forward, so referral was placed to occupational therapy, whose expertise is greatly appreciated. They can be contacted at: [phone]. I also provided Dr. Urbano's excellent publication on the subject. 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 ER presentation is otherwise advised for any acute onset neurological deficits. Our [facility] same day access clinic can be reached at: [phone]. Sabrina Guzman MD 3:14 PM 10/22/2024 FOR ADMINISTRATIVE PURPOSES ONLY: My impression of this case is based upon an assessment of the patient's subacute on chronic problems listed above that pose a threat to visual and neurologic function. 51 minutes were spent on total patient care on the day of service that includes both xrqf-gf-otkq and etg-afsk-ah-face time. This time was separate from any of my time spent completing and interpreting the ancillary testing (such as OCT, fundus photos, visual williamson) and sensorimotor exam, if applicable. This time was broken down into: 5 minutes reviewing the patient record before the visit, 15 minutes performing a medically appropriate neuro-ophthalmic history and exam (excluding time spent on the ancillary testing and sensorimotor exam, if applicable), 5 communicating results to the patient/family, 15 minutes counseling / educating the patient, 5 minutes documenting clinical information into the electronic health record of the patient, and 6 minutes coordinating care for the patient. I communicated with Dr. Workman regarding the management of this patient. The assessment and plan were discussed extensively with the patient who was amenable and voiced understanding. documented in this encounter [facility] 05-10-2024 Telephone encounter Note Received faxed office notes from [facility] office of Dr Shady Schuster. Faxed to Dr Guzman and sent for scanning in [employer]. [facility] 05-10-2024 Miscellaneous Notes Received faxed office notes from [facility] office of Dr Shady Schuster. Faxed to Dr Guzman and sent for scanning in [employer]. documented in this encounter [facility] 09-01-2023 Discharge summary Note Date/Time September 01, 2023 9:34am [facility] [address] [place] [address] / REHABILITATION SERVICES DISCHARGE SUMMARY MR#: [id number] Acct: [id number] Name: RIZWAN CLIFFORD Rep #: [id number] : 1950 72 From: Carlos Anderson PT, ATC Referring Dr.: Dr. Jan Alston DO Status: REG RCR Insurance: O MEDICARE SELF PAY INSURANCE Discharge Summary D/C summary: It has been my pleasure to treat RIZWAN CLIFFORD referred by Dr. Jan Alston DO, with the diagnosis of LBP for a total of 9 visit(s). Discharge Date: 09/01/23 Please see the following information for a summary of their discharge status. Subjective Subjective: Pt reports no pain today Pain LBP: Pain Intensity (Out of 10): 0 Overall Improvement % Improvement: 100 Objective Objective/Function: 0/10 LBP L/S ROM is WNL Pt reports no R LE radiculopathy for over a week Pt is I with HEP Goals Goal 1:: Decrease LBP x 50% to aid with IADL's Goal Progress: Goal Met Goal 2:: Increase L/S ROM x 1 grade in all planes to aid with decreasing LBP Goal Progress: Goal Met Goal 3:: Decrease the frequency and intensity of R LE radiculopathy x 50% to aidwith ambulation Goal Progress: Goal Met Goal 4:: I with HEP Goal Progress: Goal Met Plan Plan: Discharge to [facility]P D/C Information d/c sentence: If there are questions or concerns regarding this patient's physical therapy, please feel free to call me at [phone]. Thank you for the referral of thispatient. Sincerely, Carlos Anderson, PT, ATC Balance/Gait/Functional tests Balance/Special Test Scores Oswestry Low Back Score: 3 Improvement % Improvement: 100 <Electronically signed by Carlos Anderson PT, ATC> 09/01/23 0934 CC: Dr. Missy Workman MD; Dr. Jan Alston, ~ [facility] Signed [facility] Work Phone: 1(538) 823-170101-27-2023 Miscellaneous Notes* Telephone Encounter - Elise Florian - 06/03/2022 1:14 PM EST Patient returned call and has been scheduled. * Telephone Encounter - Elise Florian - 06/03/2022 11:28 AM EST Images from the original note were not included. Left message for patient to return call regarding appointment next week in [place]. Waiting tohear back. RE: Referral Received: Yesterday DO Christina Bolivar; Elise Florian Can see next Thurs at Previous Messages ----- Message ----- From: Christina Goodrich Sent: 06/02/2022 1:45 PM EST To: Christoph Zuñiga DO Subject: Referral Following patient is being referred by Dr. Shady Schuster for papilledema and he would like to know if you can see the patient within a week. Patient is closer to [place] if he is able to be seenat that location. You currently have 18 for the day on 06/06 and 19 patients for the day on 06/13 at . Would you be okay with seeing the patient on either of these days. Dr. Schuster's office can becontacted at the following number, . Contact is Kati. Records are being faxed for review. [facility] noteWooProMedica Flower HospitalChief complaint+Reason for visit Narrative* Chief Complaint COUGH, POSITIVE HOME COVID TEST Reason for Visit COVID-19 [facility] Work Phone: Discharge summary Author Dr. Mahoney [facility] May 27, 2022 1:53pm Note Date/Time May 27, 2022 1 :53pm [facility] Medical Records Department [address] [place] [address] Instructions for Home/Discharge Instructions 05/27/22 1352 MR#: [id number] Acct: [id number] Name: RIZWAN CLIFFORD Rep #:[id number] : 1950 71 From: Norman fuller MD PCP: Dr. Missy Workman MD Status:RE G [facility] Discharge Instructions Diet Discharge Diet: No restrictions Activity Discharge Activity: May Shower Lifting Restrictions: Light activity with no heavy lifting for 3-4 days Dressing / Incision Call your doctor if your incision/area has: Continuous Slow Oozing, Sudden Increased Bleeding, Increased Pain/ Swelling, Increased Redness, Foul Smelling Discharge and Swelling at the incision site Call your doctor if you observe: Fever of 101 or Higher Cleanse incision/area with: Soap & Water Follow Up Care Please Follow Up With: Norman Mahoney MD When: Please call to schedule 2 week follow up appointment. [phone] Test Results: Test results from this visit will be discussed in further detail at your follow- up appointment, if applicable. Discharge Plan Admission Attending Provider: Norman Mahoney Primary Care Provider: Missy Workman Instructions Additional Instructions / Restrictions: Alternating ibuprofen and Tylenol for pain Discharge Orders/Prescriptions Prescriptions: No Action prevagen 1 tab PO DAILY pantoprazole 40 mg tablet,delayed release (DR/EC) 40 mg PO DAILY turmeric root extract 500 mg capsule 500 mg PO DAILY prednisone 20 mg tablet 60 mg PO DAILY simvastatin 20 MG tablet 20 mg PO QHS multivitamin with folic acid 1 TABLET tablet 1 tab PO DAILY coenzyme Q10 [CoQ-10] 100 mg capsule 200 mg PO HS Referrals / Follow Up: Missy Workman MD [Primary Care Provider] - Disposition Disposition (needs filled in before D/C Order can be placed): Home, Self Care 05/27/22 1353<Electronically signed by Norman Mahoney MD>Norman Mahoney MD CC: Dr. Missy Workman MD ~ Signed [facility] Work Phone: evaluation noteNo assessment information available [facility] Work Phone: evaluation note* Diagnosis Onset Date Resolution Status Chest pain acute Hyperlipidemia [facility] Work Phone: evaluation note* Diagnosis Onset Date Resolution Status Blurry vision, right eye acu te Change in vision acute Elevated blood pressure read ing in office with diagnosis of hypertension acute Hyperlipidemia chronic Blurry vision, right eye acu te [facility] Work Phone: evaluation note* Diagnosis Onset Date Resolution Status Blurry vision, right eye acu te Change in vision acute Elevated blood pressure read ing in office with diagnosis of hypertension acute Hyperlipidemia chronic Blurry vision, right eye acu te Blurry vision acute [facility] Work Phone: evaluation note* Diagnosis Onset Date Resolution Status Blurry vision, right eye acu te Blurry vision acute Elevated blood pressure read ing in office with diagnosis of hypertension acute Essential hypertension acute Hyperlipidemia [facility] Work Phone: evaluation note* Diagnosis Onset Date Resolution Status Essential hypertension acute Hyperlipidemia chronic [facility] Work Phone: evaluation note* Diagnosis Onset Date Resolution Status Essential hypertension acute Hyperlipidemia chronic [facility] [facility] Work Phone: evaluation note* Diagnosis Onset Date Resolution Status COVID-[address] [facility] Work Phone: evaluation note* Diagnosis NAION (non-arteritic anterior ischemic optic neuropathy), bilateral- Primary Other localized visual field defect, bilateral documented in this encounter [facility]. Mahoney [facility] May 27, 2022 1:47pm Note Date/Time May 27, 2022 1 :47pm [facility] Medical Records Department [address] [place] [address] History & Physical Exam 05/27/22 1346 MR#: [id number] Acct: [id number] Name: RIZWAN CLIFFORD Rep #:[id number] : 1950 71 From: Norman fuller MD PCP: Dr. Missy Workman MD Status:[facility] Location: [place] [address] History and Physical Date of Admission: 05/27/22 Intake Vital Signs ? 05/23/2307:13 Height 5 ft 6 in Weight: 173 lb 6 oz BMI 28.0 BP 152/86 H Blood Pressure Location Lt brachial Position Sitting Respiration 17 Pulse 76 Pulse Source Monitor Temp 97.6 F L Temp Source Temporal Pulse Oximetry (%) 96 Oxygen Delivery Method room air Intake Visit Reasons:?Temperol Artery BX Chief Complaint: temporal artery biopsy Is patient in pain?: No Allergies Penicillins Allergy (Verified 05/23/22 08:16) Unknown Medications simvastatin 20 mg tablet 20 mg PO QHS 12/10/13 [History Confirmed 05/23/22] multivitamin with folic acid 400 mcg tablet 1 tab PO DAILY 12/12/13 [History Confirmed 05/23/22] pantoprazole 40 mg tablet,delayed release 40 mg PO DAILY PRN Gastric Reflux 12/04/19 [History Confirmed 05/23/22] prevagen 1 tab PO DAILY 12/04/19 [History Confirmed 05/23/22] turmeric root extract 500 mg capsule 500 mg PO DAILY 12/02/20 [History Confirmed 05/23/22] coenzyme Q10 100 mg capsule (CoQ-10) 100 mg PO HS 11/25/21 [History Confirmed 05/23/22] prednisone 20 mg tablet 60 mg PO DAILY 05/23/22 [History Confirmed 05/23/22] PFSH Medical History? Basal cell carcinoma GERD (gastroesophageal reflux disease) Hiatal hernia Hyperlipidemia Surgical History? H/O colonoscopy H/O endoscopy H/O rotator cuff surgery History of back surgery History of surgery on upper extremity Family History? Father?? Lung cancerBrother ?? No problems noted. Sister CVA (cerebral vascular accident) ?? ? carotid artery diseaseOther Heart disease Social History? Smoking Status:? Never smoker alcohol intake:? never substance use type:? does not use HPI HPI HPI: Patient is a 71-year-old male here with right vision changes.? Patient was sent here for temporal artery biopsy by ophthalmology.? He was started on steroids. ROS General General: No weight change, appetite, fatigue, colon cancer, breast cancer or weakness HEENT HEENT: No difficulty swallowing, eye injury, eye surgery, swollen glands or hoarseness Endo Endocrine: No thyroid disease, diabetes mellitus, thyroid cancer, Hair loss, heat intolerance or cold intolerance Skin Skin: No rash or changing moles Musc Musculoskeletal: Yes arthritis Cardio Cardiovascular: No murmur, pacemaker, heart disease, atrial fibrillation, high blood pressure, heart attack, heart stent, palpitations, shortness of breat withexertion or chest pain Psych Psychiatric: No depression, anxiety or hearing voices Resp Respiratory: No shortness of breath, No sleep apnea, No cough, No COPD, No asthma, No emphysema and No wheezing Gastro Gastrointestinal: No abdominal pain, No nausea or vomiting, No diarrhea, No constipation, No blood in stool, Yes acid reflux, No hemorrhoids, No ulcers, No gallbladder problem and No black,tarry stools Carlos Hematologic: No blood thinners, No blood disorders, No bleeding, No anemia and No blood clots Neuro Neurologic: No system reviewed and no additional complaints, except as documented, No as per HPI, No abnormal gait, No abnormal hearing, No abnormal movements, No abnormal speech, No behavioral changes, No burning sensations, No confusion, No convulsions, No disequilibrium, No dizziness, No localized weakness, No frequent falls, No headache(s), No lack of coordination, No loss ofvision, No memory loss, No numbness, Yes other visual disturbances, No radicularpain, No restless legs, No sensory deficit, No syncope, No tingling, No tremor(s), No weakness and No other Exam Const General: cooperative Orientation: alert and oriented x3 HENMT Head: normal to inspection Neck Neck: normal visual inspection and full ROM Chest Chest palpation & inspection: normal inspection of the chest Resp Effort & Inspection: normal respiratory effort Auscultation: clear to auscultation bilaterally Cardio Rate: regular rate Rhythm: regular rhythm GI Inspection: non-distended Palpation: soft and nontender Skin General: no rashes or lesions noted Neuro General: patient alert and patient oriented x3 Extrem General: full ROM Psych Appearance: grossly normal Mental Status: mental status grossly normal Assessment and Plan Assessment and Plan (1) Blurry vision, right eye: ?Status:?Acute ?Plan: The patient has been having blurriness of his right eye for about a week and a half.? He was started on steroids and recommended for temporal artery biopsy.? Idiscussed right temporal artery biopsy with the patient in detail.? I discussed the risks including but not limited to bleeding, infection, hematoma formation or bleeding.? I also discussed possibility of nondiagnosis.? Patient understandsall the risks and is willing to proceed.? He will stop his turmeric immediately. Norman Mahoney MD Pager: [facility] [address] [place] [address], [address] [place] [address] Office: I have examined the patient and the H&P has been reviewed. There are no clinicalchanges since date of exam. 05/27/22 1347 <Electronically signed by Norman Mahoney MD> Cosigner Signature (if applicable): CC: Dr. Norman Mahoney MD; Dr. Missy Workman MD~ Signed [facility] Work Phone: Reason for referral (narrative)No reason [facility] referral [facility] Work Phone: Chief Complaint Chief Complaint Description Start Date right thumb finger Preliminary chief co mplaint data, not yet signed by the author as of Instructions Instruction Description Start Date CompletedPatient advised to follow-up with Primary Care Physician for BMI management. Advance Directives No Advanced Directives Records Found Advance Directive Response Recorded Date/ Time Advance Directives No March 01, 2014 6:19am Living Will Yes November 13, 2020 6 :30pm Power of Weeder Thinner Yes November 13, 2020 6:30pm Advance Directive Response Recorded Date/ Time Advance Directives No March 01, 2014 5:19am Living Will Yes November 13, 2020 5 :30pm Power of Weeder Thinner Yes November 13, 2020 5:30pm Advance Directive Response Recorded Date/ Time Name of Medical Power of Weeder Thinner MARILYN GIMENEZ May 24, 2022 2:31pm Advance Directives No March 01, 2014 5:19am Living Will Yes May 24 2:31pm Power of Weeder Thinner Yes May 24, 2022 2:31pm Advance Directive Response Recorded Date/ Time Name of Medical Power of Weeder Thinner MARILYN GIMENEZ May 24, 2022 3:31pm Advance Directives No March 01, 2014 6:19am Living Will Yes May 24 3:31pm Power of Weeder Thinner Yes May 24, 2022 3:31pm Advance Directive Response Recorded Date/ Time Advance Directives No March 01, 2014 6:19am Living Will Yes May 24 3:31pm Power of Weeder Thinner Yes May 24, 2022 3:31pm Advance Directive Response Recorded Date/ Time Advance Directives No March 01, 2014 5:19am Living Will Yes May 24 2:31pm Power of Weeder Thinner Yes May 24, 2022 2:31pm Advance Directive Response Recorded Date/ Time Living Will Yes May 24 3:31pm Do you have a Healthcare Power of Weeder Thinner? Yes May 24, 2022 3:31pm Advance Directives No June 15, 2024 10:26am Assessments There may be information available, but it has not been provided by the sender. Review of System There may be information available, but it has not been provided by the sender. Family History No Family History Records Found Relationship Condition Age at Onset Recorded Date/T lana Not Specified Cardiac disease Unknown father Malignant neoplasm of lung Unknown sister Cerebrovascular accident (CVA) Unknown History of Present Illness There may be information available, but it has not been provided by the sender. Chief Complaint and Reason for Visit Chief Complaint EORDER LABS/ ABDOMIN AL PAIN CALCULUS OF THE KIDNEY Chief Complaint 1 y fu Reason for Visit Chest pain Hyperlipidemia Chief Complaint 1 y fu PREVENTATIVE CP CP Reason for Visit Chest pain Hyperlipidemia Chief Complaint 1 y fu PREVENTATIVE CP CP CP Reason for Visit Chest pain Hyperlipidemia Chief Complaint CP CP CP Chief Complaint 6 M FU ACUTE VISION CHANGE Temperol Artery BX Reason for Visit Blurry vision, right eye Change in vision Elevated blood pressure reading in office with diagnosis of hypertension Hyperlipidemia Blurry vision, right eye Chief Complaint 6 M FU ACUTE VISION CHANGE Temperol Artery BX RT TEMPORAL ARTERY BX RT TEMPORAL ARTERY BX Reason for Visit Blurry vision, right eye Change in vision Elevated blood pressure reading in office with diagnosis of hypertension Hyperlipidemia Blurry vision, right eye Chief Complaint 6 M FU ACUTE VISION CHANGE Temperol Artery BX RT TEMPORAL ARTERY BX RT TEMPORAL ARTERY BX PAPILLEDEMA TEMPORAL BIOPSY 05/27 Reason for Visit Blurry vision, right eye Change in vision Elevated blood pressure reading in office with diagnosis of hypertension Hyperlipidemia Blurry vision, right eye Blurry vision Chief Complaint ACUTE VISION CHANGE Temperol Artery BX RT TEMPORAL ARTERY BX RT TEMPORAL ARTERY BX PAPILLEDEMA TEMPORAL BIOPSY 05/27 3 M FU EORDER E ORDER Reason for Visit Blurry vision, right eye Blurry vision Elevated blood pressure reading in office with diagnosis of hypertension Essential hypertension Hyperlipidemia Chief Complaint EORDER E ORDER EORDER 4 M FU Reason for Visit Essential hypertensi on Hyperlipidemia Chief Complaint EORDER 4 M FU COUGH, POSITIVE HOME COVID TEST Reason for Visit Essential hypertensi on Hyperlipidemia COVID-19 Chief Complaint EORDER- LUMBER SPINE LBP/RX W/ PT Chief Complaint Admit Date 1 y fu November 07, 2024 8:58a m Summary Purpose Additional Source Comments Reason for Visit (unrecogniz ed section and content) Reason For Visit Description New - 1st visit with practice Preliminary reason f or visit data, not yet signed by the author as of right thumb finger Reason Comments Appointment Reason Comments Office notes from [facility] Reason Comments NAION Evaluation Reason Comments Goals (unrecognized section and content) Goals may be documented in a n alternate sectionGoals may be documented in an alternate sectionGoals may be documented in an alternate sectionGoals may be documented in an alternate sectionGoals may be documented in an alternate sectionGoals may be documented in an alternate sectionGoals may be documented in an alternate sectionGoals may be documented in an alternate sectionGoals may be documented in an alternate sectionGoals may be documented in an alternate sectionGoals may be documented in an alternate sectionGoals may be documented in an alternate sectionGoals may be documented in an alternate section Care Teams (unrecognized sec tion and content) Team Status: Active Member Role Status Dates Dr. Missy Workman MD Family Provider Active Dr. Missy Wokrman MD Primary Care Provider Active Team Status: Inactive Member Role Status Dates Dr. Missy Workman MD Primary Care Provider, Referr ing Provider Active Kati Ramsay PA, PA Attending Provider Active Team Status: Inactive Member Role Status Dates Dr. Missy Workman MD Primary Care Provider Active Dr. Norman Mahoney MD Attending Provider Active Dr. Shady Schuster MD Referring Provider Active Team Status: Active Member Role Status Dates Dr. Missy Workman MD Primary Care Provider Active Dr. Stephane Orr MD Attending Provider Active Team Status: Inactive Member Role Status Dates Dr. Missy Workman MD Primary Care Pr ovider, Attending Provider, Referring Provider Active Team Status: Inactive Member Role Status Dates Dr. Missy Workman MD Primary Care Provider Active Dr. Shady Schuster MD Attending Provider Active Team Status: Active Member Role Status Dates Dr. Missy Workman MD Primary Care Provider Active Kati Ramsay PA, PA Attending Provider Active Team Status: Active Member Role Status Dates Dr. Missy Workman MD Primary Care Provider Active Dr. Norman Mahoney MD Attending Pr ovider, Referring Provider, Other Provider Active Team Status: Inactive Member Role Status Dates Dr. Missy Workman MD Primary Care Provider Active Dr. Norman Mahoney MD Attending Provider, Referr ing Provider Active Team Status: Inactive Member Role Status Dates Dr. Missy Workman MD Primary Care Provider Active Kati [place], PA Attending Provider Active Team Status: Inactive Member Role Status Dates Dr. Missy Workman MD Primary Care Provider, Referr ing Provider Active Dr. Norman Mahoney MD Attending Provider Active Team Status: Inactive Member Role Status Dates Dr. Missy Workman MD Primary Care Provider Active Dr. Shady Schuster MD Attending Provider, Referring P linden Active City Council Member Relationship Specialty Start Date End Date Shady Schuster [address] [place] [address] Referring Ophthalmology 06/01/22 Team Status: Active Member Role Status Dates Dr. Missy Workman MD Primary Care Provider Active Dr. Stephane Orr MD Attending Provider Active Kati Ramsay PA, PA Referring Provider Active Team Status: Active Member Role Status Dates Dr. Missy Workman MD Primary Care Pr ovider, Attending Provider, Referring Provider Active Team Status: Inactive Member Role Status Dates Dr. Missy Workman MD Primary Care Provider, Referr ing Provider Active Agusto [place], PA Attending Provider Active Team Status: Inactive Member Role Status Dates Dr. Missy Workman MD Primary Care Provider, Attend ing Provider Active Team Status: Inactive Member Role Status Dates Dr. Missy Workman MD Primary Care Provider Active Dr. Luciano Kelley MD Attending Provider, Referr ing Provider Active Team Status: Inactive Member Role Status Dates Dr. Missy Workman MD Primary Care Provider Active Dr. Jan Alston DO Attending Provider, Referring P linden Active City Council Member Relationship Specialty Start Date End Date Shady Schuster [address] [facility], [place] [address] Referring Ophthalmology 06/01/22 City Council Member Relationship Specialty Start Date End Date Missy Workman MD [address] [facility] [address] [place], [place] [id number] PCP - General Family Medicine 10/22/24 Shady Schuster [address] [facility], [place] [address] Referring Ophthalmology 06/01/22 City Council Member Relationship Specialty Start Date End Date Missy Workman MD [address] [facility] [address] [place], [place] [address] PCP - General Family Medicine 10/22/24 Shady Schuster [address] [facility], [place] [address] Referring Ophthalmology 06/01/22 Team Status: Active Member Role/Relationship Status Dates Dr. Missy Workman MD Primary Care Provider Active Team Status: Inactive Member Role/Relationship Status Dates Dr. Missy Workman MD Primary Care Provider Active Start: November 07, 2024 End: November 07, 2024 Dr. Missy Workman MD Referring Provider Active Start: November 07, 2024 End: November 07, 2024 Dr. Jordon Benavides MD Attending Provider Active S tart: November 07, 2024 End: November 07, 2024 Source Comments (unrecognize d section and content) In the event this informatio n is protected by the Federal Confidentiality of Alcohol and Drug Abuse Patient Records regulations: The Federal rules restrict any use of the information to criminally investigate or prosecute any alcohol or drug abuse patient.[facility] the event this information is protected by the Federal Confidentiality of Alcohol and Drug Abuse Patient Records regulations: The Federal rules restrict any use of the information to criminally investigate or prosecute any alcohol or drug abuse patient.[facility] HospitalIn the event this information is protected by the Federal Confidentiality of Alcohol and Drug Abuse Patient Records regulations: The Federal rules restrict any use of the information to criminally investigate or prosecute any alcohol or drug abuse patient.[facility] HospitalIn the event this information is protected by the Federal Confidentiality of Alcohol and Drug Abuse Patient Records regulations: The Federal rules restrict any use of the information to criminally investigate or prosecute any alcohol or drug abuse patient.[facility] (unrecognized sect ion and content) No Status Records FoundNo Status Records FoundNo Status Records Found INFORMATION SOURCE (unrecogn ized section and content) DATE CREATED AUTHOR 02/21/2024 [facility] DATE CREATED AUTHOR AUTHOR'S ORGANIZ ATION 12/20/2024 [facility] DATE CREATED AUTHOR AUTHOR'S ORGANIZ ATION 03/14/2025 [facility] FOR RECORDS PERTAINING TO PATIENTS WHO ARE [...] BE BASED ON THE PRIMARY CLINICAL RECORDS. [facility] [employer] [facility]. provides no warranty or guarantee of the accuracy or completeness of information in this document.
== END | disposition home or self-care (01) ==
PROVIDERS: PCP Family Medicine; Referring Provider Internal Medicine Gastroenterology; Visit Provider Internal Medicine Gastroenterology
DX: K21.9 Gastro-esophageal reflux disease without esophagitis (principal)
CPT/HCPCS: 74221

== ENCOUNTER → 2025-04-16 | Outpatient (CLI) | payer MEDICARE, SELFPAY ==
[2025-04-16 10:25] LABS: Hematocrit 45.7 % (40-54); Hemoglobin 15.2 g/dL (13.0-16.5); Immature Granulocytes Count 0.010 X10^3/uL (0.0-0.0); Mean Corp Hgb Conc 33.3 g/dL (32-36); Mean Corpuscular Volume 96.2 fL (80-94); Mean Platelet Vol. 11.6 fl (6.2-12.0); NRBC Flagged by Analyzer 0 % (0-5); Platelet Count 103 K/mm3 (150-450); RBC Distribution Width CV 11.6 % (11.6-14.6); RBC Distribution Width SD 41.4 fl (35.1-43.9); Red Blood Count 4.75 M/mm3 (4.6-6.2); White Blood Count 5.3 K/mm3 (4.4-11.0)
[2025-04-16 13:05] LABS: AST(SGOT) 26 U/L (<=37); Alanine Aminotransfer ALT/SGPT 26 U/L (<=46); Albumin, Serum 4.4 g/dL (3.4-4.8); Alkaline Phosphatase 51 U/L (40-129); Anion Gap 12 (5-15); BUN 20 mg/dL (4-19); BUN/Creat Ratio 17.4 RATIO (10-20); Calcium,Total 9.6 mg/dL (7.6-11.0); Carbon Dioxide 25.3 mmol/L (21.0-32.0); Chloride 102 mmol/L (98-108); Globulin 2.6 g/dL (2.2-4.2); Glucose 86 mg/dL (70-99); Potassium 4.3 mmol/L (3.3-5.1)
== END | disposition home or self-care (01) ==
LOC: MFPLAB 09:08
PROVIDERS: PCP Family Medicine; Visit Provider Family Medicine
DX: R42 Dizziness and giddiness (principal)
CPT/HCPCS: 36415; 80053; 85025

== ENCOUNTER → 2025-04-23 | Outpatient (CLI) | payer MEDICARE, SELFPAY ==
--- NOTE | 2025-04-23 09:51 | CDU_ITS ---
Reason For Study Reason For Study: Suncope Rt. Velocities/BP Lt. Velocities/BP Prox CCA 58.9/14.5 cm/sec. Prox CCA 63.1/13.3 cm/sec. Mid CCA 61.7/15.4 cm/sec. Mid CCA 57.8/17.7 cm/sec. Dist CCA 68.3/20.1 cm/sec. Dist CCA 50/16.8 cm/sec. Prox ICA 55.2/18.6 cm/sec. Prox ICA 45.6/16 cm/sec. Mid ICA 59.6/19.5 cm/sec. Mid ICA 64.8/23.8 cm/sec. Dist ICA 41.3/14.2 cm/sec. Dist ICA 43/16.8 cm/sec. Rt. ICA/CCA = 0.97. Lt. ICA/CCA = 1.12. Prox ECA 49.4/7.8 cm/sec. Prox ECA 61.3/10.7 cm/sec. Rt. Vert. 53.5/18.6 cm/sec. Lt. Vert. 45.6/16 cm/sec. Right Extracranial There is intimal thickening but no significant atherosclerotic plaque noted in the right common carotid artery. There is heterogeneous, irregular atherosclerotic plaque noted in the right internal carotid artery. There is intimal thickening but no significant atherosclerotic plaque noted in the right external carotid artery. Antegrade flow is noted in the right vertebral artery. Left Extracranial There is intimal thickening but no significant atherosclerotic plaque noted in the left common carotid artery. There is heterogeneous, irregular atherosclerotic plaque noted in the left internal carotid artery. The left internal carotid artery is very tortuous. There is intimal thickening but no significant atherosclerotic plaque noted in the left external carotid artery. Antegrade flow is noted in the left vertebral artery. Procedure Carotid Duplex 42641. This is a Carotid Duplex examination using B-mode, color flow and specral Doppler. Exam performed in department. VL/Carotid Duplex Ultrasound Interpretation Summary Mild (<50%) stenosis right extracranial internal carotid. Mild (<50%) stenosis left extracranial internal carotid. Flow within the vertebral arteries is antegrade bilaterally. Ordering Physician: Danilo Norman Referring Physician: Taras Workman Performed By: Siobhan Singh RVT
== END | disposition home or self-care (01) ==
PROVIDERS: PCP Family Medicine; Referring Provider Otolaryngology Otolaryngology/Facial Plastic Surgery; Visit Provider Otolaryngology Otolaryngology/Facial Plastic Surgery
DX: R55 Syncope and collapse (principal); R27.0 Ataxia, unspecified
CPT/HCPCS: 93880

== ENCOUNTER → 2025-04-28 | Outpatient (CLI) | payer MEDICARE, SELFPAY ==
[2025-04-28 15:50] LABS: PSA,Total - Annual Screen 3.05 ng/mL (0.02-4.00)
--- OUTSIDE RECORDS SUMMARY | 2025-04-28 19:06 | XMS RPT_ITS | CCD ---
Author Organization [facility] Care Team Providers Care Medical Affairs Manager Name Role Phone Humberto BROWER, Missy Bonilla Unavailable 1([facility])[phone] Missy Workman Primary Care Provider 1([facility] )[phone] Dr. Missy Workman Referring Provider 1([facility])[phone] Dr. Jordon Benavides Attending Provider 1([facility])-[phone] Stephane Orr Attending Provider 1([facility]) [phone] Dr. Jordon Benavides Other Provider Dr. Missy Workman Primary Care Provider 1([facility] )[phone] Dr. Missy Workman Referring Provider 1([facility])[phone] Dr. Jordon Benavides Attending Provider 1([facility])-[phone] Stephane Orr Attending Provider 1([facility])-[phone] Jordon Benavides Other Provider Dr. Missy Workman Primary Care Provider 1([facility] )[phone] Dr. Jordon Benavides Attending Provider 1([facility])[phone] Missy Workman Primary Care Provider 1([facility] )[phone] Dr. Missy Workman Referring Provider 1([facility])[phone] [place], [place] Kati Garcia Attending Provider Dr. Stephane Orr Attending Provider 1([facility])-[phone] Norman Mahoney Attending Provider 1([facility] )[phone] Dr. Shady Schuster Referring Provider 1([facility])[phone] Dr. Norman Mahoney Referring Provider 1([facility] )[phone] Dr. Norman Mahoney Other Provider Shady Schuster [...] Workman Primary Care Provider [phone] Dr. Misys Workman Referring Provider CELSO Escobar Attending Provider Dr. Missy Wokrman Primary Care Provider [phone] Dr. Missy Workman Referring Provider CELSO Escobar Attending Provider CELSO Anders Attending Provider Dr. Missy Workman Primary Care Provider [phone] Dr. Missy Workman Referring Provider ANDERSON TAIN DO Primary Care Unavailshirin e ASMITA DO~[phone], ASMITA Robertson Attendi ng Unavailable ASMITA DO~[phone], ASMITA Robertson Admitti ng Unavailable Missy Workman MD Primary Care Provider Dr. Missy Workman MD Primary Care Provider Dr. Missy Workman MD Referring Provider [phone] Knenedy BROWER, Dr. Ruvalcaba Attending Provider [phone] SHADY SCHUSTER Referring Unavailable SABRINA GZUMAN Attending Unavailable SCHINNER, MISSY E Primary Care [...] (1 source) Penicillin Drug Allergy 9 rash/hives [facility] Work Phone: (15 sources) Penicillins; Translations: [PENICILLINS] Allergy to substance 9 Unknown [facility] (2 sources) Penicillins Drug Allergy 9 Rash, Unknown [facility] (7 sources) Lisinopril Drug Allergy 3 Cough, Dizziness [facility] (2 sources) Penicillins Drug Allergy 9 Rash, Unknown [facility] Work Phone: (1 source) Lisinopril Drug Allergy 5 [facility] (1 source) Penicillins Drug allergy (disorder) 5 [facility] Medications Current Medications Medication Drug Class(es) Dates Sig (Normalized) Sig (Original) aspirin 81 mg delayed release oral tablet (9 sources) Platelet Aggregation Inhibitor, Nonsteroidal Anti-inflammatory Drug Start: 08-08-2022 take 1 tablet by mouth once daily Aspirin (Adult Aspirin Regimen) 81 mg tablet,delayed release (DR/EC) Active 81 mg PO DAILY August 08, 2022 12:00am [facility] benoxinate hydrochloride 4 mg/ml / [...] PLUS ORAL) Take by mouth. 05/18/2018 Active Rockford-3 1,050 mg, Fish Oil, 1,050-1,200 mg cap (2 sources) Start: 05-11-2024 Rockford-3 1,050 mg, Fish Oil, 1,050-1,200 mg cap [...] 1 tablet daily as needed PANTOPRAZOLE SODIUM [id number] Missy Paul MD phenylephrine hydrochloride 25 mg/ml [...] SILVER TABS 1 tablet daily MULTIPLE VITAMINS-MINERALS [id number] Brea Neal CAR FILLER simvastatin 20 mg oral tablet (20 sources) [...] Interpretation Reference Range Facility SP/HP.SPHuong 03-05-2025 SP/HP.SPIZABEL [facility] [address] [place] [address]. [address] [place] [address] / REHABILITATION SERVICES INITIAL EVALUATION MR#: [id number] Acct: [id number] Name: RIZWAN CLIFFORD Rep #: [id number] : 1950 74 From: Suyapa Fontanez M.S., CCC-IP [place] Referring Dr.: Dr. 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 Pt arrived to [facility] with his , but attended the evaluation [...] current prescribed condition?: No Personal Preferred language: Tanzanian Patient Allergies Allergies Allergies: Allergies Penicillins Allergy [...] 03/04/25 16:03 Speech Therapy by Mecca Jon [facility] Speech Pathology [address] [place] [address] Modified Barium Swallow Study MR#: [id number] Acct: [id number] Name: RIZWAN CLIFFORD Rep #: [id number] : 1950 74 From: Brea Prater M.A., [facility]-IP [place] Modified Barium Swallow Patient Information Study Date: [...] Oxygenating on (more content not included)... Normal [facility] Modified Barium Swallow Stud yon 02-04-2025 Modified Barium Swallow Study [facility] Speech Pathology [address] [place] [address] Modified Barium Swallow Study MR#: [id number] Acct: [id number] Name: RIZWAN CILFFORD Rep #: [id number] : 1950 74 From: Brea Prater M.A., [facility]-IP [place] Modified Barium Swallow Patient Information Study Date: [...] cup: Result: 1= does not enter airway [place] Thick Liquid via large single sip: cup: [...] Opening: Parit (more content not included)... Normal [facility] Cardiology Visit Reporton Cardiology Visit Report [facility] [address] [place] [address] OFFICE VISIT Date of Service: 11/07/24 MR#: [id number] Acct: [id number] Name: RIZWAN CLIFFORD Rep #: [id number] : 1950 Provider: Dr. 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 Normal [facility] 10-23-2024 [facility] Telephone (OPHTMN) ---- RIZWAN CLIFFORD ([id number]) 1950 M Date Time Provider Department 10/23/[address] 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 Sabrina Guzman to address concerns with low vision and community resources. PROCEDURES TECH contacted the patient and introduced self and active licensure. Patient identified through . (Marilyn) was also on the call via speaker. 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 Patient has gone to [facility] and purchased a magnifier and a talking watch but has not had formal low vision training. [facility] is more of a social agency that is only open periodically and does not have low vision specialists or vision rehab therapists. Patient reports that he is independent with ADL's/IADL's and is looking for vision aids and training. PROCEDURES TECH, patient, and had a lengthy discussion about low vision therapy options. PROCEDURES TECH provided education and information on the following choices: [facility] Dr. Velásquez ([facility]) for low vision evaluation. Dr. Ni Lowery [facility] low vision [facility]. Occupational therapy in [facility]. The patient and his decided that going to [facility] ([facility] would be best since they have both low vision clinic, occupational therapy, and orientation and mobility training, and support groups, including case management to help him coordinate services and also apply for financial assistance to help cover the cost of low vision aids and vision rehab training. The patient is also interested in training on devices such as his new iPhone. PROCEDURES TECH will facilitate referral to [facility] and will update Dr. Guzman regarding patient choice to come to [facility] for low vision. SW provided contact information and will remain available as a resource and to ensure the patient is receiving vision services. Mami Paul LSW 12/18/2024 3:44 PM Signed PROCEDURES TECH keeps logging in to patient record to try to access [facility]. JULI Ledezma piano case and bench assembler is requesting. PROCEDURES TECH has given Susan the number to contact medical records as there seems to be a problem with PROCEDURES TECH and connection to [employer]. Allergies As of Date: 10/23/2024 Noted Allergy Reaction PENICILLINS 05/18/2018 2 - Rash 16 - Unknown Date Reviewed: 10/22/2024 Reviewed by: Sabrina Guzman MD - Fully Assessed Reason for Visit: Social Work Consultation [[id number]] Prescriptions as of 12/18/2024 - donepezil (ARICEPT) 5 mg tablet Take 5 mg by mouth every morning. - aspirin, enteric coated ([facility] ASPIRIN) 81 mg EC tablet - turmeric root extract (CURICA TURMERIC) 300 mg cap - ubidecarenone/vitam in E mixed (COQ10 SG 100 ORAL) - rosuvastatin (CRESTOR) 40 mg tablet Take 1 tablet by mouth once daily. - Rockford-3 1,050 mg, Fish Oil, 1,050-1,200 mg cap [...] Status:Closed by MAMI PAUL on 10/23/24 Normal [facility] OCT OPTIC NERVE CIRRUS OU (B OTH EYES)on 10-22-2024 [facility] Radiology Study observation (narrative) [facility] OPTIC DISC PHOTO OU (BOTH EY ES)on 10-22-2024 [facility] Radiology Study observation (narrative) [facility] VISUAL FIELD 24-2 OU (BOTH E YES)on 10-22-2024 [facility] Radiology Study observation (narrative) [facility] Urgent Care Visit Reporton 0 06-15-2024 Urgent Care Visit Report [facility] [address] , [address] [place] [address] OFFICE VISIT Date of Service: 06/15/24 MR#: [id number] Acct: [id number] Name: RIZWAN CLIFFORD Rep #: [id number] : 1950 Provider: MARGARITA Saldana Age/Sex: 73/M Location: [facility] Status: Signed Intake [...] drainage and now its in his chest. [facility] Medical History Essential hypertension Wears glasses [...] prescribed antibiotics (more content not included)... Normal [facility] Basic Metabolic Profile (BMP )on 05-17-2024 BUN/CRE 16.2 RATIO Normal 02-24 [facility] Comment on above: Order Comment: Order Date: 05/17/24Order Info: 666-05 - BMPOrder Info: 787-05 - LIVEROrder Info: - LIPIDOrder Info: [id number] - MGOrder Info: 3016-3 - TSH Performed By: #### L 501.9520, L500.4100, L500.3400, L501.5200, L100.0100, L500.2500 ####[facility] [address] [place], [address] CA,Total 9.1 mg/dL Normal 8.5-10.1 [facility] Comment on above: Order Comment: Order Date: 05/17/24Order Info: 666-05 - BMPOrder Info: 787-05 - LIVEROrder Info: - LIPIDOrder Info: [id number] - MGOrder Info: 3016-3 - TSH Performed By: #### L 501.9520, L500.4100, L500.3400, L501.5200, L100.0100, L500.2500 ####[facility] [address] [place], [address] Chloride [Moles/Vol] 103 mmol/L Normal 98-107 [facility] Comment on above: Order Comment: Order Date: 05/17/24Order Info: 666-05 - BMPOrder Info: 787-05 - LIVEROrder Info: - LIPIDOrder Info: [id number] - MGOrder Info: 3016-3 - TSH Performed By: #### L 501.9520, L500.4100, L500.3400, L501.5200, L100.0100, L500.2500 ####[facility] [address] [place], [address] CO2 [Moles/Vol] 31.0 mmol/L Normal 21.0-32.0 [facility] Comment on above: Order Comment: Order Date: 05/17/24Order Info: 666-05 - BMPOrder Info: 787-05 - LIVEROrder Info: - LIPIDOrder Info: [id number] - MGOrder Info: [id number] - TSH Performed By: #### L 501.9520, L500.4100, L500.3400, L501.5200, L100.0100, L500.2500 ####[facility] [address] [place], [address] Creatinine [Mass/Vol] 1.05 mg/dL Normal 0.70-1.30 [facility] Comment on above: Order Comment: Order Date: 05/17/24Order Info: 666- - BMPOrder Info: 787-05 - LIVEROrder Info: - LIPIDOrder Info: [id number] - MGOrder Info: 3015-07 - TSH Result Comment: The validity of the calculated GFR GFRAA in patients over 70 years has not been determined. Clinical correlation is essential. Performed By: #### L 501.9520, L500.4100, L500.3400, L501.5200, L100.0100, L500.2500 ####[facility] [address] [place], [address] EST GFR - AA 89 mL/min Normal >60 [facility] Comment on above: Order Comment: Order Date: 05/17/24Order Info: 666-05 - BMPOrder Info: 787-05 - LIVEROrder Info: - LIPIDOrder Info: [id number] - MGOrder Info: [id number] - TSH Result Comment: Afri can Jamaican GFR Calc Performed By: #### L 501.9520, L500.4100, L500.3400, L501.5200, L100.0100, L500.2500 ####[facility] [address] [place], [address] GAP 3 Low 5-15 [facility] Comment on above: Order Comment: Order Date: 05/17/24Order Info: 666-05 - BMPOrder Info: 787-05 - LIVEROrder Info: [id number] - LIPIDOrder Info: [id number] - MGOrder Info: 3015-07 - TSH Performed By: #### L 501.9520, L500.4100, L500.3400, L501.5200, L100.0100, L500.2500 ####[facility] [address] [place], [address] GFR/1.73 sq M.predicted among non-blacks MDRD (S/P/Bld) [Vol rate/Area] 74 mL/min/{1.73_m2} Normal >60 [facility] Comment on above: Order Comment: Order Date: 05/17/24Order Info: 666-05 - BMPOrder Info: 787-05 - LIVEROrder Info: - LIPIDOrder Info: - MGOrder Info: [id number] - TSH Result Comment: Non- GFR Calc Performed By: #### L 501.9520, L500.4100, L500.3400, L501.5200, L100.0100, L500.2500 ####[facility] [address] [place], [address] Glucose [Mass/Vol] 86 mg/dL Normal 74-106 [facility] Comment on above: Order Comment: Order Date: 05/17/24Order Info: 666-05 - BMPOrder Info: 787-05 - LIVEROrder Info: - LIPIDOrder Info: - MGOrder Info: [id number] - TSH Performed By: #### L 501.9520, L500.4100, L500.3400, L501.5200, L100.0100, L500.2500 ####[facility] [address] [place], [address] Potassium [Moles/Vol] 4.1 mmol/L Normal 3.5-5.1 [facility] Comment on above: Order Comment: Order Date: 05/17/24Order Info: 666-05 - BMPOrder Info: 787-05 - LIVEROrder Info: [id number] - LIPIDOrder Info: - MGOrder Info: [id number] - TSH Performed By: #### L 501.9520, L500.4100, L500.3400, L501.5200, L100.0100, L500.2500 ####[facility] [address] [place], [address] Sodium [Moles/Vol] 137 mmol/L Normal 136-145 [facility] Comment on above: Order Comment: Order Date: 05/17/24Order Info: 67-1 - BMPOrder Info: 88- - LIVEROrder Info: [id number] - LIPIDOrder Info: [id number] - MGOrder Info: 3 - TSH Performed By: #### L 501.9520, L500.4100, L500.3400, L501.5200, L100.0100, L500.2500 ####[facility] [address] [place], [place], [address] Urea nitrogen [Mass/Vol] 17 mg/dL Normal 7-18 [facility] Comment on above: Order Comment: Order Date: 05/17/24Order Info: 06- - BMPOrder Info: 787- - LIVEROrder Info: [id number] - LIPIDOrder Info: [id number] - MGOrder Info: 3 - TSH Performed By: #### L 501.9520, L500.4100, L500.3400, L501.5200, L100.0100, L500.2500 ####[facility] [address] [place], [address] CBC W/Diff, Automatedon 05-08 0-2024 Absolute Lymph 1.73 X10 3/uL Normal 0.83-4.51 [facility] Comment on above: Order Comment: Order Date: 05/17/24Order Info: 0184-1 - CBCD Performed By: #### L 501.9520, L500.4100, L500.3400, L501.5200, L100.0100, L500.2500 ####[facility] [address] [place], [address] Absolute Neut 2.9 X10 3/uL Normal 2.0-7.7 [facility] Comment on above: Order Comment: Order Date: 05/17/24Order Info: 0184-1 - CBCD Performed By: #### L 501.9520, L500.4100, L500.3400, L501.5200, L100.0100, L500.2500 ####[facility] [address] [place], [address] Basophils/100 WBC (Bld) 0.6 % Normal 0-1 [facility] Comment on above: Order Comment: Order Date: 05/17/24Order Info: 0184-1 - CBCD Performed By: #### L 501.9520, L500.4100, L500.3400, L501.5200, L100.0100, L500.2500 ####[facility] [address] [place], [address] Eosinophils/100 WBC (Bld) 2.0 % Normal 0-5 [facility] Comment on above: Order Comment: Order Date: 05/17/24Order Info: 0184-1 - CBCD Performed By: #### L 501.9520, L500.4100, L500.3400, L501.5200, L100.0100, L500.2500 ####[facility] [address] [place], [address] Erythrocyte distribution width (RBC) [Ratio] 11.8 % Normal 11.6-14.6 [facility] Comment on above: Order Comment: Order Date: 05/17/24Order Info: 0184-1 - CBCD Performed By: #### L 501.9520, L500.4100, L500.3400, L501.5200, L100.0100, L500.2500 ####[facility] [address] [place], [address] Hematocrit (Bld) [Volume fraction] 42.5 % Normal 40-54 [facility] Comment on above: Order Comment: Order Date: 05/17/24Order Info: 0184-1 - CBCD Performed By: #### L 501.9520, L500.4100, L500.3400, L501.5200, L100.0100, L500.2500 ####[facility] [address] [place], [address] Hemoglobin (Bld) [Mass/Vol] 14.3 g/dL Normal 13.0-16.5 [facility] Comment on above: Order Comment: Order Date: 05/17/24Order Info: 0184-1 - CBCD Performed By: #### L 501.9520, L500.4100, L500.3400, L501.5200, L100.0100, L500.2500 ####[facility] [address] [place], [address] IG% 0.400 Normal 0.0-0.9 [facility] Comment on above: Order Comment: Order Date: 05/17/24Order Info: 0184-1 - CBCD Result Comment: IG% - Immature Granulocytes (promyelocytes, myelocytes and metamyelocytes) > 1% indicates that a LEFT SHIFT is Present. Performed By: #### L 501.9520, L500.4100, L500.3400, L501.5200, L100.0100, L500.2500 ####[facility] [address] [place], [address] Lymphocytes/100 WBC (Bld) 33.9 % Normal 19-41 [facility] Comment on above: Order Comment: Order Date: 05/17/24Order Info: 0184-1 - CBCD Performed By: #### L 501.9520, L500.4100, L500.3400, L501.5200, L100.0100, L500.2500 ####[facility] [address] [place], [address] MCH (RBC) [Entitic mass] 31.9 pg Normal 27.0-32.0 [facility] Comment on above: Order Comment: Order Date: 05/17/24Order Info: 0184-1 - CBCD Performed By: #### L 501.9520, L500.4100, L500.3400, L501.5200, L100.0100, L500.2500 ####[facility] [address] [place], [address] MCHC (RBC) [Mass/Vol] 33.6 g/dL Normal 32-36 [facility] Comment on above: Order Comment: Order Date: 05/17/24Order Info: 0184-1 - CBCD Performed By: #### L 501.9520, L500.4100, L500.3400, L501.5200, L100.0100, L500.2500 ####[facility] [address] [place], [address] MCV (RBC) [Entitic vol] 94.9 fL High 80-94 [facility] Comment on above: Order Comment: Order Date: 05/17/24Order Info: 0184-1 - CBCD Performed By: #### L 501.9520, L500.4100, L500.3400, L501.5200, L100.0100, L500.2500 ####[facility] [address] [place], [address] Monocytes/100 WBC (Bld) 7.2 % Normal 0-10 [facility] Comment on above: Order Comment: Order Date: 05/17/24Order Info: 0184-1 - CBCD Performed By: #### L 501.9520, L500.4100, L500.3400, L501.5200, L100.0100, L500.2500 ####[facility] [address] [place], [address] Neutrophils/100 WBC (Bld) 55.9 % Normal 47-70 [facility] Comment on above: Order Comment: Order Date: 05/17/24Order Info: 0184-1 - CBCD Performed By: #### L 501.9520, L500.4100, L500.3400, L501.5200, L100.0100, L500.2500 ####[facility] [address] [place], [address] Nucleated RBC (Bld) [#/Vol] 0 10*3/uL Normal 0-5 [facility] Comment on above: Order Comment: Order Date: 05/17/24Order Info: 0184-1 - CBCD Performed By: #### L 501.9520, L500.4100, L500.3400, L501.5200, L100.0100, L500.2500 ####[facility] [address] [place], [address] Platelet mean volume (Bld) [Entitic vol] 11.7 fL Normal 6.2-12.0 [facility] Comment on above: Order Comment: Order Date: 05/17/24Order Info: 0184-1 - CBCD Performed By: #### L 501.9520, L500.4100, L500.3400, L501.5200, L100.0100, L500.2500 ####[facility] [address] [place], [address] Platelets (Bld) [#/Vol] 135 10*3/uL Low 150-450 [facility] Comment on above: Order Comment: Order Date: 05/17/24Order Info: 0184-1 - CBCD Performed By: #### L 501.9520, L500.4100, L500.3400, L501.5200, L100.0100, L500.2500 ####[facility] [address] [place], [address] RBC (Bld) [#/Vol] 4.48 10*6/uL Low 4.6-6.[address] [facility] Comment on above: Order Comment: Order Date: 05/17/24Order Info: 0184-1 - CBCD Performed By: #### L 501.9520, L500.4100, L500.3400, L501.5200, L100.0100, L500.2500 ####[facility] [address] [place], [address] RDW SD 40.6 fl Normal 35.1-43.9 [facility] Comment on above: Order Comment: Order Date: 05/17/24Order Info: 0184-1 - CBCD Performed By: #### L 501.9520, L500.4100, L500.3400, L501.5200, L100.0100, L500.2500 ####[facility] [address] [facility] [place], [address] WBC (Bld) [#/Vol] 5.1 10*3/uL Normal 4.4-11.0 [facility] Comment on above: Order Comment: Order Date: 05/17/24Order Info: 0184- - CBCD Performed By: #### L 501.9520, L500.4100, L500.3400, L501.5200, L100.0100, L500.2500 ####[facility] [address] [place], [address] Lipid Profileon 05-17-2024 Cholesterol [Mass/Vol] 140 mg/dL Normal 200 [facility] Comment on above: Order Comment: Order Date: 05/17/24Order Info: 0667-1 - BMPOrder Info: 0788-1 - LIVEROrder Info: [id number] - LIPIDOrder Info: 71849-5 - MGOrder Info: 3016-3 - TSH Result Comment: <200 mg/dL Desirable 200-240 mg/dL Borderline >240 mg/dL High Risk Performed By: #### L 501.9520, L500.4100, L500.3400, L501.5200, L100.0100, L500.2500 ####[facility] [address] [place], [address] Cholesterol in HDL [Mass/Vol] 59 mg/dL Normal [facility] Comment on above: Order Comment: Order Date: 05/17/24Order Info: 666-05 - BMPOrder Info: 787-05 - LIVEROrder Info: [id number] - LIPIDOrder Info: [id number] - MGOrder Info: 3016-3 - TSH Result Comment: The drugs N-Acetylcysteine and Metamizole may falsely depress this assay. Reference Range HDL <40 mg/dL Low HDL Cholesterol HDL >or= 60 mg/dL High HDL Cholesterol Performed By: #### L 501.9520, L500.4100, L500.3400, L501.5200, L100.0100, L500.2500 ####[facility] [address] [place], [address] Cholesterol in LDL [Mass/Vol] 70 mg/dL Normal 0-130 [facility] Comment on above: Order Comment: Order Date: 05/17/24Order Info: 666-05 - BMPOrder Info: 787-05 - LIVEROrder Info: - LIPIDOrder Info: [id number] - MGOrder Info: 3016-3 - TSH Performed By: #### L 501.9520, L500.4100, L500.3400, L501.5200, L100.0100, L500.2500 ####[facility] [address] [place], [address] Cholesterol in VLDL [Mass/Vol] 11 mg/dL Normal 5-40 [facility] [facility] Comment on above: Order Comment: Order Date: 05/17/24Order Info: 666-05 - BMPOrder Info: 787-05 - LIVEROrder Info: - LIPIDOrder Info: [id number] - MGOrder Info: 3016-3 - TSH Performed By: #### L 501.9520, L500.4100, L500.3400, L501.5200, L100.0100, L500.2500 ####[facility] [address] [place], [address] Triglyceride [Mass/Vol] 53 mg/dL Normal [facility] Comment on above: Order Comment: Order Date: 05/17/24Order Info: 666-05 - BMPOrder Info: 787-05 - LIVEROrder Info: [id number] - LIPIDOrder Info: [id number] - MGOrder Info: 3016-3 - TSH Result Comment: The drugs N-Acetylcysteine and Metamizole may falsely depress this assay. Serum Triglycerides Reference Interval Normal <150 mg/dL Borderline high 150 - 199 mg/dL High 200 - 499 mg/dL Very High > or = 500 mg/dL Performed By: #### L 501.9520, L500.4100, L500.3400, L501.5200, L100.0100, L500.2500 ####[facility] [address] [place], [place], [address] Liver Profileon 05-17-2024 Albumin [Mass/Vol] 3.6 g/dL Normal 3.2-5.0 [facility] Comment on above: Order Comment: Order Date: 05/17/24Order Info: 666-05 - BMPOrder Info: 787-05 - LIVEROrder Info: [id number] - LIPIDOrder Info: - MGOrder Info: 3016-3 - TSH Performed By: #### L 501.9520, L500.4100, L500.3400, L501.5200, L100.0100, L500.2500 ####[facility] [address] [place], [place], [address] ALK P 52 U/L Normal 45-117 [facility] Comment on above: Order Comment: Order Date: 05/17/24Order Info: 666-05 - BMPOrder Info: 787-05 - LIVEROrder Info: [id number] - LIPIDOrder Info: [id number] - MGOrder Info: 3016-3 - TSH Performed By: #### L 501.9520, L500.4100, L500.3400, L501.5200, L100.0100, L500.2500 ####[facility] [address] [place], [address] ALT [Catalytic activity/Vol] 32 U/L Normal 16-61 [facility] Comment on above: Order Comment: Order Date: 05/17/24Order Info: 666- - BMPOrder Info: 88-1 - LIVEROrder Info: [id number] - LIPIDOrder Info: [id number] - MGOrder Info: 3016-3 - TSH Performed By: #### L 501.9520, L500.4100, L500.3400, L501.5200, L100.0100, L500.2500 ####[facility] [address] [place], [address] AST [Catalytic activity/Vol] 20 U/L Normal 15-37 [facility] Comment on above: Order Comment: Order Date: 05/17/24Order Info: 666-05 - BMPOrder Info: 787-05 - LIVEROrder Info: [id number] - LIPIDOrder Info: [id number] - MGOrder Info: 3016-3 - TSH Performed By: #### L 501.9520, L500.4100, L500.3400, L501.5200, L100.0100, L500.2500 ####[facility] [address] [place], [address] Bilirubin [Mass/Vol] 1.40 mg/dL High 0.20-1.00 [facility] Comment on above: Order Comment: Order Date: 05/17/24Order Info: 666-05 - BMPOrder Info: 787-05 - LIVEROrder Info: [id number] - LIPIDOrder Info: [id number] - MGOrder Info: 3016-3 - TSH Result Comment: For patients on eltrombopag therapy, use of Dimension Ralph TBIL is not recommended. Performed By: #### L 501.9520, L500.4100, L500.3400, L501.5200, L100.0100, L500.2500 ####[facility] [address] [place], [address] Bilirubin.direct [Mass/Vol] 0.29 mg/dL Normal 0.00-0.30 [facility] Comment on above: Order Comment: Order Date: 05/17/24Order Info: 666-05 - BMPOrder Info: 787-05 - LIVEROrder Info: - LIPIDOrder Info: [id number] - MGOrder Info: 301-3 - TSH Performed By: #### L 501.9520, L500.4100, L500.3400, L501.5200, L100.0100, L500.2500 ####[facility] [address] [place], [address] Globulin (S) [Mass/Vol] 3.1 g/dL Normal 2.2-4.2 [facility] Comment on above: Order Comment: Order Date: 05/17/24Order Info: 666-05 - BMPOrder Info: 787-05 - LIVEROrder Info: - LIPIDOrder Info: [id number] - MGOrder Info: 3015-3 - TSH Performed By: #### L 501.9520, L500.4100, L500.3400, L501.5200, L100.0100, L500.2500 ####[facility] [address] [place], [address] T PROT 6.7 g/dL Normal 6.4-8.2 [facility] Comment on above: Order Comment: Order Date: 05/17/24Order Info: 666-05 - BMPOrder Info: 787-05 - LIVEROrder Info: - LIPIDOrder Info: [id number] - MGOrder Info: 3016-3 - TSH Performed By: #### L 501.9520, L500.4100, L500.3400, L501.5200, L100.0100, L500.2500 ####[facility] [address] [place], [address] Magnesiumon 05-17-2024 Magnesium [Mass/Vol] 2.4 mg/dL Normal 1.6-2.6 [facility] Comment on above: Order Comment: Order Date: 05/17/24Order Info: 666- - BMPOrder Info: 88-1 - LIVEROrder Info: [id number] - LIPIDOrder Info: [id number] - MGOrder Info: 3016-3 - TSH Performed By: #### L 501.9520, L500.4100, L500.3400, L501.5200, L100.0100, L500.2500 ####[facility] [address] [place], [place], [address] Thyroid Stim Hormone (TSH)on 05-17-2024 TSH 2.950 uIU/mL Normal 0.358-3.740 [facility] Comment on above: Order Comment: Order Date: 05/17/24Order Info: 666- - BMPOrder Info: 787- - LIVEROrder Info: [id number] - LIPIDOrder Info: [id number] - MGOrder Info: 3016-3 - TSH Performed By: #### L 501.9520, L500.4100, L500.3400, L501.5200, L100.0100, L500.2500 ####[facility] [address] [place], [address] CNPNon 05-10-2024 CNPN Telephone (OPHTBE) ---- RIZWAN CLIFFORD ([id number]) 1950 M Date Time Provider Department 05/10/24 SABRINA GUZMAN During your visit today, we recorded the following information about you: Agustina Gifford 05/10/2024 12:23 PM Signed Received faxed office notes from [facility] office of Dr Shady Schuster. Faxed to Dr Guzman and sent for scanning in Epic. Allergies As of Date: 05/10/2024 Noted Allergy Reaction PENICILLINS 05/18/2018 2 - Rash 16 - Unknown Date Reviewed: 06/09/2022 Reviewed by: Christoph Zuñiga DO - Fully Assessed Reason for Visit: Office notes from [facility] [Other] Prescriptions as of 05/10/2024 - predniSONE [...] Status:Closed by AGUSTINA GIFFORD on 05/10/24 Normal [facility] Carotid Duplex Ultrasoundon 05-06-2024 Carotid Duplex Ultrasound [facility] [address] [place] [address] Carotid Duplex Ultrasound 05/06/24 0806 MR#: [id number] Acct: [id number] Name: RIZWAN CLIFFORD Rep #: [id number] : 1950 73 From: Stephane Orr MD Attending Dr: Dr. Shady Schuster MD Status: REG CLI Ordering Dr: Shady Schuster MD Date: 05/06/24 Location: [facility] Sex: M C Admitted: Reason For Study: [...] the left vertebral artery. Procedure Carotid Duplex 02744. This is a Carotid Duplex examination using B-mode, color flow and specral Doppler. Exam performed in department. VL/Carotid Duplex Ultrasound Interpretation Summary Mild (<50%) stenosis right extracranial internal carotid. Mild (<50%) stenosis left extracranial internal carotid. Patent and antegrade vertebrals bilaterally. __ Ordering Physician: Shady Schuster Referring Physician: Missy Workman Performed By: Siobhan Sinhg RVT 05/06/24957 Date Stephane Orr MD CC: Dr. Missy Workman MD; Dr. Shady Schuster MD Date Dictated: 05/06/24805 Date Transcribed: 05/06/24957 Assistant Family Teacher: Signed Normal [facility] Brain W/WO Contraston 2023 Brain W/WO Contrast [facility] Imaging [place] [address] Brain W/WO Contrast MR#: [id number] Acct: [id number] Name: RIZWAN CLIFFORD Rep #: [id number] : 1950 M 73 From: Igor Guzman MD PCP: Dr. Missy Workman MD Status: [facility] Study: Brain W/WO Contrast Date of Exam: 04/30/24 Exam# [id number] Ordering Dr: Shady Schuster MD -[id number] STUDY: MRI ORBITS WITH AND WITHOUT [...] Missy Workman MD; Dr. Shady Schuster MD Assistant Family Teacher: Signed Normal [facility] CREATININE FINGERSTICKon CREATININE WB < 1.0 Normal 0.70-1.30 [facility] Comment on above: Performed By: #### L 9100.0200 ####[facility] [address] [place], [address] EGFR WB > 60.0000 Normal >60 [facility] Comment on above: Performed By: #### L 9100.0200 ####[facility] [address] [place], [address] CBC W/Diff, Automatedon 12-0 PLT EST MOD DEC Normal ADEQ [facility] Comment on above: Performed By: #### L 100.0100, L501.6710, L101.9900 #### [facility] [address] [place], [address] PLT MORPH CLUMPED Normal [facility] Comment on above: Performed By: #### L 100.0100, L501.6710, L101.9900 #### [facility] [address] [place], [address] RED CELL MORPH NORM C+C Normal NORM C C [facility] Comment on above: Performed By: #### L 100.0100, L501.6710, L101.9900 #### [facility] [address] [place], [address] PLT Normal 150-450 [facility] Comment on above: Result Comment: Plea se note: For this sample, a platelet estimate is provided rather than a platelet count due to platelet clumping. Other parameters associated with this sample are not affected by platelet clumping. If a more accurate platelet count is required, a redraw of the patient will be necessary. Performed By: #### L 100.0100, L501.6710, L101.9900 #### [facility] [address] [place], [address] SMEAR COMMENT SCANNED Normal [facility] Comment on above: Performed By: #### L 100.0100, L501.6710, L101.9900 #### [facility] [address] [place], [address] CRPon 04-15-2024 C-REACTIVE PROT < 2.90 Normal 0.0-3.0 [facility] Comment on above: Result Comment: C-Re active Protein (CRP) provides useful information for the diagnosis, therapy and monitoring of inflammatory processes and associated diseases. For the evaluation of Relative Risk for Cardiovascular Disease, a High Sensitivity CRP (HSCRP) should be ordered. Performed By: #### L 100.0100, L501.6710, L101.9900 ####[facility] [address] [place], [address] Erythrocyte Sed Rateon 04-15 SED RATE 3 mm/hr Normal 0-20 [facility] Comment on above: Performed By: #### L 100.0100, L501.6710, L101.9900 #### [facility] [address] [place], [address] Cardiology Visit Reporton Cardiology Visit Report [facility] [address] [place] [address] OFFICE VISIT Date of Service: 03/29/24 MR#: [id number] Acct: [id number] Name: RIZWAN CLIFFORD Rep #: [id number] : 1950 Provider: CELSO Morris Age/Sex: 73/M Location: [facility] Status: Signed HPI HPI History of [...] 97 Intake Visit Reasons: 6 M FU Elevator Operator Required: No Is patient in pain?: No [...] for blurry (more content not included)... Normal [facility] CBC W/Diff, Automatedon 03-08 PLT EST MOD DEC Normal ADEQ [facility] Comment on above: Order Comment: Order Date: 10/10/23 Order Info: 0184-1 - CBCD Performed By: #### L 500.4050, L500.4100, L501.9910, L100.0100 #### [facility] [address] [place], [address] PLT MORPH CLUMPED Normal [facility] Comment on above: Order Comment: Order Date: 10/10/23 Order Info: 0184-1 - CBCD Performed By: #### L 500.4050, L500.4100, L501.9910, L100.0100 #### [facility] [address] [place], [address] SMEAR COMMENT SCANNED Normal [facility] Comment on above: Order Comment: Order Date: 10/10/23 Order Info: 0184-1 - CBCD Performed By: #### L 500.4050, L500.4100, L501.9910, L100.0100 #### [facility] [address] [place], [address] Comprehensive Metabolic Prof ilon 03-21-2024 Albumin [Mass/Vol] 3.8 g/dL Normal 3.2-5.0 [facility] Comment on above: Order Comment: Order Date: 10/10/23 Order Info: 0786-1 - CMP Order Info: 12314-2 - LIPID Order Info: 2857-1 - PSA Performed By: #### L 500.4050, L500.4100, L501.9910, L100.0100 #### [facility] [address] [place], [address] Albumin/Globulin [Mass ratio] 1.2 {ratio} Normal 0.9-2.4 [facility] Comment on above: Order Comment: Order Date: 10/10/23 Order Info: 0786- - CMP Order Info: [id number] - LIPID Order Info: 2857-1 - PSA Performed By: #### L 500.4050, L500.4100, L501.9910, L100.0100 #### [facility] [address] [place], [address] ALK P 60 U/L Normal 45-117 [facility] Comment on above: Order Comment: Order Date: 10/10/23 Order Info: 0786- - CMP Order Info: [id number] - LIPID Order Info: 2857-1 - PSA Performed By: #### L 500.4050, L500.4100, L501.9910, L100.0100 #### [facility] [address] [place], [address] ALT [Catalytic activity/Vol] 42 U/L Normal 16-61 [facility] Comment on above: Order Comment: Order Date: 10/10/23 Order Info: 0786- - CMP Order Info: [id number] - LIPID Order Info: 2857-1 - PSA Performed By: #### L 500.4050, L500.4100, L501.9910, L100.0100 #### [facility] [address] [place], [address] AST [Catalytic activity/Vol] 27 U/L Normal 15-37 [facility] Comment on above: Order Comment: Order Date: 10/10/23 Order Info: 0786-1 - CMP Order Info: 82097-1 - LIPID Order Info: 28511-05 - PSA Performed By: #### L 500.4050, L500.4100, L501.9910, L100.0100 #### [facility] [address] [place], [address] Bilirubin [Mass/Vol] 1.40 mg/dL High 0.20-1.00 [facility] Comment on above: Order Comment: Order Date: 10/10/23 Order Info: 0786-1 - CMP Order Info: 51023-0 - LIPID Order Info: 28511-05 - PSA Result Comment: For patients on eltrombopag therapy, use of Dimension Ralph TBIL is not recommended. Performed By: #### L 500.4050, L500.4100, L501.9910, L100.0100 #### [facility] [address] [place], [address] BUN/CRE 19.7 RATIO Normal 10-20 [facility] Comment on above: Order Comment: Order Date: 10/10/23 Order Info: 0786-1 - CMP Order Info: 30760-7 - LIPID Order Info: 28511-05 - PSA Performed By: #### L 500.4050, L500.4100, L501.9910, L100.0100 #### [facility] [address] [place], [address] CA,Total 9.1 mg/dL Normal 8.5-10.1 [facility] Comment on above: Order Comment: Order Date: 10/10/23 Order Info: 0786-1 - CMP Order Info: [id number] - LIPID Order Info: 28511-05 - PSA Performed By: #### L 500.4050, L500.4100, L501.9910, L100.0100 #### [facility] [address] [place], [address] Chloride [Moles/Vol] 106 mmol/L Normal 98-107 [facility] Comment on above: Order Comment: Order Date: 10/10/23 Order Info: 785- - CMP Order Info: [id number] - LIPID Order Info: 2856-05 - PSA Performed By: #### L 500.4050, L500.4100, L501.9910, L100.0100 #### [facility] [address] [place], [address] CO2 [Moles/Vol] 27.0 mmol/L Normal 21.0-32.0 [facility] Comment on above: Order Comment: Order Date: 10/10/23 Order Info: 785-05 - CMP Order Info: - LIPID Order Info: 2856-05 - PSA Performed By: #### L 500.4050, L500.4100, L501.9910, L100.0100 #### [facility] [address] [place], [address] Creatinine [Mass/Vol] 0.96 mg/dL Normal 0.70-1.30 [facility] Comment on above: Order Comment: Order Date: 10/10/23 Order Info: 785-05 - CMP Order Info: - LIPID Order Info: 2856-05 - PSA Result Comment: The validity of the calculated GFR GFRAA in patients over 70 years has not been determined. Clinical correlation is essential. Performed By: #### L 500.4050, L500.4100, L501.9910, L100.0100 #### [facility] [address] [place], [address] EST GFR - AA 98 mL/min Normal >60 [facility] Comment on above: Order Comment: Order Date: 10/10/23 Order Info: 785-05 - CMP Order Info: - LIPID Order Info: 2856-05 - PSA Result Comment: Afri can Jamaican GFR Calc Performed By: #### L 500.4050, L500.4100, L501.9910, L100.0100 #### [facility] [address] [place], [address] GAP 6 Normal 5-15 [facility] Comment on above: Order Comment: Order Date: 10/10/23 Order Info: 785- - CMP Order Info: - LIPID Order Info: 28511-05 - PSA Performed By: #### L 500.4050, L500.4100, L501.9910, L100.0100 #### [facility] [address] [place], [address] GFR/1.73 sq M.predicted among non-blacks MDRD (S/P/Bld) [Vol rate/Area] 81 mL/min/{1.73_m2} Normal >60 [facility] Comment on above: Order Comment: Order Date: 10/10/23 Order Info: 785-05 - CMP Order Info: - LIPID Order Info: 2856-05 - PSA Result Comment: Non- GFR Calc Performed By: #### L 500.4050, L500.4100, L501.9910, L100.0100 #### [facility] [address] [place], [address] Globulin (S) [Mass/Vol] 3.2 g/dL Normal 2.2-4.2 [facility] Comment on above: Order Comment: Order Date: 10/10/23 Order Info: 07 - CMP Order Info: [id number] - LIPID Order Info: 28511-05 - PSA Performed By: #### L 500.4050, L500.4100, L501.9910, L100.0100 #### [facility] [address] [place], [address] Glucose [Mass/Vol] 77 mg/dL Normal 74-106 [facility] Comment on above: Order Comment: Order Date: 10/10/23 Order Info: 07 - CMP Order Info: 28591-8 - LIPID Order Info: 28511-05 - PSA Performed By: #### L 500.4050, L500.4100, L501.9910, L100.0100 #### [facility] [address] [place], [address] Potassium [Moles/Vol] 4.6 mmol/L Normal 3.5-5.1 [facility] Comment on above: Order Comment: Order Date: 10/10/23 Order Info: 07- - CMP Order Info: [id number] - LIPID Order Info: 1 - PSA Performed By: #### L 500.4050, L500.4100, L501.9910, L100.0100 #### [facility] [address] [place], [address] Sodium [Moles/Vol] 138 mmol/L Normal 136-145 [facility] Comment on above: Order Comment: Order Date: 10/10/23 Order Info: 785-05 - CMP Order Info: - LIPID Order Info: 2856-05 - PSA Performed By: #### L 500.4050, L500.4100, L501.9910, L100.0100 #### [facility] [address] [place], [address] T PROT 7.0 g/dL Normal 6.4-8.2 [facility] Comment on above: Order Comment: Order Date: 10/10/23 Order Info: 0786 - CMP Order Info: [id number] - LIPID Order Info: 28511-05 - PSA Performed By: #### L 500.4050, L500.4100, L501.9910, L100.0100 #### [facility] [address] [place], [address] Urea nitrogen [Mass/Vol] 19 mg/dL High 7-18 [facility] Comment on above: Order Comment: Order Date: 10/10/23 Order Info: 0786- - CMP Order Info: [id number] - LIPID Order Info: 2851 - PSA Performed By: #### L 500.4050, L500.4100, L501.9910, L100.0100 #### [facility] [address] [place], [address] Lipid Profileon 03-21-2024 Cholesterol [Mass/Vol] 168 mg/dL Normal 200 [facility] Comment on above: Order Comment: Order Date: 10/10/23 Order Info: 0786-1 - CMP Order Info: 63873-2 - LIPID Order Info: 2857-1 - PSA Result Comment: <200 mg/dL Desirable 200-240 mg/dL Borderline >240 mg/dL High Risk Performed By: #### L 500.4050, L500.4100, L501.9910, L100.0100 #### [facility] [address] [place], [address] Cholesterol in HDL [Mass/Vol] 74 mg/dL Normal [facility] Comment on above: Order Comment: Order Date: 10/10/23 Order Info: 0786-1 - CMP Order Info: [id number] - LIPID Order Info: 2857-1 - PSA Result Comment: The drugs N-Acetylcysteine and Metamizole may falsely depress this assay. Reference Range HDL <40 mg/dL Low HDL Cholesterol HDL >or= 60 mg/dL High HDL Cholesterol Performed By: #### L 500.4050, L500.4100, L501.9910, L100.0100 #### [facility] [address] [place], [address] Cholesterol in LDL [Mass/Vol] 81 mg/dL Normal 0-130 [facility] Comment on above: Order Comment: Order Date: 10/10/23 Order Info: 0786-1 - CMP Order Info: 28059-5 - LIPID Order Info: 2857-1 - PSA Performed By: #### L 500.4050, L500.4100, L501.9910, L100.0100 #### [facility] [address] [place], [address] Cholesterol in VLDL [Mass/Vol] 13 mg/dL Normal 5-40 [facility] Comment on above: Order Comment: Order Date: 10/10/23 Order Info: 0786-1 - CMP Order Info: [id number] - LIPID Order Info: 2856-05 - PSA Performed By: #### L 500.4050, L500.4100, L501.9910, L100.0100 #### [facility] [address] [place], [place], [address] Triglyceride [Mass/Vol] 67 mg/dL Normal [facility] Comment on above: Order Comment: Order Date: 10/10/23 Order Info: 0786 - CMP Order Info: [id number] - LIPID Order Info: 2856-05 - PSA Result Comment: The drugs N-Acetylcysteine and Metamizole may falsely depress this assay. Serum Triglycerides Reference Interval Normal <150 mg/dL Borderline high 150 - 199 mg/dL High 200 - 499 mg/dL Very High > or = 500 mg/dL Performed By: #### L 500.4050, L500.4100, L501.9910, L100.0100 #### [facility] [address] [place], [place], [address] PSA,Total - Annual Screenon 03-21-2024 PSA,TOT SCREEN 2.45 ng/mL Normal 0.00-4.00 [facility] Comment on above: Order Comment: Order Date: 10/10/23 Order Info: 0786- - CMP Order Info: [id number] - LIPID Order Info: 2856-05 - PSA Result Comment: This test was performed using the TPSA assay method for the [employer] chemistry system. Values obtained with different assay methods cannot be used interchangably. When changing PSA assays in the course of monitoring a patient, additional sequential testing should be carried out to confirm baseline values. Performed By: #### L 500.4050, L500.4100, L501.9910, L100.0100 #### [facility] [address] [place], [place], [address] Urinalysis, Completeon 03-21 WBC 0-5 SEEN Normal 0-5 [facility] Comment on above: Order Comment: CLEAN CATCH Performed By: #### L 400.0001 #### [facility] [address] [place], [address] BACTERIA 0 SEEN Normal None Seen [facility] Comment on above: Order Comment: CLEAN CATCH Performed By: #### L 400.0001 #### [facility] [address] [place], [address] EPI,SQUAMOUS 0 SEEN Normal 0-5 [facility] Comment on above: Order Comment: CLEAN CATCH Performed By: #### L 400.0001 #### [facility] [address] [place], [address] Mucus Ql (Urine sed) 0 SEEN Normal [facility] Comment on above: Order Comment: CLEAN CATCH Performed By: #### L 400.0001 #### [facility] [address] [place], [address] RBC 0 SEEN Normal 0-5 [facility] Comment on above: Order Comment: CLEAN CATCH Performed By: #### L 400.0001 #### [facility] [address] [place], [address] Creatinineon 11-27-20232020 CKD-EPI Estimated Glomerular Filtration Rate (eGFR) is calculated using the 2020 CKD-EPI creatinine equation. This equation uses serum creatinine, sex and age for calculating the eGFR. Normal [facility] Comment on above: Performed By: #### T TREVON B12, CREATBL #### [address] [address] Creatinine [Mass/Vol] 1.1 mg/dL Normal 0.5-1.2 [facility] Comment on above: Performed By: #### T TREVON B12, CREATBL #### [address] [address] eGFR 69 mL/min/1.73sqm Normal >=60 [facility] Comment on above: Performed By: #### T TREVON B12, CREATBL #### [address] [address] Folateon 11-27-2023 Biotin Interference Samples should not be taken from patients receiving therapy with high biotin doses (i.e. >5mg/day) until at least 8 hours following the last biotin administration. Normal [facility] Comment on above: Performed By: #### F OLATE #### [facility] [address] [place] [address] Performed By: #### T SH, B12, CREATBL #### [facility] [address] [place] [address] Folate >20.0 Normal 4.8-24.2 [facility] Comment on above: Performed By: #### F OLATE #### [facility] [address] [place] [address] TSHon 11-27-2023 TSH 2.98 uIU/mL Normal 0.27-4.20 [facility] Comment on above: Performed By: #### T SH, B12, CREATBL #### [facility] [address] [place] [address] Vitamin B12on 11-27-2023 Cobalamin (Vitamin B12) [Mass/Vol] 654 pg/mL Normal 232-1245 [facility] Comment on above: Performed By: #### T SH, B12, CREATBL #### [facility] [address] [place] [address] Basophil percentageOrdered B y: Luciano Kelley on 05-30-2023 Basophil percentage 2.19 ng/mL 0.0-4.[address] [facility] Comment on above: This test was perfor med using the TPSA assay method for the[facility] chemistry system. Values obtained with differentassay methods cannot be used interchangably.When changing PSA assays in the course of monitoring apatient, additional sequential testing should be carriedout to confirm baseline values. Absolute lymphocyte countOrd ered By: Missy Workman on 04-14-2023 Lymphocytes Auto (Unsp spec) [#/Vol] 1.82 10*3/uL 0.83-4.51 [facility] Basophil percentageOrdered B y: Missy Workman on 04-14-2023 Basophil percentage 0 SEEN /hpf 0-5 [facility] Basophils/100 WBC (Bld) 0.9 % 0-1 [facility] Bilirubin [Mass/Vol] 1.80 mg/dL 0.20-1.00 [facility] Comment on above: For patients on eltr ombopag therapy, use of Dimension Ralph TBIL is not recommended. Chloride [Moles/Vol] 108 mmol/L 98-107 [facility] Cholesterol [Mass/Vol] 139 mg/dL <200 [facility] Comment on above: <200 mg/dL Desirable 200-240 mg/dL Borderline >240 mg/dL High Risk Eosinophils/100 WBC (Bld) 1.2 % 0-5 [facility] Glucose [Mass/Vol] 96 mg/dL 74-106 [facility] Neutrophils (Bld) [#/Vol] 3.3 10*3/uL 2.0-7.7 [facility] Neutrophils/100 WBC (Bld) 59.1 % 47-70 [facility] Potassium [Moles/Vol] 4.3 mmol/L 3.5-5.1 [facility] Protein [Mass/Vol] 7.0 g/dL 6.4-8.2 [facility] Sodium [Moles/Vol] 138 mmol/L 136-145 [facility] Triglyceride [Mass/Vol] 107 mg/dL <199 [facility] Comment on above: The drugs N-Acetylcy steine and Metamizole may falsely depress this assay.Serum Triglycerides Reference Interval Normal <150 mg/dL Borderline high 150 - 199 mg/dL High 200 - 499 mg/dL Very High > or = 500 mg/dL WBC (Bld) [#/Vol] 5.6 10*3/uL 4.4-11.0 [facility] Bilirubin Test strip Ql (U)O rdered By: Missy Workman on 04-14-2023 Bilirubin Ql (U) Negative Negative [facility] Blood erythrocytes count (nu mber/volume)Ordered By: Missy Workman on 04-14-2023 RBC (Bld) [#/Vol] 4.62 10*6/uL 4.6-6.[address] [facility] Blood hemoglobin measurement (mass/volume)Ordered By: Missy Workman on 04-14-2023 Hemoglobin (Bld) [Mass/Vol] 14.7 g/dL 13.0-16.5 [facility] Blood lymphocytes/100 leukoc ytesOrdered By: Missy Workman on 04-14-2023 Lymphocytes/100 WBC (Bld) 32.4 % 19-41 [facility] Blood monocytes/100 leukocyt esOrdered By: Missy Workman on 04-14-2023 Monocytes/100 WBC (Bld) 6.2 % 0-10 [facility] Blood platelet adequacy dete ction by light microscopyOrdered By: Missy Workman on 04-14-2023 Platelets LM Ql (Bld) MOD DEC ADEQ [facility] Blood platelet mean volumeOr dered By: Missy Workman on 04-14-2023 Platelet mean volume (Bld) [Entitic vol] 11.9 fL 6.2-12.0 [facility] Determination of erythrocyte mean corpuscular volume (MCV)Ordered By: Missy Workman on 04-14-2023 MCV (RBC) [Entitic vol] 94.4 fL 80-94 [facility] Direct bilirubinOrdered By: Missy Workman on 04-14-2023 Bilirubin.direct [Mass/Vol] 0.36 mg/dL 0.00-0.30 [facility] Hematocrit Auto (Bld) [Volum e fraction]Ordered By: Missy Workman on 04-14-2023 Hematocrit (Bld) [Volume fraction] 43.6 % 40-54 [facility] Ketones Test strip Ql (U)Ord ered By: Missy Workman on 04-14-2023 Ketones Ql (U) Negative Negative [facility] - Chemistry and C hemistry - challengeOrdered By: Missy Workman on 04-14-2023 ALP [Catalytic activity/Vol] 50 U/L 45-117 [facility] ALT [Catalytic activity/Vol] 29 U/L 16-61 [facility] CO2 [Moles/Vol] 26.0 mmol/L 21.0-32.0 [facility] Cobalamin (Vitamin B12) [Mass/Vol] 522 pg/mL 211-911 [facility] Globulin (S) [Mass/Vol] 3.2 g/dL 2.2-4.2 [facility] Urea nitrogen/Creatinine [Mass ratio] 20.4 mg/mg 10-20 [facility] - Hematology and Cell countsOrdered By: Missy Workman on 04-14-2023 Erythrocyte distribution width (RBC) [Entitic vol] 41.2 fL 35.1-43.9 [facility] Erythrocyte distribution width (RBC) [Ratio] 11.9 % 11.6-14.6 [facility] Immature granulocytes/100 WBC (Bld) 0.200 % 0.0-0.9 [facility] Comment on above: IG% - Immature Granu locytes (promyelocytes, myelocytes and metamyelocytes) > 1% indicates that a LEFT SHIFT is Present. MCH (RBC) [Entitic mass] 31.8 pg 27.0-32.0 [facility] Nucleated RBC/100 WBC (Bld) [Ratio] 0 % 0-5 [facility] MCHC Auto (RBC) [Mass/Vol]Or dered By: Missy Workman on 04-14-2023 MCHC (RBC) [Mass/Vol] 33.7 g/dL 32-36 [facility] Mucus LM Ql (Urine sed)Order ed By: Missy Workman on 04-14-2023 Mucus Ql (Urine sed) 0 SEEN /hpf [facility] Nitrite Test strip Ql (U)Ord ered By: Missy Workman on 04-14-2023 Nitrite Ql (U) Negative Negative [facility] No Panel InformationOrdered By: Missy Workman on 04-14-2023 Estimated GFR (MDRD) Amer 91 mL/min >60 [facility] Comment on above: GFR Calc Estimated GFR (MDRD) Non-Af Amer 76 mL/min >60 [facility] Comment on above: Non- GFR Calc Thyroid Stimulating Hormone (TSH) 3.34 uIU/mL 0.358-3.74 [facility] Platelets bldOrdered By: Jose Workman on 04-14-2023 Platelets (Bld) [#/Vol] 79 10*3/uL 150-450 [facility] Protein Test strip Ql (U)Ord ered By: Missy Workman on 04-14-2023 Protein Ql (U) Negative Negative [facility] Serum or plasma albumin freya urement (mass/volume)Ordered By: Missy Workman on 04-14-2023 Albumin [Mass/Vol] 3.8 g/dL 3.2-5.0 [facility] Serum or plasma calcium freya urement (mass/volume)Ordered By: Missy Workman on 04-14-2023 Calcium [Mass/Vol] 8.6 mg/dL 8.5-10.1 [facility] Serum or plasma cholesterol in HDL measurement (mass/volume)Ordered By: Missy Workman on 04-14-2023 Cholesterol in HDL [Mass/Vol] 63 mg/dL >40 [facility] Comment on above: The drugs N-Acetylcy steine and Metamizole may falsely depress this assay. Reference Range HDL <40 mg/dL Low HDL Cholesterol HDL >or= 60 mg/dL High HDL Cholesterol Serum or plasma cholesterol in VLDL measurement (mass/volume)Ordered By: Missy Workman on 04-14-2023 Cholesterol in VLDL [Mass/Vol] 21 mg/dL 5-40 [facility] Serum or plasma creatinine m easurement (mass/volume)Ordered By: Missy Workman on 04-14-2023 Creatinine [Mass/Vol] 1.03 mg/dL 0.70-1.30 [facility] Comment on above: The validity of the calculated GFR & GFRAA in patients over 70 years has not been determined. Clinical correlation is essential. Serum or plasma low density lipoprotein (LDL) cholesterol measurement (mass/volume)Ordered By: Missy Workman on 04-14-2023 Cholesterol in LDL [Mass/Vol] 55 mg/dL 0-130 [facility] Serum or plasma urea nitroge n measurement (mass/volume)Ordered By: Missy Workman on 04-14-2023 Urea nitrogen [Mass/Vol] 21 mg/dL 7-18 [facility] Squamous epithelial cells de tection in urine sediment by light microscopyOrdered By: Missy Workman on 04-14-2023 Epithelial cells.squamous LM Ql (Urine sed) 0 SEEN /hpf 0-5 [facility] Thin prep Papanicolaou smear with manual screeningOrdered By: Missy Workman on 04-14-2023 Thin prep Papanicolaou smear with manual screening 21 U/L 15-37 [facility] Thin prep Papanicolaou smear with manual screening 4 5-15 [facility] Urine blood detectionOrdered By: Missy Workman on 04-14-2023 RBC Ql (U) 10 /ul Negative [facility] RBC Ql (U) 0-5 SEEN /hpf 0-5 [facility] Urine clarityOrdered By: Jose Workman on 04-14-2023 Clarity (U) Clear Clear [facility] Urine color determinationOrd ered By: Missy Workman on 04-14-2023 Color (U) Yellow Yellow [facility] Urine glucose detectionOrder ed By: Missy Workman on 04-14-2023 Glucose Ql (U) Normal mg/dl Normal [facility] Urine leukocyte esterase det ection by dipstickOrdered By: Missy Workman on 04-14-2023 Leukocyte esterase Test strip Ql (U) Negative Negative [facility] Urine pHOrdered By: Missy daley on 04-14-2023 pH (U) 7.0 [pH] 5.0 - 8.0 [facility] Urine sediment bacteria coun t by microscopy (number/high power field)Ordered By: Missy Workman on 04-14-2023 Bacteria LM.HPF (Urine sed) [#/Area] 0 /[HPF] None Seen [facility] Urine specific gravity measu rementOrdered By: Missy Workman on 04-14-2023 Specific gravity (U) [Rel density] 1.010 1.002-1.030 [facility] Urobilinogen Auto test strip Ql (U)Ordered By: Missy Workman on 04-14-2023 Urobilinogen Ql (U) Normal mg/dl Normal [facility] No Panel InformationOrdered By: Missy Workman on 03-09-2023 Prostate Specific Antigen Screen 3.07 ng/mL 0.00-4.00 [facility] Comment on above: This test was perfor med using the TPSA assay method for the[employer] chemistry system. Values obtained with differentassay methods cannot be used interchangably.When changing PSA assays in the course of monitoring apatient, additional sequential testing should be carriedout to confirm baseline values. Absolute lymphocyte countOrd ered By: Missy Workman on 08-01-2023 Lymphocytes Auto (Unsp spec) [#/Vol] 1.86 10*3/uL 0.83-4.51 [facility] Basophil percentageOrdered B y: Missy Workman on 12-06-2022 Basophil percentage 0 SEEN /hpf 0-5 [facility] Basophils/100 WBC (Bld) 0.3 % 0-1 [facility] Bilirubin [Mass/Vol] 1.80 mg/dL 0.20-1.00 [facility] Comment on above: For patients on eltr ombopag therapy, use of Dimension Ralph TBIL is not recommended. Chloride [Moles/Vol] 108 mmol/L 98-107 [facility] Cholesterol [Mass/Vol] 166 mg/dL <200 [facility] Comment on above: <200 mg/dL Desirable 200-240 mg/dL Borderline >240 mg/dL High Risk Eosinophils/100 WBC (Bld) 1.7 % 0-5 [facility] Glucose [Mass/Vol] 92 mg/dL 74-106 [facility] Neutrophils (Bld) [#/Vol] 3.4 10*3/uL 2.0-7.7 [facility] Neutrophils/100 WBC (Bld) 58.0 % 47-70 [facility] Potassium [Moles/Vol] 3.9 mmol/L 3.5-5.1 [facility] Protein [Mass/Vol] 7.1 g/dL 6.4-8.2 [facility] Sodium [Moles/Vol] 139 mmol/L 136-145 [facility] Triglyceride [Mass/Vol] 75 mg/dL <199 [facility] Comment on above: The drugs N-Acetylcy steine and Metamizole may falsely depress this assay.Serum Triglycerides Reference Interval Normal <150 mg/dL Borderline high 150 - 199 mg/dL High 200 - 499 mg/dL Very High > or = 500 mg/dL WBC (Bld) [#/Vol] 5.9 10*3/uL 4.4-11.0 [facility] Bilirubin Test strip Ql (U)O rdered By: Missy Workman on 12-06-2022 Bilirubin Ql (U) Negative Negative [facility] Blood erythrocytes count (nu mber/volume)Ordered By: Missy Workman on 12-06-2022 RBC (Bld) [#/Vol] 4.78 10*6/uL 4.6-6.[address] [facility] Blood hemoglobin measurement (mass/volume)Ordered By: Missy Workman on 12-06-2022 Hemoglobin (Bld) [Mass/Vol] 15.5 g/dL 13.0-16.5 [facility] Blood lymphocytes/100 leukoc ytesOrdered By: Missy Workman on 12-06-2022 Lymphocytes/100 WBC (Bld) 31.4 % 19-41 [facility] Blood manual differential co mment interpretation (narrative result)Ordered By: Missy Workman on 12-06-2022 Manual differential comment Gilberto (Bld) [Interp] SCANNED [facility] Blood monocytes/100 leukocyt esOrdered By: Missy Workman on 12-06-2022 Monocytes/100 WBC (Bld) 8.3 % 0-10 [facility] Blood platelet adequacy dete ction by light microscopyOrdered By: Missy Workman on 12-06-2022 Platelets LM Ql (Bld) SLT DEC ADEQ [facility] Blood platelet mean volumeOr dered By: Missy Workman on 12-06-2022 Platelet mean volume (Bld) [Entitic vol] 11.6 fL 6.2-12.0 [facility] Determination of erythrocyte mean corpuscular volume (MCV)Ordered By: Missy Workman on 12-06-2022 MCV (RBC) [Entitic vol] 94.4 fL 80-94 [facility] Direct bilirubinOrdered By: Missy Workman on 12-06-2022 Bilirubin.direct [Mass/Vol] 0.38 mg/dL 0.00-0.30 [facility] Hematocrit Auto (Bld) [Volum e fraction]Ordered By: Missy Workman on 12-06-2022 Hematocrit (Bld) [Volume fraction] 45.1 % 40-54 [facility] Ketones Test strip Ql (U)Ord ered By: Missy Workman on 12-06-2022 Ketones Ql (U) Negative Negative [facility] - Chemistry and C hemistry - challengeOrdered By: Missy Workman on 12-06-2022 ALP [Catalytic activity/Vol] 63 U/L 45-117 [facility] ALT [Catalytic activity/Vol] 38 U/L 16-61 [facility] CO2 [Moles/Vol] 28.0 mmol/L 21.0-32.0 [facility] Globulin (S) [Mass/Vol] 3.2 g/dL 2.2-4.2 [facility] Urea nitrogen/Creatinine [Mass ratio] 19.3 mg/mg 10-20 [facility] - Hematology and Cell countsOrdered By: Missy Workman on 12-06-2022 Erythrocyte distribution width (RBC) [Entitic vol] 40.6 fL 35.1-43.9 [facility] Erythrocyte distribution width (RBC) [Ratio] 11.7 % 11.6-14.6 [facility] Immature granulocytes/100 WBC (Bld) 0.300 % 0.0-0.9 [facility] Comment on above: IG% - Immature Granu locytes (promyelocytes, myelocytes and metamyelocytes) > 1% indicates that a LEFT SHIFT is Present. MCH (RBC) [Entitic mass] 32.4 pg 27.0-32.0 [facility] Nucleated RBC/100 WBC (Bld) [Ratio] 0 % 0-5 [facility] MCHC Auto (RBC) [Mass/Vol]Or dered By: Missy Workman on 12-06-2022 MCHC (RBC) [Mass/Vol] 34.4 g/dL 32-36 [facility] Mucus LM Ql (Urine sed)Order ed By: Missy Workman on 12-06-2022 Mucus Ql (Urine sed) 0 SEEN /hpf [facility] Nitrite Test strip Ql (U)Ord ered By: Missy Workman on 12-06-2022 Nitrite Ql (U) Negative Negative [facility] No Panel InformationOrdered By: Missy Workman on 12-06-2022 Estimated GFR (MDRD) Amer 86 mL/min >60 [facility] Comment on above: GFR Calc Estimated GFR (MDRD) Non-Af Amer 71 mL/min >60 [facility] Comment on above: Non- GFR Calc Thyroid Stimulating Hormone (TSH) 3.60 uIU/mL 0.358-3.74 [facility] Platelets bldOrdered By: Jose Workman on 12-06-2022 Platelets (Bld) [#/Vol] See comment 150-450 [facility] Comment on above: Please note: For [...] 12-06-2022 Protein Ql (U) 15 mg/dl Negative [facility] Serum or plasma albumin freya urement (mass/volume)Ordered By: Missy Workman on 12-06-2022 Albumin [Mass/Vol] 3.9 g/dL 3.2-5.0 [facility] Serum or plasma albumin/glob ulin mass ratioOrdered By: Missy Workman on 12-06-2022 Albumin/Globulin [Mass ratio] 1.2 {ratio} 0.9-2.4 [facility] Serum or plasma calcium freya urement (mass/volume)Ordered By: Missy Workman on 12-06-2022 Calcium [Mass/Vol] 8.9 mg/dL 8.5-10.1 [facility] Serum or plasma cholesterol in HDL measurement (mass/volume)Ordered By: Missy Workman on 12-06-2022 Cholesterol in HDL [Mass/Vol] 65 mg/dL >40 [facility] Comment on above: The drugs N-Acetylcy steine and Metamizole may falsely depress this assay. Reference Range HDL <40 mg/dL Low HDL Cholesterol HDL >or= 60 mg/dL High HDL Cholesterol Serum or plasma cholesterol in VLDL measurement (mass/volume)Ordered By: Missy Workman on 12-06-2022 Cholesterol in VLDL [Mass/Vol] 15 mg/dL 5-40 [facility] Serum or plasma creatinine m easurement (mass/volume)Ordered By: Missy Workman on 12-06-2022 Creatinine [Mass/Vol] 1.09 mg/dL 0.70-1.30 [facility] Comment on above: The validity of the calculated GFR & GFRAA in patients over 70 years has not been determined. Clinical correlation is essential. Serum or plasma low density lipoprotein (LDL) cholesterol measurement (mass/volume)Ordered By: Missy Workman on 12-06-2022 Cholesterol in LDL [Mass/Vol] 86 mg/dL 0-130 [facility] Serum or plasma urea nitroge n measurement (mass/volume)Ordered By: Msisy Workman on 12-06-2022 Urea nitrogen [Mass/Vol] 21 mg/dL 7-18 [facility] Squamous epithelial cells de tection in urine sediment by light microscopyOrdered By: Missy Workman on 12-06-2022 Epithelial cells.squamous LM Ql (Urine sed) 0 SEEN /hpf 0-5 [facility] Thin prep Papanicolaou smear with manual screeningOrdered By: Missy Workman on 12-06-2022 Thin prep Papanicolaou smear with manual screening 24 U/L 15-37 [facility] Thin prep Papanicolaou smear with manual screening 3 5-15 [facility] Urine blood detectionOrdered By: Missy Workman on 12-06-2022 RBC Ql (U) 25 /ul Negative [facility] RBC Ql (U) 0-5 SEEN /hpf 0-5 [facility] Urine clarityOrdered By: Jose Workman on 12-06-2022 Clarity (U) Clear Clear [facility] Urine color determinationOrd ered By: Missy Workman on 12-06-2022 Color (U) Yellow Yellow [facility] Urine glucose detectionOrder ed By: Missy Workman on 12-06-2022 Glucose Ql (U) Normal mg/dl Normal [facility] Urine leukocyte esterase det ection by dipstickOrdered By: Missy Workman on 12-06-2022 Leukocyte esterase Test strip Ql (U) Negative Negative [facility] Urine pHOrdered By: Missy daley on 12-06-2022 pH (U) 6.5 [pH] 5.0 - 8.0 [facility] Urine sediment bacteria coun t by microscopy (number/high power field)Ordered By: Missy Workman on 12-06-2022 Bacteria LM.HPF (Urine sed) [#/Area] 0 /[HPF] None Seen [facility] Urine specific gravity measu rementOrdered By: Missy Workman on 12-06-2022 Specific gravity (U) [Rel density] 1.015 1.002-1.030 [facility] Urobilinogen Auto test strip Ql (U)Ordered By: Missy Workman on 12-06-2022 Urobilinogen Ql (U) Normal mg/dl Normal [facility] Basophil percentageOrdered B y: Dr. Workman on 09-13-2022 Bilirubin [Mass/Vol] 1.50 mg/dL 0.20-1.00 [facility] Comment on above: For patients on eltr ombopag therapy, use of Dimension Ralph TBIL is not recommended. Protein [Mass/Vol] 6.9 g/dL 6.4-8.2 [facility] Direct bilirubinOrdered By: Dr. Workman on 09-13-2022 Bilirubin.direct [Mass/Vol] 0.32 mg/dL 0.00-0.30 [facility] - Chemistry and C hemistry - challengeOrdered By: Dr. Workman on 09-13-2022 ALP [Catalytic activity/Vol] 58 U/L 45-117 [facility] ALT [Catalytic activity/Vol] 33 U/L 16-61 [facility] Globulin (S) [Mass/Vol] 3.2 g/dL 2.2-4.2 [facility] Serum or plasma albumin freya urement (mass/volume)Ordered By: Dr. Workman on 09-13-2022 Albumin [Mass/Vol] 3.7 g/dL 3.2-5.0 [facility] Thin prep Papanicolaou smear with manual screeningOrdered By: Dr. Workman on 09-13-2022 Thin prep Papanicolaou smear with manual screening 23 U/L 15-37 [facility] Absolute lymphocyte countOrd ered By: Dr. Workman on 09-12-2022 Lymphocytes Auto (Unsp spec) [#/Vol] 1.98 10*3/uL 0.83-4.51 [facility] Basophil percentageOrdered B y: Dr. Workman on 09-12-2022 Basophils/100 WBC (Bld) 0.7 % 0-1 [facility] Bilirubin [Mass/Vol] 1.50 mg/dL 0.20-1.00 [facility] Comment on above: For patients on eltr ombopag therapy, use of Dimension Ralph TBIL is not recommended. Chloride [Moles/Vol] 107 mmol/L 98-107 [facility] Cholesterol [Mass/Vol] 171 mg/dL <200 [facility] Comment on above: <200 mg/dL Desirable 200-240 mg/dL Borderline >240 mg/dL High Risk Eosinophils/100 WBC (Bld) 1.5 % 0-5 [facility] Glucose [Mass/Vol] 88 mg/dL 74-106 [facility] Neutrophils (Bld) [#/Vol] 3.3 10*3/uL 2.0-7.7 [facility] Neutrophils/100 WBC (Bld) 56.1 % 47-70 [facility] Potassium [Moles/Vol] 4.3 mmol/L 3.5-5.1 [facility] Protein [Mass/Vol] 6.6 g/dL 6.4-8.2 [facility] Sodium [Moles/Vol] 142 mmol/L 136-145 [facility] Triglyceride [Mass/Vol] 65 mg/dL <199 [facility] Comment on above: The drugs N-Acetylcy steine and Metamizole may falsely depress this assay.Serum Triglycerides Reference Interval Normal <150 mg/dL Borderline high 150 - 199 mg/dL High 200 - 499 mg/dL Very High > or = 500 mg/dL WBC (Bld) [#/Vol] 5.8 10*3/uL 4.4-11.0 [facility] Blood erythrocytes count (nu mber/volume)Ordered By: Dr. Workman on 09-12-2022 RBC (Bld) [#/Vol] 4.92 10*6/uL 4.6-6.[address] [facility] Blood hemoglobin measurement (mass/volume)Ordered By: Dr. Workman on 09-12-2022 Hemoglobin (Bld) [Mass/Vol] 15.5 g/dL 13.0-16.5 [facility] Blood lymphocytes/100 leukoc ytesOrdered By: Dr. Workman on 09-12-2022 Lymphocytes/100 WBC (Bld) 33.9 % 19-41 [facility] Blood monocytes/100 leukocyt esOrdered By: Dr. Workman on 09-12-2022 Monocytes/100 WBC (Bld) 7.5 % 0-10 [facility] Blood platelet mean volumeOr dered By: Dr. Workman on 09-12-2022 Platelet mean volume (Bld) [Entitic vol] 12.1 fL 6.2-12.0 [facility] Determination of erythrocyte mean corpuscular volume (MCV)Ordered By: Dr. Workman on 09-12-2022 MCV (RBC) [Entitic vol] 94.7 fL 80-94 [facility] Hematocrit Auto (Bld) [Volum e fraction]Ordered By: Dr. Workman on 09-12-2022 Hematocrit (Bld) [Volume fraction] 46.6 % 40-54 [facility] - Chemistry and C hemistry - challengeOrdered By: Dr. Workman on 09-12-2022 ALP [Catalytic activity/Vol] 61 U/L 45-117 [facility] ALT [Catalytic activity/Vol] 33 U/L 16-61 [facility] CO2 [Moles/Vol] 31.0 mmol/L 21.0-32.0 [facility] Globulin (S) [Mass/Vol] 2.7 g/dL 2.2-4.2 [facility] Urea nitrogen/Creatinine [Mass ratio] 22.2 mg/mg 10-20 [facility] - Hematology and Cell countsOrdered By: Dr. Workman on 09-12-2022 Erythrocyte distribution width (RBC) [Entitic vol] 40.3 fL 35.1-43.9 [facility] Erythrocyte distribution width (RBC) [Ratio] 11.6 % 11.6-14.6 [facility] Immature granulocytes/100 WBC (Bld) 0.300 % 0.0-0.9 [facility] Comment on above: IG% - Immature Granu locytes (promyelocytes, myelocytes and metamyelocytes) > 1% indicates that a LEFT SHIFT is Present. MCH (RBC) [Entitic mass] 31.5 pg 27.0-32.0 [facility] Nucleated RBC/100 WBC (Bld) [Ratio] 0 % 0-5 [facility] MCHC Auto (RBC) [Mass/Vol]Or dered By: Dr. Workman on 09-12-2022 MCHC (RBC) [Mass/Vol] 33.3 g/dL 32-36 [facility] No Panel InformationOrdered By: Dr. Workman on 09-12-2022 Estimated GFR (MDRD) Amer 96 mL/min >60 [facility] Comment on above: GFR Calc Estimated GFR (MDRD) Non-Af Amer 79 mL/min >60 [facility] Comment on above: Non- GFR Calc Platelets bldOrdered By: Dr. Workman on 09-12-2022 Platelets (Bld) [#/Vol] 121 10*3/uL 150-450 [facility] Serum or plasma albumin freya urement (mass/volume)Ordered By: Dr. Workman on 09-12-2022 Albumin [Mass/Vol] 3.9 g/dL 3.2-5.0 [facility] Serum or plasma albumin/glob ulin mass ratioOrdered By: Dr. Workman on 09-12-2022 Albumin/Globulin [Mass ratio] 1.4 {ratio} 0.9-2.4 [facility] Serum or plasma calcium freya urement (mass/volume)Ordered By: Dr. Workman on 09-12-2022 Calcium [Mass/Vol] 9.2 mg/dL 8.5-10.1 [facility] Serum or plasma cholesterol in HDL measurement (mass/volume)Ordered By: Dr. Workman on 09-12-2022 Cholesterol in HDL [Mass/Vol] 69 mg/dL >40 [facility] Comment on above: The drugs N-Acetylcy steine and Metamizole may falsely depress this assay. Reference Range HDL <40 mg/dL Low HDL Cholesterol HDL >or= 60 mg/dL High HDL Cholesterol Serum or plasma cholesterol in VLDL measurement (mass/volume)Ordered By: Dr. Workman on 09-12-2022 Cholesterol in VLDL [Mass/Vol] 13 mg/dL 5-40 [facility] Serum or plasma creatinine m easurement (mass/volume)Ordered By: Dr. Workman on 09-12-2022 Creatinine [Mass/Vol] 0.99 mg/dL 0.70-1.30 [facility] Comment on above: The validity of the calculated GFR & GFRAA in patients over 70 years has not been determined. Clinical correlation is essential. Serum or plasma low density lipoprotein (LDL) cholesterol measurement (mass/volume)Ordered By: Dr. Workman on 09-12-2022 Cholesterol in LDL [Mass/Vol] 89 mg/dL 0-130 [facility] Serum or plasma urea nitroge n measurement (mass/volume)Ordered By: Dr. Workman on 09-12-2022 Urea nitrogen [Mass/Vol] 22 mg/dL 7-18 [facility] Thin prep Papanicolaou smear with manual screeningOrdered By: Dr. Workman on 09-12-2022 Thin prep Papanicolaou smear with manual screening 21 U/L 15-37 [facility] Thin prep Papanicolaou smear with manual screening 4 5-15 [facility] Basophil percentageOrdered B y: Dr. Schsuter on 05-31-2022 Creatinine [Mass/Vol] 1.2 mg/dL 0.70-1.30 [facility] No Panel InformationOrdered By: Dr. Schuster on 05-31-2022 Bedside Estimated GFR (eGFR) > 60.0000 mL/min >60 [facility] Miscellaneous Test See comment [facility] Comment on above: TEST RESULT LIMITSLy [...] 05-31-2022 Treponema sp Ab Ql (S) Non-Reactive [facility] Serum or plasma angiotensin converting enzyme measurement (enzymatic activity/volume)Ordered By: Dr. Schuster on 05-31-2022 Angiotensin converting enzyme [Catalytic activity/Vol] 21 U/L 14-82 [facility] Comment on above: Performed at: [address] [id number] Director: Pérez Pillai PhD, Phone: [phone] Absolute lymphocyte countOrd ered By: Dr. Schuster on 05-16-2022 Lymphocytes Auto (Unsp spec) [#/Vol] 2.13 10*3/uL 0.83-4.51 [facility] Basophil percentageOrdered B y: Dr. Schuster on 05-16-2022 Basophils/100 WBC (Bld) 0.3 % 0-1 [facility] Eosinophils/100 WBC (Bld) 1.2 % 0-5 [facility] Neutrophils (Bld) [#/Vol] 4.6 10*3/uL 2.0-7.7 [facility] Neutrophils/100 WBC (Bld) 62.7 % 47-70 [facility] WBC (Bld) [#/Vol] 7.3 10*3/uL 4.4-11.0 [facility] Blood erythrocytes count (nu mber/volume)Ordered By: Dr. Schuster on 05-16-2022 RBC (Bld) [#/Vol] 4.74 10*6/uL 4.6-6.[address] [facility] Blood hemoglobin measurement (mass/volume)Ordered By: Dr. Schuster on 05-16-2022 Hemoglobin (Bld) [Mass/Vol] 15.1 g/dL 13.0-16.5 [facility] Blood lymphocytes/100 leukoc ytesOrdered By: Dr. Schuster on 05-16-2022 Lymphocytes/100 WBC (Bld) 29.3 % 19-41 [facility] Blood monocytes/100 leukocyt esOrdered By: Dr. Schuster on 05-16-2022 Monocytes/100 WBC (Bld) 6.2 % 0-10 [facility] Blood platelet mean volumeOr dered By: Dr. Schuster on 05-16-2022 Platelet mean volume (Bld) [Entitic vol] 11.3 fL 6.2-12.0 [facility] Determination of erythrocyte mean corpuscular volume (MCV)Ordered By: Dr. Schuster on 05-16-2022 MCV (RBC) [Entitic vol] 96.2 fL 80-94 [facility] Erythrocyte sedimentation ra teOrdered By: Dr. Schuster on 05-16-2022 ESR (Bld) [Velocity] 7 mm/h 0-20 [facility] Hematocrit Auto (Bld) [Volum e fraction]Ordered By: Dr. Schuster on 05-16-2022 Hematocrit (Bld) [Volume fraction] 45.6 % 40-54 [facility] Laboratory - Hematology and Cell countsOrdered By: Dr. Schuster on 05-16-2022 Erythrocyte distribution width (RBC) [Entitic vol] 41.3 fL 35.1-43.9 [facility] Erythrocyte distribution width (RBC) [Ratio] 11.7 % 11.6-14.6 [facility] Immature granulocytes/100 WBC (Bld) 0.300 % 0.0-0.9 [facility] Comment on above: IG% - Immature Granu locytes (promyelocytes, myelocytes and metamyelocytes) > 1% indicates that a LEFT SHIFT is Present. MCH (RBC) [Entitic mass] 31.9 pg 27.0-32.0 [facility] Nucleated RBC/100 WBC (Bld) [Ratio] 0 % 0-5 [facility] MCHC Auto (RBC) [Mass/Vol]Or dered By: Dr. Schuster on 05-16-2022 MCHC (RBC) [Mass/Vol] 33.1 g/dL 32-36 [facility] Platelets bldOrdered By: Dr. Schuster on 05-16-2022 Platelets (Bld) [#/Vol] 93 10*3/uL 150-450 [facility] Serum or plasma C reactive p rotein measurement (mass/volume)Ordered By: Dr. Schuster on 05-16-2022 CRP [Mass/Vol] mg/L 0.0-3.0 [facility] Comment on above: C-Reactive Protein ( CRP) provides useful information for thediagnosis, therapy and monitoring of inflammatory processesand associated diseases. For the evaluation of Relative Riskfor Cardiovascular Disease, a High Sensitivity CRP (HSCRP)should be ordered. Absolute lymphocyte countOrd ered By: Dr. Workman on 03-08-2022 Lymphocytes Auto (Unsp spec) [#/Vol] 1.84 10*3/uL 0.83-4.51 [facility] Basophil percentageOrdered B y: Dr. Workman on 03-08-2022 Basophils/100 WBC (Bld) 0.6 % 0-1 [facility] Bilirubin [Mass/Vol] 1.20 mg/dL 0.20-1.00 [facility] Comment on above: For patients on eltr ombopag therapy, use of Dimension Ralph TBIL is not recommended. Chloride [Moles/Vol] 107 mmol/L 98-107 [facility] Cholesterol [Mass/Vol] 186 mg/dL <200 [facility] Comment on above: <200 mg/dL Desirable 200-240 mg/dL Borderline >240 mg/dL High Risk Eosinophils/100 WBC (Bld) 1.1 % 0-5 [facility] Glucose [Mass/Vol] 89 mg/dL 74-106 [facility] Neutrophils (Bld) [#/Vol] 3.1 10*3/uL 2.0-7.7 [facility] Neutrophils/100 WBC (Bld) 57.5 % 47-70 [facility] Potassium [Moles/Vol] 3.9 mmol/L 3.5-5.1 [facility] Protein [Mass/Vol] 7.3 g/dL 6.4-8.2 [facility] Sodium [Moles/Vol] 140 mmol/L 136-145 [facility] Triglyceride [Mass/Vol] 78 mg/dL <199 [facility] Comment on above: The drugs N-Acetylcy steine and Metamizole may falsely depress this assay.Serum Triglycerides Reference Interval Normal <150 mg/dL Borderline high 150 - 199 mg/dL High 200 - 499 mg/dL Very High > or = 500 mg/dL WBC (Bld) [#/Vol] 5.4 10*3/uL 4.4-11.0 [facility] Blood erythrocytes count (nu mber/volume)Ordered By: Dr. Workman on 03-08-2022 RBC (Bld) [#/Vol] 4.75 10*6/uL 4.6-6.[address] [facility] Blood hemoglobin measurement (mass/volume)Ordered By: Dr. Workman on 03-08-2022 Hemoglobin (Bld) [Mass/Vol] 15.6 g/dL 13.0-16.5 [facility] Blood lymphocytes/100 leukoc ytesOrdered By: Dr. Workman on 03-08-2022 Lymphocytes/100 WBC (Bld) 33.8 % 19-41 [facility] Blood monocytes/100 leukocyt esOrdered By: Dr. Workman on 03-08-2022 Monocytes/100 WBC (Bld) 6.8 % 0-10 [facility] Blood platelet adequacy dete ction by light microscopyOrdered By: Dr. Workman on 03-08-2022 Platelets LM Ql (Bld) ADEQUATE ADEQ [facility] Blood platelet mean volumeOr dered By: Dr. Workman on 03-08-2022 Platelet mean volume (Bld) [Entitic vol] 11.1 fL 6.2-12.0 [facility] Blood platelet morphology de termination (nominal result)Ordered By: Dr. Workman on 03-08-2022 Platelet morphology finding Nom (Bld) CLUMPED [facility] Determination of erythrocyte mean corpuscular volume (MCV)Ordered By: Dr. Workman on 03-08-2022 MCV (RBC) [Entitic vol] 93.9 fL 80-94 [facility] Hematocrit Auto (Bld) [Volum e fraction]Ordered By: Dr. Workman on 03-08-2022 Hematocrit (Bld) [Volume fraction] 44.6 % 40-54 [facility] Laboratory - Chemistry and C hemistry - challengeOrdered By: Dr. Workman on 03-08-2022 ALP [Catalytic activity/Vol] 61 U/L 45-117 [facility] ALT [Catalytic activity/Vol] 30 U/L 16-61 [facility] CO2 [Moles/Vol] 27.0 mmol/L 21.0-32.0 [facility] Globulin (S) [Mass/Vol] 3.5 g/dL 2.2-4.2 [facility] Urea nitrogen/Creatinine [Mass ratio] 24.7 mg/mg 10-20 [facility] - Hematology and Cell countsOrdered By: Dr. Workman on 03-08-2022 Erythrocyte distribution width (RBC) [Entitic vol] 39.6 fL 35.1-43.9 [facility] Erythrocyte distribution width (RBC) [Ratio] 11.6 % 11.6-14.6 [facility] Immature granulocytes/100 WBC (Bld) 0.200 % 0.0-0.9 [facility] Comment on above: IG% - Immature Granu locytes (promyelocytes, myelocytes and metamyelocytes) > 1% indicates that a LEFT SHIFT is Present. MCH (RBC) [Entitic mass] 32.8 pg 27.0-32.0 [facility] Nucleated RBC/100 WBC (Bld) [Ratio] 0 % 0-5 [facility] MCHC Auto (RBC) [Mass/Vol]Or dered By: Dr. Workman on 03-08-2022 MCHC (RBC) [Mass/Vol] 35.0 g/dL 32-36 [facility] No Panel InformationOrdered By: Dr. Workman on 03-08-2022 Estimated GFR (MDRD) Amer 103 mL/min >60 [facility] Comment on above: GFR Calc Estimated GFR (MDRD) Non-Af Amer 85 mL/min >60 [facility] Comment on above: Non- GFR Calc Prostate Specific Antigen Screen 1.85 ng/mL 0.00-4.00 [facility] Comment on above: This test was perfor med using the TPSA assay method for the[facility] system. Values obtained with differentassay methods cannot be used interchangably.When changing PSA assays in the course of monitoring apatient, additional sequential testing should be carriedout to confirm baseline values. Platelets bldOrdered By: Dr. Workman on 03-08-2022 Platelets (Bld) [#/Vol] See comment 150-450 [facility] Comment on above: Please note: For thi s sample, a platelet estimate is provided rather than a platelet count due to platelet clumping. Other parameters associated with this sample are not affected by platelet clumping. If a more accurate platelet count is required, a redraw of the patient will be necessary.Previous reported result: 74 [id number] by: HARINI on 03/08/22:1109 AMENDED REPORT 03/08/22 1109 PLT previously reported as: 74 L K/mm3 Serum or plasma albumin freya urement (mass/volume)Ordered By: Dr. Workman on 03-08-2022 Albumin [Mass/Vol] 3.8 g/dL 3.2-5.0 [facility] Serum or plasma albumin/glob ulin mass ratioOrdered By: Dr. Workman on 03-08-2022 Albumin/Globulin [Mass ratio] 1.1 {ratio} 0.9-2.4 [facility] Serum or plasma calcium freya urement (mass/volume)Ordered By: Dr. Workman on 03-08-2022 Calcium [Mass/Vol] 9.1 mg/dL 8.5-10.1 [facility] Serum or plasma cholesterol in HDL measurement (mass/volume)Ordered By: Dr. Workman on 03-08-2022 Cholesterol in HDL [Mass/Vol] 64 mg/dL >40 [facility] Comment on above: The drugs N-Acetylcy steine and Metamizole may falsely depress this assay. Reference Range HDL <40 mg/dL Low HDL Cholesterol HDL >or= 60 mg/dL High HDL Cholesterol Serum or plasma cholesterol in VLDL measurement (mass/volume)Ordered By: Dr. Workman on 03-08-2022 Cholesterol in VLDL [Mass/Vol] 16 mg/dL 5-40 [facility] Serum or plasma creatinine m easurement (mass/volume)Ordered By: Dr. Wrokman on 03-08-2022 Creatinine [Mass/Vol] 0.93 mg/dL 0.70-1.30 [facility] Comment on above: The validity of the calculated GFR & GFRAA in patients over 70 years has not been determined. Clinical correlation is essential. Serum or plasma low density lipoprotein (LDL) cholesterol measurement (mass/volume)Ordered By: Dr. Workman on 03-08-2022 Cholesterol in LDL [Mass/Vol] 106 mg/dL 0-130 [facility] Serum or plasma urea nitroge n measurement (mass/volume)Ordered By: Dr. Workman on 03-08-2022 Urea nitrogen [Mass/Vol] 23 mg/dL 7-18 [facility] Thin prep Papanicolaou smear with manual screeningOrdered By: Dr. Workman on 03-08-2022 Thin prep Papanicolaou smear with manual screening 18 U/L 15-37 [facility] Thin prep Papanicolaou smear with manual screening 6 5-15 [facility] Basophil percentageon 2021 Chloride [Moles/Vol] 103 mmol/L 98-107 [facility] Work Phone: Glucose [Mass/Vol] 84 mg/dL 74-106 [facility] Work Phone: Potassium [Moles/Vol] 4.3 mmol/L 3.5-5.1 [facility] Work Phone: Sodium [Moles/Vol] 138 mmol/L 136-145 [facility] Work Phone: Laboratory - Chemistry and C hemistry - challengeon 11-25-2021 CO2 [Moles/Vol] 30.0 mmol/L 21.0-32.0 [facility] Work Phone: Urea nitrogen/Creatinine [Mass ratio] 17.3 mg/mg 10-20 [facility] Work Phone: No Panel Informationon 11-25 Estimated GFR (MDRD) Amer 85 mL/min >60 [facility] Work Phone: Comment on above: GFR Calc Estimated GFR (MDRD) Non-Af Amer 70 mL/min >60 [facility] Work Phone: Comment on above: Non- GFR Calc Serum or plasma calcium freya urement (mass/volume)on 11-25-2021 Calcium [Mass/Vol] 9.4 mg/dL 8.5-10.1 [facility] Work Phone: Serum or plasma creatinine m easurement (mass/volume)on 11-25-2021 Creatinine [Mass/Vol] 1.10 mg/dL 0.70-1.30 [facility] Work Phone: Comment on above: The validity of the calculated GFR & GFRAA in patients over 70 years has not been determined. Clinical correlation is essential. Serum or plasma urea nitroge n measurement (mass/volume)on 11-25-2021 Urea nitrogen [Mass/Vol] 19 mg/dL 7-18 [facility] Work Phone: Thin prep Papanicolaou smear with manual screeningon 11-25-2021 Thin prep Papanicolaou smear with manual screening 5 5-15 [facility] Work Phone: Absolute lymphocyte counton 09-14-2021 Lymphocytes Auto (Unsp spec) [#/Vol] 1.63 10*3/uL 0.83-4.51 [facility] Work Phone: Basophil percentageon 2021 Basophils/100 WBC (Bld) 0.5 % 0-1 [facility] Work Phone: Eosinophils/100 WBC (Bld) 1.0 % 0-5 [facility] Work Phone: Neutrophils (Bld) [#/Vol] 3.8 10*3/uL 2.0-7.7 [facility] Work Phone: Neutrophils/100 WBC (Bld) 64.2 % 47-70 [facility] Work Phone: WBC (Bld) [#/Vol] 5.9 10*3/uL 4.4-11.0 [facility] Work Phone: Blood erythrocytes count (nu mber/volume)on 09-14-2021 RBC (Bld) [#/Vol] 4.78 10*6/uL 4.6-6.[address] [facility] Work Phone: Blood hemoglobin measurement (mass/volume)on 09-14-2021 Hemoglobin (Bld) [Mass/Vol] 15.4 g/dL 13.0-16.5 [facility] Work Phone: Blood lymphocytes/100 leukoc yteson 09-14-2021 Lymphocytes/100 WBC (Bld) 27.6 % 19-41 [facility] Work Phone: Blood monocytes/100 leukocyt eson 09-14-2021 Monocytes/100 WBC (Bld) 6.4 % 0-10 [facility] Work Phone: Blood platelet mean volumeon 09-14-2021 Platelet mean volume (Bld) [Entitic vol] 12.7 fL 6.2-12.0 [facility] Work Phone: Determination of erythrocyte mean corpuscular volume (MCV)on 09-14-2021 MCV (RBC) [Entitic vol] 94.4 fL 80-94 [facility] Work Phone: Hematocrit Auto (Bld) [Volum e fraction]on 09-14-2021 Hematocrit (Bld) [Volume fraction] 45.1 % 40-54 [facility] Work Phone: Laboratory - Hematology and Cell countson 09-14-2021 Erythrocyte distribution width (RBC) [Entitic vol] 40.3 fL 35.1-43.9 [facility] Work Phone: Erythrocyte distribution width (RBC) [Ratio] 11.5 % 11.6-14.6 [facility] Work Phone: Immature granulocytes/100 WBC (Bld) 0.300 % 0.0-0.9 [facility] Work Phone: Comment on above: IG% - Immature Granu locytes (promyelocytes, myelocytes and metamyelocytes) > 1% indicates that a LEFT SHIFT is Present. MCH (RBC) [Entitic mass] 32.2 pg 27.0-32.0 [facility] Work Phone: Nucleated RBC/100 WBC (Bld) [Ratio] 0 % 0-5 [facility] Work Phone: MCHC Auto (RBC) [Mass/Vol]on 09-14-2021 MCHC (RBC) [Mass/Vol] 34.1 g/dL 32-36 [facility] Work Phone: Platelets bldon 09-14-2021 Platelets (Bld) [#/Vol] 77 10*3/uL 150-450 [facility] Work Phone: Absolute lymphocyte counton 09-01-2021 Lymphocytes Auto (Unsp spec) [#/Vol] 1.76 10*3/uL 0.83-4.51 [facility] Work Phone: Basophil percentageon 2021 Basophils/100 WBC (Bld) 0.4 % 0-1 [facility] Work Phone: Bilirubin [Mass/Vol] 0.90 mg/dL 0.20-1.00 [facility] Work Phone: Comment on above: For patients on eltr ombopag therapy, use of Dimension Ralph TBIL is not recommended. Chloride [Moles/Vol] 105 mmol/L 98-107 [facility] Work Phone: Cholesterol [Mass/Vol] 207 mg/dL <200 [facility] Work Phone: Comment on above: <200 mg/dL Desirable 200-240 mg/dL Borderline >240 mg/dL High Risk Eosinophils/100 WBC (Bld) 1.1 % 0-5 [facility] Work Phone: Glucose [Mass/Vol] 96 mg/dL 74-106 [facility] Work Phone: Neutrophils (Bld) [#/Vol] 3.4 10*3/uL 2.0-7.7 [facility] Work Phone: Neutrophils/100 WBC (Bld) 60.3 % 47-70 [facility] Work Phone: Potassium [Moles/Vol] 4.3 mmol/L 3.5-5.1 [facility] Work Phone: Protein [Mass/Vol] 7.2 g/dL 6.4-8.2 [facility] Work Phone: Sodium [Moles/Vol] 138 mmol/L 136-145 [facility] Work Phone: Triglyceride [Mass/Vol] 161 mg/dL <199 [facility] Work Phone: Comment on above: The drugs N-Acetylcy steine and Metamizole may falsely depress this assay.Serum Triglycerides Reference Interval Normal <150 mg/dL Borderline high 150 - 199 mg/dL High 200 - 499 mg/dL Very High > or = 500 mg/dL WBC (Bld) [#/Vol] 5.6 10*3/uL 4.4-11.0 [facility] Work Phone: Blood erythrocytes count (nu mber/volume)on 09-01-2021 RBC (Bld) [#/Vol] 4.96 10*6/uL 4.6-6.[address] [facility] Work Phone: Blood hemoglobin measurement (mass/volume)on 09-01-2021 Hemoglobin (Bld) [Mass/Vol] 15.7 g/dL 13.0-16.5 [facility] Work Phone: Blood lymphocytes/100 leukoc yteson 09-01-2021 Lymphocytes/100 WBC (Bld) 31.7 % 19-41 [facility] Work Phone: Blood monocytes/100 leukocyt eson 09-01-2021 Monocytes/100 WBC (Bld) 6.3 % 0-10 [facility] Work Phone: Blood platelet adequacy dete ction by light microscopyon 09-01-2021 Platelets LM Ql (Bld) ADEQUATE ADEQ [facility] Work Phone: Blood platelet mean volumeon 09-01-2021 Platelet mean volume (Bld) [Entitic vol] 11.4 fL 6.2-12.0 [facility] Work Phone: Blood platelet morphology de termination (nominal result)on 09-01-2021 Platelet morphology finding Nom (Bld) CLUMPED [facility] Work Phone: Determination of erythrocyte mean corpuscular volume (MCV)on 09-01-2021 MCV (RBC) [Entitic vol] 93.5 fL 80-94 [facility] Work Phone: Direct bilirubinon Bilirubin.direct [Mass/Vol] 0.15 mg/dL 0.00-0.30 [facility] Work Phone: Hematocrit Auto (Bld) [Volum e fraction]on 09-01-2021 Hematocrit (Bld) [Volume fraction] 46.4 % 40-54 [facility] Work Phone: Laboratory - Chemistry and C hemistry - challengeon 09-01-2021 ALP [Catalytic activity/Vol] 59 U/L 45-117 [facility] Work Phone: ALT [Catalytic activity/Vol] 30 U/L 16-61 [facility] Work Phone: CO2 [Moles/Vol] 25.0 mmol/L 21.0-32.0 [facility] Work Phone: Globulin (S) [Mass/Vol] 3.5 g/dL 2.2-4.2 [facility] Work Phone: Urea nitrogen/Creatinine [Mass ratio] 18.2 mg/mg 10-20 [facility] Work Phone: Laboratory - Hematology and Cell countson 09-01-2021 Erythrocyte distribution width (RBC) [Entitic vol] 39.8 fL 35.1-43.9 [facility] Work Phone: Erythrocyte distribution width (RBC) [Ratio] 11.6 % 11.6-14.6 [facility] Work Phone: Immature granulocytes/100 WBC (Bld) 0.200 % 0.0-0.9 [facility] Work Phone: Comment on above: IG% - Immature Granu locytes (promyelocytes, myelocytes and metamyelocytes) > 1% indicates that a LEFT SHIFT is Present. MCH (RBC) [Entitic mass] 31.7 pg 27.0-32.0 [facility] Work Phone: Nucleated RBC/100 WBC (Bld) [Ratio] 0 % 0-5 [facility] Work Phone: MCHC Auto (RBC) [Mass/Vol]on 09-01-2021 MCHC (RBC) [Mass/Vol] 33.8 g/dL 32-36 [facility] Work Phone: No Panel Informationon 09-01 Estimated GFR (MDRD) Amer 85 mL/min >60 [facility] Work Phone: Comment on above: GFR Calc Estimated GFR (MDRD) Non-Af Amer 70 mL/min >60 [facility] Work Phone: Comment on above: Non- GFR Calc Platelets bldon 09-01-2021 Platelets (Bld) [#/Vol] 88 10*3/uL 150-450 [facility] Work Phone: RBC morphologyon 09-01-2021 RBC morphology finding Nom (Bld) NORM C+C NORMAL NORM C&C [facility] Work Phone: Serum or plasma albumin freya urement (mass/volume)on 09-01-2021 Albumin [Mass/Vol] 3.7 g/dL 3.2-5.0 [facility] Work Phone: Serum or plasma albumin/glob ulin mass ratioon 09-01-2021 Albumin/Globulin [Mass ratio] 1.1 {ratio} 0.9-2.4 [facility] Work Phone: Serum or plasma calcium freya urement (mass/volume)on 09-01-2021 Calcium [Mass/Vol] 9.0 mg/dL 8.5-10.1 [facility] Work Phone: Serum or plasma cholesterol in HDL measurement (mass/volume)on 09-01-2021 Cholesterol in HDL [Mass/Vol] 58 mg/dL >40 [facility] Work Phone: Comment on above: The drugs N-Acetylcy steine and Metamizole may falsely depress this assay. Reference Range HDL <40 mg/dL Low HDL Cholesterol HDL >or= 60 mg/dL High HDL Cholesterol Serum or plasma cholesterol in VLDL measurement (mass/volume)on 09-01-2021 Cholesterol in VLDL [Mass/Vol] 32 mg/dL 5-40 [facility] Work Phone: Serum or plasma creatinine m easurement (mass/volume)on 09-01-2021 Creatinine [Mass/Vol] 1.10 mg/dL 0.70-1.30 [facility] Work Phone: Comment on above: The validity of the calculated GFR & GFRAA in patients over 70 years has not been determined. Clinical correlation is essential. Serum or plasma low density lipoprotein (LDL) cholesterol measurement (mass/volume)on 09-01-2021 Cholesterol in LDL [Mass/Vol] 117 mg/dL 0-130 [facility] Work Phone: Serum or plasma urea nitroge n measurement (mass/volume)on 09-01-2021 Urea nitrogen [Mass/Vol] 20 mg/dL 7-18 [facility] Work Phone: Thin prep Papanicolaou smear with manual screeningon 09-01-2021 Thin prep Papanicolaou smear with manual screening 15 U/L 15-37 [facility] Work Phone: Thin prep Papanicolaou smear with manual screening 8 5-15 [facility] Work Phone: Basophil percentageon 2021 Bilirubin [Mass/Vol] 1.50 mg/dL 0.20-1.00 [facility] Work Phone: Comment on above: For patients on eltr ombopag therapy, use of Dimension Ralph TBIL is not recommended. Protein [Mass/Vol] 7.0 g/dL 6.4-8.2 [facility] Work Phone: Direct bilirubinon 2 Bilirubin.direct [Mass/Vol] 0.26 mg/dL 0.00-0.30 [facility] Work Phone: Laboratory - Chemistry and C hemistry - challengeon 06-29-2021 ALP [Catalytic activity/Vol] 58 U/L 45-117 [facility] Work Phone: ALT [Catalytic activity/Vol] 31 U/L 16-61 [facility] Work Phone: Globulin (S) [Mass/Vol] 3.3 g/dL 2.2-4.2 [facility] Work Phone: Serum or plasma albumin freya urement (mass/volume)on 06-29-2021 Albumin [Mass/Vol] 3.7 g/dL 3.2-5.0 [facility] Work Phone: Thin prep Papanicolaou smear with manual screeningon 06-29-2021 Thin prep Papanicolaou smear with manual screening 22 U/L 15-37 [facility] Work Phone: Absolute lymphocyte counton 06-25-2021 Lymphocytes Auto (Unsp spec) [#/Vol] 2.09 10*3/uL 0.83-4.51 [facility] Work Phone: Basophil percentageon 2021 Basophils/100 WBC (Bld) 0.5 % 0-1 [facility] Work Phone: Bilirubin [Mass/Vol] 1.40 mg/dL 0.20-1.00 [facility] Work Phone: Comment on above: For patients on eltr ombopag therapy, use of Dimension Ralph TBIL is not recommended. Chloride [Moles/Vol] 107 mmol/L 98-107 [facility] Work Phone: Eosinophils/100 WBC (Bld) 1.5 % 0-5 [facility] Work Phone: Glucose [Mass/Vol] 76 mg/dL 74-106 [facility] Work Phone: Neutrophils (Bld) [#/Vol] 3.9 10*3/uL 2.0-7.7 [facility] Work Phone: Neutrophils/100 WBC (Bld) 59.5 % 47-70 [facility] Work Phone: Potassium [Moles/Vol] 4.5 mmol/L 3.5-5.1 [facility] Work Phone: Protein [Mass/Vol] 7.1 g/dL 6.4-[facility]: Sodium [Moles/Vol] 139 mmol/L 136-[address] [facility] Work Phone: WBC (Bld) [#/Vol] 6.5 10*3/uL 4.4-11.[address] [facility] Work Phone: Blood erythrocytes count (nu mber/volume)on 06-25-2021 RBC (Bld) [#/Vol] 4.94 10*6/uL 4.6-6.[facility]: Blood hemoglobin measurement (mass/volume)on 06-25-2021 Hemoglobin (Bld) [Mass/Vol] 15.6 g/dL 13.0-16.5 [facility] Work Phone: Blood lymphocytes/100 leukoc yteson 06-25-2021 Lymphocytes/100 WBC (Bld) 32.0 % 19-41 [facility] Work Phone: Blood monocytes/100 leukocyt eson 06-25-2021 Monocytes/100 WBC (Bld) 6.3 % 0-10 [facility] Work Phone: Blood platelet mean volumeon 06-25-2021 Platelet mean volume (Bld) [Entitic vol] 11.4 fL 6.2-12.0 [facility] Work Phone: Determination of erythrocyte mean corpuscular volume (MCV)on 06-25-2021 MCV (RBC) [Entitic vol] 94.7 fL 80-94 [facility] Work Phone: Hematocrit Auto (Bld) [Volum e fraction]on 06-25-2021 Hematocrit (Bld) [Volume fraction] 46.8 % 40-54 [facility] Work Phone: Laboratory - Chemistry and C hemistry - challengeon 06-25-2021 ALP [Catalytic activity/Vol] 63 U/L 45-117 [facility] Work Phone: ALT [Catalytic activity/Vol] 34 U/L 16-61 [facility] Work Phone: CO2 [Moles/Vol] 28.0 mmol/L 21.0-32.0 [facility] Work Phone: Globulin (S) [Mass/Vol] 3.3 g/dL 2.2-4.2 [facility] Work Phone: Lipase [Catalytic activity/Vol] 72 U/L 73-393 [facility] Work Phone: Urea nitrogen/Creatinine [Mass ratio] 18.1 mg/mg 10-20 [facility] Work Phone: Laboratory - Hematology and Cell countson 06-25-2021 Erythrocyte distribution width (RBC) [Entitic vol] 40.3 fL 35.1-43.9 [facility] Work Phone: Erythrocyte distribution width (RBC) [Ratio] 11.7 % 11.6-14.6 [facility] Work Phone: Immature granulocytes/100 WBC (Bld) 0.200 % 0.0-0.9 [facility] Work Phone: Comment on above: IG% - Immature Granu locytes (promyelocytes, myelocytes and metamyelocytes) > 1% indicates that a LEFT SHIFT is Present. MCH (RBC) [Entitic mass] 31.6 pg 27.0-32.0 [facility] Work Phone: Nucleated RBC/100 WBC (Bld) [Ratio] 0 % 0-5 [facility] Work Phone: MCHC Auto (RBC) [Mass/Vol]on 06-25-2021 MCHC (RBC) [Mass/Vol] 33.3 g/dL 32-36 [facility] Work Phone: No Panel Informationon 06-25 Estimated GFR (MDRD) Amer 90 mL/min >60 [facility] [facility] Work Phone: Comment on above: GFR Calc Estimated GFR (MDRD) Non-Af Amer 74 mL/min >60 [facility] Work Phone: Comment on above: Non- GFR Calc Platelets bldon 06-25-2021 Platelets (Bld) [#/Vol] 99 10*3/uL 150-450 [facility] Work Phone: Serum or plasma albumin freya urement (mass/volume)on 06-25-2021 Albumin [Mass/Vol] 3.8 g/dL 3.2-5.0 [facility] Work Phone: Serum or plasma albumin/glob ulin mass ratioon 06-25-2021 Albumin/Globulin [Mass ratio] 1.2 {ratio} 0.9-2.4 [facility] Work Phone: Serum or plasma calcium freya urement (mass/volume)on 06-25-2021 Calcium [Mass/Vol] 8.8 mg/dL 8.5-10.1 [facility] Work Phone: Serum or plasma creatinine m easurement (mass/volume)on 06-25-2021 Creatinine [Mass/Vol] 1.05 mg/dL 0.70-1.30 [facility] Work Phone: Comment on above: The validity of the calculated GFR & GFRAA in patients over 70 years has not been determined. Clinical correlation is essential. Serum or plasma urea nitroge n measurement (mass/volume)on 06-25-2021 Urea nitrogen [Mass/Vol] 19 mg/dL 7-18 [facility] Work Phone: Thin prep Papanicolaou smear with manual screeningon 06-25-2021 Thin prep Papanicolaou smear with manual screening 21 U/L 15-37 [facility] Work Phone: Thin prep Papanicolaou smear with manual screening 4 5-15 [facility] Work Phone: Clinical Summary: HMSPatient IDon 05-23-2018 SOP Sadie genao [facility] Work Phone: Clinical Summary: Scanned Hi story Summaryon 05-23-2018 brother(s) of patient alive or Unknown [facility] Work Phone: Data entered by patient exercise frequency 6 days per week [facility] Work Phone: Data entered by patient exercise type walkingother [facility] Work Phone: data entered by patient, alcohol (ethanol or ETOH) use No [facility] Work Phone: Data entered by patient, allergy list Penicillin [facility] Work Phone: data entered by patient, drug (of abuse) use No [facility] Work Phone: data entered by patient, Employer Name Retired [facility] Work Phone: data entered by patient, exercise history Yes [facility] Work Phone: data entered by patient, father's medical history Cancer [facility] Work Phone: Data entered by patient, history of past surgeries Fracture repairShoulder surgery other [facility] Work Phone: data entered by patient, mother's medical history Alzheimer [facility] Work Phone: data entered by patient, social history, current smoker never smoker [facility] Work Phone: data entered by patient, social history, marital status [facility] Work Phone: father of patient is alive or [facility] Work Phone: Housing Type: apartment, house, correction, trailer, none House [facility] Work Phone: housing unit size (asthma environmental history, housing) (from single family to don't know) [address] [facility] Work Phone: mother of patient is alive or [facility] Work Phone: Number of dependent children No [facility] Work Phone: Protein mass conc Patient Denies Medical Problems or Conditions [facility] Work Phone: sister of patient(s) alive or Unknown [facility] Work Phone: Clinical Summary: Scanned RO S Summaryon 05-23-2018 endocrine ROS Denies [facility] Work Phone: genitourinary review of systems, E&M Denies [facility] Work Phone: Lymphocytes #/vol (Bld) Denies C [facility] Work Phone: ROS cardiovascular E&M Denies Cr ystal [facility] Work Phone: ROS ENT E&M Denies [facility] Work Phone: ROS gastrointestinal E&M Denies [facility] Work Phone: ROS general E&M Denies [facility]inic [facility] Work Phone: ROS Musculoskeletal comments Muscle Weakness,Pain,Joint Pain [facility] Work Phone: ROS musculoskeletal E&M Complains C [facility] Work Phone: ROS neurological E&M Denies Eliz[facility] Work Phone: ROS psychiatric E&M Denies Cryst al [facility] Work Phone: ROS pulmonary E&M Denies Crystal [facility] Work Phone: ROS skin E&M Denies [facility] Work Phone: Office Visit: New - 1st visi t with practice, Rm: 11on 05-23-2018 NEGATED: Highlighted rowProtein mass conc Done [facility]anda [facility] Work Phone: NEGATED: Highlighted rowTobacco smoking status NHIS Tobacco smoking status NHIS [facility] Work Phone: Clinical Lists Update: Prelo ad Extendedon 05-18-2018 Tobacco smoking status NHIS Tobacco smoking status VAIS [facility] Work Phone: Vital Signs Date Time Vital Sign Value Performing Clinician Facility 11-07-2024 09:18-0400 Diastolic blood pressure 85 mm[Hg] Dr. Missy Workman MD Work Phone: [facility] 11-07-2024 09:18-0400 Systolic blood pressure 128 mm[Hg] Dr. Missy Workman MD Work Phone: [facility] 11-07-2024 09:03-0400 Body height [address] Missy Workman MD Work Phone: [facility] 11-07-2024 09:03-0400 Body mass index (BMI) [Ratio] 28.4 kg/m2 Dr. Missy Workman MD Work Phone: [facility] 11-07-2024 09:03-0400 Body weight 79.[address] Missy Workman MD Work Phone: [facility] 11-07-2024 09:03-0400 Heart rate 63 /min Dr. Missy Workman MD Work Phone: [facility] 11-07-2024 09:03-0400 Respiratory rate 16 /min Dr. Missy Workman MD Work Phone: [facility] 02-16-2023 15:46-0400 Body height [address] Missy Workman Work Phone: [facility] 02-16-2023 15:46-0400 Body mass index (BMI) [Ratio] 28.8 kg/m2 Dr. Missy Workman Work Phone: [facility] 02-16-2023 15:46-0400 Body temperature 101.9 [degF] Dr. Missy Workman Work Phone: [phone] [place] [address] 02-16-2023 15:46-0400 Body weight 80.[address] Missy Workman Work Phone: [phone] [place] [address] 02-16-2023 15:46-0400 Diastolic blood pressure 77 mm[Hg] Dr. Missy Workman Work Phone: [facility] 02-16-2023 15:46-0400 Heart rate 88 /min Dr. Missy Workman Work Phone: [facility] 02-16-2023 15:46-0400 Respiratory rate 16 /min Dr. Missy Workman Work Phone: [facility] 02-16-2023 15:46-0400 SaO2% (BldA) [Mass fraction] 93 % Dr. Missy Workman Work Phone: [facility] 02-16-2023 15:46-0400 Systolic blood pressure 124 mm[Hg] Dr. Missy Workman Work Phone: [facility] 12-08-2022 09:06-0400 Body height 167.[address] Missy Workman Work Phone: [facility] 12-08-2022 09:06-0400 Body mass index (BMI) [Ratio] 27.9 kg/m2 Dr. Missy Workman Work Phone: [facility] 12-08-2022 09:06-0400 Body weight 78.[address] Missy Workman Work Phone: [facility] 12-08-2022 09:06-0400 Diastolic blood pressure 85 mm[Hg] Dr. Missy Workman Work Phone: [facility] 12-08-2022 09:06-0400 Heart rate 86 /min Dr. Missy Workman Work Phone: [facility] 12-08-2022 09:06-0400 Respiratory rate 18 /min Dr. Missy Workman Work Phone: [facility] 12-08-2022 09:06-0400 SaO2% (BldA) [Mass fraction] 96 % Dr. Missy Workman Work Phone: [facility] 12-08-2022 09:06-0400 Systolic blood pressure 132 mm[Hg] Dr. Missy Workman Work Phone: [facility] 08-08-2022 10:21-0400 Body height 167.[address] Missy Workman Work Phone: [facility] 08-08-2022 10:21-0400 Diastolic blood pressure 92 mm[Hg] Dr. Missy Workman Work Phone: [facility] 08-08-2022 10:21-0400 Systolic blood pressure 130 mm[Hg] Dr. Missy Workman Work Phone: [facility] 08-08-2022 10:21-0400 Body mass index (BMI) [Ratio] 27.4 kg/m2 Dr. Missy Workman Work Phone: [facility] 08-08-2022 10:21-0400 Body weight 77.[address] Missy Workman Work Phone: [facility] 08-08-2022 10:21-0400 Heart rate 75 /min Dr. Missy Workman Work Phone: [facility] 08-08-2022 10:21-0400 Respiratory rate 18 /min Dr. Missy Workman Work Phone: [facility] 08-08-2022 10:21-0400 SaO2% (BldA) [Mass fraction] 96 % Dr. Missy Workman Work Phone: [facility] 05-27-2022 14:30-0500 Body temperature 98.1 [degF] Dr. Missy Workman Work Phone: [facility] 05-27-2022 14:30-0500 Diastolic blood pressure 95 mm[Hg] Dr. Missy Workman Work Phone: [facility] 05-27-2022 14:30-0500 Heart rate 79 /min Dr. Missy Workman Work Phone: [facility] 05-27-2022 14:30-0500 Respiratory rate 16 /min Dr. Missy Workman Work Phone: [facility] 05-27-2022 14:30-0500 SaO2% (BldA) [Mass fraction] 95 % Dr. Missy Workman Work Phone: [facility] 05-27-2022 14:30-0500 Systolic blood pressure 130 mm[Hg] Dr. Missy Workman Work Phone: [facility] 05-27-2022 11:38-0500 Body height 167.[address] Missy Workman Work Phone: [facility] 05-27-2022 11:38-0500 Body mass index (BMI) [Ratio] 27.1 kg/m2 Dr. Missy Workman Work Phone: [facility] 05-27-2022 11:38-0500 Body weight 76.[address] Missy Workman Work Phone: [facility] 05-23-2022 08:13-0500 Body height 167.[address] Missy Workman Work Phone: [facility] 05-23-2022 08:13-0500 Body mass index (BMI) [Ratio] 28 kg/m2 Dr. Missy Workman Work Phone: [facility] 05-23-2022 08:13-0500 Body temperature 97.6 [degF] Dr. Missy Workman Work Phone: [facility] 05-23-2022 08:13-0500 Body weight 78.[address] Missy Workman Work Phone: [facility] 05-23-2022 08:13-0500 Diastolic blood pressure 86 mm[Hg] Dr. Missy Workman Work Phone: [facility] 05-23-2022 08:13-0500 Heart rate 76 /min Dr. Missy Workmna Work Phone: [facility] 05-23-2022 08:13-0500 Respiratory rate 17 /min Dr. Missy Workman Work Phone: [facility] 05-23-2022 08:13-0500 SaO2% (BldA) [Mass fraction] 96 % Dr. Missy Workman Work Phone: [facility] 05-23-2022 08:13-0500 Systolic blood pressure 152 mm[Hg] Dr. Missy Workman Work Phone: [facility] 05-18-2022 08:26-0500 Body mass index (BMI) [Ratio] 27.4 kg/m2 Dr. Missy Workman Work Phone: [facility] 05-18-2022 08:26-0500 Body weight 77.[address] Missy Wokrman Work Phone: [facility] 05-18-2022 08:26-0500 Diastolic blood pressure 97 mm[Hg] Dr. Missy Workman Work Phone: [facility] 05-18-2022 08:26-0500 Heart rate 80 /min Dr. Missy Workman Work Phone: [facility] 05-18-2022 08:26-0500 Respiratory rate 18 /min Dr. Missy Workman Work Phone: [facility] 05-18-2022 08:26-0500 SaO2% (BldA) [Mass fraction] 95 % Dr. Missy Workman Work Phone: [facility] 05-18-2022 08:26-0500 Systolic blood pressure 132 mm[Hg] Dr. Missy Workman Work Phone: [facility] 12-16-2021 14:32-0400 Diastolic blood pressure 87 mm[Hg] Dr. Missy Workman Work Phone: [facility] Work Phone: 12-16-2021 14:32-0400 Heart rate 69 /min Dr. Missy Workman Work Phone: [facility] Work Phone: 12-16-2021 14:32-0400 Respiratory rate 14 /min Dr. Missy Workman Work Phone: [facility] Work Phone: 12-16-2021 14:32-0400 SaO2% (BldA) [Mass fraction] 94 % Dr. Missy Workman Work Phone: [facility] Work Phone: 12-16-2021 14:32-0400 Systolic blood pressure 126 mm[Hg] Dr. Missy Workman Work Phone: [facility] Work Phone: 12-16-2021 13:22-0400 Body height 167.[address] Missy Workman Work Phone: [facility] Work Phone: 12-16-2021 13:22-0400 Body mass index (BMI) [Ratio] 27.4 kg/m2 Dr. Missy Workman Work Phone: [facility] Work Phone: 12-16-2021 13:22-0400 Body weight 77.[address] Missy Workman Work Phone: [facility] Work Phone: 11-25-2021 10:59-0400 Body height 167.[address] Missy Workman Work Phone: [facility] Work Phone: 11-25-2021 10:59-0400 Body mass index (BMI) [Ratio] 27.9 kg/m2 Dr. Missy Workman Work Phone: [facility] Work Phone: 11-25-2021 10:59-0400 Body weight 78.[address] Missy Workman Work Phone: [facility] Work Phone: 11-25-2021 10:59-0400 Diastolic blood pressure 87 mm[Hg] Dr. Missy Workman Work Phone: [facility] Work Phone: 11-25-2021 10:59-0400 Heart rate 82 /min Dr. Missy Workman Work Phone: [facility] Work Phone: 11-25-2021 10:59-0400 Respiratory rate 16 /min Dr. Missy Workman Work Phone: [facility] Work Phone: 11-25-2021 10:59-0400 SaO2% (BldA) [Mass fraction] 95 % Dr. Missy Workman Work Phone: [facility] Work Phone: 11-25-2021 10:59-0400 Systolic blood pressure 136 mm[Hg] Dr. Missy Workman Work Phone: [facility] Work Phone: NEGATED: Highlighted [id number] 15:44-0500 BMI (Body Mass Index) 28.95 kg/m2 Xi Pop AT [facility] Work Phone: NEGATED: Highlighted [id number] 15:44-0500 BP Diastolic 86 mm[Hg] Xi Pop AT [facility] Work Phone: NEGATED: Highlighted [id number] 15:44-0500 BP Systolic 145 mm[Hg] Xi Kiesha AT [facility] Work Phone: NEGATED: Highlighted [id number] 15:44-0500 BP Systolic 126 mm[Hg] Xi Pop AT [facility] Work Phone: NEGATED: Highlighted [id number] 15:44-0500 Height 166.37 cm Xi K[address]ha AT [facility] Work Phone: NEGATED: Highlighted [id number] 15:44-0500 Height 166 cm Xi Pop AT [facility] Work Phone: NEGATED: Highlighted [id number] 15:44-0500 Pulse (Heart Rate) 76 /min Xi Pop AT [facility] Work Phone: NEGATED: Highlighted [id number] 15:44-0500 Weight 79.83 kg Xi Pop AT [facility] Work Phone: NEGATED: Highlighted [id number] 15:44-0500 Weight 80 kg Xi Pop AT [facility] Work Phone: Encounters Encounter Date Encounter Type Care Provider Facility Start: 03-12-2025 ambulatory Missy Workman Facilit y:[facility] Start: 02-04-2025 End: 02-04-2025 ambulatory Missy Workman Facility:[facility] Start: 11-07-2024 End: 11-07-[address] Jordon Benavides MD -[facility] Work Phone: Start: 11-07-2024 End: 11-07-[address] Missy Workman MD Work Phone: -[facility] Start: 10-23-2024 End: 10-23-2024 Telephone encounter Mami Paul PROCEDURES TECH Ophthalmology Comment on above: Social Work Consulta tion Start: 10-22-2024 End: 10-22-2024 Patient encounter procedure Sabrina Guzman MD Work Phone: Ophthalmology Comment on above: NAION (non-arteritic anterior ischemic optic neuropathy), bilateral (Primary Dx); Other localized visual field defect, bilateral Start: 10-22-2024 End: 10-22-2024 ambulatory SHADY SCHUSTER Facility:[facility] Start: 06-15-2024 End: 06-15-2024 ambulatory Missy Workman Facility:[facility] Start: 05-17-2024 End: 05-17-2024 ambulatory Missy Workman Facility:[facility] Start: 05-10-2024 End: 05-10-2024 Telephone encounter Sabrina Guzman MD Work Phone: Ophthalmology Comment on above: Office notes from [facility] Start: 05-06-2024 ambulatory Missy Workman Facilit y:[facility] Start: 05-06-2024 End: 05-06-2024 ambulatory Missy Workman Facility:[facility] Start: 04-30-2024 End: 04-30-2024 ambulatory Shady Schuster Facility:[facility] Start: 04-15-2024 End: 04-15-2024 ambulatory Shady Schuster Facility:[facility] Start: 03-29-2024 End: 03-29-2024 ambulatory Kati HOUSTON Facility:[facility] Start: 03-21-2024 End: 03-21-2024 ambulatory Missy Workman Facility:[facility] Start: 11-27-2023 End: 11-27-2023 ambulatory ANDERSON TIAN [facility] Start: 09-01-2023 End: 09-01-2023 ambulatory [facility] Work Phone: Start: 09-01-2023 End: 09-01-2023 Discharged Recurring [facility] Work Phone: Start: 06-29-2023 End: 06-29-2023 Patient encounter procedure [facility] Work Phone: Start: 05-30-2023 End: 05-30-[address] Missy Workman Work Phone: [facility] Work Phone: Start: 05-30-2023 End: 05-30-[address] Missy Workman Work Phone: [facility] Work Phone: Start: 04-14-2023 End: 04-14-[address] Missy Workman Work Phone: [facility] Work Phone: Start: 04-14-2023 End: 04-14-[address] Missy Workman Work Phone: [facility] Start: 03-09-2023 End: 03-09-[address] Missy Workman Work Phone: [facility] Work Phone: Start: 03-09-2023 End: 03-09-[address] Missy Workman Work Phone: [facility] Start: 02-16-2023 End: 02-16-[address] Missy Workman Work Phone: [facility] Work Phone: Start: 12-08-2022 End: 12-08-[address] Missy Workman Work Phone: [facility] Work Phone: Start: 12-06-2022 End: 12-06-[address] Missy Workman Work Phone: [facility] Work Phone: Start: 12-06-2022 End: 12-06-[address] Missy Workman Work Phone: [facility] Work Phone: Start: 09-13-2022 End: 09-13-[address] Missy Workman Work Phone: [facility] Start: 09-12-2022 End: 09-12-[address] Missy Workman Work Phone: [facility] Work Phone: Start: 09-12-2022 End: 09-12-[address] Missy Workman Work Phone: [facility] Start: 08-08-2022 End: 08-08-[address] Missy Workman Work Phone: [facility] Start: 06-10-2022 End: 06-10-[address] Missy Workman Work Phone: [facility] Start: 06-03-2022 Telephone encounter Christoph Zuñiga DO Work Phone: Ophthalmology Comment on above: Appointment Start: 05-31-2022 End: 05-31-[address] Missy Workman Work Phone: [facility] Work Phone: Start: 05-31-2022 End: 05-31-[address] Missy Workman Work Phone: [facility] Start: 05-27-2022 Non-patient / Non-visit Dr. Maria Luz Workman Work Phone: [facility] Start: 05-27-2022 End: 05-27-2022 Admission to same day surgery center Dr. Missy Workman Work Phone: [facility] Start: 05-27-2022 End: 05-27-[address] Missy Workman Work Phone: [facility] Work Phone: Start: 05-23-2022 End: 05-23-[address] Missy Workman Work Phone: [facility] Start: 05-20-2022 Non-patient / Non-visit Dr. Maria Luz Workman Work Phone: [facility] Start: 05-20-2022 End: 05-20-[address] Missy Workman Work Phone: [facility] Work Phone: Start: 05-20-2022 End: 05-20-[address] Missy Workman Work Phone: [facility] Start: 05-18-2022 End: 05-18-[address] Missy Workman Work Phone: [facility] Start: 05-16-2022 End: 05-16-[address] Missy Workman Work Phone: [facility] Work Phone: Start: 05-16-2022 End: 05-16-[address] Missy Workman Work Phone: [facility] Start: 03-08-2022 End: 03-08-[address] Missy Workman Work Phone: [facility] Work Phone: Start: 03-08-2022 End: 03-08-[address] Missy Workman Work Phone: [facility] Start: 12-22-2021 Non-patient / Non-visit Dr. Maria Luz Workman Work Phone: [facility] Start: 12-16-2021 Non-patient / Non-visit Dr. Maria Luz Workman Work Phone: [facility] Start: 12-16-2021 End: 12-16-[address] Missy Workman Work Phone: [facility] Start: 12-13-2021 Non-patient / Non-visit Dr. Maria Luz Workman Work Phone: [facility] Start: 12-13-[address] Missy echeverria [facility] Start: 11-25-2021 End: 11-25-[address] Missy Workman Work Phone: [facility] Start: 09-14-2021 End: 09-14-[address] Missy Workman Work Phone: [facility] Start: 09-01-2021 End: 09-01-2021 Patient encounter procedure [facility] Start: 07-02-2021 End: 07-02-2021 Patient encounter procedure [facility] Start: 06-29-2021 End: 06-29-2021 Patient encounter procedure [facility] Start: 06-25-2021 End: 06-25-20[address] [facility] Start: 05-23-2018 End: 05-23-2018 Ot evaluation Missy Paul MD Work Phone: [facility] Work Phone: Start: 05-23-2018 End: 05-23-2018 Patient encounter procedure Missy Paul MD Work Phone: [facility] Work Phone: Procedures Date [...] RSV Vaccine (1 - 1-dose 75+ series) [facility] Start: 01-13-2026 Urine microalbumin profile DTaP,Tdap,Td Vaccine (2 - Td or Tdap) [facility] Start: 10-27-2025 End: 10-27-2025 Patient encounter procedure 10/27/2025 11:00 AM EDT Office Visit [facility]HT Ophthalmology [address] [address] Sabrina Guzman MD [address] [place] [address] Please schedule this patient for a 1 year return clinic visit at [facility] for non-arteritic anterior ischemic optic neuropathy [place] Ophthalmology Comment on above: Please schedule this patient for a 1 year return clinic visit at [facility] for non-arteritic anterior ischemic optic neuropathy ou Start: 11-06-2024 End: 11-06-2024 ambulatory 11/06/2024 9:45 AM EDT OT/PT/Speech Visit [facility] [place] [address] [place] [address] Suyapa Marks, OT/L To help me get around easier. [facility] [place] Comment on above: To help me get aroun d easier. Start: 09-30-2024 Covid-19 Vaccine ( season) Covid-19 Vaccine ( season) [facility] Start: 05-08-2024 Advance Directive Discussion Advance Directive Discussion [facility] Start: 05-08-2024 Medicare Advantage Annual Wellness Visit Medicare [facility] Annual Wellness Visit [facility] Start: 01-07-2024 Covid-19 Vaccine ( season) Covid-19 Vaccine ( season) [facility] Start: 01-07-2024 Influenza vaccination Influenza Vacc ine (#1) [facility] Start: 05-27-2022 Anesthesia major vessels neck simple ligation ANESTH NECK VESSEL SURGERY [facility] Start: 05-27-2022 Ligation/biopsy temporal artery TEMPORAL ARTERY PROCEDURE [facility] Start: 05-27-[address] [facility] Start: 05-08-2022 ADVANCE DIRECTIVE DISCUSSION ADVANCE DIRECTIVE DISCUSSION [facility] Start: 05-08-2022 DEPRESSION ASSESSMENT DEPRESSION ASS ESSMENT [facility] Start: 12-16-2021 Following clinical pathway protocol [facility] Work Phone: Start: 07-03-2018 Shingrix Vaccine (2 of 2) Shingrix Vaccine (2 of 2) [facility] Start: 05-23-2018 End: 05-23-2018 Appointment Appointment [facility] Work Phone: Start: 05-23-2018 End: 05-23-2018 Radex hand minimum 3 views XR HAND 3+ VWS-RT [facility] Work Phone: Start: 09-16-2016 PNEUMOCOCCAL: 65+ (1 - PCV) PNEUMOCOCCAL: 65+ (1 - PCV) [facility] Start: 09-16-2001 SHINGRIX VACCINE (1 of 2) SHINGRIX VACCINE (1 of 2) [facility] Start: 09-16-1996 COLOGUARD (FIT-DNA) COLOGUARD (FIT-D NA) [facility] Start: 09-16-1996 Colonoscopy COLONOSCOPY [facility] Start: 09-16-1996 COLORECTAL CANCER SCREENING COLORECTAL CANCER SCREENING [facility] Start: 09-16-[address] COLONOGRAPHY [facility] Start: 09-16-1996 DIABETES SCREEN DIABETES SCREEN [facility] Start: 09-16-1996 Diabetes Screening Diabetes Screenin g [facility] Start: 09-16-1996 FECAL OCCULT BLOOD FECAL OCCULT BLOO D [facility] Start: 09-16-1996 Screening for malign ant neoplasm of colon [facility] Start: 09-16-1996 [facility] Start: 09-16-1986 Lipid panel Lipid Screening [facility] herminia [facility] Start: 09-16-1986 LIPID SCREEN LIPID SCREEN [facility] Start: 09-16-1970 Urine microalbumin profile DTAP,TDAP,TD (1 - Tdap) [facility] Start: 09-16-1969 Anxiety Screening Anxiety Screening [facility] Start: 09-16-1969 Depression Screening Depression Scre ening [facility] Start: 09-16-1969 HEPATITIS C SCREENING HEPATITIS C [facility] Start: 09-16-1969 Hepatitis C screening Hepatitis C [facility] CTA [facility] [place] ry arteries W contrast IV [facility] Work Phone: Patient Education CHU alcazar Coronary Calcium Scan [facility] Work Phone: Patient referral [facility] Work Phone: Immunizations Immunization Date Immunization Notes Care Provider [facility] 02-10-2022 influenza virus vaccine, unspecified formulation Sabrina Guzman MD Work Phone: [facility] No information available. Xi Pop AT [facility] Work Phone: Payers Date Payer Category Payer Self-pay [id number] 2022 Medicare MMO MEDICARE MMO MEDADVANTAGE HMO [id number] 2022-Present [phone] [address] [place] [address] O [id number] 2022 Medicare (Managed Care) MMO MEDADVANTAGE HMO [id number] 2010 Unknown [id number] 1959 Unknown [id number] 1950 Unknown [id number]. 598 Unknown [id number] Unknown [id number]. 462 Unknown [id number] [id number]. 462 Unknown [id number] 2.16.840.1.847972.3.579.2. 462 Unknown [id number] 2.16.840.1.176552.3.579.2. 462 Unknown [id number] 2.16.840.1.894499.3.579.2. 462 Unknown [id number] 2.16.840.1.692076.3.579.2. 462 Unknown [id number] 2.16.840.1.792209.3.579.2. 462 Unknown [id number] 2.16.840.1.186999.3.579.2. 462 Unknown [id number] 2.16.840.1.051462.3.579.2. 462 Unknown [id number] 2.16.840.1.129788.3.579.2. 462 Unknown [id number]. 462 Social History Date Type Detail Facility Start: 12-02-2020 End: 02-16-2023 Tobacco smoking status NHIS Unknown if ever smoked [facility] Start: 1950 Sex Assigned At Male W [facility] Start: 1950 Sex Assigned At Not on file [facility] Start: 06-09-2022 End: 10-22-2024 History of Social function [facility] Start: 06-09-2022 End: 10-22-2024 Area Deprivation Index [facility] National Score (1-100), lower number is lower risk 34 [facility] Start: 06-15-2024 End: 10-22-2024 Tobacco smoking status NHIS Never smoked tobacco [facility] Start: 10-22-2024 Tobacco use and exposure Smokeless tobacco non-user [facility] Start: 10-22-2024 Alcoholic beverage intake Not Asked [facility] Start: 10-22-2024 Alcohol Comment 1-2x monthly [facility] Start: 10-21-2024 Gender identity Identifies as male gender (finding) [facility] Start: 10-21-2024 Sexual orientation Heterosexual (fin jake) [facility] NEGATED: Highlighted rowStart: 05-23-2018 End: 05-23-2018 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 [facility] Work Phone: NEGATED: Highlighted rowStart: 05-23-2018 End: 05-23-2018 Assertion Never smoker [facility] Work Phone: Medical Equipment Procedure Code Equipment Code Equipment Origin al Text Equipment Identifier Dates Biopsy, artery, temporal Ligation clip, metallic ([id number] Start: 05-27-2022 Goals Date Patient Goal Desired Activity /State Mental Status Date Assessment Result Facility 05-27-2022 Cognitive function Voice/Name [facility] Work Phone: 12-16-2021 Cognitive function Awake;Alert;A ppropriate;Fol lows Commands [facility] Work Phone: Clinical Notes 05-27-2022 to 10-23-2024 Telephone Encounter - Mami Paul LSW - 10/23/2024 11:50 AM EDTTelephone Encounter - Mami Paul LSW - 10/23/2024 11:50 AM EDTPatient Sabrina Worthy MD - 10/22/2024 10:52 AM EDT Note Date & Type Note Facility 10-23-2024 Telephone encounter Note [employer]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 Sabrina Guzman to address concerns with low vision and community resources. PROCEDURES TECH contacted the patient and introduced self and active licensure. Patient identified through . (Marilyn) was also on the call via speaker. 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 Patient has gone to [facility] and purchased a magnifier and a talking watch but has not had formal low vision training. [facility] is more of a social agency that is only open periodically and does not have low vision specialists or vision rehab therapists. Patient reports that he is independent with ADL's/IADL's and is looking for vision aids and training. PROCEDURES TECH, patient, and had a lengthy discussion about low vision therapy options. PROCEDURES TECH provided education and information on the following choices: [facility] Dr. Velásquez ([facility]) for low vision evaluation. Dr. Ni Lowery [facility] low vision [facility]. Occupational therapy in [facility]. The patient and his decided that going to [facility] ([facility] would be best since they have both low vision clinic, occupational therapy, and orientation and mobility training, and support groups, including case management to help him coordinate services and also apply for financial assistance to help cover the cost of low vision aids and vision rehab training. The patient is also interested in training on devices such as his new iPhone. PROCEDURES TECH will facilitate referral to [facility] and will update Dr. Guzman regarding patient choice to come to [facility] for low vision. SW provided contact information and will remain available as a resource and to ensure the patient is receiving vision services. 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 Sabrina Guzman to address concerns with low vision and community resources. PROCEDURES TECH contacted the patient and introduced self and active licensure. Patient identified through . (Marilyn) was also on the call via speaker. 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 Patient has gone to [facility] and purchased a magnifier and a talking watch but has not had formal low vision training. [facility] is more of a social agency that is only open periodically and does not have low vision specialists or vision rehab therapists. Patient reports that he is independent with ADL's/IADL's and is looking for vision aids and training. PROCEDURES TECH, patient, and had a lengthy discussion about low vision therapy options. PROCEDURES TECH provided education and information on the following choices: [facility] Dr. Velásquez ([facility]) for low vision evaluation. Dr. Ni Lowery [facility] low vision [facility]. Occupational therapy in [facility]. The patient and his decided that going to [facility] ([facility] would be best since they have both low vision clinic, occupational therapy, and orientation and mobility training, and support groups, including case management to help him coordinate services and also apply for financial assistance to help cover the cost of low vision aids and vision rehab training. The patient is also interested in training on devices such as his new iPhone. PROCEDURES TECH will facilitate referral to [facility] and will update Dr. Guzman regarding patient choice to come to [facility] for low vision. SW provided contact information and will remain available as a resource and to ensure the patient is receiving vision services. documented in this encounter [facility] 10-22-2024 Instructions Sabrina Guzman MD - 10/22/2024 11:15 AM EDT Low vision occupational therapy can be contacted at: [phone]. documented in this encounter [facility] 10-22-2024 Note Date of Procedure 10/22/2024. Upholsterer Inside Information Pipeline Dispatch Operator: vito. Start time: 9:46 AM. Stop time: [...] ZEISS 10-22-2024 Note Date of Procedure 10/22/2024. Upholsterer Inside Information Pipeline Dispatch Operator: Bina Conde. Start time: 10:34 AM. Stop time: 10:34 AM. NFL Interpretation Right Eye Superior loss, Inferior loss. Left Eye Superior loss, Inferior loss. Ganglion Cell Layer Thickness Right Eye Diffuse loss. Left Eye Diffuse loss (Near diffuse). Interval Change Right Eye Initial. Left Eye Initial. [facility]EISS 10-22-2024 Note Date of Procedure 10/22/2024. Upholsterer Inside Information Pipeline Dispatch Operator: Bina Conde. Start time: 10:34 AM. Stop time: 10:34 AM. Interpretation Right Eye Optic Pallor. Left Eye Optic Pallor. Interval Change Right Eye Initial. Left Eye Initial. ZEISS 10-22-2024 Note HNO ID: [id number] Author: SABRINA GUZMAN MD Service: ? Author [...] be electronically pushed for personal review from [facility]. I explained that the vision was not [...] forward. He had already established with the [facility] and I thought it was worth establishing with our low vision therapy team to help facilitate adaptations to the patient's visual environment going forward, so referral was placed to occupational therapy, whose expertise is greatly appreciated. They can be contacted at: [phone]. I also provided Dr. Urbano's excellent publication on the subject. I am happy to see him back in a year per discussion with the patient in conjunction with his mine inspector unless concerns arise in the interim, for which he was provided my contact information and encouraged to reach out. ER presentation is otherwise advised for any acute onset neurological deficits. Our [facility] same day access clinic can be reached at: [phone]. Sbarina Guzman MD 3:14 PM 10/22/2024 FOR ADMINISTRATIVE PURPOSES ONLY: My impression of this case is based upon an assessment of the patient's subacute on chronic problems listed above that pose a threat to visual and neurologic function. 51 minutes were spent on total patient care on the day of service that includes both tnuq-eb-wkdq and kpk-ifmd-dn-face time. This time was separate from any of my time spent completing and interpreting the ancillary testing (such as OCT, fundus photos, visua (more content not included)... [facility] 10-22-2024 History of Presen t illness [...] be electronically pushed for personal review from [facility]. I explained that the vision was not [...] forward. He had already established with the [facility] and I thought it was worth establishing with our low vision therapy team to help facilitate adaptations to the patient's visual environment going forward, so referral was placed to occupational therapy, whose expertise is greatly appreciated. They can be contacted at: [phone]. I also provided Dr. Urbano's excellent publication on the subject. I am happy to see him back in a year per discussion with the patient in conjunction with his mine inspector unless concerns arise in the interim, for which he was provided my contact information and encouraged to reach out. ER presentation is otherwise advised for any acute onset neurological deficits. Our [facility] same day access clinic can be reached at: [phone]. Sabrina Guzman MD 3:14 PM 10/22/2024 FOR ADMINISTRATIVE PURPOSES ONLY: My impression of this case is based upon an assessment of the patient's subacute on chronic problems listed above that pose a threat to visual and neurologic function. 51 minutes were spent on total patient care on the day of service that includes both pyww-jz-pbgo and ktu-dhzq-ef-face time. This time was separate from any [...] and voiced understanding. documented in this encounter [facility] 05-10-2024 Telephone encounter Note Received faxed office notes from [facility] office of Dr Shady Schuster. Faxed to Dr Guzman and sent for scanning in [employer]. [facility] 05-10-2024 Miscellaneous Notes Received faxed office notes from [facility] office of Dr Shady Schuster. Faxed to Dr Guzman and sent for scanning in [employer]. documented in this encounter [facility] 09-01-2023 Discharge summary Note Date/Time September 01, 2023 9:34am [facility] [address] [facility] [address] [place] [address] / REHABILITATION SERVICES DISCHARGE SUMMARY MR#: [id number] Acct: [id number] Name: RIZWAN CLIFFORD Rep #: [id number] : 1950 72 From: Carlos Anderson PT, [...] please feel free to call me at [phone]. Thank you for the referral of thispatient. Sincerely, Carlos Anderson, PT, ATC Balance/Gait/Functional tests Balance/Special Test Scores Oswestry Low Back Score: 3 Improvement % Improvement: 100 <Electronically signed by Carlos Anderson PT, ATC> 09/01/23 0934 CC: Dr. Missy Workman MD; Dr. Jan Alston, ~ [facility] Signed [facility] Work Phone: [phone]) 316-691801-27-2023 Miscellaneous Notes* Telephone Encounter - Elise Florian - 06/03/2022 1:14 PM EST Patient returned call and has been scheduled. * Telephone Encounter - Elise Florian - 06/03/2022 11:28 AM EST Images from the original note were not included. Left message for patient to return call regarding appointment next week in [place]. Waiting tohear back. RE: Referral Received: Yesterday [...] within a week. Patient is closer to [place] if he is able to be seenat that location. You currently have 18 for the day on 06/06 and 19 patients for the day on 06/13 at . Would you be okay with seeing the patient on either of these days. Dr. Schuster's office can becontacted at the following number, . Contact is Kati. Records are being faxed for review. [facility] noteWooChildren's Hospital for RehabilitationChief complaint+Reason for visit Narrative* Chief Complaint COUGH, POSITIVE HOME COVID TEST Reason for Visit COVID-19 [facility] Work Phone: Discharge summary Author Dr. Mahoney [facility] May 27, 2022 1:53pm Note Date/Time May 27, 2022 1 :53pm [facility] Medical Records Department [address] [place] [address] Instructions for Home/Discharge Instructions 05/27/22 1352 MR#: [id number] Acct: [id number] Name: RIZWAN CLIFFORD Rep #:[id number] : 1950 71 From: Norman fuller MD PCP: Dr. Missy Workman MD [facility] Discharge Instructions Diet Discharge Diet: No restrictions [...] to schedule 2 week follow up appointment. [phone] Test Results: Test results from this visit [...] CC: Dr. Missy Workman MD ~ Signed [facility] Work Phone: evaluation noteNo assessment information available [facility] Work Phone: evaluation note* Diagnosis Onset Date Resolution Status Chest pain acute Hyperlipidemia [facility] Work Phone: evaluation note* Diagnosis Onset Date Resolution Status Blurry vision, right eye acu te Change in vision acute Elevated blood pressure read ing in office with diagnosis of hypertension acute Hyperlipidemia chronic Blurry vision, right eye acu te [facility] Work Phone: evaluation note* Diagnosis Onset Date Resolution Status Blurry vision, right eye acu te Change in vision acute Elevated blood pressure read ing in office with diagnosis of hypertension acute Hyperlipidemia chronic Blurry vision, right eye acu te Blurry vision acute [facility] Work Phone: evaluation note* Diagnosis Onset Date Resolution Status Blurry vision, right eye acu te Blurry vision acute Elevated blood pressure read ing in office with diagnosis of hypertension acute Essential hypertension acute Hyperlipidemia [facility] Work Phone: evaluation note* Diagnosis Onset Date Resolution Status Essential hypertension acute Hyperlipidemia chronic [facility] Work Phone: evaluation note* Diagnosis Onset Date Resolution Status Essential hypertension acute [facility]lipidemia [facility] Work Phone: evaluation note* Diagnosis Onset Date Resolution Status COVID-19 [facility] Work Phone: evaluation note* Diagnosis NAION (non-arteritic anterior ischemic optic neuropathy), bilateral- Primary Other localized visual field defect, bilateral [facility] Author Dr. Mahoney [facility] May 27, 2022 1:47pm Note Date/Time May 27, 2022 1 :47pm [facility] Medical Records Department [address] [place] [address] History & Physical Exam 05/27/22 1346 MR#: [id number] Acct: [id number] Name: RIZWAN CLIFFORD Rep #:[id number] : 1950 71 From: Norman fuller MD PCP: Dr. Missy Workman MD Status:[facility] Location: [place] [address] History and Physical Date of Admission: 05/27/22 [...] his turmeric immediately. Norman Mahoney MD Pager: [facility] [address] [place] [address], [address] [place] [address] Office: I have examined the patient and the H&P has been reviewed. There are no clinicalchanges since date of exam. 05/27/22 1347 <Electronically signed by Norman Mahoney MD> Cosigner Signature (if applicable): CC: Dr. Norman Mahoney MD; Dr. Missy Workman MD~ Signed [facility] Work Phone: Reason for referral (narrative)No reason for referral [facility] Work Phone: Chief Complaint Chief Complaint [...] November 13, 2020 6 :30pm Power of Tin Pourer Yes November 13, 2020 6:30pm Advance Directive Response Recorded Date/ Time Advance Directives No March 01, 2014 5:19am Living Will Yes November 13, 2020 5 :30pm Power of Tin Pourer Yes November 13, 2020 5:30pm Advance Directive Response Recorded Date/ Time Name of Medical Power of Tin Pourer MARILYN GIMENEZ May 24, 2022 2:31pm Advance Directives No March 01, 2014 5:19am Living Will Yes May 24 2:31pm Power of Tin Pourer Yes May 24, 2022 2:31pm Advance Directive Response Recorded Date/ Time Name of Medical Power of Tin Pourer MARILYN GIMENEZ May 24, 2022 3:31pm Advance Directives No March 01, 2014 6:19am Living Will Yes May 24 3:31pm Power of Tin Pourer Yes May 24, 2022 3:31pm Advance Directive Response Recorded Date/ Time Advance Directives No March 01, 2014 6:19am Living Will Yes May 24 3:31pm Power of Tin Pourer Yes May 24, 2022 3:31pm Advance Directive Response Recorded Date/ Time Advance Directives No March 01, 2014 5:19am Living Will Yes May 24 2:31pm Power of Tin Pourer Yes May 24, 2022 2:31pm Advance Directive Response Recorded Date/ Time Living Will Yes May 24 3:31pm Do you have a Healthcare Power of Tin Pourer? Yes May 24, 2022 3:31pm Advance Directives [...] Comments Appointment Reason Comments Office notes from [facility] Reason Comments NAION Evaluation Reason Comments Goals [...] MD Attending Provider, Referring P linden Active Medical Affairs Manager Relationship Specialty Start Date End Date Shady Schuster [address] [place] [address] Referring Ophthalmology 06/01/22 Team Status: Active Member [...] DO Attending Provider, Referring P linden Active Medical Affairs Manager Relationship Specialty Start Date End Date Shady Schuster [address] [facility], [place] [address] Referring Ophthalmology 06/01/22 Medical Affairs Manager Relationship Specialty Start Date End Date Missy Workman MD [address] [facility] [address] [place], [place] [address] PCP - General Family Medicine 10/22/24 Shady Schuster [address] [facility], [place] [address] Referring Ophthalmology 06/01/22 Medical Affairs Manager Relationship Specialty Start Date End Date Missy Workman MD [address] [facility] [address] [place], [place] [address] PCP - General Family Medicine 10/22/24 Shady Schuster [address] [facility], [place] [address] Referring Ophthalmology 06/01/22 Team Status: Active Member [...] or prosecute any alcohol or drug abuse patient.[facility] the event this information is protected by the Federal Confidentiality of Alcohol and Drug Abuse Patient Records regulations: The Federal rules restrict any use of the information to criminally investigate or prosecute any alcohol or drug abuse patient.[facility] the event this information is protected by the Federal Confidentiality of Alcohol and Drug Abuse Patient Records regulations: The Federal rules restrict any use of the information to criminally investigate or prosecute any alcohol or drug abuse patient.[facility] Troy[facility] the event this information is protected by the Federal Confidentiality of Alcohol and Drug Abuse Patient Records regulations: The Federal rules restrict any use of the information to criminally investigate or prosecute any alcohol or drug abuse patient.[facility] (unrecognized sect ion and content) No Status Records FoundNo Status Records FoundNo Status Records Found INFORMATION SOURCE (unrecogn ized section and content) DATE CREATED AUTHOR 02/21/2024 [facility] DATE CREATED AUTHOR AUTHOR'S ORGANIZ ATION 12/20/2024 [facility] DATE CREATED AUTHOR AUTHOR'S ORGANIZ ATION 03/14/2025 [facility] FOR RECORDS PERTAINING TO PATIENTS [...] BE BASED ON THE PRIMARY CLINICAL RECORDS. [facility]. provides no warranty or guarantee of the accuracy or completeness of information in this document.
== END | disposition home or self-care (01) ==
LOC: MFPLAB 11:29
PROVIDERS: PCP Family Medicine
DX: Z12.5 Encounter for screening for malignant neoplasm of prostate (principal)
CPT/HCPCS: 36415; 84153; G0103

== ENCOUNTER → 2025-04-28 | Outpatient (CLI) | payer MEDICARE, SELFPAY ==
--- NOTE | 2025-04-28 06:46 | MRI_ITS ---
PROCEDURE: BRAIN W/WO CONTRAST 04/28/2025 REASON FOR EXAM: LIGHTHEADED HISTORY OF OPTIC ISCHEMIA TECHNIQUE: Procedure Code: [id number] Modality: MR Procedure: BRAIN W/WO CONTRAST Multiplanar and multisequence images were obtained. CONTRAST: Clariscan VOLUME: 15 mL COMPARISON: MRI brain 04/30/2024 FINDINGS: The ocular globes appear normal in contour. Bilateral ocular lens replacements. The optic nerves, optic chiasm, optic tracts, extraocular muscles, orbital fat, and lacrimal glands appear overall symmetric and within normal limits of size and signal. There is no evidence of enhancing mass or abnormal enhancement in the orbits. The pituitary gland is within normal limits of size and contour for age and gender. No acute infarct or hemorrhage.Nonspecific foci of periventricular and subcortical T2/FLAIR white matter hyperintensities in the cerebral hemispheres likely reflect chronic microvascular ischemic changes. No enhancing intracranial lesion. No extra-axial fluid collection.No significant mass effect or herniation of the brain. Global cerebral volume loss. No hydrocephalus. The basal cisterns are patent. The intracranial large vessel arterial flow voids are maintained. The mastoid air cells clear. The paranasal sinuses are predominately clear. The calvarial bone marrow signal is within normal limits. MRI/Brain W/WO Contrast IMPRESSION: 1. Unremarkable MRI of the orbits. 2. No acute intracranial pathology. No intracranial enhancing lesion. 3. Chronic microischemic changes. Reading Location: [facility]
--- OUTSIDE RECORDS SUMMARY | 2025-04-28 07:11 | XMS RPT_ITS | CCD ---
Author Organization [facility] CliniSyor Care Team Providers Care 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 Name Role Phone Humberto BROWER, Missy Bonilla Unavailable 1([facility])[phone] Missy Workman Primary Care Provider 1([facility] )[phone] Dr. Missy Workman Referring Provider 1([facility])[phone] Dr. Jordon Benavides Attending Provider 1([facility])-[phone] Stephane Orr Attending Provider 1([facility]) 10 Dr. Jordon Benavides Other Provider Dr. Missy Workman Primary Care Provider 1([facility] )[phone] Dr. Missy Workman Referring Provider 1([facility])[phone] Dr. Jordon Benavides Attending Provider 1([facility])-[phone] Stephane Orr Attending Provider 1([facility])-[phone] Jordon Benavides Other Provider Dr. Missy Workman Primary Care Provider 1([facility] )[phone] Dr. Jordon Benavides Attending Provider 1([facility])[phone] Missy Workman Primary Care Provider 1([facility] )[phone] Dr. Missy Workman Referring Provider 1([facility])[phone] [place] Kati Garcia Attending Provider Dr. Stephane Orr Attending Provider 1([facility])-[phone] Norman Mahoney Attending Provider 1([facility] )[phone] Dr. Shady Schuster Referring Provider 1([facility])[phone] Dr. Norman Mahoney Referring Provider 1([facility] )[phone] Dr. Norman Mahoney Other Provider Shady Schuster [...] TIAN DO Primary Care Unavailshirin e ASMITA DO~[phone], ASMITA Robertson Attendi ng Unavailable ASMITA DO~[phone], ASMITA Robertson Admitti ng Unavailable Missy Workman MD Primary Care Provider Dr. Missy Workman MD Primary Care Provider [phone] Dr. Missy Workman MD Referring Provider [phone] [...] Care Unavailable Shady Schuster Attending Unavailable Shady Schustre Referring Unavailable Schinner, Missy E Primary Care [...] (1 source) Penicillin Drug Allergy 9 rash/hives [facility] Work Phone: (15 sources) Penicillins; Translations: [PENICILLINS] Allergy to substance [address] [facility] (2 sources) Penicillins Drug Allergy 9 Rash, Unknown [facility] (7 sources) Lisinopril Drug Allergy [address], [address] [facility] (2 sources) Penicillins Drug Allergy 9 Rash, Unknown [facility] Work Phone: (1 source) Lisinopril Drug Allergy [address] [facility] (1 source) Penicillins Drug allergy (disorder) [address] [facility] Medications Current Medications Medication Drug Class(es) Dates Sig (Normalized) Sig (Original) aspirin 81 mg delayed release oral tablet (9 sources) Platelet Aggregation Inhibitor, Nonsteroidal Anti-inflammatory Drug Start: 08-08-2022 take 1 tablet by mouth once daily Aspirin (Adult Aspirin Regimen) 81 mg tablet,delayed release (DR/EC) Active 81 mg PO DAILY August 08, 2022 12:00am [facility] benoxinate hydrochloride 4 mg/ml / [...] PLUS ORAL) Take by mouth. 05/18/2018 Active Conklin-3 1,050 mg, Fish Oil, 1,050-1,200 mg cap (2 sources) Start: 05-11-2024 Conklin-3 1,050 mg, Fish Oil, 1,050-1,200 mg cap [...] 1 tablet daily as needed PANTOPRAZOLE SODIUM [id number] Missy Paul MD phenylephrine hydrochloride 25 mg/ml [...] SILVER TABS 1 tablet daily MULTIPLE VITAMINS-MINERALS [id number] Brea Neal [facility] RO[facility] simvastatin 20 mg oral tablet (20 sources) [...] Interpretation Reference Range Facility SP/HP.SPHuong 03-05-2025 SP/HP.SPIZABEL [facility] Speech [facility] [address] [place] [address]. 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 Missy Workman MD Status: REG RCR Insurance: MMO MEDICARE SELF PAY INSURANCE Visit History Visit Info Date of Eval: 03/04/25 Today is Visit #: 1 Patient's Approved Number of Visits: 10 Insurance Date Limit: 05/07/25 Gun Striper: KATHLEEN History Attending Doctor: Reason for Referral: ESOPHAGEAL DYSMOTILITY AND LARYNGEAL PENETRATION/X Other Relevant Medical History/Diagnoses/S urgery: RIZWAN CLIFFORD is a 74 year old male presenting to [facility] [place] swallowing [place] with concerns for oropharyngeal and esophageal dysphagia. 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 Normal [facility] Cardiology Visit Reporton Cardiology Visit Report [facility] [address] [place] [address] OFFICE VISIT Date of Service: 11/07/24 MR#: [id number] Acct: [id number] Name: RIZWAN CLIFFORD Rep #: [id number] : 1950 Provider: Dr. Jordon Benavides MD Age/Sex: 74/M Location: [facility] Status: Signed HPI HPI History of Present [...] of 207. Pt was seen at the [facility] for the blurry vision in his right [...] Monitor Intake Visit Reasons: 1 y fu Campus Executive Director Required: No Accompanied by: Self Is patient [...] lying down (more content not included)... 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 Sabrina Guzman to address concerns with low vision and community resources. AIR BRUSH OPERATOR contacted the patient and introduced self and active licensure. Patient identified through . (Marilyn) was also on the call via speaker. 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 Patient has gone to [facility] and purchased a magnifier and a talking watch but has not had formal low vision training. [facility] is more of a social agency that is only open periodically and does not have low vision specialists or vision rehab therapists. Patient reports that he is independent with ADL's/IADL's and is looking for vision aids and training. AIR BRUSH OPERATOR, patient, and had a lengthy discussion about low vision therapy options. AIR BRUSH OPERATOR provided education and information on the following choices: [facility] Dr. Velásquez ([facility]) for low vision evaluation. Dr. Ni Lowery [facility] low vision [facility]. Occupational therapy in [facility]. The patient and his decided that going to [facility] ([facility] would be best since they have both low vision clinic, occupational therapy, and orientation and mobility training, and support groups, including case management to help him coordinate services and also apply for financial assistance to help cover the cost of low vision aids and vision rehab training. The patient is also interested in training on devices such as his new iPhone. AIR BRUSH OPERATOR will facilitate referral to [facility] and will update Dr. Guzman regarding patient choice to come to [facility] for low vision. SW provided contact information and will remain available as a resource and to ensure the patient is receiving vision services. Mami Paul LSW 12/18/2024 3:44 PM Signed AIR BRUSH OPERATOR keeps logging in to patient record to try to access [facility]. JULI Ledezma porter sample case is requesting. AIR BRUSH OPERATOR has given Susan the number to contact medical records as there seems to be a problem with AIR BRUSH OPERATOR and connection to [employer]. Allergies As of Date: 10/23/2024 Noted Allergy Reaction PENICILLINS 05/18/2018 2 - Rash 16 - Unknown Date Reviewed: 10/22/2024 Reviewed by: Sabrina Guzman MD - Fully Assessed Reason for Visit: Social Work Consultation [[id number]] Prescriptions as of 12/18/2024 - donepezil (ARICEPT) 5 mg tablet Take 5 mg by mouth every morning. - aspirin, enteric coated (ST. ANA MARIA ASPIRIN) 81 mg EC tablet - turmeric root extract (CURICA TURMERIC) 300 mg cap - ubidecarenone/vitam in E mixed (COQ10 SG 100 ORAL) - rosuvastatin (CRESTOR) 40 mg tablet Take 1 tablet by mouth once daily. - Conklin-3 1,050 mg, Fish Oil, 1,050-1,200 mg cap [...] Status:Closed by MAMI PAUL on 10/23/24 Normal [facility] OCT OPTIC NERVE CIRRUS OU (B OTH EYES)on 10-22-2024 [facility] Radiology Study observation (narrative) [facility] OPTIC DISC PHOTO OU (BOTH EY ES)on 10-22-2024 [facility] Radiology Study observation (narrative) [facility] VISUAL FIELD 24-2 OU (BOTH E YES)on 10-22-2024 [facility] Radiology Study observation (narrative) [facility] Urgent Care Visit Reporton 0 06-15-2024 Urgent Care Visit Report [facility] [address] , [address] [place] [address] OFFICE VISIT Date of Service: 06/15/24 MR#: [id number] Acct: [id number] Name: RIZWAN CLIFFORD Rep #: [id number] : 1950 Provider: MARGARITA Saldana Age/Sex: 73/M Location: [facility] Status: Signed Intake Vital Signs 03/29/24 [...] drainage and now its in his chest. [facility] Medical History Essential hypertension Wears glasses History [...] prescribed antibiotics (more content not included)... Normal [facility] Basic Metabolic Profile (BMP )on 05-17-2024 BUN/CRE 16.2 RATIO Normal 02-[address] [facility] Comment on above: Order Comment: Order Date: 05/17/24Order Info: 666-05 - BMPOrder Info: 787-05 - LIVEROrder Info: - LIPIDOrder Info: [id number] - MGOrder Info: 3016-3 - TSH Performed By: #### L 501.9520, L500.4100, L500.3400, L501.5200, L100.0100, L500.2500 ####[facility] [address] [place], [address] CA,Total 9.1 mg/dL Normal 8.5-10.[address] [facility] Comment on above: Order Comment: Order Date: 05/17/24Order Info: 666-05 - BMPOrder Info: 787-05 - LIVEROrder Info: - LIPIDOrder Info: [id number] - MGOrder Info: 3016-3 - TSH Performed By: #### L 501.9520, L500.4100, L500.3400, L501.5200, L100.0100, L500.2500 ####[facility] [address] [place], [address] Chloride [Moles/Vol] 103 mmol/L Normal 98-107 [facility] Comment on above: Order Comment: Order Date: 05/17/24Order Info: 666-05 - BMPOrder Info: 787-05 - LIVEROrder Info: - LIPIDOrder Info: [id number] - MGOrder Info: 3016-3 - TSH Performed By: #### L 501.9520, L500.4100, L500.3400, L501.5200, L100.0100, L500.2500 ####[facility] [address] [place], [address] CO2 [Moles/Vol] 31.0 mmol/L Normal 21.0-32.[address] [facility] Comment on above: Order Comment: Order Date: 05/17/24Order Info: 666-05 - BMPOrder Info: 787-05 - LIVEROrder Info: - LIPIDOrder Info: [id number] - MGOrder Info: [id number] - TSH Performed By: #### L 501.9520, L500.4100, L500.3400, L501.5200, L100.0100, L500.2500 ####[facility] [address] [place], [address] Creatinine [Mass/Vol] 1.05 mg/dL Normal 0.70-1.30 [facility] Comment on above: Order Comment: Order Date: 05/17/24Order Info: 666- - BMPOrder Info: 787-05 - LIVEROrder Info: - LIPIDOrder Info: [id number] - MGOrder Info: 3015-07 - TSH Result Comment: The validity of the calculated GFR GFRAA in patients over 70 years has not been determined. Clinical correlation is essential. Performed By: #### L 501.9520, L500.4100, L500.3400, L501.5200, L100.0100, L500.2500 ####[facility] [address] [place], [address] EST GFR - AA 89 mL/min Normal >[address] [facility] Comment on above: Order Comment: Order Date: 05/17/24Order Info: 666-05 - BMPOrder Info: 787-05 - LIVEROrder Info: - LIPIDOrder Info: [id number] - MGOrder Info: [id number] - TSH Result Comment: Afri can Indian GFR Calc Performed By: #### L 501.9520, L500.4100, L500.3400, L501.5200, L100.0100, L500.2500 ####[facility] [address] [place], [address] GAP 3 Low 5-[address] [facility] Comment on above: Order Comment: Order Date: 05/17/24Order Info: 666-05 - BMPOrder Info: 787-05 - LIVEROrder Info: [id number] - LIPIDOrder Info: [id number] - MGOrder Info: 3015-07 - TSH Performed By: #### L 501.9520, L500.4100, L500.3400, L501.5200, L100.0100, L500.2500 ####[facility] [address] [place], [address] GFR/1.73 sq M.predicted among non-blacks MDRD (S/P/Bld) [Vol rate/Area] 74 mL/min/{1.73_m2} Normal >[address] [facility] Comment on above: Order Comment: Order Date: 05/17/24Order Info: 666-05 - BMPOrder Info: 787-05 - LIVEROrder Info: - LIPIDOrder Info: - MGOrder Info: [id number] - TSH Result Comment: Non- GFR Calc Performed By: #### L 501.9520, L500.4100, L500.3400, L501.5200, L100.0100, L500.2500 ####[facility] [address] [place], [address] Glucose [Mass/Vol] 86 mg/dL Normal 74-106 [facility] Comment on above: Order Comment: Order Date: 05/17/24Order Info: 666-05 - BMPOrder Info: 787-05 - LIVEROrder Info: - LIPIDOrder Info: - MGOrder Info: [id number] - TSH Performed By: #### L 501.9520, L500.4100, L500.3400, L501.5200, L100.0100, L500.2500 ####[facility] [address] [place], [address] Potassium [Moles/Vol] 4.1 mmol/L Normal 3.5-5.1 [facility] Comment on above: Order Comment: Order Date: 05/17/24Order Info: 666-05 - BMPOrder Info: 787-05 - LIVEROrder Info: [id number] - LIPIDOrder Info: - MGOrder Info: 3016-3 - TSH Performed By: #### L 501.9520, L500.4100, L500.3400, L501.5200, L100.0100, L500.2500 ####[facility] [address] [place], [address] Sodium [Moles/Vol] 137 mmol/L Normal 136-145 [facility] Comment on above: Order Comment: Order Date: 05/17/24Order Info: 67-1 - BMPOrder Info: 88- - LIVEROrder Info: [id number] - LIPIDOrder Info: [id number] - MGOrder Info: 3 - TSH Performed By: #### L 501.9520, L500.4100, L500.3400, L501.5200, L100.0100, L500.2500 ####[facility] [address] [place], [place], [address] Urea nitrogen [Mass/Vol] 17 mg/dL Normal 7-[address] [facility] Comment on above: Order Comment: Order Date: 05/17/24Order Info: 06- - BMPOrder Info: 787- - LIVEROrder Info: [id number] - LIPIDOrder Info: [id number] - MGOrder Info: 3 - TSH Performed By: #### L 501.9520, L500.4100, L500.3400, L501.5200, L100.0100, L500.2500 ####[facility] [address] [place], [address] CBC W/Diff, Automatedon 05-08 0-2024 Absolute Lymph 1.73 X10 3/uL Normal 0.83-4.[address] [facility] Comment on above: Order Comment: Order Date: 05/17/24Order Info: 0184-1 - CBCD Performed By: #### L 501.9520, L500.4100, L500.3400, L501.5200, L100.0100, L500.2500 ####[facility] [address] [place], [address] Absolute Neut 2.9 X10 3/uL Normal 2.0-7.[address] [facility] Comment on above: Order Comment: Order Date: 05/17/24Order Info: 0184-1 - CBCD Performed By: #### L 501.9520, L500.4100, L500.3400, L501.5200, L100.0100, L500.2500 ####[facility] [address] [place], [address] Basophils/100 WBC (Bld) 0.6 % Normal 0-1 [facility] Comment on above: Order Comment: Order Date: 05/17/24Order Info: 0184-1 - CBCD Performed By: #### L 501.9520, L500.4100, L500.3400, L501.5200, L100.0100, L500.2500 ####[facility] [address] [place], [address] Eosinophils/100 WBC (Bld) 2.0 % Normal 0-[address] [facility] Comment on above: Order Comment: Order Date: 05/17/24Order Info: 0184-1 - CBCD Performed By: #### L 501.9520, L500.4100, L500.3400, L501.5200, L100.0100, L500.2500 ####[facility] [address] [place], [address] Erythrocyte distribution width (RBC) [Ratio] 11.8 % Normal 11.6-14.[address] [facility] Comment on above: Order Comment: Order Date: 05/17/24Order Info: 0184-1 - CBCD Performed By: #### L 501.9520, L500.4100, L500.3400, L501.5200, L100.0100, L500.2500 ####[facility] [address] [place], [address] Hematocrit (Bld) [Volume fraction] 42.5 % Normal 40-[address] [facility] Comment on above: Order Comment: Order Date: 05/17/24Order Info: 0184-1 - CBCD Performed By: #### L 501.9520, L500.4100, L500.3400, L501.5200, L100.0100, L500.2500 ####[facility] [address] [place], [address] Hemoglobin (Bld) [Mass/Vol] 14.3 g/dL Normal 13.0-16.[address] [facility] Comment on above: Order Comment: Order Date: 05/17/24Order Info: 0184-1 - CBCD Performed By: #### L 501.9520, L500.4100, L500.3400, L501.5200, L100.0100, L500.2500 ####[facility] [address] [place], [address] IG% 0.400 Normal 0.0-0.[address] [facility] Comment on above: Order Comment: Order Date: 05/17/24Order Info: 0184-1 - CBCD Result Comment: IG% - Immature Granulocytes (promyelocytes, myelocytes and metamyelocytes) > 1% indicates that a LEFT SHIFT is Present. Performed By: #### L 501.9520, L500.4100, L500.3400, L501.5200, L100.0100, L500.2500 ####[facility] [address] [place], [address] Lymphocytes/100 WBC (Bld) 33.9 % Normal 19-[address] [facility] Comment on above: Order Comment: Order Date: 05/17/24Order Info: 0184-1 - CBCD Performed By: #### L 501.9520, L500.4100, L500.3400, L501.5200, L100.0100, L500.2500 ####[facility] [address] [place], [address] MCH (RBC) [Entitic mass] 31.9 pg Normal 27.0-32.[address] [facility] Comment on above: Order Comment: Order Date: 05/17/24Order Info: 0184-1 - CBCD Performed By: #### L 501.9520, L500.4100, L500.3400, L501.5200, L100.0100, L500.2500 ####[facility] [address] [place], [address] MCHC (RBC) [Mass/Vol] 33.6 g/dL Normal 32-36 [facility] Comment on above: Order Comment: Order Date: 05/17/24Order Info: 0184-1 - CBCD Performed By: #### L 501.9520, L500.4100, L500.3400, L501.5200, L100.0100, L500.2500 ####[facility] [address] [place], [address] MCV (RBC) [Entitic vol] 94.9 fL High 80-94 [facility] Comment on above: Order Comment: Order Date: 05/17/24Order Info: 0184-1 - CBCD Performed By: #### L 501.9520, L500.4100, L500.3400, L501.5200, L100.0100, L500.2500 ####[facility] [address] [place], [address] Monocytes/100 WBC (Bld) 7.2 % Normal 0-10 [facility] Comment on above: Order Comment: Order Date: 05/17/24Order Info: 0184-1 - CBCD Performed By: #### L 501.9520, L500.4100, L500.3400, L501.5200, L100.0100, L500.2500 ####[facility] [address] [place], [address] Neutrophils/100 WBC (Bld) 55.9 % Normal 47-[address] [facility] Comment on above: Order Comment: Order Date: 05/17/24Order Info: 0184-1 - CBCD Performed By: #### L 501.9520, L500.4100, L500.3400, L501.5200, L100.0100, L500.2500 ####[facility] [address] [place], [address] Nucleated RBC (Bld) [#/Vol] 0 10*3/uL Normal 0-[address] [facility] Comment on above: Order Comment: Order Date: 05/17/24Order Info: 0184-1 - CBCD Performed By: #### L 501.9520, L500.4100, L500.3400, L501.5200, L100.0100, L500.2500 ####[facility] [address] [place], [address] Platelet mean volume (Bld) [Entitic vol] 11.7 fL Normal 6.2-12.[address] [facility] Comment on above: Order Comment: Order Date: 05/17/24Order Info: 0184-1 - CBCD Performed By: #### L 501.9520, L500.4100, L500.3400, L501.5200, L100.0100, L500.2500 ####[facility] [address] [place], [address] Platelets (Bld) [#/Vol] 135 10*3/uL Low 150-[address] [facility] Comment on above: Order Comment: Order Date: 05/17/24Order Info: 0184-1 - CBCD Performed By: #### L 501.9520, L500.4100, L500.3400, L501.5200, L100.0100, L500.2500 ####[facility] [address] [place], [address] RBC (Bld) [#/Vol] 4.48 10*6/uL Low 4.6-6.2 [facility] Comment on above: Order Comment: Order Date: 05/17/24Order Info: 0184-1 - CBCD Performed By: #### L 501.9520, L500.4100, L500.3400, L501.5200, L100.0100, L500.2500 ####[facility] [address] [place], [address] RDW SD 40.6 fl Normal 35.1-43.[address] [facility] Comment on above: Order Comment: Order Date: 05/17/24Order Info: 0184-1 - CBCD Performed By: #### L 501.9520, L500.4100, L500.3400, L501.5200, L100.0100, L500.2500 ####[facility] [address] [facility] [place], [address] WBC (Bld) [#/Vol] 5.1 10*3/uL Normal 4.4-11.0 [facility] Comment on above: Order Comment: Order Date: 05/17/24Order Info: 0184- - CBCD Performed By: #### L 501.9520, L500.4100, L500.3400, L501.5200, L100.0100, L500.2500 ####[facility] [address] [place], [address] Lipid Profileon 05-17-2024 Cholesterol [Mass/Vol] 140 mg/dL Normal 200 [facility] Comment on above: Order Comment: Order Date: 05/17/24Order Info: 0667-1 - BMPOrder Info: 0788-1 - LIVEROrder Info: [id number] - LIPIDOrder Info: [id number] - MGOrder Info: 3016-3 - TSH Result Comment: <200 mg/dL Desirable 200-240 mg/dL Borderline >240 mg/dL High Risk Performed By: #### L 501.9520, L500.4100, L500.3400, L501.5200, L100.0100, L500.2500 ####[facility] [address] [place], [address] Cholesterol in HDL [Mass/Vol] 59 mg/dL Normal [facility] Comment on above: Order Comment: Order Date: 05/17/24Order Info: 666-05 - BMPOrder Info: 787-05 - LIVEROrder Info: [id number] - LIPIDOrder Info: [id number] - MGOrder Info: 3016-3 - TSH Result Comment: The drugs N-Acetylcysteine and Metamizole may falsely depress this assay. Reference Range HDL <40 mg/dL Low HDL Cholesterol HDL >or= 60 mg/dL High HDL Cholesterol Performed By: #### L 501.9520, L500.4100, L500.3400, L501.5200, L100.0100, L500.2500 ####[facility] [address] [place], [address] Cholesterol in LDL [Mass/Vol] 70 mg/dL Normal 0-[address] [facility] Comment on above: Order Comment: Order Date: 05/17/24Order Info: 666-05 - BMPOrder Info: 787-05 - LIVEROrder Info: - LIPIDOrder Info: [id number] - MGOrder Info: 3016-3 - TSH Performed By: #### L 501.9520, L500.4100, L500.3400, L501.5200, L100.0100, L500.2500 ####[facility] [address] [place], [address] Cholesterol in VLDL [Mass/Vol] 11 mg/dL Normal 5-[address] [facility] Comment on above: Order Comment: Order Date: 05/17/24Order Info: 666-05 - BMPOrder Info: 787-05 - LIVEROrder Info: - LIPIDOrder Info: [id number] - MGOrder Info: 3016-3 - TSH Performed By: #### L 501.9520, L500.4100, L500.3400, L501.5200, L100.0100, L500.2500 ####[facility] [address] [place], [address] Triglyceride [Mass/Vol] 53 mg/dL Normal [facility] Comment on above: Order Comment: Order Date: 05/17/24Order Info: 666-05 - BMPOrder Info: 787-05 - LIVEROrder Info: [id number] - LIPIDOrder Info: [id number] - MGOrder Info: 3016-3 - TSH Result Comment: The drugs N-Acetylcysteine and Metamizole may falsely depress this assay. Serum Triglycerides Reference Interval Normal <150 mg/dL Borderline high 150 - 199 mg/dL High 200 - 499 mg/dL Very High > or = 500 mg/dL Performed By: #### L 501.9520, L500.4100, L500.3400, L501.5200, L100.0100, L500.2500 ####[facility] [address] [place], [place], [address] Liver Profileon 05-17-2024 Albumin [Mass/Vol] 3.6 g/dL Normal 3.2-5.0 [facility] Comment on above: Order Comment: Order Date: 05/17/24Order Info: 666-05 - BMPOrder Info: 787-05 - LIVEROrder Info: [id number] - LIPIDOrder Info: - MGOrder Info: [id number] - TSH Performed By: #### L 501.9520, L500.4100, L500.3400, L501.5200, L100.0100, L500.2500 ####[facility] [address] [place], [place], [address] ALK P 52 U/L Normal 45-[address] [facility] Comment on above: Order Comment: Order Date: 05/17/24Order Info: 666-05 - BMPOrder Info: 787-05 - LIVEROrder Info: [id number] - LIPIDOrder Info: [id number] - MGOrder Info: 3016-3 - TSH Performed By: #### L 501.9520, L500.4100, L500.3400, L501.5200, L100.0100, L500.2500 ####[facility] [address] [place], [address] ALT [Catalytic activity/Vol] 32 U/L Normal 16-[address] [facility] Comment on above: Order Comment: Order Date: 05/17/24Order Info: 666- - BMPOrder Info: 88-1 - LIVEROrder Info: [id number] - LIPIDOrder Info: [id number] - MGOrder Info: 3016-3 - TSH Performed By: #### L 501.9520, L500.4100, L500.3400, L501.5200, L100.0100, L500.2500 ####[facility] [address] [place], [address] AST [Catalytic activity/Vol] 20 U/L Normal 15-[address] [facility] Comment on above: Order Comment: Order Date: 05/17/24Order Info: 666-05 - BMPOrder Info: 787-05 - LIVEROrder Info: [id number] - LIPIDOrder Info: [id number] - MGOrder Info: 3016-3 - TSH Performed By: #### L 501.9520, L500.4100, L500.3400, L501.5200, L100.0100, L500.2500 ####[facility] [address] [place], [address] Bilirubin [Mass/Vol] 1.40 mg/dL High 0.20-1.00 [facility] Comment on above: Order Comment: Order Date: 05/17/24Order Info: 666-05 - BMPOrder Info: 787-05 - LIVEROrder Info: [id number] - LIPIDOrder Info: [id number] - MGOrder Info: 3016-3 - TSH Result Comment: For patients on eltrombopag therapy, use of Dimension [place] TBIL is not recommended. Performed By: #### L 501.9520, L500.4100, L500.3400, L501.5200, L100.0100, L500.2500 ####[facility] [address] [place], [address] Bilirubin.direct [Mass/Vol] 0.29 mg/dL Normal 0.00-0.[address] [facility] Comment on above: Order Comment: Order Date: 05/17/24Order Info: 666-05 - BMPOrder Info: 787-05 - LIVEROrder Info: - LIPIDOrder Info: [id number] - MGOrder Info: 301-3 - TSH Performed By: #### L 501.9520, L500.4100, L500.3400, L501.5200, L100.0100, L500.2500 ####[facility] [address] [place], [address] Globulin (S) [Mass/Vol] 3.1 g/dL Normal 2.2-4.2 [facility] Comment on above: Order Comment: Order Date: 05/17/24Order Info: 666-05 - BMPOrder Info: 787-05 - LIVEROrder Info: - LIPIDOrder Info: [id number] - MGOrder Info: 3015-3 - TSH Performed By: #### L 501.9520, L500.4100, L500.3400, L501.5200, L100.0100, L500.2500 ####[facility] [address] [place], [address] T PROT 6.7 g/dL Normal 6.4-8.[address] [facility] Comment on above: Order Comment: Order Date: 05/17/24Order Info: 666-05 - BMPOrder Info: 787-05 - LIVEROrder Info: - LIPIDOrder Info: [id number] - MGOrder Info: 3016-3 - TSH Performed By: #### L 501.9520, L500.4100, L500.3400, L501.5200, L100.0100, L500.2500 ####[facility] [address] [place], [address] Magnesiumon 05-17-2024 Magnesium [Mass/Vol] 2.4 mg/dL Normal 1.6-2.6 [facility] Comment on above: Order Comment: Order Date: 05/17/24Order Info: 666- - BMPOrder Info: 88-1 - LIVEROrder Info: [id number] - LIPIDOrder Info: [id number] - MGOrder Info: 3016-3 - TSH Performed By: #### L 501.9520, L500.4100, L500.3400, L501.5200, L100.0100, L500.2500 ####[facility] [address] [place], [place], [address] Thyroid Stim Hormone (TSH)on 05-17-2024 TSH 2.950 uIU/mL Normal 0.358-3.[address] [facility] Comment on above: Order Comment: Order Date: 05/17/24Order Info: 666- - BMPOrder Info: 787- - LIVEROrder Info: [id number] - LIPIDOrder Info: [id number] - MGOrder Info: 3016-3 - TSH Performed By: #### L 501.9520, L500.4100, L500.3400, L501.5200, L100.0100, L500.2500 ####[facility] [address] [place], [address] CNPNon 05-10-2024 CNPN Telephone (OPHTBE) ---- RIZWAN CLIFFORD ([id number]) 1950 M Date Time Provider Department 05/10/24 SABRINA GUZMAN During your visit today, we recorded the following information about you: Agustina Gifford 05/10/2024 12:23 PM Signed Received faxed office notes from [facility] [place] office of Dr Shady Schuster. Faxed to Dr Guzman and sent for scanning in Epic. Allergies As of Date: 05/10/2024 Noted Allergy Reaction PENICILLINS 05/18/2018 2 - Rash 16 - Unknown Date Reviewed: 06/09/2022 Reviewed by: Christoph Zuñiga DO - Fully Assessed Reason for Visit: Office notes from [facility] [Other] Prescriptions as of 05/10/2024 - [...] Status:Closed by AGUSTINA GIFFORD on 05/10/24 Normal [facility] Carotid Duplex Ultrasoundon 05-06-2024 Carotid Duplex Ultrasound [facility] [address] [facility] [place] [address] Carotid Duplex Ultrasound 05/06/24 0806 MR#: [id number] Acct: [id number] Name: RIZWAN CLIFFORD Rep #: [id number] : 1950 73 From: Stephane Orr MD Attending Dr: Dr. Shady Schuster MD Status: REG CLI Ordering Dr: Shady Schuster MD Date: 05/06/24 Location: [facility] Sex: M C Admitted: Reason For Study: [...] the left vertebral artery. Procedure Carotid Duplex 75523. 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 Missy Workman MD Status: [facility] Study: Brain W/WO Contrast Date of Exam: 04/30/24 Exam# [id number] Ordering Dr: Shady Schuster MD -[id number] STUDY: MRI ORBITS WITH AND WITHOUT [...] Missy Workman MD; Dr. Shady Schuster MD Lumber Puller: Signed Normal [facility] CREATININE FINGERSTICKon CREATININE WB < 1.0 Normal 0.70-1.[address] [facility] Comment on above: Performed By: #### L 9100.0200 ####[facility] [address] [place], [address] EGFR WB > 60.0000 Normal >[address] [facility] Comment on above: Performed By: #### L 9100.0200 ####[facility] [address] [place], [address] CBC W/Diff, Automatedon 12-0 PLT EST MOD DEC Normal ADEQ [facility] Comment on above: Performed By: #### L 100.0100, L501.6710, L101.9900 #### [facility] [address] [place], [address] PLT MORPH CLUMPED Normal [facility] Comment on above: Performed By: #### L 100.0100, L501.6710, L101.9900 #### [facility] [address] [place], [address] RED CELL MORPH NORM C+C Normal NORM C C [facility] Comment on above: Performed By: #### L 100.0100, L501.6710, L101.9900 #### [facility] [address] [place], [address] PLT Normal 150-[address] [facility] Comment on above: Result Comment: Plea se note: For this sample, a platelet estimate is provided rather than a platelet count due to platelet clumping. Other parameters associated with this sample are not affected by platelet clumping. If a more accurate platelet count is required, a redraw of the patient will be necessary. Performed By: #### L 100.0100, L501.6710, L101.9900 #### [facility] [address] [place], [address] SMEAR COMMENT SCANNED Normal [facility] Comment on above: Performed By: #### L 100.0100, L501.6710, L101.9900 #### [facility] [address] [place], [address] CRPon 04-15-2024 C-REACTIVE PROT < 2.90 Normal 0.0-3.[address] [facility] Comment on above: Result Comment: C-Re active Protein (CRP) provides useful information for the diagnosis, therapy and monitoring of inflammatory processes and associated diseases. For the evaluation of Relative Risk for Cardiovascular Disease, a High Sensitivity CRP (HSCRP) should be ordered. Performed By: #### L 100.0100, L501.6710, L101.9900 ####[facility] [address] [place], [address] Erythrocyte Sed Rateon 04-15 SED RATE 3 mm/hr Normal 0-[address] [facility] Comment on above: Performed By: #### L 100.0100, L501.6710, L101.9900 #### [facility] [address] [place], [address] Cardiology Visit Reporton Cardiology Visit Report [facility] [address] [place] [address] OFFICE VISIT Date of Service: 03/29/24 MR#: [id number] Acct: [id number] Name: RIZWAN CLIFFORD Rep #: [id number] : 1950 Provider: CELSO Morris Age/Sex: 73/M Location: [facility] Status: Signed HPI HPI History of Present [...] of 207. Pt was seen at the [facility] for the blurry vision in his right [...] 97 Intake Visit Reasons: 6 M [facility] Executive Director Required: No Is patient in pain?: No [...] for blurry (more content not included)... Normal [facility] CBC W/Diff, Automatedon 03-08 PLT EST MOD DEC Normal ADEQ [facility] Comment on above: Order Comment: Order Date: 10/10/23 Order Info: 0184-1 - CBCD Performed By: #### L 500.4050, L500.4100, L501.9910, L100.0100 #### [facility] [address] [place], [address] PLT MORPH CLUMPED Normal [facility] Comment on above: Order Comment: Order Date: 10/10/23 Order Info: 0184-1 - CBCD Performed By: #### L 500.4050, L500.4100, L501.9910, L100.0100 #### [facility] [address] [place], [address] SMEAR COMMENT SCANNED Normal [facility] Comment on above: Order Comment: Order Date: 10/10/23 Order Info: 0184-1 - CBCD Performed By: #### L 500.4050, L500.4100, L501.9910, L100.0100 #### [facility] [address] [place], [address] Comprehensive Metabolic Prof ilon 03-21-2024 Albumin [Mass/Vol] 3.8 g/dL Normal 3.2-5.0 [facility] Comment on above: Order Comment: Order Date: 10/10/23 Order Info: 0786-1 - CMP Order Info: [id number] - LIPID Order Info: 2857-1 - PSA Performed By: #### L 500.4050, L500.4100, L501.9910, L100.0100 #### [facility] [address] [place], [address] Albumin/Globulin [Mass ratio] 1.2 {ratio} Normal 0.9-2.[address] [facility] Comment on above: Order Comment: Order Date: 10/10/23 Order Info: 0786- - CMP Order Info: [id number] - LIPID Order Info: 2857-1 - PSA Performed By: #### L 500.4050, L500.4100, L501.9910, L100.0100 #### [facility] [address] [place], [address] ALK P 60 U/L Normal 45-[address] [facility] Comment on above: Order Comment: Order Date: 10/10/23 Order Info: 0786- - CMP Order Info: [id number] - LIPID Order Info: 2857-1 - PSA Performed By: #### L 500.4050, L500.4100, L501.9910, L100.0100 #### [facility] [address] [place], [address] ALT [Catalytic activity/Vol] 42 U/L Normal 16-[address] [facility] Comment on above: Order Comment: Order Date: 10/10/23 Order Info: 0786- - CMP Order Info: [id number] - LIPID Order Info: 2857-1 - PSA Performed By: #### L 500.4050, L500.4100, L501.9910, L100.0100 #### [facility] [address] [place], [address] AST [Catalytic activity/Vol] 27 U/L Normal 15-[address] [facility] Comment on above: Order Comment: Order Date: 10/10/23 Order Info: 0786-1 - CMP Order Info: [id number] - LIPID Order Info: [id number] - PSA Performed By: #### L 500.4050, L500.4100, L501.9910, L100.0100 #### [facility] [address] [place], [address] Bilirubin [Mass/Vol] 1.40 mg/dL High 0.20-1.00 [facility] Comment on above: Order Comment: Order Date: 10/10/23 Order Info: 0786-1 - CMP Order Info: [id number] - LIPID Order Info: 28511-05 - PSA Result Comment: For patients on eltrombopag therapy, use of Dimension [place] TBIL is not recommended. Performed By: #### L 500.4050, L500.4100, L501.9910, L100.0100 #### [facility] [address] [place], [address] BUN/CRE 19.7 RATIO Normal 10-[address] [facility] Comment on above: Order Comment: Order Date: 10/10/23 Order Info: 0786-1 - CMP Order Info: [id number] - LIPID Order Info: [id number] - PSA Performed By: #### L 500.4050, L500.4100, L501.9910, L100.0100 #### [facility] [address] [place], [address] CA,Total 9.1 mg/dL Normal 8.5-10.[address] [facility] Comment on above: Order Comment: Order Date: 10/10/23 Order Info: 0786-1 - CMP Order Info: [id number] - LIPID Order Info: [id number] - PSA Performed By: #### L 500.4050, L500.4100, L501.9910, L100.0100 #### [facility] [address] [place], [address] Chloride [Moles/Vol] 106 mmol/L Normal 98-107 [facility] Comment on above: Order Comment: Order Date: 10/10/23 Order Info: 785- - CMP Order Info: [id number] - LIPID Order Info: 2856-05 - PSA Performed By: #### L 500.4050, L500.4100, L501.9910, L100.0100 #### [facility] [address] [place], [address] CO2 [Moles/Vol] 27.0 mmol/L Normal 21.0-32.[address] [facility] Comment on above: Order Comment: Order Date: 10/10/23 Order Info: 785-05 - CMP Order Info: - LIPID Order Info: 2856-05 - PSA Performed By: #### L 500.4050, L500.4100, L501.9910, L100.0100 #### [facility] [address] [place], [address] Creatinine [Mass/Vol] 0.96 mg/dL Normal 0.70-1.30 [facility] Comment on above: Order Comment: Order Date: 10/10/23 Order Info: 785-05 - CMP Order Info: - LIPID Order Info: [id number] - PSA Result Comment: The validity of the calculated GFR GFRAA in patients over 70 years has not been determined. Clinical correlation is essential. Performed By: #### L 500.4050, L500.4100, L501.9910, L100.0100 #### [facility] [address] [place], [address] EST GFR - AA 98 mL/min Normal >[address] [facility] Comment on above: Order Comment: Order Date: 10/10/23 Order Info: 785-05 - CMP Order Info: - LIPID Order Info: 2856-05 - PSA Result Comment: Afri can Indian GFR Calc Performed By: #### L 500.4050, L500.4100, L501.9910, L100.0100 #### [facility] [address] [place], [address] GAP 6 Normal 5-[address] [facility] Comment on above: Order Comment: Order Date: 10/10/23 Order Info: 785- - CMP Order Info: - LIPID Order Info: [id number] - PSA Performed By: #### L 500.4050, L500.4100, L501.9910, L100.0100 #### [facility] [address] [place], [address] GFR/1.73 sq M.predicted among non-blacks MDRD (S/P/Bld) [Vol rate/Area] 81 mL/min/{1.73_m2} Normal >[address] [facility] Comment on above: Order Comment: Order Date: 10/10/23 Order Info: 785-05 - CMP Order Info: - LIPID Order Info: 2856-05 - PSA Result Comment: Non- GFR Calc Performed By: #### L 500.4050, L500.4100, L501.9910, L100.0100 #### [facility] [address] [place], [address] Globulin (S) [Mass/Vol] 3.2 g/dL Normal 2.2-4.2 [facility] Comment on above: Order Comment: Order Date: 10/10/23 Order Info: 07 - CMP Order Info: [id number] - LIPID Order Info: [id number] - PSA Performed By: #### L 500.4050, L500.4100, L501.9910, L100.0100 #### [facility] [address] [place], [address] Glucose [Mass/Vol] 77 mg/dL Normal 74-106 [facility] Comment on above: Order Comment: Order Date: 10/10/23 Order Info: 07 - CMP Order Info: [id number] - LIPID Order Info: [id number] - PSA Performed By: #### L 500.4050, L500.4100, L501.9910, L100.0100 #### [facility] [address] [place], [address] Potassium [Moles/Vol] 4.6 mmol/L Normal 3.5-5.1 [facility] Comment on above: Order Comment: Order Date: 10/10/23 Order Info: 07- - CMP Order Info: [id number] - LIPID Order Info: 1 - PSA Performed By: #### L 500.4050, L500.4100, L501.9910, L100.0100 #### [facility] [address] [place], [address] Sodium [Moles/Vol] 138 mmol/L Normal 136-145 [facility] Comment on above: Order Comment: Order Date: 10/10/23 Order Info: 785-05 - CMP Order Info: - LIPID Order Info: [id number] - PSA Performed By: #### L 500.4050, L500.4100, L501.9910, L100.0100 #### [facility] [address] [place], [address] T PROT 7.0 g/dL Normal 6.4-8.[address] [facility] Comment on above: Order Comment: Order Date: 10/10/23 Order Info: 0786 - CMP Order Info: [id number] - LIPID Order Info: [id number] - PSA Performed By: #### L 500.4050, L500.4100, L501.9910, L100.0100 #### [facility] [address] [place], [address] Urea nitrogen [Mass/Vol] 19 mg/dL High 7-[address] [facility] Comment on above: Order Comment: Order Date: 10/10/23 Order Info: 0786- - CMP Order Info: [id number] - LIPID Order Info: 2851 - PSA Performed By: #### L 500.4050, L500.4100, L501.9910, L100.0100 #### [facility] [address] [place], [address] Lipid Profileon 03-21-2024 Cholesterol [Mass/Vol] 168 mg/dL Normal 200 [facility] Comment on above: Order Comment: Order Date: 10/10/23 Order Info: 0786-1 - CMP Order Info: [id number] - LIPID Order Info: 2857-1 - PSA Result Comment: <200 mg/dL Desirable 200-240 mg/dL Borderline >240 mg/dL High Risk Performed By: #### L 500.4050, L500.4100, L501.9910, L100.0100 #### [facility] [address] [place], [address] Cholesterol in HDL [Mass/Vol] 74 mg/dL Normal [facility] Comment on above: Order Comment: Order Date: 10/10/23 Order Info: 0786-1 - CMP Order Info: 89554-1 - LIPID Order Info: 2857-1 - PSA Result Comment: The drugs N-Acetylcysteine and Metamizole may falsely depress this assay. Reference Range HDL <40 mg/dL Low HDL Cholesterol HDL >or= 60 mg/dL High HDL Cholesterol Performed By: #### L 500.4050, L500.4100, L501.9910, L100.0100 #### [facility] [address] [place], [address] Cholesterol in LDL [Mass/Vol] 81 mg/dL Normal 0-[address] [facility] Comment on above: Order Comment: Order Date: 10/10/23 Order Info: 0786-1 - CMP Order Info: [id number] - LIPID Order Info: 2857-1 - PSA Performed By: #### L 500.4050, L500.4100, L501.9910, L100.0100 #### [facility] [address] [place], [address] Cholesterol in VLDL [Mass/Vol] 13 mg/dL Normal 5-[address] [facility] Comment on above: Order Comment: Order Date: 10/10/23 Order Info: 0786-1 - CMP Order Info: [id number] - LIPID Order Info: 2856-05 - PSA Performed By: #### L 500.4050, L500.4100, L501.9910, L100.0100 #### [facility] [address] [place], [place], [address] Triglyceride [Mass/Vol] 67 mg/dL Normal [facility] Comment on above: Order Comment: Order Date: 10/10/23 Order Info: 0786 - CMP Order Info: [id number] - LIPID Order Info: 2856-05 - PSA Result Comment: The drugs N-Acetylcysteine and Metamizole may falsely depress this assay. Serum Triglycerides Reference Interval Normal <150 mg/dL Borderline high 150 - 199 mg/dL High 200 - 499 mg/dL Very High > or = 500 mg/dL Performed By: #### L 500.4050, L500.4100, L501.9910, L100.0100 #### [facility] [address] [place], [place], [address] PSA,Total - Annual Screenon 03-21-2024 PSA,TOT SCREEN 2.45 ng/mL Normal 0.00-4.[address] [facility] Comment on above: Order Comment: Order Date: 10/10/23 Order Info: 0786- - CMP Order Info: [id number] - LIPID Order Info: 2856-05 - PSA Result Comment: This test was performed using the TPSA assay method for the [employer] chemistry system. Values obtained with different assay methods cannot be used interchangably. When changing PSA assays in the course of monitoring a patient, additional sequential testing should be carried out to confirm baseline values. Performed By: #### L 500.4050, L500.4100, L501.9910, L100.0100 #### [facility] [address] [place], [place], [address] Urinalysis, Completeon 03-21 WBC 0-5 SEEN Normal 0-[address] [facility] Comment on above: Order Comment: CLEAN CATCH Performed By: #### L 400.0001 #### [facility] [address] [place], [address] BACTERIA 0 SEEN Normal None Seen [facility] Comment on above: Order Comment: CLEAN CATCH Performed By: #### L 400.0001 #### [facility] [address] [place], [address] EPI,SQUAMOUS 0 SEEN Normal 0-[address] [facility] Comment on above: Order Comment: CLEAN CATCH Performed By: #### L 400.0001 #### [facility] [address] [place], [address] Mucus Ql (Urine sed) 0 SEEN Normal [facility] Comment on above: Order Comment: CLEAN CATCH Performed By: #### L 400.0001 #### [facility] [address] [place], [address] RBC 0 SEEN Normal 0-[address] [facility] Comment on above: Order Comment: CLEAN CATCH Performed By: #### L 400.0001 #### [facility] [address] [place], [address] Creatinineon 11-27-20232020 CKD-EPI Estimated Glomerular Filtration Rate (eGFR) is calculated using the 2020 CKD-EPI creatinine equation. This equation uses serum creatinine, sex and age for calculating the eGFR. Normal [facility] Comment on above: Performed By: #### T TREVON B12, CREATBL #### [address] [address] Creatinine [Mass/Vol] 1.1 mg/dL Normal 0.5-1.2 [facility] Comment on above: Performed By: #### T TREVON B12, CREATBL #### [address] [address] eGFR 69 mL/min/1.73sqm Normal >=60 [facility] Comment on above: Performed By: #### T TREVON B12, CREATBL #### [address] [address] Folateon 11-27-2023 Biotin Interference Samples should not be taken from patients receiving therapy with high biotin doses (i.e. >5mg/day) until at least 8 hours following the last biotin administration. Normal [facility] Comment on above: Performed By: #### F OLATE #### [facility] [address] [place] [address] Performed By: #### T SH, B12, CREATBL #### [facility] [address] [place] [address] Folate >20.0 Normal 4.8-24.2 [facility] Comment on above: Performed By: #### F OLATE #### [facility] [address] [place] [address] TSHon 11-27-2023 TSH 2.98 uIU/mL Normal 0.27-4.20 [facility] Comment on above: Performed By: #### T SH, B12, CREATBL #### [facility] [address] [place] [address] Vitamin B12on 11-27-2023 Cobalamin (Vitamin B12) [Mass/Vol] 654 pg/mL Normal [id number] [facility] Comment on above: Performed By: #### T SH, B12, CREATBL #### [facility] [address] [place] [address] Basophil percentageOrdered B y: Luciano Kelley on 05-30-2023 Basophil percentage 2.19 ng/mL 0.0-4.0 [facility] Comment on above: This test was perfor med using the TPSA assay method for the[facility] chemistry system. Values obtained with differentassay methods cannot be used interchangably.When changing PSA assays in the course of monitoring apatient, additional sequential testing should be carriedout to confirm baseline values. Absolute lymphocyte countOrd ered By: Missy Workman on 04-14-2023 Lymphocytes Auto (Unsp spec) [#/Vol] 1.82 10*3/uL 0.83-4.[address] [facility] Basophil percentageOrdered B y: Missy Workman on 04-14-2023 Basophil percentage 0 SEEN /hpf 0-5 [facility] Basophils/100 WBC (Bld) 0.9 % 0-1 [facility] Bilirubin [Mass/Vol] 1.80 mg/dL 0.20-1.00 [facility] Comment on above: For patients on eltr ombopag therapy, use of Dimension [place] TBIL is not recommended. Chloride [Moles/Vol] 108 mmol/L 98-107 [facility] Cholesterol [Mass/Vol] 139 mg/dL <200 [facility] Comment on above: <200 mg/dL Desirable 200-240 mg/dL Borderline >240 mg/dL High Risk Eosinophils/100 WBC (Bld) 1.2 % 0-[address] [facility] Glucose [Mass/Vol] 96 mg/dL 74-106 [facility] Neutrophils (Bld) [#/Vol] 3.3 10*3/uL 2.0-7.[address] [facility] Neutrophils/100 WBC (Bld) 59.1 % 47-[address] [facility] Potassium [Moles/Vol] 4.3 mmol/L 3.5-5.1 [facility] Protein [Mass/Vol] 7.0 g/dL 6.4-8.2 [facility] Sodium [Moles/Vol] 138 mmol/L 136-145 [facility] Triglyceride [Mass/Vol] 107 mg/dL <199 [facility] Comment on above: The drugs N-Acetylcy steine and Metamizole may falsely depress this assay.Serum Triglycerides Reference Interval Normal <150 mg/dL Borderline high 150 - 199 mg/dL High 200 - 499 mg/dL Very High > or = 500 mg/dL WBC (Bld) [#/Vol] 5.6 10*3/uL 4.4-11.0 [facility] Bilirubin Test strip Ql (U)O rdered By: Missy Workman on 04-14-2023 Bilirubin Ql (U) Negative Negative [facility] Blood erythrocytes count (nu mber/volume)Ordered By: Missy Workman on 04-14-2023 RBC (Bld) [#/Vol] 4.62 10*6/uL 4.6-6.2 [facility] Blood hemoglobin measurement (mass/volume)Ordered By: Missy Workman on 04-14-2023 Hemoglobin (Bld) [Mass/Vol] 14.7 g/dL 13.0-16.[address] [facility] Blood lymphocytes/100 leukoc ytesOrdered By: Missy Workman on 04-14-2023 Lymphocytes/100 WBC (Bld) 32.4 % 19-[address] [facility] Blood monocytes/100 leukocyt esOrdered By: Missy Workman on 04-14-2023 Monocytes/100 WBC (Bld) 6.2 % 0-10 [facility] Blood platelet adequacy dete ction by light microscopyOrdered By: Missy Workman on 04-14-2023 Platelets LM Ql (Bld) MOD DEC ADEQ [facility] Blood platelet mean volumeOr dered By: Missy Workman on 04-14-2023 Platelet mean volume (Bld) [Entitic vol] 11.9 fL 6.2-12.[address] [facility] Determination of erythrocyte mean corpuscular volume (MCV)Ordered By: Missy Workman on 04-14-2023 MCV (RBC) [Entitic vol] 94.4 fL 80-94 [facility] Direct bilirubinOrdered By: Missy Workman on 04-14-2023 Bilirubin.direct [Mass/Vol] 0.36 mg/dL 0.00-0.[address] [facility] Hematocrit Auto (Bld) [Volum e fraction]Ordered By: Missy Workman on 04-14-2023 Hematocrit (Bld) [Volume fraction] 43.6 % 40-[address] [facility] Ketones Test strip Ql (U)Ord ered By: Missy Workman on 04-14-2023 Ketones Ql (U) Negative Negative [facility] Laboratory - Chemistry and C hemistry - challengeOrdered By: Missy Workman on 04-14-2023 ALP [Catalytic activity/Vol] 50 U/L 45-[address] [facility] ALT [Catalytic activity/Vol] 29 U/L 16-[address] [facility] CO2 [Moles/Vol] 26.0 mmol/L 21.0-32.[address] [facility] Cobalamin (Vitamin B12) [Mass/Vol] 522 pg/mL 211-[address] [facility] Globulin (S) [Mass/Vol] 3.2 g/dL 2.2-4.2 [facility] Urea nitrogen/Creatinine [Mass ratio] 20.4 mg/mg 10-[address] [facility] Laboratory - Hematology and Cell countsOrdered By: Missy Workman on 04-14-2023 Erythrocyte distribution width (RBC) [Entitic vol] 41.2 fL 35.1-43.[address] [facility] Erythrocyte distribution width (RBC) [Ratio] 11.9 % 11.6-14.[address] [facility] Immature granulocytes/100 WBC (Bld) 0.200 % 0.0-0.[address] [facility] Comment on above: IG% - Immature Granu locytes (promyelocytes, myelocytes and metamyelocytes) > 1% indicates that a LEFT SHIFT is Present. MCH (RBC) [Entitic mass] 31.8 pg 27.0-32.[address] [facility] Nucleated RBC/100 WBC (Bld) [Ratio] 0 % 0-[address] [facility] MCHC Auto (RBC) [Mass/Vol]Or dered By: Missy Workman on 04-14-2023 MCHC (RBC) [Mass/Vol] 33.7 g/dL 32-36 [facility] Mucus LM Ql (Urine sed)Order ed By: Missy Workman on 04-14-2023 Mucus Ql (Urine sed) 0 SEEN /hpf [facility] Nitrite Test strip Ql (U)Ord ered By: Missy Workman on 04-14-2023 Nitrite Ql (U) Negative Negative [facility] No Panel InformationOrdered By: Missy Workman on 04-14-2023 Estimated GFR (MDRD) Amer 91 mL/min >[address] [facility] Comment on above: GFR Calc Estimated GFR (MDRD) Non-Af Amer 76 mL/min >[address] [facility] Comment on above: Non- GFR Calc Thyroid Stimulating Hormone (TSH) 3.34 uIU/mL 0.358-3.[address] [facility] Platelets bldOrdered By: Jose Workman on 04-14-2023 Platelets (Bld) [#/Vol] 79 10*3/uL 150-450 [facility] Protein Test strip Ql (U)Ord ered By: Missy Workman on 04-14-2023 Protein Ql (U) Negative Negative [facility] Serum or plasma albumin freya urement (mass/volume)Ordered By: Missy Workman on 04-14-2023 Albumin [Mass/Vol] 3.8 g/dL 3.2-5.0 [facility] Serum or plasma calcium freya urement (mass/volume)Ordered By: Missy Workman on 04-14-2023 Calcium [Mass/Vol] 8.6 mg/dL 8.5-10.1 [facility] Serum or plasma cholesterol in HDL measurement (mass/volume)Ordered By: Missy Workman on 04-14-2023 Cholesterol in HDL [Mass/Vol] 63 mg/dL >[address] [facility] Comment on above: The drugs N-Acetylcy steine and Metamizole may falsely depress this assay. Reference Range HDL <40 mg/dL Low HDL Cholesterol HDL >or= 60 mg/dL High HDL Cholesterol Serum or plasma cholesterol in VLDL measurement (mass/volume)Ordered By: Missy Workman on 04-14-2023 Cholesterol in VLDL [Mass/Vol] 21 mg/dL 5-[address] [facility] Serum or plasma creatinine m easurement (mass/volume)Ordered By: Missy Workman on 04-14-2023 Creatinine [Mass/Vol] 1.03 mg/dL 0.70-1.30 [facility] Comment on above: The validity of the calculated GFR & GFRAA in patients over 70 years has not been determined. Clinical correlation is essential. Serum or plasma low density lipoprotein (LDL) cholesterol measurement (mass/volume)Ordered By: Missy Workman on 04-14-2023 Cholesterol in LDL [Mass/Vol] 55 mg/dL 0-[address] [facility] Serum or plasma urea nitroge n measurement (mass/volume)Ordered By: Missy Workman on 04-14-2023 Urea nitrogen [Mass/Vol] 21 mg/dL 7-[address] [facility] Squamous epithelial cells de tection in urine sediment by light microscopyOrdered By: Missy Workman on 04-14-2023 Epithelial cells.squamous LM Ql (Urine sed) 0 SEEN /hpf 0-[address] [facility] Thin prep Papanicolaou smear with manual screeningOrdered By: Missy Workman on 04-14-2023 Thin prep Papanicolaou smear with manual screening 21 U/L 15-[address] [facility] Thin prep Papanicolaou smear with manual screening 4 5-[address] [facility] Urine blood detectionOrdered By: Missy Workman on 04-14-2023 RBC Ql (U) 10 /ul Negative [facility] RBC Ql (U) 0-5 SEEN /hpf 0-[address] [facility] Urine clarityOrdered By: Jose Wokrman on 04-14-2023 Clarity (U) Clear Clear [facility] Urine color determinationOrd ered By: Missy Workman on 04-14-2023 Color (U) Yellow Yellow [facility] Urine glucose detectionOrder ed By: Missy Workman on 04-14-2023 Glucose Ql (U) Normal mg/dl Normal [facility] Urine leukocyte esterase det ection by dipstickOrdered By: Missy Workman on 04-14-2023 Leukocyte esterase Test strip Ql (U) Negative Negative [facility] Urine pHOrdered By: Missy daley on 04-14-2023 pH (U) 7.0 [pH] 5.0 - 8.[address] [facility] Urine sediment bacteria coun t by microscopy (number/high power field)Ordered By: Missy Workman on 04-14-2023 Bacteria LM.HPF (Urine sed) [#/Area] 0 /[HPF] None Seen [facility] Urine specific gravity measu rementOrdered By: Missy Workman on 04-14-2023 Specific gravity (U) [Rel density] 1.010 1.002-1.[address] [facility] Urobilinogen Auto test strip Ql (U)Ordered By: Msisy Workman on 04-14-2023 Urobilinogen Ql (U) Normal mg/dl Normal [facility] No Panel InformationOrdered By: Missy Workman on 03-09-2023 Prostate Specific Antigen Screen 3.07 ng/mL 0.00-4.[address] [facility] Comment on above: This test was perfor med using the TPSA assay method for the[employer] chemistry system. Values obtained with differentassay methods cannot be used interchangably.When changing PSA assays in the course of monitoring apatient, additional sequential testing should be carriedout to confirm baseline values. Absolute lymphocyte countOrd ered By: Missy Workman on 08-01-2023 Lymphocytes Auto (Unsp spec) [#/Vol] 1.86 10*3/uL 0.83-4.[address] [facility] Basophil percentageOrdered B y: Missy Workman on 12-06-2022 Basophil percentage 0 SEEN /hpf 0-5 [facility] Basophils/100 WBC (Bld) 0.3 % 0-1 [facility] Bilirubin [Mass/Vol] 1.80 mg/dL 0.20-1.00 [facility] Comment on above: For patients on eltr ombopag therapy, use of Dim[place] TBIL is not recommended. Chloride [Moles/Vol] 108 mmol/L 98-107 [facility] Cholesterol [Mass/Vol] 166 mg/dL <200 [facility] Comment on above: <200 mg/dL Desirable 200-240 mg/dL Borderline >240 mg/dL High Risk Eosinophils/100 WBC (Bld) 1.7 % 0-[address] [facility] Glucose [Mass/Vol] 92 mg/dL 74-106 [facility] Neutrophils (Bld) [#/Vol] 3.4 10*3/uL 2.0-7.[address] [facility] Neutrophils/100 WBC (Bld) 58.0 % 47-[address] [facility] Potassium [Moles/Vol] 3.9 mmol/L 3.5-5.1 [facility] Protein [Mass/Vol] 7.1 g/dL 6.4-8.2 [facility] Sodium [Moles/Vol] 139 mmol/L 136-145 [facility] Triglyceride [Mass/Vol] 75 mg/dL <199 [facility] Comment on above: The drugs N-Acetylcy steine and Metamizole may falsely depress this assay.Serum Triglycerides Reference Interval Normal <150 mg/dL Borderline high 150 - 199 mg/dL High 200 - 499 mg/dL Very High > or = 500 mg/dL WBC (Bld) [#/Vol] 5.9 10*3/uL 4.4-11.0 [facility] Bilirubin Test strip Ql (U)O rdered By: Missy Workman on 12-06-2022 Bilirubin Ql (U) Negative Negative [facility] Blood erythrocytes count (nu mber/volume)Ordered By: Missy Workman on 12-06-2022 RBC (Bld) [#/Vol] 4.78 10*6/uL 4.6-6.2 [facility] Blood hemoglobin measurement (mass/volume)Ordered By: Missy Workman on 12-06-2022 Hemoglobin (Bld) [Mass/Vol] 15.5 g/dL 13.0-16.[address] [facility] Blood lymphocytes/100 leukoc ytesOrdered By: Missy Workman on 12-06-2022 Lymphocytes/100 WBC (Bld) 31.4 % 19-[address] [facility] Blood manual differential co mment interpretation (narrative result)Ordered By: Missy Workman on 12-06-2022 Manual differential comment Gilberto (Bld) [Interp] SCANNED [facility] Blood monocytes/100 leukocyt esOrdered By: Missy Workman on 12-06-2022 Monocytes/100 WBC (Bld) 8.3 % 0-10 [facility] Blood platelet adequacy dete ction by light microscopyOrdered By: Missy Workman on 12-06-2022 Platelets LM Ql (Bld) SLT DEC ADEQ [facility] Blood platelet mean volumeOr dered By: Missy Workman on 12-06-2022 Platelet mean volume (Bld) [Entitic vol] 11.6 fL 6.2-12.[address] [facility] Determination of erythrocyte mean corpuscular volume (MCV)Ordered By: Missy Workman on 12-06-2022 MCV (RBC) [Entitic vol] 94.4 fL 80-94 [facility] Direct bilirubinOrdered By: Missy Workman on 12-06-2022 Bilirubin.direct [Mass/Vol] 0.38 mg/dL 0.00-0.[address] [facility] Hematocrit Auto (Bld) [Volum e fraction]Ordered By: Missy Workman on 12-06-2022 Hematocrit (Bld) [Volume fraction] 45.1 % 40-[address] [facility] Ketones Test strip Ql (U)Ord ered By: Missy Workman on 12-06-2022 Ketones Ql (U) Negative Negative [facility] Laboratory - Chemistry and C hemistry - challengeOrdered By: Missy Workman on 12-06-2022 ALP [Catalytic activity/Vol] 63 U/L 45-[address] [facility] ALT [Catalytic activity/Vol] 38 U/L 16-[address] [facility] CO2 [Moles/Vol] 28.0 mmol/L 21.0-32.[address] [facility] Globulin (S) [Mass/Vol] 3.2 g/dL 2.2-4.2 [facility] Urea nitrogen/Creatinine [Mass ratio] 19.3 mg/mg 10-[address] [facility] Laboratory - Hematology and Cell countsOrdered By: Missy Workman on 12-06-2022 Erythrocyte distribution width (RBC) [Entitic vol] 40.6 fL 35.1-43.[address] [facility] Erythrocyte distribution width (RBC) [Ratio] 11.7 % 11.6-14.[address] [facility] Immature granulocytes/100 WBC (Bld) 0.300 % 0.0-0.[address] [facility] Comment on above: IG% - Immature Granu locytes (promyelocytes, myelocytes and metamyelocytes) > 1% indicates that a LEFT SHIFT is Present. MCH (RBC) [Entitic mass] 32.4 pg 27.0-32.[address] [facility] Nucleated RBC/100 WBC (Bld) [Ratio] 0 % 0-[address] [facility] MCHC Auto (RBC) [Mass/Vol]Or dered By: Missy Workman on 12-06-2022 MCHC (RBC) [Mass/Vol] 34.4 g/dL 32-36 [facility] Mucus LM Ql (Urine sed)Order ed By: Missy Workman on 12-06-2022 Mucus Ql (Urine sed) 0 SEEN /hpf [facility] Nitrite Test strip Ql (U)Ord ered By: Missy Workman on 12-06-2022 Nitrite Ql (U) Negative Negative [facility] No Panel InformationOrdered By: Missy Workman on 12-06-2022 Estimated GFR (MDRD) Amer 86 mL/min >[address] [facility] Comment on above: GFR Calc Estimated GFR (MDRD) Non-Af Amer 71 mL/min >[address] [facility] Comment on above: Non- GFR Calc Thyroid Stimulating Hormone (TSH) 3.60 uIU/mL 0.358-3.[address] [facility] Platelets bldOrdered By: Jose Workman on 12-06-2022 Platelets (Bld) [#/Vol] See comment 150-[address] [facility] Comment on above: Please note: For thi [...] 12-06-2022 Protein Ql (U) 15 mg/dl Negative [facility] Serum or plasma albumin freya urement (mass/volume)Ordered By: Missy Workman on 12-06-2022 Albumin [Mass/Vol] 3.9 g/dL 3.2-5.0 [facility] Serum or plasma albumin/glob ulin mass ratioOrdered By: Missy Workman on 12-06-2022 Albumin/Globulin [Mass ratio] 1.2 {ratio} 0.9-2.[address] [facility] Serum or plasma calcium freya urement (mass/volume)Ordered By: Missy Workman on 12-06-2022 Calcium [Mass/Vol] 8.9 mg/dL 8.5-10.1 [facility] Serum or plasma cholesterol in HDL measurement (mass/volume)Ordered By: Missy Workman on 12-06-2022 Cholesterol in HDL [Mass/Vol] 65 mg/dL >[address] [facility] Comment on above: The drugs N-Acetylcy steine and Metamizole may falsely depress this assay. Reference Range HDL <40 mg/dL Low HDL Cholesterol HDL >or= 60 mg/dL High HDL Cholesterol Serum or plasma cholesterol in VLDL measurement (mass/volume)Ordered By: Missy Workman on 12-06-2022 Cholesterol in VLDL [Mass/Vol] 15 mg/dL 5-[address] [facility] Serum or plasma creatinine m easurement (mass/volume)Ordered By: Missy Workman on 12-06-2022 Creatinine [Mass/Vol] 1.09 mg/dL 0.70-1.30 [facility] Comment on above: The validity of the calculated GFR & GFRAA in patients over 70 years has not been determined. Clinical correlation is essential. Serum or plasma low density lipoprotein (LDL) cholesterol measurement (mass/volume)Ordered By: Missy Workman on 12-06-2022 Cholesterol in LDL [Mass/Vol] 86 mg/dL 0-[address] [facility] Serum or plasma urea nitroge n measurement (mass/volume)Ordered By: Missy Workman on 12-06-2022 Urea nitrogen [Mass/Vol] 21 mg/dL 7-[address] [facility] Squamous epithelial cells de tection in urine sediment by light microscopyOrdered By: Missy Workman on 12-06-2022 Epithelial cells.squamous LM Ql (Urine sed) 0 SEEN /hpf 0-[address] [facility] Thin prep Papanicolaou smear with manual screeningOrdered By: Missy Workman on 12-06-2022 Thin prep Papanicolaou smear with manual screening 24 U/L 15-[address] [facility] Thin prep Papanicolaou smear with manual screening 3 5-[address] [facility] Urine blood detectionOrdered By: Missy Workman on 12-06-2022 RBC Ql (U) 25 /ul Negative [facility] RBC Ql (U) 0-5 SEEN /hpf 0-[address] [facility] Urine clarityOrdered By: Jose Workman on 12-06-2022 Clarity (U) Clear Clear [facility] Urine color determinationOrd ered By: Missy Workman on 12-06-2022 Color (U) Yellow Yellow [facility] Urine glucose detectionOrder ed By: Missy Workman on 12-06-2022 Glucose Ql (U) Normal mg/dl Normal [facility] Urine leukocyte esterase det ection by dipstickOrdered By: Missy Workman on 12-06-2022 Leukocyte esterase Test strip Ql (U) Negative Negative [facility] Urine pHOrdered By: Missy daley on 12-06-2022 pH (U) 6.5 [pH] 5.0 - 8.[address] [facility] Urine sediment bacteria coun t by microscopy (number/high power field)Ordered By: Missy Workman on 12-06-2022 Bacteria LM.HPF (Urine sed) [#/Area] 0 /[HPF] None Seen [facility] Urine specific gravity measu rementOrdered By: Missy Workman on 12-06-2022 Specific gravity (U) [Rel density] 1.015 1.002-1.[address] [facility] Urobilinogen Auto test strip Ql (U)Ordered By: Missy Workman on 12-06-2022 Urobilinogen Ql (U) Normal mg/dl Normal [facility] Basophil percentageOrdered B y: Dr. Workman on 09-13-2022 Bilirubin [Mass/Vol] 1.50 mg/dL 0.20-1.00 [facility] Comment on above: For patients on eltr ombopag therapy, use of Dim[place] TBIL is not recommended. Protein [Mass/Vol] 6.9 g/dL 6.4-8.2 [facility] Direct bilirubinOrdered By: Dr. Workman on 09-13-2022 Bilirubin.direct [Mass/Vol] 0.32 mg/dL 0.00-0.[address] [facility] Laboratory - Chemistry and C hemistry - challengeOrdered By: Dr. Workman on 09-13-2022 ALP [Catalytic activity/Vol] 58 U/L 45-[address] [facility] ALT [Catalytic activity/Vol] 33 U/L 16-[address] [facility] Globulin (S) [Mass/Vol] 3.2 g/dL 2.2-4.2 [facility] Serum or plasma albumin freya urement (mass/volume)Ordered By: Dr. Workman on 09-13-2022 Albumin [Mass/Vol] 3.7 g/dL 3.2-5.0 [facility] Thin prep Papanicolaou smear with manual screeningOrdered By: Dr. Workman on 09-13-2022 Thin prep Papanicolaou smear with manual screening 23 U/L 15-[address] [facility] Absolute lymphocyte countOrd ered By: Dr. Workman on 09-12-2022 Lymphocytes Auto (Unsp spec) [#/Vol] 1.98 10*3/uL 0.83-4.[address] [facility] Basophil percentageOrdered B y: Dr. Workman on 09-12-2022 Basophils/100 WBC (Bld) 0.7 % 0-1 [facility] Bilirubin [Mass/Vol] 1.50 mg/dL 0.20-1.00 [facility] Comment on above: For patients on eltr ombopag therapy, use of [place] TBIL is not recommended. Chloride [Moles/Vol] 107 mmol/L 98-107 [facility] Cholesterol [Mass/Vol] 171 mg/dL <200 [facility] Comment on above: <200 mg/dL Desirable 200-240 mg/dL Borderline >240 mg/dL High Risk Eosinophils/100 WBC (Bld) 1.5 % 0-[address] [facility] Glucose [Mass/Vol] 88 mg/dL 74-106 [facility] Neutrophils (Bld) [#/Vol] 3.3 10*3/uL 2.0-7.[address] [facility] Neutrophils/100 WBC (Bld) 56.1 % 47-[address] [facility] Potassium [Moles/Vol] 4.3 mmol/L 3.5-5.1 [facility] Protein [Mass/Vol] 6.6 g/dL 6.4-8.2 [facility] Sodium [Moles/Vol] 142 mmol/L 136-145 [facility] Triglyceride [Mass/Vol] 65 mg/dL <199 [facility] Comment on above: The drugs N-Acetylcy steine and Metamizole may falsely depress this assay.Serum Triglycerides Reference Interval Normal <150 mg/dL Borderline high 150 - 199 mg/dL High 200 - 499 mg/dL Very High > or = 500 mg/dL WBC (Bld) [#/Vol] 5.8 10*3/uL 4.4-11.0 [facility] Blood erythrocytes count (nu mber/volume)Ordered By: Dr. Workman on 09-12-2022 RBC (Bld) [#/Vol] 4.92 10*6/uL 4.6-6.2 [facility] Blood hemoglobin measurement (mass/volume)Ordered By: Dr. Workman on 09-12-2022 Hemoglobin (Bld) [Mass/Vol] 15.5 g/dL 13.0-16.[address] [facility] Blood lymphocytes/100 leukoc ytesOrdered By: Dr. Workman on 09-12-2022 Lymphocytes/100 WBC (Bld) 33.9 % 19-[address] [facility] Blood monocytes/100 leukocyt esOrdered By: Dr. Workman on 09-12-2022 Monocytes/100 WBC (Bld) 7.5 % 0-10 [facility] Blood platelet mean volumeOr dered By: Dr. Workman on 09-12-2022 Platelet mean volume (Bld) [Entitic vol] 12.1 fL 6.2-12.[address] [facility] Determination of erythrocyte mean corpuscular volume (MCV)Ordered By: Dr. Workman on 09-12-2022 MCV (RBC) [Entitic vol] 94.7 fL 80-94 [facility] Hematocrit Auto (Bld) [Volum e fraction]Ordered By: Dr. Workman on 09-12-2022 Hematocrit (Bld) [Volume fraction] 46.6 % 40-[address] [facility] Laboratory - Chemistry and C hemistry - challengeOrdered By: Dr. Workman on 09-12-2022 ALP [Catalytic activity/Vol] 61 U/L 45-[address] [facility] ALT [Catalytic activity/Vol] 33 U/L 16-[address] [facility] CO2 [Moles/Vol] 31.0 mmol/L 21.0-32.[address] [facility] Globulin (S) [Mass/Vol] 2.7 g/dL 2.2-4.2 [facility] Urea nitrogen/Creatinine [Mass ratio] 22.2 mg/mg 10-[address] [facility] Laboratory - Hematology and Cell countsOrdered By: Dr. Workman on 09-12-2022 Erythrocyte distribution width (RBC) [Entitic vol] 40.3 fL 35.1-43.[address] [facility] Erythrocyte distribution width (RBC) [Ratio] 11.6 % 11.6-14.[address] [facility] Immature granulocytes/100 WBC (Bld) 0.300 % 0.0-0.[address] [facility] Comment on above: IG% - Immature Granu locytes (promyelocytes, myelocytes and metamyelocytes) > 1% indicates that a LEFT SHIFT is Present. MCH (RBC) [Entitic mass] 31.5 pg 27.0-32.[address] [facility] Nucleated RBC/100 WBC (Bld) [Ratio] 0 % 0-[address] [facility] MCHC Auto (RBC) [Mass/Vol]Or dered By: Dr. Workman on 09-12-2022 MCHC (RBC) [Mass/Vol] 33.3 g/dL 32-36 [facility] No Panel InformationOrdered By: Dr. Workman on 09-12-2022 Estimated GFR (MDRD) Amer 96 mL/min >[address] [facility] Comment on above: GFR Calc Estimated GFR (MDRD) Non-Af Amer 79 mL/min >[address] [facility] Comment on above: Non- GFR Calc Platelets bldOrdered By: Dr. Workman on 09-12-2022 Platelets (Bld) [#/Vol] 121 10*3/uL 150-[address] [facility] Serum or plasma albumin freya urement (mass/volume)Ordered By: Dr. Workman on 09-12-2022 Albumin [Mass/Vol] 3.9 g/dL 3.2-5.0 [facility] Serum or plasma albumin/glob ulin mass ratioOrdered By: Dr. Workman on 09-12-2022 Albumin/Globulin [Mass ratio] 1.4 {ratio} 0.9-2.[address] [facility] Serum or plasma calcium freya urement (mass/volume)Ordered By: Dr. Workman on 09-12-2022 Calcium [Mass/Vol] 9.2 mg/dL 8.5-10.1 [facility] Serum or plasma cholesterol in HDL measurement (mass/volume)Ordered By: Dr. Workman on 09-12-2022 Cholesterol in HDL [Mass/Vol] 69 mg/dL >[address] [facility] Comment on above: The drugs N-Acetylcy steine and Metamizole may falsely depress this assay. Reference Range HDL <40 mg/dL Low HDL Cholesterol HDL >or= 60 mg/dL High HDL Cholesterol Serum or plasma cholesterol in VLDL measurement (mass/volume)Ordered By: Dr. Workman on 09-12-2022 Cholesterol in VLDL [Mass/Vol] 13 mg/dL 5-[address] [facility] Serum or plasma creatinine m easurement (mass/volume)Ordered By: Dr. Workman on 09-12-2022 Creatinine [Mass/Vol] 0.99 mg/dL 0.70-1.30 [facility] Comment on above: The validity of the calculated GFR & GFRAA in patients over 70 years has not been determined. Clinical correlation is essential. Serum or plasma low density lipoprotein (LDL) cholesterol measurement (mass/volume)Ordered By: Dr. Workman on 09-12-2022 Cholesterol in LDL [Mass/Vol] 89 mg/dL 0-[address] [facility] Serum or plasma urea nitroge n measurement (mass/volume)Ordered By: Dr. Workman on 09-12-2022 Urea nitrogen [Mass/Vol] 22 mg/dL 7-[address] [facility] Thin prep Papanicolaou smear with manual screeningOrdered By: Dr. Workman on 09-12-2022 Thin prep Papanicolaou smear with manual screening 21 U/L 15-[address] [facility] Thin prep Papanicolaou smear with manual screening 4 5-[address] [facility] Basophil percentageOrdered B y: Dr. Schuster on 05-31-2022 Creatinine [Mass/Vol] 1.2 mg/dL 0.70-1.30 [facility] No Panel InformationOrdered By: Dr. Schuster on 05-31-2022 Bedside Estimated GFR (eGFR) > 60.0000 mL/min >[address] [facility] Miscellaneous Test See comment [facility] Comment on above: TEST RESULT LIMITSLy sozyme, [...] 05-31-2022 Treponema sp Ab Ql (S) Non-Reactive [facility] Serum or plasma angiotensin converting enzyme measurement (enzymatic activity/volume)Ordered By: Dr. Schuster on 05-31-2022 Angiotensin converting enzyme [Catalytic activity/Vol] 21 U/L 14-[address] [facility] Comment on above: Performed at: [address] [id number] Director: Pérez Pillai PhD, Phone: [phone] Absolute lymphocyte countOrd ered By: Dr. Schuster on 05-16-2022 Lymphocytes Auto (Unsp spec) [#/Vol] 2.13 10*3/uL 0.83-4.[address] [facility] Basophil percentageOrdered B y: Dr. Schuster on 05-16-2022 Basophils/100 WBC (Bld) 0.3 % 0-1 [facility] Eosinophils/100 WBC (Bld) 1.2 % 0-[address] [facility] Neutrophils (Bld) [#/Vol] 4.6 10*3/uL 2.0-7.[address] [facility] Neutrophils/100 WBC (Bld) 62.7 % 47-[address] [facility] WBC (Bld) [#/Vol] 7.3 10*3/uL 4.4-11.0 [facility] Blood erythrocytes count (nu mber/volume)Ordered By: Dr. Schuster on 05-16-2022 RBC (Bld) [#/Vol] 4.74 10*6/uL 4.6-6.2 [facility] Blood hemoglobin measurement (mass/volume)Ordered By: Dr. Schuster on 05-16-2022 Hemoglobin (Bld) [Mass/Vol] 15.1 g/dL 13.0-16.[address] [facility] Blood lymphocytes/100 leukoc ytesOrdered By: Dr. Schuster on 05-16-2022 Lymphocytes/100 WBC (Bld) 29.3 % 19-[address] [facility] Blood monocytes/100 leukocyt esOrdered By: Dr. Schuster on 05-16-2022 Monocytes/100 WBC (Bld) 6.2 % 0-10 [facility] Blood platelet mean volumeOr dered By: Dr. Schuster on 05-16-2022 Platelet mean volume (Bld) [Entitic vol] 11.3 fL 6.2-12.[address] [facility] Determination of erythrocyte mean corpuscular volume (MCV)Ordered By: Dr. Schuster on 05-16-2022 MCV (RBC) [Entitic vol] 96.2 fL 80-94 [facility] Erythrocyte sedimentation ra teOrdered By: Dr. Schuster on 05-16-2022 ESR (Bld) [Velocity] 7 mm/h 0-20 [facility] Hematocrit Auto (Bld) [Volum e fraction]Ordered By: Dr. Schuster on 05-16-2022 Hematocrit (Bld) [Volume fraction] 45.6 % 40-[address] [facility] Laboratory - Hematology and Cell countsOrdered By: Dr. Schuster on 05-16-2022 Erythrocyte distribution width (RBC) [Entitic vol] 41.3 fL 35.1-43.[address] [facility] Erythrocyte distribution width (RBC) [Ratio] 11.7 % 11.6-14.[address] [facility] Immature granulocytes/100 WBC (Bld) 0.300 % 0.0-0.[address] [facility] Comment on above: IG% - Immature Granu locytes (promyelocytes, myelocytes and metamyelocytes) > 1% indicates that a LEFT SHIFT is Present. MCH (RBC) [Entitic mass] 31.9 pg 27.0-32.[address] [facility] Nucleated RBC/100 WBC (Bld) [Ratio] 0 % 0-[address] [facility] MCHC Auto (RBC) [Mass/Vol]Or dered By: Dr. Schuster on 05-16-2022 MCHC (RBC) [Mass/Vol] 33.1 g/dL 32-36 [facility] Platelets bldOrdered By: Dr. Schuster on 05-16-2022 Platelets (Bld) [#/Vol] 93 10*3/uL 150-450 [facility] Serum or plasma C reactive p rotein measurement (mass/volume)Ordered By: Dr. Schuster on 05-16-2022 CRP [Mass/Vol] mg/L 0.0-3.[address] [facility] Comment on above: C-Reactive Protein ( CRP) provides useful information for thediagnosis, therapy and monitoring of inflammatory processesand associated diseases. For the evaluation of Relative Riskfor Cardiovascular Disease, a High Sensitivity CRP (HSCRP)should be ordered. Absolute lymphocyte countOrd ered By: Dr. Workman on 03-08-2022 Lymphocytes Auto (Unsp spec) [#/Vol] 1.84 10*3/uL 0.83-4.[address] [facility] Basophil percentageOrdered B y: Dr. Workman on 03-08-2022 Basophils/100 WBC (Bld) 0.6 % 0-1 [facility] Bilirubin [Mass/Vol] 1.20 mg/dL 0.20-1.00 [facility] Comment on above: For patients on eltr ombopag therapy, use of Dim[place] TBIL is not recommended. Chloride [Moles/Vol] 107 mmol/L 98-107 [facility] Cholesterol [Mass/Vol] 186 mg/dL <200 [facility] Comment on above: <200 mg/dL Desirable 200-240 mg/dL Borderline >240 mg/dL High Risk Eosinophils/100 WBC (Bld) 1.1 % 0-[address] [facility] Glucose [Mass/Vol] 89 mg/dL 74-106 [facility] Neutrophils (Bld) [#/Vol] 3.1 10*3/uL 2.0-7.[address] [facility] Neutrophils/100 WBC (Bld) 57.5 % 47-[address] [facility] Potassium [Moles/Vol] 3.9 mmol/L 3.5-5.1 [facility] Protein [Mass/Vol] 7.3 g/dL 6.4-8.2 [facility] Sodium [Moles/Vol] 140 mmol/L 136-145 [facility] Triglyceride [Mass/Vol] 78 mg/dL <199 [facility] Comment on above: The drugs N-Acetylcy steine and Metamizole may falsely depress this assay.Serum Triglycerides Reference Interval Normal <150 mg/dL Borderline high 150 - 199 mg/dL High 200 - 499 mg/dL Very High > or = 500 mg/dL WBC (Bld) [#/Vol] 5.4 10*3/uL 4.4-11.0 [facility] Blood erythrocytes count (nu mber/volume)Ordered By: Dr. Workman on 03-08-2022 RBC (Bld) [#/Vol] 4.75 10*6/uL 4.6-6.2 [facility] Blood hemoglobin measurement (mass/volume)Ordered By: Dr. Workman on 03-08-2022 Hemoglobin (Bld) [Mass/Vol] 15.6 g/dL 13.0-16.[address] [facility] Blood lymphocytes/100 leukoc ytesOrdered By: Dr. Workman on 03-08-2022 Lymphocytes/100 WBC (Bld) 33.8 % 19-[address] [facility] Blood monocytes/100 leukocyt esOrdered By: Dr. Workman on 03-08-2022 Monocytes/100 WBC (Bld) 6.8 % 0-10 [facility] Blood platelet adequacy dete ction by light microscopyOrdered By: Dr. Workman on 03-08-2022 Platelets LM Ql (Bld) ADEQUATE ADEQ [facility] Blood platelet mean volumeOr dered By: Dr. Workman on 03-08-2022 Platelet mean volume (Bld) [Entitic vol] 11.1 fL 6.2-12.[address] [facility] Blood platelet morphology de termination (nominal result)Ordered By: Dr. Workman on 03-08-2022 Platelet morphology finding Nom (Bld) CLUMPED [facility] Determination of erythrocyte mean corpuscular volume (MCV)Ordered By: Dr. Workman on 03-08-2022 MCV (RBC) [Entitic vol] 93.9 fL 80-94 [facility] Hematocrit Auto (Bld) [Volum e fraction]Ordered By: Dr. Workman on 03-08-2022 Hematocrit (Bld) [Volume fraction] 44.6 % 40-[address] [facility] Laboratory - Chemistry and C hemistry - challengeOrdered By: Dr. Workman on 03-08-2022 ALP [Catalytic activity/Vol] 61 U/L 45-[address] [facility] ALT [Catalytic activity/Vol] 30 U/L 16-[address] [facility] CO2 [Moles/Vol] 27.0 mmol/L 21.0-32.[address] [facility] Globulin (S) [Mass/Vol] 3.5 g/dL 2.2-4.2 [facility] Urea nitrogen/Creatinine [Mass ratio] 24.7 mg/mg 10-[address] [facility] Laboratory - Hematology and Cell countsOrdered By: Dr. Workman on 03-08-2022 Erythrocyte distribution width (RBC) [Entitic vol] 39.6 fL 35.1-43.[address] [facility] Erythrocyte distribution width (RBC) [Ratio] 11.6 % 11.6-14.[address] [facility] Immature granulocytes/100 WBC (Bld) 0.200 % 0.0-0.[address] [facility] Comment on above: IG% - Immature Granu locytes (promyelocytes, myelocytes and metamyelocytes) > 1% indicates that a LEFT SHIFT is Present. MCH (RBC) [Entitic mass] 32.8 pg 27.0-32.[address] [facility] Nucleated RBC/100 WBC (Bld) [Ratio] 0 % 0-[address] [facility] MCHC Auto (RBC) [Mass/Vol]Or dered By: Dr. Workman on 03-08-2022 MCHC (RBC) [Mass/Vol] 35.0 g/dL 32-36 [facility] No Panel InformationOrdered By: Dr. Workman on 03-08-2022 Estimated GFR (MDRD) Amer 103 mL/min >[address] [facility] Comment on above: GFR Calc Estimated GFR (MDRD) Non-Af Amer 85 mL/min >[address] [facility] Comment on above: Non- GFR Calc Prostate Specific Antigen Screen 1.85 ng/mL 0.00-4.[address] [facility] Comment on above: This test was perfor med using the TPSA assay method for the[facility] chemistry system. Values obtained with differentassay methods cannot be used interchangably.When changing PSA assays in the course of monitoring apatient, additional sequential testing should be carriedout to confirm baseline values. Platelets bldOrdered By: Dr. Workman on 03-08-2022 Platelets (Bld) [#/Vol] See comment 150-[address] [facility] Comment on above: Please note: For thi s sample, a platelet estimate is provided rather than a platelet count due to platelet clumping. Other parameters associated with this sample are not affected by platelet clumping. If a more accurate platelet count is required, a redraw of the patient will be necessary.Previous reported result: 74 [id number] by: HARINI on 03/08/22:1109 AMENDED REPORT 03/08/22 1109 PLT previously reported as: 74 L K/mm3 Serum or plasma albumin freya urement (mass/volume)Ordered By: Dr. Workman on 03-08-2022 Albumin [Mass/Vol] 3.8 g/dL 3.2-5.0 [facility] Serum or plasma albumin/glob ulin mass ratioOrdered By: Dr. Workman on 03-08-2022 Albumin/Globulin [Mass ratio] 1.1 {ratio} 0.9-2.[address] [facility] Serum or plasma calcium freya urement (mass/volume)Ordered By: Dr. Workman on 03-08-2022 Calcium [Mass/Vol] 9.1 mg/dL 8.5-10.1 [facility] Serum or plasma cholesterol in HDL measurement (mass/volume)Ordered By: Dr. Workman on 03-08-2022 Cholesterol in HDL [Mass/Vol] 64 mg/dL >[address] [facility] Comment on above: The drugs N-Acetylcy steine and Metamizole may falsely depress this assay. Reference Range HDL <40 mg/dL Low HDL Cholesterol HDL >or= 60 mg/dL High HDL Cholesterol Serum or plasma cholesterol in VLDL measurement (mass/volume)Ordered By: Dr. Workman on 03-08-2022 Cholesterol in VLDL [Mass/Vol] 16 mg/dL 5-[address] [facility] Serum or plasma creatinine m easurement (mass/volume)Ordered By: Dr. Workman on 03-08-2022 Creatinine [Mass/Vol] 0.93 mg/dL 0.70-1.30 [facility] Comment on above: The validity of the calculated GFR & GFRAA in patients over 70 years has not been determined. Clinical correlation is essential. Serum or plasma low density lipoprotein (LDL) cholesterol measurement (mass/volume)Ordered By: Dr. Workman on 03-08-2022 Cholesterol in LDL [Mass/Vol] 106 mg/dL 0-[address] [facility] Serum or plasma urea nitroge n measurement (mass/volume)Ordered By: Dr. Workman on 03-08-2022 Urea nitrogen [Mass/Vol] 23 mg/dL 7-[address] [facility] Thin prep Papanicolaou smear with manual screeningOrdered By: Dr. Workman on 03-08-2022 Thin prep Papanicolaou smear with manual screening 18 U/L 15-[address] [facility] Thin prep Papanicolaou smear with manual screening 6 5-[address] [facility] Basophil percentageon 2021 Chloride [Moles/Vol] 103 mmol/L 98-107 [facility] Work Phone: Glucose [Mass/Vol] 84 mg/dL 74-106 [facility] Work Phone: Potassium [Moles/Vol] 4.3 mmol/L 3.5-5.1 [facility] Work Phone: Sodium [Moles/Vol] 138 mmol/L 136-145 [facility] Work Phone: Laboratory - Chemistry and C hemistry - challengeon 11-25-2021 CO2 [Moles/Vol] 30.0 mmol/L 21.0-32.[address] [facility] Work Phone: Urea nitrogen/Creatinine [Mass ratio] 17.3 mg/mg 10-[address] [facility] Work Phone: No Panel Informationon 11-25 Estimated GFR (MDRD) Amer 85 mL/min >[address] [facility] Work Phone: Comment on above: GFR Calc Estimated GFR (MDRD) Non-Af Amer 70 mL/min >[address] [facility] Work Phone: Comment on above: Non- GFR Calc Serum or plasma calcium freya urement (mass/volume)on 11-25-2021 Calcium [Mass/Vol] 9.4 mg/dL 8.5-10.1 [facility] Work Phone: Serum or plasma creatinine m easurement (mass/volume)on 11-25-2021 Creatinine [Mass/Vol] 1.10 mg/dL 0.70-1.30 [facility] Work Phone: Comment on above: The validity of the calculated GFR & GFRAA in patients over 70 years has not been determined. Clinical correlation is essential. Serum or plasma urea nitroge n measurement (mass/volume)on 11-25-2021 Urea nitrogen [Mass/Vol] 19 mg/dL 7-[address] [facility] Work Phone: Thin prep Papanicolaou smear with manual screeningon 11-25-2021 Thin prep Papanicolaou smear with manual screening 5 5-[address] [facility] Work Phone: Absolute lymphocyte counton 09-14-2021 Lymphocytes Auto (Unsp spec) [#/Vol] 1.63 10*3/uL 0.83-4.[address] [facility] Work Phone: Basophil percentageon 2021 Basophils/100 WBC (Bld) 0.5 % 0-1 [facility] Work Phone: Eosinophils/100 WBC (Bld) 1.0 % 0-[address] [facility] Work Phone: Neutrophils (Bld) [#/Vol] 3.8 10*3/uL 2.0-7.[address] [facility] Work Phone: Neutrophils/100 WBC (Bld) 64.2 % 47-[address] [facility] Work Phone: WBC (Bld) [#/Vol] 5.9 10*3/uL 4.4-11.0 [facility] Work Phone: Blood erythrocytes count (nu mber/volume)on 09-14-2021 RBC (Bld) [#/Vol] 4.78 10*6/uL 4.6-6.2 [facility] Work Phone: Blood hemoglobin measurement (mass/volume)on 09-14-2021 Hemoglobin (Bld) [Mass/Vol] 15.4 g/dL 13.0-16.[address] [facility] Work Phone: Blood lymphocytes/100 leukoc yteson 09-14-2021 Lymphocytes/100 WBC (Bld) 27.6 % 19-[address] [facility] Work Phone: Blood monocytes/100 leukocyt eson 09-14-2021 Monocytes/100 WBC (Bld) 6.4 % 0-10 [facility] Work Phone: Blood platelet mean volumeon 09-14-2021 Platelet mean volume (Bld) [Entitic vol] 12.7 fL 6.2-12.[address] [facility] Work Phone: Determination of erythrocyte mean corpuscular volume (MCV)on 09-14-2021 MCV (RBC) [Entitic vol] 94.4 fL 80-94 [facility] Work Phone: Hematocrit Auto (Bld) [Volum e fraction]on 09-14-2021 Hematocrit (Bld) [Volume fraction] 45.1 % 40-[address] [facility] Work Phone: Laboratory - Hematology and Cell countson 09-14-2021 Erythrocyte distribution width (RBC) [Entitic vol] 40.3 fL 35.1-43.[address] [facility] Work Phone: Erythrocyte distribution width (RBC) [Ratio] 11.5 % 11.6-14.[address] [facility] Work Phone: Immature granulocytes/100 WBC (Bld) 0.300 % 0.0-0.[address] [facility] Work Phone: Comment on above: IG% - Immature Granu locytes (promyelocytes, myelocytes and metamyelocytes) > 1% indicates that a LEFT SHIFT is Present. MCH (RBC) [Entitic mass] 32.2 pg 27.0-32.[address] [facility] Work Phone: Nucleated RBC/100 WBC (Bld) [Ratio] 0 % 0-[address] [facility] Work Phone: MCHC Auto (RBC) [Mass/Vol]on 09-14-2021 MCHC (RBC) [Mass/Vol] 34.1 g/dL 32-36 [facility] Work Phone: Platelets bldon 09-14-2021 Platelets (Bld) [#/Vol] 77 10*3/uL 150-450 [facility] Work Phone: Absolute lymphocyte counton 09-01-2021 Lymphocytes Auto (Unsp spec) [#/Vol] 1.76 10*3/uL 0.83-4.[address] [facility] Work Phone: Basophil percentageon 2021 Basophils/100 WBC (Bld) 0.4 % 0-1 [facility] Work Phone: Bilirubin [Mass/Vol] 0.90 mg/dL 0.20-1.00 [facility] Work Phone: Comment on above: For patients on eltr ombopag therapy, use of Dim[place] TBIL is not recommended. Chloride [Moles/Vol] 105 mmol/L 98-107 [facility] Work Phone: Cholesterol [Mass/Vol] 207 mg/dL <200 [facility] Work Phone: Comment on above: <200 mg/dL Desirable 200-240 mg/dL Borderline >240 mg/dL High Risk Eosinophils/100 WBC (Bld) 1.1 % 0-[address] [facility] Work Phone: Glucose [Mass/Vol] 96 mg/dL 74-106 [facility] Work Phone: Neutrophils (Bld) [#/Vol] 3.4 10*3/uL 2.0-7.[address] [facility] Work Phone: Neutrophils/100 WBC (Bld) 60.3 % 47-[address] [facility] Work Phone: Potassium [Moles/Vol] 4.3 mmol/L 3.5-5.1 [facility] Work Phone: Protein [Mass/Vol] 7.2 g/dL 6.4-8.2 [facility] Work Phone: Sodium [Moles/Vol] 138 mmol/L 136-145 [facility] Work Phone: Triglyceride [Mass/Vol] 161 mg/dL <199 [facility] Work Phone: Comment on above: The drugs N-Acetylcy steine and Metamizole may falsely depress this assay.Serum Triglycerides Reference Interval Normal <150 mg/dL Borderline high 150 - 199 mg/dL High 200 - 499 mg/dL Very High > or = 500 mg/dL WBC (Bld) [#/Vol] 5.6 10*3/uL 4.4-11.0 [facility] Work Phone: Blood erythrocytes count (nu mber/volume)on 09-01-2021 RBC (Bld) [#/Vol] 4.96 10*6/uL 4.6-6.2 [facility] Work Phone: Blood hemoglobin measurement (mass/volume)on 09-01-2021 Hemoglobin (Bld) [Mass/Vol] 15.7 g/dL 13.0-16.[address] [facility] Work Phone: Blood lymphocytes/100 leukoc yteson 09-01-2021 Lymphocytes/100 WBC (Bld) 31.7 % 19-[address] [facility] Work Phone: Blood monocytes/100 leukocyt eson 09-01-2021 Monocytes/100 WBC (Bld) 6.3 % 0-10 [facility] Work Phone: Blood platelet adequacy dete ction by light microscopyon 09-01-2021 Platelets LM Ql (Bld) ADEQUATE ADEQ [facility] Work Phone: Blood platelet mean volumeon 09-01-2021 Platelet mean volume (Bld) [Entitic vol] 11.4 fL 6.2-12.[address] [facility] Work Phone: Blood platelet morphology de termination (nominal result)on 09-01-2021 Platelet morphology finding Nom (Bld) CLUMPED [facility] Work Phone: Determination of erythrocyte mean corpuscular volume (MCV)on 09-01-2021 MCV (RBC) [Entitic vol] 93.5 fL 80-94 [facility] Work Phone: Direct bilirubinon Bilirubin.direct [Mass/Vol] 0.15 mg/dL 0.00-0.[address] [facility] Work Phone: Hematocrit Auto (Bld) [Volum e fraction]on 09-01-2021 Hematocrit (Bld) [Volume fraction] 46.4 % 40-[address] [facility] Work Phone: Laboratory - Chemistry and C hemistry - challengeon 09-01-2021 ALP [Catalytic activity/Vol] 59 U/L 45-[address] [facility] Work Phone: ALT [Catalytic activity/Vol] 30 U/L 16-[address] [facility] Work Phone: CO2 [Moles/Vol] 25.0 mmol/L 21.0-32.[address] [facility] Work Phone: Globulin (S) [Mass/Vol] 3.5 g/dL 2.2-4.2 [facility] Work Phone: Urea nitrogen/Creatinine [Mass ratio] 18.2 mg/mg 10-[address] [facility] Work Phone: Laboratory - Hematology and Cell countson 09-01-2021 Erythrocyte distribution width (RBC) [Entitic vol] 39.8 fL 35.1-43.[address] [facility] Work Phone: Erythrocyte distribution width (RBC) [Ratio] 11.6 % 11.6-14.[address] [facility] Work Phone: Immature granulocytes/100 WBC (Bld) 0.200 % 0.0-0.[address] [facility] Work Phone: Comment on above: IG% - Immature Granu locytes (promyelocytes, myelocytes and metamyelocytes) > 1% indicates that a LEFT SHIFT is Present. MCH (RBC) [Entitic mass] 31.7 pg 27.0-32.[address] [facility] Work Phone: Nucleated RBC/100 WBC (Bld) [Ratio] 0 % 0-[address] [facility] Work Phone: MCHC Auto (RBC) [Mass/Vol]on 09-01-2021 MCHC (RBC) [Mass/Vol] 33.8 g/dL 32-36 [facility] Work Phone: No Panel Informationon 09-01 Estimated GFR (MDRD) Amer 85 mL/min >[address] [facility] Work Phone: Comment on above: GFR Calc Estimated GFR (MDRD) Non-Af Amer 70 mL/min >[address] [facility] Work Phone: Comment on above: Non- GFR Calc Platelets bldon 09-01-2021 Platelets (Bld) [#/Vol] 88 10*3/uL 150-450 [facility] Work Phone: RBC morphologyon 09-01-2021 RBC morphology finding Nom (Bld) NORM C+C NORMAL NORM C&C [facility] Work Phone: Serum or plasma albumin freya urement (mass/volume)on 09-01-2021 Albumin [Mass/Vol] 3.7 g/dL 3.2-5.0 [facility] Work Phone: Serum or plasma albumin/glob ulin mass ratioon 09-01-2021 Albumin/Globulin [Mass ratio] 1.1 {ratio} 0.9-2.[address] [facility] Work Phone: Serum or plasma calcium freya urement (mass/volume)on 09-01-2021 Calcium [Mass/Vol] 9.0 mg/dL 8.5-10.1 [facility] Work Phone: Serum or plasma cholesterol in HDL measurement (mass/volume)on 09-01-2021 Cholesterol in HDL [Mass/Vol] 58 mg/dL >[address] [facility] Work Phone: Comment on above: The drugs N-Acetylcy steine and Metamizole may falsely depress this assay. Reference Range HDL <40 mg/dL Low HDL Cholesterol HDL >or= 60 mg/dL High HDL Cholesterol Serum or plasma cholesterol in VLDL measurement (mass/volume)on 09-01-2021 Cholesterol in VLDL [Mass/Vol] 32 mg/dL 5-[address] [facility] Work Phone: Serum or plasma creatinine m easurement (mass/volume)on 09-01-2021 Creatinine [Mass/Vol] 1.10 mg/dL 0.70-1.30 [facility] Work Phone: Comment on above: The validity of the calculated GFR & GFRAA in patients over 70 years has not been determined. Clinical correlation is essential. Serum or plasma low density lipoprotein (LDL) cholesterol measurement (mass/volume)on 09-01-2021 Cholesterol in LDL [Mass/Vol] 117 mg/dL 0-[address] [facility] Work Phone: Serum or plasma urea nitroge n measurement (mass/volume)on 09-01-2021 Urea nitrogen [Mass/Vol] 20 mg/dL 7-[address] [facility] Work Phone: Thin prep Papanicolaou smear with manual screeningon 09-01-2021 Thin prep Papanicolaou smear with manual screening 15 U/L 15-[address] [facility] Work Phone: Thin prep Papanicolaou smear with manual screening 8 5-[address] [facility] Work Phone: Basophil percentageon 2021 Bilirubin [Mass/Vol] 1.50 mg/dL 0.20-1.00 [facility] Work Phone: Comment on above: For patients on eltr ombopag therapy, use of Dimension [place] TBIL is not recommended. Protein [Mass/Vol] 7.0 g/dL 6.4-8.2 [facility] Work Phone: Direct bilirubinon 2 Bilirubin.direct [Mass/Vol] 0.26 mg/dL 0.00-0.[address] [facility] Work Phone: Laboratory - Chemistry and C hemistry - challengeon 06-29-2021 ALP [Catalytic activity/Vol] 58 U/L 45-[address] [facility] Work Phone: ALT [Catalytic activity/Vol] 31 U/L 16-[address] [facility] Work Phone: Globulin (S) [Mass/Vol] 3.3 g/dL 2.2-4.2 [facility] Work Phone: Serum or plasma albumin freya urement (mass/volume)on 06-29-2021 Albumin [Mass/Vol] 3.7 g/dL 3.2-5.0 [facility] Work Phone: Thin prep Papanicolaou smear with manual screeningon 06-29-2021 Thin prep Papanicolaou smear with manual screening 22 U/L 15-[address] [facility] Work Phone: Absolute lymphocyte counton 06-25-2021 Lymphocytes Auto (Unsp spec) [#/Vol] 2.09 10*3/uL 0.83-4.[address] [facility] Work Phone: Basophil percentageon 2021 Basophils/100 WBC (Bld) 0.5 % 0-1 [facility] Work Phone: Bilirubin [Mass/Vol] 1.40 mg/dL 0.20-1.00 [facility] Work Phone: Comment on above: For patients on eltr ombopag therapy, use of Dimension [place] TBIL is not recommended. Chloride [Moles/Vol] 107 mmol/L 98-107 [facility] Work Phone: Eosinophils/100 WBC (Bld) 1.5 % 0-[address] [facility] Work Phone: Glucose [Mass/Vol] 76 mg/dL 74-106 [facility] Work Phone: Neutrophils (Bld) [#/Vol] 3.9 10*3/uL 2.0-7.[address] [facility] Work Phone: Neutrophils/100 WBC (Bld) 59.5 % 47-[address] [facility] Work Phone: Potassium [Moles/Vol] 4.5 mmol/L 3.5-5.1 [facility] Work Phone: Protein [Mass/Vol] 7.1 g/dL 6.4-8.2 [facility] Work Phone: Sodium [Moles/Vol] 139 mmol/L 136-145 [facility] Work Phone: WBC (Bld) [#/Vol] 6.5 10*3/uL 4.4-11.0 [facility] Work Phone: Blood erythrocytes count (nu mber/volume)on 06-25-2021 RBC (Bld) [#/Vol] 4.94 10*6/uL 4.6-6.2 [facility] Work [facility]: Blood hemoglobin measurement (mass/volume)on 06-25-2021 Hemoglobin (Bld) [Mass/Vol] 15.6 g/dL 13.0-16.[address] [facility] Work Phone: Blood lymphocytes/100 leukoc yteson 06-25-2021 Lymphocytes/100 WBC (Bld) 32.0 % 19-[address] [facility] Work Phone: Blood monocytes/100 leukocyt eson 06-25-2021 Monocytes/100 WBC (Bld) 6.3 % 0-10 [facility] Work Phone: Blood platelet mean volumeon 06-25-2021 Platelet mean volume (Bld) [Entitic vol] 11.4 fL 6.2-12.[address] [facility] Work Phone: Determination of erythrocyte mean corpuscular volume (MCV)on 06-25-2021 MCV (RBC) [Entitic vol] 94.7 fL 80-94 [facility] Work Phone: Hematocrit Auto (Bld) [Volum e fraction]on 06-25-2021 Hematocrit (Bld) [Volume fraction] 46.8 % 40-54 [facility] Work Phone: Laboratory - Chemistry and C hemistry - challengeon 06-25-2021 ALP [Catalytic activity/Vol] 63 U/L 45-[address] [facility] Work Phone: ALT [Catalytic activity/Vol] 34 U/L 16-[address] [facility] Work Phone: CO2 [Moles/Vol] 28.0 mmol/L 21.0-32.[address] [facility] Work Phone: Globulin (S) [Mass/Vol] 3.3 g/dL 2.2-4.2 [facility] Work Phone: Lipase [Catalytic activity/Vol] 72 U/L 73-[address] [facility] Work Phone: Urea nitrogen/Creatinine [Mass ratio] 18.1 mg/mg 10-[address] [facility] Work Phone: Laboratory - Hematology and Cell countson 06-25-2021 Erythrocyte distribution width (RBC) [Entitic vol] 40.3 fL 35.1-43.[address] [facility] Work Phone: Erythrocyte distribution width (RBC) [Ratio] 11.7 % 11.6-14.[address] [facility] Work Phone: Immature granulocytes/100 WBC (Bld) 0.200 % 0.0-0.[address] [facility] Work Phone: Comment on above: IG% - Immature Granu locytes (promyelocytes, myelocytes and metamyelocytes) > 1% indicates that a LEFT SHIFT is Present. MCH (RBC) [Entitic mass] 31.6 pg 27.0-32.[address] [facility] Work Phone: Nucleated RBC/100 WBC (Bld) [Ratio] 0 % 0-[address] [facility] Work Phone: MCHC Auto (RBC) [Mass/Vol]on 06-25-2021 MCHC (RBC) [Mass/Vol] 33.3 g/dL 32-36 [facility] Work Phone: No Panel Informationon 06-25 Estimated GFR (MDRD) Amer 90 mL/min >[address] [facility] Work Phone: Comment on above: GFR Calc Estimated GFR (MDRD) Non-Af Amer 74 mL/min >[address] [facility] Work Phone: Comment on above: Non- GFR Calc Platelets bldon 06-25-2021 Platelets (Bld) [#/Vol] 99 10*3/uL 150-450 [facility] Work Phone: Serum or plasma albumin freya urement (mass/volume)on 06-25-2021 Albumin [Mass/Vol] 3.8 g/dL 3.2-5.0 [facility] Work Phone: Serum or plasma albumin/glob ulin mass ratioon 06-25-2021 Albumin/Globulin [Mass ratio] 1.2 {ratio} 0.9-2.[address] [facility] Work Phone: Serum or plasma calcium freya urement (mass/volume)on 06-25-2021 Calcium [Mass/Vol] 8.8 mg/dL 8.5-10.1 [facility] Work Phone: Serum or plasma creatinine m easurement (mass/volume)on 06-25-2021 Creatinine [Mass/Vol] 1.05 mg/dL 0.70-1.30 [facility] Work Phone: Comment on above: The validity of the calculated GFR & GFRAA in patients over 70 years has not been determined. Clinical correlation is essential. Serum or plasma urea nitroge n measurement (mass/volume)on 06-25-2021 Urea nitrogen [Mass/Vol] 19 mg/dL 7-[address] [facility] Work Phone: Thin prep Papanicolaou smear with manual screeningon 06-25-2021 Thin prep Papanicolaou smear with manual screening 21 U/L 15-[address] [facility] Work Phone: Thin prep Papanicolaou smear with manual screening 4 5-[address] [facility] Work Phone: Clinical Summary: HMSPatient IDon 05-23-2018 SOP Sadie genao [facility] Work Phone: Clinical Summary: Scanned Hi story Summaryon 05-23-2018 brother(s) of patient alive or Unknown [facility] Work Phone: Data entered by patient exercise frequency 6 days per week [facility] Work Phone: Data entered by patient exercise type walkingother [facility] Work Phone: data entered by patient, alcohol (ethanol or ETOH) use No [facility] Work Phone: Data entered by patient, allergy list Penicillin [facility] Work Phone: data entered by patient, drug (of abuse) use No [facility] Work Phone: data entered by patient, Employer Name Retired [facility] Work Phone: data entered by patient, exercise history Yes [facility] Work Phone: data entered by patient, father's medical history Cancer [facility] Work Phone: Data entered by patient, history of past surgeries Fracture repairShoulder surgery other [facility] Work Phone: data entered by patient, mother's medical history Alzheimer [facility] Work Phone: data entered by patient, social history, current smoker never smoker [facility] Work Phone: data entered by patient, social history, marital status [facility] Work Phone: father of patient is alive or [facility] Work Phone: Housing Type: apartment, house, residential, trailer, none House [facility] Work Phone: housing unit size (asthma environmental history, housing) (from single family to don't know) [address] [facility] Work Phone: mother of patient is alive or [facility] Work Phone: Number of dependent children No [facility] Work Phone: Protein mass conc Patient Denies Medical Problems or Conditions [facility] Work Phone: sister of patient(s) alive or Unknown [facility] Work Phone: Clinical Summary: Scanned RO S Summaryon 05-23-2018 endocrine ROS Denies [facility] Work Phone: genitourinary review of systems, E&M Denies [facility] Work Phone: Lymphocytes #/vol (Bld) Denies C [facility] Work Phone: ROS cardiovascular E&M Denies Cr ystal [facility] Work Phone: ROS ENT E&M Denies [facility] Work Phone: ROS gastrointestinal E&M Denies [facility] Work Phone: ROS general E&M Denies Crystal C linic [facility] Work Phone: ROS Musculoskeletal comments Muscle Weakness,Pain,Joint Pain [facility] Work Phone: ROS musculoskeletal E&M Complains C [facility] Work Phone: ROS neurological E&M Denies Elizabet [facility] Work Phone: ROS psychiatric E&M Denies Cryst al [facility] Work Phone: ROS pulmonary E&M Denies Crystal [facility] Work Phone: ROS skin E&M Denies [facility] Work Phone: Office Visit: New - 1st visi t with practice, Rm: 11on 05-23-2018 NEGATED: Highlighted rowProtein mass conc Done [facility]anda [facility] Work Phone: NEGATED: Highlighted rowTobacco smoking status NHIS Tobacco smoking status NHIS Crystal [facility] Work Phone: Clinical Lists Update: Prelo ad Extendedon 05-18-2018 Tobacco smoking status NHIS Tobacco smoking status NMIS [facility] Work Phone: Vital Signs Date Time Vital Sign Value Performing Clinician Facility 11-07-2024 09:18-0400 Diastolic blood pressure 85 mm[Hg] Dr. Missy Workman MD Work Phone: [facility] 11-07-2024 09:18-0400 Systolic blood pressure 128 mm[Hg] Dr. Missy Workman MD Work Phone: [facility] 11-07-2024 09:03-0400 Body height [address] Missy Workman MD Work Phone: [facility] 11-07-2024 09:03-0400 Body mass index (BMI) [Ratio] 28.4 kg/m2 Dr. Missy Workman MD Work Phone: [facility] 11-07-2024 09:03-0400 Body weight 79.[address] Missy Workman MD Work Phone: [facility] 11-07-2024 09:03-0400 Heart rate 63 /min Dr. Missy Workman MD Work Phone: [facility] 11-07-2024 09:03-0400 Respiratory rate 16 /min Dr. Missy Workman MD Work Phone: [facility] 02-16-2023 15:46-0400 Body height [address] Missy Workman Work Phone: [facility] 02-16-2023 15:46-0400 Body mass index (BMI) [Ratio] 28.8 kg/m2 Dr. Missy Workman Work Phone: [facility] 02-16-2023 15:46-0400 Body temperature 101.9 [degF] Dr. Missy Workman Work Phone: [phone] [place] [address] 02-16-2023 15:46-0400 Body weight 80.[address] Missy Workman Work Phone: [phone] [place] [address] 02-16-2023 15:46-0400 Diastolic blood pressure 77 mm[Hg] Dr. Missy Workman Work Phone: [facility] 02-16-2023 15:46-0400 Heart rate 88 /min Dr. Missy Workman Work Phone: [facility] 02-16-2023 15:46-0400 Respiratory rate 16 /min Dr. Missy Workman Work Phone: [facility] 02-16-2023 15:46-0400 SaO2% (BldA) [Mass fraction] 93 % Dr. Missy Workman Work Phone: [facility] 02-16-2023 15:46-0400 Systolic blood pressure 124 mm[Hg] Dr. Missy Workman Work Phone: [facility] 12-08-2022 09:06-0400 Body height 167.[address] Missy Workman Work Phone: [facility] 12-08-2022 09:06-0400 Body mass index (BMI) [Ratio] 27.9 kg/m2 Dr. Missy Workman Work Phone: [facility] 12-08-2022 09:06-0400 Body weight 78.[address] Missy Workman Work Phone: [facility] 12-08-2022 09:06-0400 Diastolic blood pressure 85 mm[Hg] Dr. Missy Workman Work Phone: [facility] 12-08-2022 09:06-0400 Heart rate 86 /min Dr. Missy Workman Work Phone: [facility] 12-08-2022 09:06-0400 Respiratory rate 18 /min Dr. Missy Workman Work Phone: [facility] 12-08-2022 09:06-0400 SaO2% (BldA) [Mass fraction] 96 % Dr. Missy Workman Work Phone: [facility] 12-08-2022 09:06-0400 Systolic blood pressure 132 mm[Hg] Dr. Missy Workman Work Phone: [facility] 08-08-2022 10:21-0400 Body height 167.[address] Missy Workman Work Phone: [facility] 08-08-2022 10:21-0400 Diastolic blood pressure 92 mm[Hg] Dr. Missy Workman Work Phone: [facility] 08-08-2022 10:21-0400 Systolic blood pressure 130 mm[Hg] Dr. Missy Workman Work Phone: [facility] 08-08-2022 10:21-0400 Body mass index (BMI) [Ratio] 27.4 kg/m2 Dr. Missy Workman Work Phone: [facility] 08-08-2022 10:21-0400 Body weight 77.[address] Missy Workman Work Phone: [facility] 08-08-2022 10:21-0400 Heart rate 75 /min Dr. Missy Workman Work Phone: [facility] 08-08-2022 10:21-0400 Respiratory rate 18 /min Dr. Missy Workman Work Phone: [facility] 08-08-2022 10:21-0400 SaO2% (BldA) [Mass fraction] 96 % Dr. Missy Workman Work Phone: [facility] 05-27-2022 14:30-0500 Body temperature 98.1 [degF] Dr. Missy Workman Work Phone: [facility] 05-27-2022 14:30-0500 Diastolic blood pressure 95 mm[Hg] Dr. Missy Workman Work Phone: [facility] 05-27-2022 14:30-0500 Heart rate 79 /min Dr. Missy Workman Work Phone: [facility] 05-27-2022 14:30-0500 Respiratory rate 16 /min Dr. Missy Workman Work Phone: [facility] 05-27-2022 14:30-0500 SaO2% (BldA) [Mass fraction] 95 % Dr. Missy Workman Work Phone: [facility] 05-27-2022 14:30-0500 Systolic blood pressure 130 mm[Hg] Dr. Missy Workman Work Phone: [facility] 05-27-2022 11:38-0500 Body height 167.[address] Missy Workman Work Phone: [facility] 05-27-2022 11:38-0500 Body mass index (BMI) [Ratio] 27.1 kg/m2 Dr. Missy Workman Work Phone: [facility] 05-27-2022 11:38-0500 Body weight 76.[address] Missy Workman Work Phone: [facility] 05-23-2022 08:13-0500 Body height 167.[address] Missy Workman Work Phone: [facility] 05-23-2022 08:13-0500 Body mass index (BMI) [Ratio] 28 kg/m2 Dr. Missy Workman Work Phone: [facility] 05-23-2022 08:13-0500 Body temperature 97.6 [degF] Dr. Missy Workman Work Phone: [facility] 05-23-2022 08:13-0500 Body weight 78.[address] Missy Workman Work Phone: [facility] 05-23-2022 08:13-0500 Diastolic blood pressure 86 mm[Hg] Dr. Missy Workman Work Phone: [facility] 05-23-2022 08:13-0500 Heart rate 76 /min Dr. Missy Workman Work Phone: [facility] 05-23-2022 08:13-0500 Respiratory rate 17 /min Dr. Missy Workman Work Phone: [facility] 05-23-2022 08:13-0500 SaO2% (BldA) [Mass fraction] 96 % Dr. Missy Workman Work Phone: [facility] 05-23-2022 08:13-0500 Systolic blood pressure 152 mm[Hg] Dr. Missy Workman Work Phone: [facility] 05-18-2022 08:26-0500 Body mass index (BMI) [Ratio] 27.4 kg/m2 Dr. Missy Workman Work Phone: [facility] 05-18-2022 08:26-0500 Body weight 77.[address] Missy Workman Work Phone: [facility] 05-18-2022 08:26-0500 Diastolic blood pressure 97 mm[Hg] Dr. Missy Workman Work Phone: [facility] 05-18-2022 08:26-0500 Heart rate 80 /min Dr. Missy Workman Work Phone: [facility] 05-18-2022 08:26-0500 Respiratory rate 18 /min Dr. Missy Workman Work Phone: [facility] 05-18-2022 08:26-0500 SaO2% (BldA) [Mass fraction] 95 % Dr. Missy Workman Work Phone: [facility] 05-18-2022 08:26-0500 Systolic blood pressure 132 mm[Hg] Dr. Missy Workman Work Phone: [facility] 12-16-2021 14:32-0400 Diastolic blood pressure 87 mm[Hg] Dr. Missy Workman Work Phone: [facility] Work Phone: 12-16-2021 14:32-0400 Heart rate 69 /min Dr. Missy Workman Work Phone: [facility] Work Phone: 12-16-2021 14:32-0400 Respiratory rate 14 /min Dr. Missy Workman Work Phone: [facility] Work Phone: 12-16-2021 14:32-0400 SaO2% (BldA) [Mass fraction] 94 % Dr. Missy Workman Work Phone: [facility] Work Phone: 12-16-2021 14:32-0400 Systolic blood pressure 126 mm[Hg] Dr. Missy Workman Work Phone: [facility] Work Phone: 12-16-2021 13:22-0400 Body height 167.[address] Missy Workman Work Phone: [facility] Work Phone: 12-16-2021 13:22-0400 Body mass index (BMI) [Ratio] 27.4 kg/m2 Dr. Missy Workman Work Phone: [facility] Work Phone: 12-16-2021 13:22-0400 Body weight 77.[address] Missy Workman Work Phone: [facility] Work Phone: 11-25-2021 10:59-0400 Body height 167.[address] Missy Workman Work Phone: [facility] Work Phone: 11-25-2021 10:59-0400 Body mass index (BMI) [Ratio] 27.9 kg/m2 Dr. Missy Workman Work Phone: [facility] Work Phone: 11-25-2021 10:59-0400 Body weight 78.[address] Missy Workman Work Phone: [facility] Work Phone: 11-25-2021 10:59-0400 Diastolic blood pressure 87 mm[Hg] Dr. Missy Workman Work Phone: [facility] Work Phone: 11-25-2021 10:59-0400 Heart rate 82 /min Dr. Missy Workman Work Phone: [facility] Work Phone: 11-25-2021 10:59-0400 Respiratory rate 16 /min Dr. Missy Workman Work Phone: [facility] Work Phone: 11-25-2021 10:59-0400 SaO2% (BldA) [Mass fraction] 95 % Dr. Missy Workman Work Phone: [facility] Work Phone: 11-25-2021 10:59-0400 Systolic blood pressure 136 mm[Hg] Dr. Missy Workman Work Phone: [facility] Work Phone: NEGATED: Highlighted [id number] 15:44-0500 BMI (Body Mass Index) 28.95 kg/m2 Xi Pop AT [facility] Work Phone: NEGATED: Highlighted [id number] 15:44-0500 BP Diastolic 86 mm[Hg] Xi Pop AT [facility] Work Phone: NEGATED: Highlighted [id number] 15:44-0500 BP Systolic 145 mm[Hg] Xi Kiesha AT [facility] Work Phone: NEGATED: Highlighted [id number] 15:44-0500 BP Systolic 126 mm[Hg] Xi Pop AT [facility] Work Phone: NEGATED: Highlighted [id number] 15:44-0500 Height 166.37 cm Xi Kiesha AT [facility] Work Phone: NEGATED: Highlighted [id number] 15:44-0500 Height 166 cm Xi Pop AT [facility] Work Phone: NEGATED: Highlighted [id number] 15:44-0500 Pulse (Heart Rate) 76 /min Xi Pop AT [facility] Work Phone: NEGATED: Highlighted [id number] 15:44-0500 Weight 79.83 kg Xi Pop AT [facility] Work Phone: NEGATED: Highlighted [id number] 15:44-0500 Weight 80 kg Xi Pop AT [facility] Work Phone: Encounters Encounter Date Encounter Type Care Provider Facility Start: 03-12-2025 ambulatory Missy Workman Facilit y:[facility] Start: 02-04-2025 End: 02-04-2025 ambulatory Missy Workman Facility:[facility] Start: 11-07-2024 End: 11-07-[address] Jordon Benavides MD -[facility] Work Phone: Start: 11-07-2024 End: 11-07-[address] Missy Workman MD Work Phone: -[facility] Start: 10-23-2024 End: 10-23-2024 Telephone encounter Mami Paul [employer] OPERATOR Ophthalmology Comment on above: Social Work Consulta tion Start: 10-22-2024 End: 10-22-2024 Patient encounter procedure Sabrina Guzamn MD Work Phone: Ophthalmology Comment on above: NAION (non-arteritic anterior ischemic optic neuropathy), bilateral (Primary Dx); Other localized visual field defect, bilateral Start: 10-22-2024 End: 10-22-2024 ambulatory SHADY SCHUSTER Facility:[facility] Start: 06-15-2024 End: 06-15-2024 ambulatory Missy Workman Facility:[facility] Start: 05-17-2024 End: 05-17-2024 ambulatory Missy Workman Facility:[facility] Start: 05-10-2024 End: 05-10-2024 Telephone encounter Sabrina Guzman MD Work Phone: Ophthalmology Comment on above: Office notes from [facility] Start: 05-06-2024 ambulatory Missy Workman Facilit y:[facility] Start: 05-06-2024 End: 05-06-2024 ambulatory Missy Workman Facility:[facility] Start: 04-30-2024 End: 04-30-2024 ambulatory Shady Schuster Facility:[facility] Start: 04-15-2024 End: 04-15-2024 ambulatory Shady Schuster Facility:[facility] Start: 03-29-2024 End: 03-29-2024 ambulatory Kati HOUSTON Facility:[facility] Start: 03-21-2024 End: 03-21-2024 ambulatory Missy Workman Facility:[facility] Start: 11-27-2023 End: 11-27-2023 ambulatory ANDERSON TIAN [facility] Start: 09-01-2023 End: 09-01-[address] [facility] Work Phone: Start: 09-01-2023 End: 09-01-[address] [facility] Work Phone: Start: 06-29-2023 End: 06-29-2023 Patient encounter procedure [facility] Work Phone: Start: 05-30-2023 End: 05-30-[address] Missy Workman Work Phone: [facility] Work Phone: Start: 05-30-2023 End: 05-30-[address] Missy Workman Work Phone: [facility] Work Phone: Start: 04-14-2023 End: 04-14-[address] Missy Workman Work Phone: [facility] Work Phone: Start: 04-14-2023 End: 04-14-[address] Missy Workman Work Phone: [facility] Start: 03-09-2023 End: 03-09-[address] Missy Workman Work Phone: [facility] Work Phone: Start: 03-09-2023 End: 03-09-[address] Missy Workman Work Phone: [facility] Start: 02-16-2023 End: 02-16-[address] Missy Workman Work Phone: [facility] Work Phone: Start: 12-08-2022 End: 12-08-[address] Missy Workman Work Phone: [facility] Work Phone: Start: 12-06-2022 End: 12-06-[address] Missy Workman Work Phone: [facility] Work Phone: Start: 12-06-2022 End: 12-06-[address] Missy Workman Work Phone: [facility] Work Phone: Start: 09-13-2022 End: 09-13-[address] Missy Workman Work Phone: [facility] Start: 09-12-2022 End: 09-12-[address] Missy Workman Work Phone: [facility] Work Phone: Start: 09-12-2022 End: 09-12-[address] Missy Workman Work Phone: [facility] Start: 08-08-2022 End: 08-08-[address] Missy Workman Work Phone: [facility] Start: 06-10-2022 End: 06-10-[address] Missy Workman Work Phone: [facility] Start: 06-03-2022 Telephone encounter Christoph Zuñiga DO Work Phone: Ophthalmology Comment on above: Appointment Start: 05-31-2022 End: 05-31-[address] Missy Workman Work Phone: [facility] Work Phone: Start: 05-31-2022 End: 05-31-[address] Missy Workman Work Phone: [facility] Start: 05-27-2022 Non-patient / Non-visit Dr. Maria Luz Workman Work Phone: [facility] Start: 05-27-2022 End: 05-27-2022 Admission to same day surgery center Dr. Missy Workman Work Phone: [facility] Start: 05-27-2022 End: 05-27-[address] Missy Workman Work Phone: [facility] Work Phone: Start: 05-23-2022 End: 05-23-[address] Missy Workman Work Phone: [facility] Start: 05-20-2022 Non-patient / Non-visit Dr. Maria Luz Workman Work Phone: [facility] Start: 05-20-2022 End: 05-20-[address] Missy Workman Work Phone: [facility] Work Phone: Start: 05-20-2022 End: 05-20-[address] Missy Workman Work Phone: [facility] Start: 05-18-2022 End: 05-18-[address] Missy Workman Work Phone: [facility] Start: 05-16-2022 End: 05-16-[address] Missy Workman Work Phone: [facility] Work Phone: Start: 05-16-2022 End: 05-16-[address] Missy Workman Work Phone: [facility] Start: 03-08-2022 End: 03-08-[address] Missy Workman Work Phone: [facility] Work Phone: Start: 03-08-2022 End: 03-08-[address] Missy Workman Work Phone: [facility] Start: 12-22-2021 Non-patient / Non-visit Dr. Maria Luz Workman Work Phone: [facility] Start: 12-16-2021 Non-patient / Non-visit Dr. Maria Luz Workman Work Phone: [facility] Start: 12-16-2021 End: 12-16-[address] Missy Workman Work Phone: [facility] Start: 12-13-2021 Non-patient / Non-visit Dr. Maria Luz Workman Work Phone: [facility] Start: 12-13-[address] Missy echeverria Work Phone: [facility] Start: 11-25-2021 End: 11-25-[address] Missy Workman Work Phone: [facility] Start: 09-14-2021 End: 09-14-[address] Missy Workman Work Phone: [facility] Start: 09-01-2021 End: 09-01-2021 Patient encounter procedure [facility] Start: 07-02-2021 End: 07-02-2021 Patient encounter procedure [facility] Start: 06-29-2021 End: 06-29-2021 Patient encounter procedure [facility] Start: 06-25-2021 End: 06-25-2021 Patient encounter procedure [facility] Start: 05-23-2018 End: 05-23-2018 Ot evaluation Missy Paul MD Work Phone: [facility] Work Phone: Start: 05-23-2018 End: 05-23-2018 Patient encounter procedure Missy Paul MD Work Phone: [facility] Work Phone: Procedures Date [...] RSV Vaccine (1 - 1-dose 75+ series) [facility] Start: 01-13-2026 Urine microalbumin profile DTaP,Tdap,Td Vaccine (2 - Td or Tdap) [facility] Start: 10-27-2025 End: 10-27-2025 Patient encounter procedure 10/27/2025 11:00 AM EDT Office Visit [facility] [address] [address] Sabrina Guzman MD [address] [place] [address] Please schedule this patient for a 1 year return clinic visit at [facility] for non-arteritic anterior ischemic optic neuropathy [place] Ophthalmology Comment on above: Please schedule this patient for a 1 year return clinic visit at [facility] for non-arteritic anterior ischemic optic neuropathy ou Start: 11-06-2024 End: 11-06-2024 ambulatory 11/06/2024 9:45 AM EDT OT/PT/Speech Visit [facility] [place] [address] [place] [address] Suyapa Marks, OT/L To help me get around easier. [facility] [place] Comment on above: To help me get aroun d easier. Start: 09-30-2024 Covid-19 Vaccine ( season) Covid-19 Vaccine ( season) [facility] Start: 05-08-2024 Advance Directive Discussion Advance Directive Discussion [facility] Start: 05-08-2024 Medicare Advantage Annual Wellness Visit [facility] Annual Wellness Visit [facility] Start: 01-07-2024 Covid-19 Vaccine ( season) Covid-19 Vaccine ( season) [facility] Start: 01-07-2024 Influenza vaccination Influenza Vacc ine (#1) [facility] Start: 05-27-2022 Anesthesia major vessels neck simple ligation ANESTH NECK VESSEL SURGERY [facility] Start: 05-27-2022 Ligation/biopsy temporal artery TEMPORAL ARTERY PROCEDURE [facility] Start: 05-27-2022 Patient discharge [facility] Start: 05-08-2022 ADVANCE DIRECTIVE DISCUSSION ADVANCE DIRECTIVE DISCUSSION [facility] Start: 05-08-2022 DEPRESSION ASSESSMENT DEPRESSION ASS ESSMENT [facility] Start: 12-16-2021 Following clinical pathway protocol [facility] Work Phone: Start: 07-03-2018 Shingrix Vaccine (2 of 2) Shingrix Vaccine (2 of 2) [facility] Start: 05-23-2018 End: 05-23-2018 Appointment Appointment [facility] Work Phone: Start: 05-23-2018 End: 05-23-2018 Radex hand minimum 3 views XR HAND 3+ VWS-RT [facility] Work Phone: Start: 09-16-2016 PNEUMOCOCCAL: 65+ (1 - PCV) PNEUMOCOCCAL: 65+ (1 - PCV) [facility] Start: 09-16-2001 SHINGRIX VACCINE (1 of 2) SHINGRIX VACCINE (1 of 2) [facility] Start: 09-16-1996 COLOGUARD (FIT-DNA) COLOGUARD (FIT-D NA) [facility] Start: 09-16-1996 Colonoscopy COLONOSCOPY [facility] Start: 09-16-1996 COLORECTAL CANCER SCREENING COLORECTAL CANCER SCREENING [facility] Start: 09-16-[address] COLONOGRAPHY [facility] Start: 09-16-1996 DIABETES SCREEN DIABETES SCREEN [facility] Start: 09-16-1996 Diabetes Screening Diabetes Screenin g [facility] Start: 09-16-1996 FECAL OCCULT BLOOD FECAL OCCULT BLOO D [facility] Start: 09-16-1996 Screening for malign ant neoplasm of colon [facility] Start: 09-16-1996 SIGMOIDOSCOPY [facility] Start: 09-16-1986 Lipid panel Lipid Screening [facility] herminia [facility] Start: 09-16-1986 LIPID SCREEN LIPID SCREEN [facility] Start: 09-16-1970 Urine microalbumin profile DTAP,TDAP,TD (1 - Tdap) [facility] Start: 09-16-1969 Anxiety Screening Anxiety Screening [facility] Start: 09-16-1969 Depression Screening Depression Scre ening [facility] Start: 09-16-1969 HEPATITIS C SCREENING HEPATITIS C [facility] Start: 09-16-1969 Hepatitis C screening Hepatitis C [facility] CTA [facility] [place] ry arteries W contrast IV [facility] Work Phone: Patient Education CHU alcazar Coronary Calcium Scan [facility] Work Phone: Patient referral [facility] Work Phone: Immunizations Immunization Date Immunization Notes Care Provider [facility] 02-10-2022 influenza virus vaccine, unspecified formulation Sabrina Guzman MD Work Phone: [facility] No information available. Xi Pop AT [facility] Work Phone: Payers Date Payer Category Payer Self-pay [id number] 2022 Medicare MMO MEDICARE MMO MEDADVANTAGE HMO [id number] 2022-Present [phone] [address] [place] [address] O [id number] 2022 Medicare (Managed Care) MMO MEDADVANTAGE HMO [facility] Address: [address] [address] [id number] 2010 Unknown [id number] 1959 Unknown [id number] 1950 Unknown [id number] [id number] Unknown [id number] Unknown [id number] 462 Unknown [id number]. 462 Unknown [id number]. 462 Unknown [id number]. 462 Unknown [id number] [id number]. 462 Unknown [id number]. 462 Unknown [id number] [id number]. 462 Unknown [id number] 2.16.840.1.297691.3.579.2. 462 Unknown [id number] [id number]. 462 Unknown [id number] [id number]. 462 Unknown [id number]. 462 Social History Date Type Detail Facility Start: 12-02-2020 End: 02-16-2023 Tobacco smoking status NHIS Unknown if ever smoked [facility] Start: 1950 Sex Assigned At Male [facility] Start: 1950 Sex Assigned At Not on file [facility] Start: 06-09-2022 End: 10-22-2024 History of Social function [facility] Start: 06-09-2022 End: 10-22-2024 Area Deprivation Index [facility] National Score (1-100), lower number is lower risk 34 [facility] Start: 06-15-2024 End: 10-22-2024 Tobacco smoking status NHIS Never smoked tobacco [facility] Start: 10-22-2024 Tobacco use and exposure Smokeless tobacco non-user [facility] Start: 10-22-2024 Alcoholic beverage intake Not Asked [facility] Start: 10-22-2024 Alcohol Comment 1-2x monthly [facility] Start: 10-21-2024 Gender identity Identifies as male gender (finding) [facility] Start: 10-21-2024 Sexual orientation Heterosexual (fin jake) [facility] NEGATED: Highlighted rowStart: 05-23-2018 End: 05-23-2018 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 [facility] Work Phone: NEGATED: Highlighted rowStart: 05-23-2018 End: 05-23-2018 Assertion Never smoker [facility] Work Phone: Medical Equipment Procedure Code Equipment Code Equipment Origin al Text Equipment Identifier Dates Biopsy, artery, temporal Ligation clip, metallic [id number] [facility] Start: 05-27-2022 Goals Date Patient Goal Desired Activity /State Mental Status Date Assessment Result Facility 05-27-2022 Cognitive function Voice/Name [facility] Work Phone: 12-16-2021 Cognitive function Awake;Alert;A ppropriate;Fol lows Commands [facility] Work Phone: Clinical Notes 05-27-2022 to 10-23-2024 Telephone Encounter - Mami Paul LSW - 10/23/2024 11:50 AM EDTTelephone Encounter - Mami Paul LSW - 10/23/2024 11:50 AM EDTPatient Sabrina Worthy MD - 10/22/2024 10:52 AM EDT Note Date & Type Note Facility 10-23-2024 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 Sabrina Guzman to address concerns with low vision and community resources. AIR BRUSH OPERATOR contacted the patient and introduced self and active licensure. Patient identified through . (Marilyn) was also on the call via speaker. 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 Patient has gone to [facility] and purchased a magnifier and a talking watch but has not had formal low vision training. [facility] is more of a social agency that is only open periodically and does not have low vision specialists or vision rehab therapists. Patient reports that he is independent with ADL's/IADL's and is looking for vision aids and training. AIR BRUSH OPERATOR, patient, and had a lengthy discussion about low vision therapy options. AIR BRUSH OPERATOR provided education and information on the following choices: [facility] Dr. Velásquez ([facility]) for low vision evaluation. Dr. Ni Lowery [facility] low vision [facility]. Occupational therapy in [facility]. The patient and his decided that going to [facility] ([facility] would be best since they have both low vision clinic, occupational therapy, and orientation and mobility training, and support groups, including case management to help him coordinate services and also apply for financial assistance to help cover the cost of low vision aids and vision rehab training. The patient is also interested in training on devices such as his new iPhone. AIR BRUSH OPERATOR will facilitate referral to [facility] and will update Dr. Guzman regarding patient choice to come to [facility] for low vision. SW provided contact information and will remain available as a resource and to ensure the patient is receiving vision services. 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 Sabrina Guzman to address concerns with low vision and community resources. AIR BRUSH OPERATOR contacted the patient and introduced self and active licensure. Patient identified through . (Marilyn) was also on the call via speaker. 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 Patient has gone to [facility] and purchased a magnifier and a talking watch but has not had formal low vision training. [facility] is more of a social agency that is only open periodically and does not have low vision specialists or vision rehab therapists. Patient reports that he is independent with ADL's/IADL's and is looking for vision aids and training. AIR BRUSH OPERATOR, patient, and had a lengthy discussion about low vision therapy options. AIR BRUSH OPERATOR provided education and information on the following choices: [facility] Dr. Velásquez ([facility]) for low vision evaluation. Dr. Ni Lowery [facility] low vision [facility]. Occupational therapy in [facility]. The patient and his decided that going to [facility] ([facility] would be best since they have both low vision clinic, occupational therapy, and orientation and mobility training, and support groups, including case management to help him coordinate services and also apply for financial assistance to help cover the cost of low vision aids and vision rehab training. The patient is also interested in training on devices such as his new iPhone. AIR BRUSH OPERATOR will facilitate referral to [facility] and will update Dr. Guzman regarding patient choice to come to [facility] for low vision. SW provided contact information and will remain available as a resource and to ensure the patient is receiving vision services. documented in this encounter [facility] 10-22-2024 Instructions Sabrina Guzman MD - 10/22/2024 11:15 AM EDT Low vision occupational therapy can be contacted at: [phone]. documented in this encounter [facility] 10-22-2024 Note Date of Procedure 10/22/2024. Intervention Manager Information Ux Researcher: vito. Start time: 9:46 AM. Stop time: [...] [facility] 10-22-2024 Note Date of Procedure 10/22/2024. Intervention Manager Information Ux Researcher: Bina Conde. Start time: 10:34 AM. Stop time: 10:34 AM. NFL Interpretation Right Eye Superior loss, Inferior loss. Left Eye Superior loss, Inferior loss. Ganglion Cell Layer Thickness Right Eye Diffuse loss. Left Eye Diffuse loss (Near diffuse). Interval Change Right Eye Initial. Left Eye Initial. [facility] 10-22-2024 Note Date of Procedure 10/22/2024. Intervention Manager Information Ux Researcher: Bina Conde. Start time: 10:34 AM. Stop time: 10:34 AM. Interpretation Right Eye Optic Pallor. Left Eye Optic Pallor. Interval Change Right Eye Initial. Left Eye Initial. [facility] 10-22-2024 Note HNO ID: [id number] Author: SABRINA GUZMAN MD Service: ? Author [...] be electronically pushed for personal review from [facility]. I explained that the vision was not [...] forward. He had already established with the [facility] and I thought it was worth establishing with our low vision therapy team to help facilitate adaptations to the patient's visual environment going forward, so referral was placed to occupational therapy, whose expertise is greatly appreciated. They can be contacted at: [phone]. I also provided Dr. Urbano's excellent publication on the subject. 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 ER presentation is otherwise advised for any acute onset neurological deficits. Our [facility] same day access clinic can be reached at: [phone]. Sabrina Guzman MD 3:14 PM 10/22/2024 FOR ADMINISTRATIVE PURPOSES ONLY: My impression of this case is based upon an assessment of the patient's subacute on chronic problems listed above that pose a threat to visual and neurologic function. 51 minutes were spent on total patient care on the day of service that includes both cxsi-zs-hipw and ave-tikq-zb-face time. This time was separate from any of my time spent completing and interpreting the ancillary testing (such as OCT, fundus photos, visua (more content not included)... [facility] 10-22-2024 History of Presen t illness Narrative [...] be electronically pushed for personal review from [facility]. I explained that the vision was not [...] forward. He had already established with the [facility] and I thought it was worth establishing with our low vision therapy team to help facilitate adaptations to the patient's visual environment going forward, so referral was placed to occupational therapy, whose expertise is greatly appreciated. They can be contacted at: [phone]. I also provided Dr. Urbano's excellent publication on the subject. 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 ER presentation is otherwise advised for any acute onset neurological deficits. Our [facility] same day access clinic can be reached at: [phone]. Sabrina Guzman MD 3:14 PM 10/22/2024 FOR ADMINISTRATIVE PURPOSES ONLY: My impression of this case is based upon an assessment of the patient's subacute on chronic problems listed above that pose a threat to visual and neurologic function. 51 minutes were spent on total patient care on the day of service that includes both gkvz-an-voni and seo-swzv-kd-face time. This time was separate from any [...] and voiced understanding. documented in this encounter [facility] 05-10-2024 Telephone encounter Note Received faxed office notes from [facility] office of Dr Shady Schuster. Faxed to Dr Guzman and sent for scanning in boomtrain. [facility] 05-10-2024 Miscellaneous Notes Received faxed office notes from [facility] office of Dr Shady Schuster. Faxed to Dr Guzman and sent for scanning in boomtrain. documented in this encounter [facility] 09-01-2023 Discharge summary Note Date/Time September 01, 2023 9:34am [facility] Physical [facility] [address] [place] [address] / REHABILITATION SERVICES DISCHARGE SUMMARY MR#: [id number] Acct: [id number] Name: RIZWAN CLIFFORD Rep #: [id number] : 1950 72 From: Carlos Anderson PT, [...] please feel free to call me at [phone]. Thank you for the referral of thispatient. Sincerely, Carlos Anderson, PT, ATC Balance/Gait/Functional tests Balance/Special Test Scores Oswestry Low Back Score: 3 Improvement % Improvement: 100 <Electronically signed by Carlos Anderson PT, ATC> 09/01/23 0934 CC: Dr. Missy Workman MD; Dr. Jan Alston, ~ [facility] Signed [facility] Work Phone: 1(182) 858-568501-27-2023 Miscellaneous Notes* Telephone Encounter - Elise Florian - 06/03/2022 1:14 PM EST Patient returned call and has been scheduled. * Telephone Encounter - Elise Florian - 06/03/2022 11:28 AM EST Images from the original note were not included. Left message for patient to return call regarding appointment next week in [place]. Waiting tohear back. RE: Referral Received: Yesterday [...] within a week. Patient is closer to [place] if he is able to be seenat that location. You currently have 18 for the day on 06/06 and 19 patients for the day on 06/13 at . Would you be okay with seeing the patient on either of these days. Dr. Schuster's office can becontacted at the following number, . Contact is Kati. Records are being faxed for review. [facility] Procedure noteWooLake County [facility] - WestChief complaint+Reason for visit Narrative* Chief Complaint COUGH, POSITIVE HOME COVID TEST Reason for Visit COVID-[address] [facility] Work Phone: Discharge summary Author Dr. Mahoney [facility] May 27, 2022 1:53pm Note Date/Time May 27, 2022 1 :53pm [facility] Medical Records Department [address] [place] [address] Instructions for Home/Discharge Instructions 05/27/22 1352 MR#: [id number] Acct: [id number] Name: RIZWAN CLIFFORD Rep #:[id number] : 1950 71 From: Norman fuller MD PCP: Dr. Missy Workman MD Status:[facility] Discharge Instructions Diet Discharge Diet: No restrictions [...] to schedule 2 week follow up appointment. [phone] Test Results: Test results from this visit [...] CC: Dr. Missy Workman MD ~ Signed [facility] Work Phone: evaluation noteNo assessment information available [facility] Work Phone: evaluation note* Diagnosis Onset Date Resolution Status Chest pain acute Hyperlipidemia [facility] Work Phone: evaluation note* Diagnosis Onset Date Resolution Status Blurry vision, right eye acu te Change in vision acute Elevated blood pressure read ing in office with diagnosis of hypertension acute Hyperlipidemia chronic Blurry vision, right eye acu te [facility] Work Phone: evaluation note* Diagnosis Onset Date Resolution Status Blurry vision, right eye acu te Change in vision acute Elevated blood pressure read ing in office with diagnosis of hypertension acute Hyperlipidemia chronic Blurry vision, right eye acu te Blurry vision acute [facility] Work Phone: evaluation note* Diagnosis Onset Date Resolution Status Blurry vision, right eye acu te Blurry vision acute Elevated blood pressure read ing in office with diagnosis of hypertension acute Essential hypertension acute Hyperlipidemia [facility] Work Phone: evaluation note* Diagnosis Onset Date Resolution Status Essential hypertension acute Hyperlipidemia chronic [facility] Work Phone: evaluation note* Diagnosis Onset Date Resolution Status Essential hypertension acute Hyperlipidemia chronic [facility] Work Phone: evaluation note* Diagnosis Onset Date Resolution Status COVID-19 [facility] Work Phone: evaluation note* Diagnosis NAION (non-arteritic anterior ischemic optic neuropathy), bilateral- Primary Other localized visual field defect, bilateral documented [facility] this encounter [facility] Author Dr. Mahoney [facility] May 27, 2022 1:47pm Note Date/Time May 27, 2022 1 :47pm [facility] Medical Records Department [address] [place] [address] History & Physical Exam 05/27/22 1346 MR#: [id number] Acct: [id number] Name: RIZWAN CLIFFORD Rep #:[id number] : 1950 71 From: Norman fuller MD PCP: Dr. Missy Workman MD Status:[facility] Location: [place] [address] History and Physical Date of Admission: 05/27/22 [...] his turmeric immediately. Norman Mahoney MD Pager: [facility] [address] [place] [address], [address] [place] [address] Office: I have examined the patient and the H&P has been reviewed. There are no clinicalchanges since date of exam. 05/27/22 1347 <Electronically signed by Norman Mahoney MD> Cosigner Signature (if applicable): CC: Dr. Norman Mahoney MD; Dr. Missy Workman MD~ Signed [facility] Work Phone: Reason for referral (narrative)No reason for referral information [facility] Work Phone: Chief Complaint Chief Complaint Description [...] November 13, 2020 6 :30pm Power of Custom Clothier Yes November 13, 2020 6:30pm Advance Directive Response Recorded Date/ Time Advance Directives No March 01, 2014 5:19am Living Will Yes November 13, 2020 5 :30pm Power of Custom Clothier Yes November 13, 2020 5:30pm Advance Directive Response Recorded Date/ Time Name of Medical Power of Custom Clothier MARILYN GIMENEZ May 24, 2022 2:31pm Advance Directives No March 01, 2014 5:19am Living Will Yes May 24 2:31pm Power of Custom Clothier Yes May 24, 2022 2:31pm Advance Directive Response Recorded Date/ Time Name of Medical Power of Custom Clothier MARILYN GIMENEZ May 24, 2022 3:31pm Advance Directives No March 01, 2014 6:19am Living Will Yes May 24 3:31pm Power of Custom Clothier Yes May 24, 2022 3:31pm Advance Directive Response Recorded Date/ Time Advance Directives No March 01, 2014 6:19am Living Will Yes May 24 3:31pm Power of Custom Clothier Yes May 24, 2022 3:31pm Advance Directive Response Recorded Date/ Time Advance Directives No March 01, 2014 5:19am Living Will Yes May 24 2:31pm Power of Custom Clothier Yes May 24, 2022 2:31pm Advance Directive Response Recorded Date/ Time Living Will Yes May 24 3:31pm Do you have a Healthcare Power of Custom Clothier? Yes May 24, 2022 3:31pm Advance Directives [...] Comments Appointment Reason Comments Office notes from [facility] Reason Comments NAION Evaluation Reason Comments [...] Workman MD Family Provider Active Dr. 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 Relationship Specialty Start Date End Date Missy Workman MD [address] [facility] [address] [place], [place] [id number] PCP - General Family Medicine 10/22/24 Shady Schuster [address] [facility], [place] [address] Referring Ophthalmology 06/01/22 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 Relationship Specialty Start Date End Date Missy Workman MD [address] [facility] [address] [place], [place] [address] PCP - General Family Medicine 10/22/24 Shady Schuster [address] [facility], [place] [id number] Referring Ophthalmology 06/01/22 Team Status: Active Member [...] or prosecute any alcohol or drug abuse patient.[facility] the event this information is protected by the Federal Confidentiality of Alcohol and Drug Abuse Patient Records regulations: The Federal rules restrict any use of the information to criminally investigate or prosecute any alcohol or drug abuse patient.[facility] the event this information is protected by the Federal Confidentiality of Alcohol and Drug Abuse Patient Records regulations: The Federal rules restrict any use of the information to criminally investigate or prosecute any alcohol or drug abuse patient.[facility] the event this information is protected by the Federal Confidentiality of Alcohol and Drug Abuse Patient Records regulations: The Federal rules restrict any use of the information to criminally investigate or prosecute any alcohol or drug abuse patient.[facility] (unrecognized sect ion and content) No Status Records FoundNo Status Records FoundNo Status Records Found INFORMATION SOURCE (unrecogn ized section and content) DATE CREATED AUTHOR 02/21/2024 [facility] DATE CREATED AUTHOR AUTHOR'S ORGANIZ ATION 12/20/2024 [facility] DATE CREATED AUTHOR AUTHOR'S ORGANIZ ATION 03/14/2025 [facility] FOR RECORDS PERTAINING TO PATIENTS WHO [...] BE BASED ON THE PRIMARY CLINICAL RECORDS. [facility] [employer] [facility]. provides no warranty or guarantee of the accuracy or completeness of information in this document.
== END | disposition home or self-care (01) ==
LOC: OPMRI 07:07
PROVIDERS: PCP Family Medicine; Referring Provider Family Medicine; Visit Provider Family Medicine
DX: H47.013 Ischemic optic neuropathy, bilateral (principal)
CPT/HCPCS: 70553; A9575